=== PATIENT | female | born 1960 | race Caucasian/White ===

== ENCOUNTER → 2018-09-13 | Outpatient (CLI) | payer MEDICARE, OTHER ==
--- NOTE | 2018-09-13 15:30 | CT ---
EXAMINATION TYPE: CT abdomen w con DATE OF EXAM: 09/13/2018 COMPARISON: PET/CT 5-15 HISTORY: Upper abdominal pain and elevated lipase. CT DLP: 1479.8 mGycm Automated exposure control for dose reduction was used. TECHNIQUE: Helical acquisition of images was performed from the lung bases through the top of iliac crest to include entire abdomen. CONTRAST: Performed with Oral Contrast and with IV Contrast, patient injected with 100ml mL of Isovue 300. FINDINGS: LUNG BASES: No significant abnormality is appreciated. LIVER/GB: Previous cholecystectomy noted. Liver is low in attenuation correlate for hepatic steatosis . PANCREAS: No significant abnormality is seen. SPLEEN: No significant abnormality is seen. ADRENALS: Nonspecific bilateral adrenal nodule. Measuring 2.2 cm on the right. KIDNEYS: No significant abnormality is seen. Extrarenal pelvis on the right noted. BOWEL: No significant abnormality is seen. LYMPH NODES: No significant abnormality is seen. OSSEOUS STRUCTURES: hypertrophic and degenerative change of the spine. OTHER: Aorta of normal caliber. Mild atherosclerotic changes. IMPRESSION: 1. NO DIAGNOSTIC EVIDENCE OF PANCREATITIS. 2. NONSPECIFIC BILATERAL ADRENAL NODULE RETROSPECTIVELY STABLE FROM A PET SCAN OF 2014 AND THEREFORE BENIGN. 3. POSTCHOLECYSTECTOMY CHANGES.
== END | disposition home or self-care (01) ==
LOC: RADPROMAIN 13:57 → MERGE 13:57
PROVIDERS: ATTEND Family Medicine
DX: E27.9 Disorder of adrenal gland, unspecified (principal); R74.8 Abnormal levels of other serum enzymes; Z90.49 Acquired absence of other specified parts of digestive tract
CPT/HCPCS: 74160; J1642; Q9967

== ENCOUNTER 2022-05-09 12:30 | Inpatient (IN) | payer MEDICARE, OTHER ==
--- NOTE | 2022-05-09 13:14 | ED ---
General Adult HPI - General Chief complaint: Shortness of Breath Stated complaint: SOB Time Seen by Provider: 05/09/22 13:04 Source: patient, RN notes reviewed Mode of arrival: ambulatory Limitations: no limitations - History of Present Illness Initial comments: Patient is a pleasant 61-year-old female presenting to the emergency department with difficulty breathing. Onset of symptoms was around 10 days ago. Patient has occasional nonproductive cough. No fever. Patient has orthopnea and exertional dyspnea. No chest pain. No leg pain or leg swelling. No history of similar symptoms previously. - Related Data Allergies Allergy/AdvReac Type Severity Reaction Status Date / Time adhesive tape Allergy Itching Verified 05/09/22 12:44 Penicillins Allergy Unknown Verified 05/09/22 12:44 ALEXIS Inhibitors AdvReac Unknown Verified 05/09/22 12:44 morphine AdvReac Swelling Verified 05/09/22 12:44 Review of Systems ROS Statement: Those systems with pertinent positive or pertinent negative responses have been documented in the HPI. ROS Other: All systems not noted in ROS Statement are negative. Constitutional: Denies: fever Eyes: Denies: eye pain ENT: Denies: ear pain Respiratory: Reports: as per HPI, dyspnea Cardiovascular: Denies: chest pain, palpitations Endocrine: Denies: fatigue Gastrointestinal: Denies: abdominal pain Genitourinary: Denies: dysuria Musculoskeletal: Denies: back pain Skin: Denies: rash Neurological: Denies: weakness Past Medical History Past Medical History: Cancer, Diabetes Mellitus, Hypertension Additional Past Medical History / Comment(s): breast cancer History of Any Multi-Drug Resistant Organisms: None Reported Past Surgical History: Section, Cholecystectomy Additional Past Surgical History / Comment(s): left lumpectomy Past Psychological History: Anxiety Smoking Status: Never smoker Past Alcohol Use History: None Reported Past Drug Use History: None Reported General Exam Limitations: no limitations General appearance: alert, in no apparent distress Head exam: Present: normocephalic Eye exam: Present: normal appearance Neck exam: Present: normal inspection Respiratory exam: Present: normal lung sounds bilaterally, other (Mild increased respiratory effort) Cardiovascular Exam: Present: tachycardia GI/Abdominal exam: Present: soft. Absent: tenderness Extremities exam: Present: normal inspection. Absent: pedal edema, calf tenderness Neurological exam: Present: alert Psychiatric exam: Present: normal affect, normal mood Skin exam: Present: normal color Course Vital Signs 05/09/22 12:45 Temperature 98.6 F Pulse Rate 110 H Respiratory 18 Rate Blood Pressure 202/113 O2 Sat by Pulse 97 Oximetry EKG Findings - EKG Comments: EKG Findings:: Sinus tachycardia 107. FL 166. QRS 88. QT 325. QTC 388. Nor mal axis. Normal QRS. Nonspecific T waves. Medical Decision Making - Medical Decision Making Patient reevaluated and updated. Case was discussed Dr. Mendieta, who will admit covering Dr. Guzman. - Lab Data Result diagrams: 05/09/22 14:01 05/09/22 14:00 Lab Results 05/09/22 05/09/22 05/09/22 Range/Units 14:00 14:00 14:00 WBC (3.8-10.6) k/uL RBC (3.80-5.40) m/uL Hgb (11.4-16.0) gm/dL Hct (34.0-46.0) % MCV (80.0-100.0) fL MCH (25.0-35.0) pg MCHC (31.0-37.0) g/dL RDW (11.5-15.5) % Plt Count (150-450) k/uL MPV Neutrophils % % Lymphocytes % % Monocytes % % Eosinophils % % Basophils % % Neutrophils # (1.3-7.7) k/uL Lymphocytes # (1.0-4.8) k/uL Monocytes # (0-1.0) k/uL Eosinophils # (0-0.7) k/uL Basophils # (0-0.2) k/uL PT 10.7 (9.0-12.0) sec INR 1.0 (<1.2) APTT 22.0 (22.0-30.0) sec D-Dimer 0.60 H (<0.60) mg/L FEU Sodium 129 L (137-145) mmol/L Potassium 3.9 (3.5-5.1) mmol/L Chloride 94 L (98-107) mmol/L Carbon Dioxide 22 (22-30) mmol/L Anion Gap 13 mmol/L BUN 16 (7-17) mg/dL Creatinine 0.77 (0.52-1.04) mg/dL Est GFR (CKD-EPI)AfAm >90 (>60 ml/min/1.73 sqM) Est GFR (CKD-EPI)NonAf 82 (>60 ml/min/1.73 sqM) Glucose 156 H (74-99) mg/dL Plasma Lactic Acid Tyler 1.4 (0.7-2.0) mmol/L Calcium 9.3 (8.4-10.2) mg/dL Total Bilirubin 1.0 (0.2-1.3) mg/dL AST 21 (14-36) U/L ALT 14 (4-34) U/L Alkaline Phosphatase 72 (38-126) U/L NT-Pro-B Natriuret Pep pg/mL Total Protein 7.2 (6.3-8.2) g/dL Albumin 4.1 (3.5-5.0) g/dL Coronavirus (PCR) (Not Detectd) Influenza Type A RNA (Not Detectd) Influenza Type B (PCR) (Not Detectd) 05/09/22 05/09/22 05/09/22 Range/Units 14:00 14:00 14:00 WBC (3.8-10.6) k/uL RBC (3.80-5.40) m/uL Hgb (11.4-16.0) gm/dL Hct (34.0-46.0) % MCV (80.0-100.0) fL MCH (25.0-35.0) pg MCHC (31.0-37.0) g/dL RDW (11.5-15.5) % Plt Count (150-450) k/uL MPV Neutrophils % % Lymphocytes % % Monocytes % % Eosinophils % % Basophils % % Neutrophils # (1.3-7.7) k/uL Lymphocytes # (1.0-4.8) k/uL Monocytes # (0-1.0) k/uL Eosinophils # (0-0.7) k/uL Basophils # (0-0.2) k/uL PT (9.0-12.0) sec INR (<1.2) APTT (22.0-30.0) sec D-Dimer (<0.60) mg/L FEU Sodium (137-145) mmol/L Potassium (3.5-5.1) mmol/L Chloride (98-107) mmol/L Carbon Dioxide (22-30) mmol/L Anion Gap mmol/L BUN (7-17) mg/dL Creatinine (0.52-1.04) mg/dL Est GFR (CKD-EPI)AfAm (>60 ml/min/1.73 sqM) Est GFR (CKD-EPI)NonAf (>60 ml/min/1.73 sqM) Glucose (74-99) mg/dL Plasma Lactic Acid Tyler (0.7-2.0) mmol/L Calcium (8.4-10.2) mg/dL Total Bilirubin (0.2-1.3) mg/dL AST (14-36) U/L ALT (4-34) U/L Alkaline Phosphatase (38-126) U/L NT-Pro-B Natriuret Pep 84700 pg/mL Total Protein (6.3-8.2) g/dL Albumin (3.5-5.0) g/dL Coronavirus (PCR) Not Detected (Not Detectd) Influenza Type A RNA Not Detected (Not Detectd) Influenza Type B (PCR) Not Detected (Not Detectd) 05/09/22 Range/Units 14:01 WBC 12.3 H (3.8-10.6) k/uL RBC 4.20 (3.80-5.40) m/uL Hgb 12.8 (11.4-16.0) gm/dL Hct 38.2 (34.0-46.0) % MCV 90.8 (80.0-100.0) fL MCH 30.4 (25.0-35.0) pg MCHC 33.4 (31.0-37.0) g/dL RDW 12.2 (11.5-15.5) % Plt Count 323 (150-450) k/uL MPV 6.9 Neutrophils % 78 % Lymphocytes % 15 % Monocytes % 6 % Eosinophils % 1 % Basophils % 0 % Neutrophils # 9.6 H (1.3-7.7) k/uL Lymphocytes # 1.9 (1.0-4.8) k/uL Monocytes # 0.7 (0-1.0) k/uL Eosinophils # 0.1 (0-0.7) k/uL Basophils # 0.1 (0-0.2) k/uL PT (9.0-12.0) sec INR (<1.2) APTT (22.0-30.0) sec D-Dimer (<0.60) mg/L FEU Sodium (137-145) mmol/L Potassium (3.5-5.1) mmol/L Chloride (98-107) mmol/L Carbon Dioxide (22-30) mmol/L Anion Gap mmol/L BUN (7-17) mg/dL Creatinine (0.52-1.04) mg/dL Est GFR (CKD-EPI)AfAm (>60 ml/min/1.73 sqM) Est GFR (CKD-EPI)NonAf (>60 ml/min/1.73 sqM) Glucose (74-99) mg/dL Plasma Lactic Acid Tyler (0.7-2.0) mmol/L Calcium (8.4-10.2) mg/dL Total Bilirubin (0.2-1.3) mg/dL AST (14-36) U/L ALT (4-34) U/L Alkaline Phosphatase (38-126) U/L NT-Pro-B Natriuret Pep pg/mL Total Protein (6.3-8.2) g/dL Albumin (3.5-5.0) g/dL Coronavirus (PCR) (Not Detectd) Influenza Type A RNA (Not Detectd) Influenza Type B (PCR) (Not Detectd) - Radiology Data Radiology results: image reviewed (Chest x-ray shows cardiomegaly and edema, correlate for CHF) Disposition Clinical Impression: Congestive heart failure, Hypertension Disposition: ADMITTED IP TO THIS [facility] Condition: Serious Is patient prescribed a controlled substance at d/c from ED?: No Referrals: Jeniffer Figueroa MD [Primary Care Provider] - 1-2 days Time of Disposition: 14:59
--- NOTE | 2022-05-09 13:21 | XR ---
EXAMINATION TYPE: XR chest 2V DATE OF EXAM: 05/09/2022 COMPARISON: None HISTORY: 61-year-old female shortness of breath and chest pain TECHNIQUE: PA and lateral views FINDINGS: Right anterior chest wall injection port. Catheter tip at the mid SVC level. Heart mildly enlarged. D iffuse interstitial opacities. There are small effusions. Surgical clips left axilla. Cholecystectomy clips. IMPRESSION: Mild cardiomegaly. Correlate for CHF with mild interstitial pulmonary edema. Small effusions with adj acent atelectasis and/or consolidation.
[2022-05-09] MEDS ORDERED: FUROSEMIDE 10 MG/ML 4 ML VIAL IV STA (13:39)
[2022-05-09] MEDS ORDERED: NITROGLYCERIN OINT 1 INCH/GM PACKET TOPICAL STA (13:39)
[2022-05-09 14:20] LABS: Basophils # (A) 0.1 k/uL (0-0.2); Basophils % (A) 0 %; Eosinophils # (A) 0.1 k/uL (0-0.7); Eosinophils % (A) 1 %; HCT 38.2 % (34.0-46.0); HGB 12.8 gm/dL (11.4-16.0); Lymphocytes # (A) 1.9 k/uL (1.0-4.8); Lymphocytes % (A) 15 %; MCH 30.4 pg (25.0-35.0); MCHC 33.4 g/dL (31.0-37.0); MCV 90.8 fL (80.0-100.0); Mean Platelet Volume 6.9; Monocytes # (A) 0.7 k/uL (0-1.0); Monocytes % (A) 6 %; Neutrophils # (A) 9.6 k/uL (1.3-7.7); Neutrophils % (A) 78 %; Platelet Count 323 k/uL (150-450); RDW 12.2 % (11.5-15.5); WBC 12.3 k/uL (3.8-10.6)
[2022-05-09 14:36] LABS: ALT 14 U/L (4-34); AST 21 U/L (14-36); African American GFR (CKD) >90 (>60 ml/min/1.73 sqM); Albumin 4.1 g/dL (3.5-5.0); Alkaline Phosphatase 72 U/L (38-126); Anion Gap 13 mmol/L; Blood Urea Nitrogen 16 mg/dL (7-17); Calcium 9.3 mg/dL (8.4-10.2); Carbon Dioxide 22 mmol/L (22-30); Chloride 94 mmol/L (98-107); Glucose 156 mg/dL (74-99); Non-African American GFR(CKD) 82 (>60 ml/min/1.73 sqM); Potassium 3.9 mmol/L (3.5-5.1); Sodium 129 mmol/L (137-145); Total Protein 7.2 g/dL (6.3-8.2)
[2022-05-09 14:37] LABS: Prothrombin Time 10.7 sec (9.0-12.0)
[2022-05-09] MEDS ORDERED: ASPIRIN 325 MG TAB PO STA (14:59)
[2022-05-09 17:08] LABS: Glucose,Whole Blood 145 mg/dL (70-110)
[2022-05-09] MEDS: FUROSEMIDE 10 MG/ML 4 ML VIAL IV SCH (19:04)
[2022-05-09] MEDS: NITROGLYCERIN OINT 1 INCH/GM PACKET TOPICAL SCH ×2 (19:04→20:58)
[2022-05-09] MEDS ORDERED: DEXTROSE 50% SYRINGE 50 ML IVP PRN ×2 (19:43)
[2022-05-09] MEDS ORDERED: ALBUTEROL NEBULIZED 2.5 MG/3 ML INHALATION PRN (19:43)
[2022-05-09 20:06] LABS: Glucose,Whole Blood 195 mg/dL (70-110)
[2022-05-09] MEDS: INSULIN DETEMIR (LEVEMIR) 100 UNIT/ML SYR SQ SCH (20:55)
[2022-05-09] MEDS: metFORMIN 500 MG TAB PO SCH (20:58)
[2022-05-09] MEDS: INSULIN ASPART (NovoLOG) 100 UNIT/ML VIAL SQ SCH (20:58)
[2022-05-10] MEDS: FUROSEMIDE 10 MG/ML 4 ML VIAL IV SCH ×3 (05:38→17:43)
[2022-05-10] MEDS: metFORMIN 500 MG TAB PO SCH ×2 (05:42→17:42)
--- NOTE | 2022-05-10 06:02 | P.CRDCN ---
History of Present Illness Consult date: 05/10/22 Chief complaint: Shortness of breath History of present illness: This is a 61-year-old female patient with a past medical history significant for diabetes and hypertension and history of breast cancer presented to the emergency department complaining of shortness of breath. For the last 10 days she has been experiencing progressive exertional dyspnea with no orthopnea or PND. No cough or sputum production. No fever or chills. No lower extremities edema noted. No symptoms of chest pain or chest discomfort. Initially she went into an urgent care and she was prescribed medication with no improvement but the shortness of breath get worse and she did not feed well and for that reason she presented to the emergency department. She was diagnosed with heart failure. She started on Lasix IV. Also she underwent a workup including EKG showing sinus rhythm with sinus tachycardia at the beginning. The chest x-ray showed findings consistent with bilateral pleural effusion and pulmonary vascular congestions. NT proBNP came in to be elevated at 11,000. The troponin came in to be slightly elevated. The patient as a mentioned didn't have any symptoms of chest pain or chest discomfort Beside that the patient's blood pressure was extremely elevated with a systolic blood pressure above 180 mmHg. The patient was started on Lasix IV and she was seen and evaluated this morning. She is feeling better. On examination she still have bilateral rhonchi but no lower extremities edema noted. Beside that she does have significant systolic murmur was heard the right upper sternal border as well as at the apical area. we will obtain an echo for further clarification. Also her pressure has improved compared to yesterday but continues to be consistent with a stage II hypertension. Without being seen and for her being diabetic going to add losartan to the current medical regimen. Continue IV Lasix for additional 24 hours. Adjust blood pressure medications. Follow-up with the patient Past Medical History Past Medical History: Cancer, Diabetes Mellitus, Hypertension Additional Past Medical History / Comment(s): breast cancer History of Any Multi-Drug Resistant Organisms: None Reported Past Surgical History: Section, Cholecystectomy Additional Past Surgical History / Comment(s): left lumpectomy x 2. right mediport insertion Past Anesthesia/Blood Transfusion Reactions: No Reported Reaction Past Psychological History: Anxiety Smoking Status: Never smoker Past Alcohol Use History: None Reported Past Drug Use History: None Reported - Past Family History Father Additional Family Medical History / Comment(s): No health hx 91 from pneumonia Mother Additional Family Medical History / Comment(s): No health hx after fall age 96 Medications and Allergies Home Medications Medication Instructions Recorded Confirmed Type Albuterol Nebulized [Ventolin 2.5 mg INHALATION RT-Q4H PRN 05/09/22 05/09/22 History Nebulized] Cholecalciferol [Vitamin D3 (25 25 mcg PO DAILY 05/09/22 05/09/22 History Mcg = 1000 Iu)] DULoxetine HCL [Cymbalta] 60 mg PO DAILY 05/09/22 05/09/22 History Diphenoxylate HCl/Atropine 1 tab PO QID PRN 05/09/22 05/09/22 History [Lomotil 2.5-0.025 mg Tablet] Insulin Glargine,Hum.rec.anlog 18 units SQ HS 05/09/22 05/09/22 History [Lantus Solostar Pen] Letrozole [Femara] 2.5 mg PO DAILY 05/09/22 05/09/22 History Milk Thistle 150 mg PO DAILY 05/09/22 05/09/22 History Ondansetron Odt [Zofran Odt] 4 mg PO TID PRN 05/09/22 05/09/22 History Vitamin E (Dl,Tocopheryl Acet) 1,000 unit PO DAILY 05/09/22 05/09/22 History [Vitamin E (1000 Iu = 450 MG)] hydroCHLOROthiazide 25 mg PO HS 05/09/22 05/09/22 History metFORMIN HCL 1,000 mg PO BID 05/09/22 05/09/22 History methylPREDNISolone [Medrol Dose See Taper PO DIRECTED 05/09/22 05/09/22 History Pack] sitaGLIPtin [Januvia] 50 mg PO DAILY 05/09/22 05/09/22 History Allergies Allergy/AdvReac Type Severity Reaction Status Date / Time adhesive tape Allergy Itching Verified 05/09/22 15:29 Penicillins Allergy Rash/Hives Verified 05/09/22 15:29 ALEXIS Inhibitors AdvReac Cough Verified 05/09/22 15:29 morphine AdvReac Swelling & Verified 05/09/22 15:29 hives Physical Exam Vitals: Vital Signs Temp Pulse Pulse Resp BP BP Pulse Ox 05/10/22 04:00 97.0 F L 89 18 145/72 98 05/10/22 02:00 88 17 05/09/22 23:45 98.1 F 88 17 162/73 94 L 05/09/22 19:47 97.8 F 95 17 183/86 97 05/09/22 16:00 98.3 F 98 18 173/85 96 05/09/22 15:51 101 H 17 167/103 97 05/09/22 15:30 105 H 23 177/99 95 05/09/22 15:00 103 H 16 198/112 95 05/09/22 14:37 108 H 23 198/112 94 L 05/09/22 12:45 98.6 F 110 H 18 202/113 97 Intake and Output 05/09/22 05/09/22 05/10/22 14:59 22:59 06:59 Intake Total 120 Output Total 800 1400 Balance -680 -1400 Intake: Oral 120 Output: Urine 800 1400 Other: Voiding Method Toilet Toilet Weight 78.018 kg 78.018 kg 84.4 kg - Constitutional General appearance: no acute distress - Respiratory Respiratory: bilateral: diminished, rales - Cardiovascular Rhythm: regular Abnormal Heart Sounds: systolic murmur Results 05/09/22 14:01 05/09/22 14:00 Cardiac Enzymes 05/09/22 05/09/22 05/09/22 Range/Units 14:00 14:00 18:10 AST 21 (14-36) U/L Troponin I 0.038 H* 0.048 H* (0.000-0.034) ng/mL 05/09/22 Range/Units 20:49 AST (14-36) U/L Troponin I 0.050 H* (0.000-0.034) ng/mL Coagulation 05/09/22 Range/Units 14:00 PT 10.7 (9.0-12.0) sec APTT 22.0 (22.0-30.0) sec CBC 05/09/22 Range/Units 14:01 WBC 12.3 H (3.8-10.6) k/uL RBC 4.20 (3.80-5.40) m/uL Hgb 12.8 (11.4-16.0) gm/dL Hct 38.2 (34.0-46.0) % Plt Count 323 (150-450) k/uL Comprehensive Metabolic Panel 05/09/22 Range/Units 14:00 Sodium 129 L (137-145) mmol/L Potassium 3.9 (3.5-5.1) mmol/L Chloride 94 L (98-107) mmol/L Carbon Dioxide 22 (22-30) mmol/L BUN 16 (7-17) mg/dL Creatinine 0.77 (0.52-1.04) mg/dL Glucose 156 H (74-99) mg/dL Calcium 9.3 (8.4-10.2) mg/dL AST 21 (14-36) U/L ALT 14 (4-34) U/L Alkaline Phosphatase 72 (38-126) U/L Total Protein 7.2 (6.3-8.2) g/dL Albumin 4.1 (3.5-5.0) g/dL Current Medications Generic Name Dose Route Start Last Admin Trade Name Freq PRN Reason Stop Dose Admin Albuterol Sulfate 2.5 mg 05/09/22 19:43 Albuterol Nebulized 2.5 Mg/3 Ml INHALATION RT-Q4H PRN Shortness Of Breath Aspirin 325 mg 05/10/22 09:00 Aspirin 325 Mg Tab PO DAILY LEATHA Cholecalciferol 25 mcg 05/10/22 09:00 Cholecalciferol 25 Mcg (1000 Iu) Tablet PO DAILY LEATHA Dextrose/Water 25 ml 05/09/22 19:43 Dextrose 50% Syringe 50 Ml IVP PER PROTOCOL PRN Hypoglycemia Protocol Dextrose/Water 50 ml 05/09/22 19:43 Dextrose 50% Syringe 50 Ml IVP PER PROTOCOL PRN Hypoglycemia Protocol Duloxetine HCl 60 mg 05/10/22 09:00 Duloxetine Hcl 60 Mg Capsule.Dr PO DAILY LEATHA Furosemide 40 mg 05/09/22 19:00 05/10/22 05:38 Furosemide 10 Mg/Ml 4 Ml Vial IV 40 mg Q8H LEATHA Administration Insulin Aspart 0 unit 05/09/22 19:45 05/09/22 20:58 Insulin Aspart (Novolog) 100 Unit/Ml Vial SQ 2 unit AC-TID LEATHA Administration Protocol Insulin Detemir 18 unit 05/09/22 21:00 05/09/22 20:55 Insulin Detemir (Levemir) 100 Unit/Ml Syr SQ 18 unit HS LEATHA Administration Letrozole 2.5 mg 05/10/22 09:00 Letrozole 2.5 Mg Tab PO DAILY [facility] Linagliptin 5 mg 05/10/22 09:00 Linagliptin 5 Mg Tablet PO DAILY [facility] Metformin HCl 1,000 mg 05/09/22 21:00 05/10/22 05:42 Metformin 500 Mg Tab PO Not Given BID-W/MEALS LEATHA Nitroglycerin 1 inch 05/09/22 18:00 05/09/22 20:58 Nitroglycerin Oint 1 Inch/Gm Packet TOPICAL 1 inch QID LEATHA Administration Sodium Chloride 10 ml 05/09/22 21:00 05/09/22 20:58 Sodium Chloride 0.9% Flush 10 Ml Syringe IV 10 ml BID LEATHA Administration Intake and Output 05/09/22 05/09/22 05/10/22 14:59 22:59 06:59 Intake Total 120 Output Total 800 1400 Balance -680 -1400 Intake: Oral 120 Output: Urine 800 1400 Other: Voiding Method Toilet Toilet Weight 78.018 kg 78.018 kg 84.4 kg Patient Weight 05/10/22 06:59 Weight 84.4 kg 05/09/22 14:01 05/09/22 14:00 Assessment and Plan Assessment: Assessment #1 hypertension emergency #2 heart failure likely to be triggered by hypertension emergency #3 significant systolic murmur on examination #4 diabetes #5 history of breast cancer #6 evidence of myocardial injury was no evidence of ischemia by EKG or clinically. Plan #1 continue the Lasix for additional 24 hours #2 continue monitor the kidney function and electrolytes #3 add losartan to the current medical regimen #4 obtain an echo for further clarification of the etiology of the murmur and also to assess ejection fraction and for any evidence of ischemia in terms of wall motion #5 continue adjusting the blood pressure medications #6 follow-up with the patient
[2022-05-10 06:32] LABS: Glucose,Whole Blood 106 mg/dL (70-110)
[2022-05-10] MEDS: INSULIN ASPART (NovoLOG) 100 UNIT/ML VIAL SQ SCH ×3 (06:48→17:24)
[2022-05-10] MEDS: LINAGLIPTIN 5 MG TABLET PO SCH (09:09)
[2022-05-10] MEDS: ASPIRIN 325 MG TAB PO SCH (09:09)
[2022-05-10] MEDS: LETROZOLE 2.5 MG TAB PO SCH (09:09)
[2022-05-10] MEDS: LOSARTAN 25 MG TAB PO SCH (09:09)
[2022-05-10] MEDS: CHOLECALCIFEROL 25 MCG (1000 IU) TABLET PO SCH (09:09)
[2022-05-10] MEDS: DULoxetine HCL 60 MG CAPSULE.DR PO SCH (09:09)
[2022-05-10] MEDS: NITROGLYCERIN OINT 1 INCH/GM PACKET TOPICAL SCH ×4 (09:10→22:47)
[2022-05-10 11:58] LABS: Glucose,Whole Blood 126 mg/dL (70-110)
--- NOTE | 2022-05-10 14:23 | P.HPIM ---
History of Present Illness H&P Date: 05/10/22 Chief Complaint: Short of breath This is a pleasant 60-year-old patient of Dr. Eva Figueroa. Chronic stable medical conditions include diabetes, hypertension, anxiety, history of breast cancer. Patient presents for about 10 days of increasing shortness of breath. No edema. No fever and chills. Some dry cough. Patient found to be in CHF. Started on IV Lasix. No chest pain. Blood pressure had been running on the higher side. Review of systems: GEN.: Tired EYES: None HEENT: None NECK: None RESPIRATORY: As above CARDIOVASCULAR: As above GASTROINTESTINAL: None GENITOURINARY: None MUSCULOSKELETAL: Some joint pains LYMPHATICS: None HEMATOLOGICAL: None PSYCHIATRY: None NEUROLOGICAL: None Past medical history to include: Diabetes, hypertension, breast cancer, anxiety Social history: Nonsmoker. No alcohol. Lives with's Art Physical examination: VITAL SIGNS: 98.6, 110, 18, 202/113, 97% room air upon presentation GENERAL: BMI 36.3, sitting or chair awake not in distress. EYES: Pupils equal. Conjunctiva normal. HEENT: External appearance of nose and ears normal, oral cavity grossly normal. NECK: JVD not raised; masses not palpable. HEART: First and second heart sounds are normal; no edema. LUNGS: Respiratory rate normal; decreased breath sounds. ABDOMEN: Soft, nontender, liver spleen not palpable, no masses palpable. PSYCH: Alert and oriented x3; mood and affect normal. MUSCULOSKELETAL:No Clubbing/cyanosis;muscles-grossly intact NEUROLOGICAL: Cranial nerves grossly intact; no facial asymmetry, power and sensation grossly intact. LYMPHATICS: No lymph nodes palpable in the axilla and neck INVESTIGATIONS, reviewed in the clinical context: WBC 12.3 hemoglobin 12.8 platelets 323 sodium 129 potassium 3.9 creatinine 0.77 Troponin I 0.038, 0.048, 0.050 ProBNP 85628 COVID 19/influenza type A/diabetes: Not detected EKG tracing personally reviewed by me-sinus tachycardia. Nonspecific T-wave changes. Chest x-ray film personally reviewed by me-cardiology. Pulmonary edema Assessment and plan: -Acute congestive heart failure precipitated from accelerated hypertension. IV Lasix 40 mg every 8. 2-D echo. Telemetry. Cardiology consulted -Malignant hypertension causing acute CHF Cozaar 25 mg daily Nitropaste. IV Lasix. -Diabetes mellitus type 2 chronically on insulin Levemir, Glucophage. Follow Accu-Cheks with sliding skill insulin. Januvia -Troponin leak from CHF. Not ACS 2-D echocardiogram -Hyponatremia from fluid overload from CHF IV Lasix -Anxiety depression otherwise specified Cymbalta -History of breast cancer: On Femara IV Lasix. Telemetry. 2-D echocardiogram. Follow Accu-Cheks. Resume home med ications. Cardiology consulted. Discussed with patient. Follow blood pressure closely. Past Medical History Past Medical History: Cancer, Diabetes Mellitus, Hypertension Additional Past Medical History / Comment(s): breast cancer History of Any Multi-Drug Resistant Organisms: None Reported Past Surgical History: Section, Cholecystectomy Additional Past Surgical History / Comment(s): left lumpectomy x 2. right mediport insertion Past Anesthesia/Blood Transfusion Reactions: No Reported Reaction Past Psychological History: Anxiety Smoking Status: Never smoker Past Alcohol Use History: None Reported Past Drug Use History: None Reported - Past Family History Father Additional Family Medical History / Comment(s): No health hx 91 from pneumonia Mother Additional Family Medical History / Comment(s): No health hx after fall age 96 Medications and Allergies Home Medications Medication Instructions Recorded Confirmed Type Albuterol Nebulized [Ventolin 2.5 mg INHALATION RT-Q4H PRN 05/09/22 05/09/22 History Nebulized] Cholecalciferol [Vitamin D3 (25 25 mcg PO DAILY 05/09/22 05/09/22 History Mcg = 1000 Iu)] DULoxetine HCL [Cymbalta] 60 mg PO DAILY 05/09/22 05/09/22 History Diphenoxylate HCl/Atropine 1 tab PO QID PRN 05/09/22 05/09/22 History [Lomotil 2.5-0.025 mg Tablet] Insulin Glargine,Hum.rec.anlog 18 units SQ HS 05/09/22 05/09/22 History [Lantus Solostar Pen] Letrozole [Femara] 2.5 mg PO DAILY 05/09/22 05/09/22 History Milk Thistle 150 mg PO DAILY 05/09/22 05/09/22 History Ondansetron Odt [Zofran Odt] 4 mg PO TID PRN 05/09/22 05/09/22 History Vitamin E (Dl,Tocopheryl Acet) 1,000 unit PO DAILY 05/09/22 05/09/22 History [Vitamin E (1000 Iu = 450 MG)] hydroCHLOROthiazide 25 mg PO HS 05/09/22 05/09/22 History metFORMIN HCL 1,000 mg PO BID 05/09/22 05/09/22 History methylPREDNISolone [Medrol Dose See Taper PO DIRECTED 05/09/22 05/09/22 History Pack] sitaGLIPtin [Januvia] 50 mg PO DAILY 05/09/22 05/09/22 History Allergies Allergy/AdvReac Type Severity Reaction Status Date / Time adhesive tape Allergy Itching Verified 05/09/22 15:29 Penicillins Allergy Rash/Hives Verified 05/09/22 15:29 ALEXIS Inhibitors AdvReac Cough Verified 05/09/22 15:29 morphine AdvReac Swelling & Verified 05/09/22 15:29 hives Physical Exam Vitals: Vital Signs Temp Pulse Pulse Resp BP BP Pulse Ox 05/10/22 08:00 98.0 F 90 18 177/90 99 05/10/22 04:00 97.0 F L 89 18 145/72 98 05/10/22 02:00 88 17 05/09/22 23:45 98.1 F 88 17 162/73 94 L 05/09/22 19:47 97.8 F 95 17 183/86 97 05/09/22 16:00 98.3 F 98 18 173/85 96 05/09/22 15:51 101 H 17 167/103 97 05/09/22 15:30 105 H 23 177/99 95 05/09/22 15:00 103 H 16 198/112 95 05/09/22 14:37 108 H 23 198/112 94 L 05/09/22 12:45 98.6 F 110 H 18 202/113 97 Intake and Output 05/09/22 05/10/22 05/10/22 22:59 06:59 14:59 Intake Total 120 118 Output Total 800 1400 Balance -680 -1400 118 Intake: Oral 120 118 Output: Urine 800 1400 Other: Voiding Method Toilet Toilet Toilet Weight 78.018 kg 84.4 kg Results CBC & Chem 7: 05/09/22 14:01 05/09/22 14:00 Labs: Abnormal Lab Results - Last 24 Hours (Table) 05/09/22 05/09/22 05/09/22 Range/Units 14:00 14:00 14:00 WBC (3.8-10.6) k/uL Neutrophils # (1.3-7.7) k/uL D-Dimer 0.60 H (<0.60) mg/L FEU Sodium 129 L (137-145) mmol/L Chloride 94 L (98-107) mmol/L Glucose 156 H (74-99) mg/dL POC Glucose (mg/dL) (70-110) mg/dL Hemoglobin A1c (0.0-6.0) % Troponin I 0.038 H* (0.000-0.034) ng/mL 05/09/22 05/09/22 05/09/22 Range/Units 14:01 17:06 18:10 WBC 12.3 H (3.8-10.6) k/uL Neutrophils # 9.6 H (1.3-7.7) k/uL D-Dimer (<0.60) mg/L FEU Sodium (137-145) mmol/L Chloride (98-107) mmol/L Glucose (74-99) mg/dL POC Glucose (mg/dL) 145 H (70-110) mg/dL Hemoglobin A1c (0.0-6.0) % Troponin I 0.048 H* (0.000-0.034) ng/mL 05/09/22 05/09/22 05/09/22 Range/Units 20:04 20:49 20:49 WBC (3.8-10.6) k/uL Neutrophils # (1.3-7.7) k/uL D-Dimer (<0.60) mg/L FEU Sodium (137-145) mmol/L Chloride (98-107) mmol/L Glucose (74-99) mg/dL POC Glucose (mg/dL) 195 H (70-110) mg/dL Hemoglobin A1c 6.1 H (0.0-6.0) % Troponin I 0.050 H* (0.000-0.034) ng/mL Thrombosis Risk Factor Assmnt - Choose All That Apply Each Factor Represents 1 point: Obesity (BMI >25) Other Risk Factors: Yes Each Risk Factor Represents 2 Points: Age 61-74 years Other congenital or acquired thrombophilia - If yes, enter type in comment: No Thrombosis Risk Factor Assessment Total Risk Factor Score: 3 Thrombosis Risk Factor Assessment Level: Moderate Risk
[2022-05-10 16:51] LABS: Glucose,Whole Blood 137 mg/dL (70-110)
[2022-05-10 20:22] LABS: Glucose,Whole Blood 112 mg/dL (70-110)
[2022-05-10] MEDS: INSULIN DETEMIR (LEVEMIR) 100 UNIT/ML SYR SQ SCH (20:27)
[2022-05-11] MEDS: FUROSEMIDE 10 MG/ML 4 ML VIAL IV SCH ×2 (04:52→09:13)
[2022-05-11 06:24] LABS: Glucose,Whole Blood 100 mg/dL (70-110)
[2022-05-11] MEDS: INSULIN ASPART (NovoLOG) 100 UNIT/ML VIAL SQ SCH ×3 (06:26→17:17)
[2022-05-11] MEDS: metFORMIN 500 MG TAB PO SCH ×2 (06:26→17:20)
[2022-05-11] MEDS: LETROZOLE 2.5 MG TAB PO SCH (09:00)
[2022-05-11] MEDS: ASPIRIN 325 MG TAB PO SCH (09:13)
[2022-05-11] MEDS: DULoxetine HCL 60 MG CAPSULE.DR PO SCH (09:14)
[2022-05-11] MEDS: LINAGLIPTIN 5 MG TABLET PO SCH (09:14)
[2022-05-11] MEDS: LOSARTAN 25 MG TAB PO SCH (09:14)
[2022-05-11] MEDS: CHOLECALCIFEROL 25 MCG (1000 IU) TABLET PO SCH (09:14)
[2022-05-11] MEDS: NITROGLYCERIN OINT 1 INCH/GM PACKET TOPICAL SCH (09:15)
[2022-05-11 10:40] LABS: Calcium 9.1 mg/dL (8.4-10.2)
[2022-05-11 10:52] LABS: Potassium 3.8 mmol/L (3.5-5.1)
[2022-05-11 11:36] LABS: Glucose,Whole Blood 190 mg/dL (70-110)
--- NOTE | 2022-05-11 11:43 | CA ---
Transthoracic Echo Report Name: Mary Mata Age: 61 Gender: F : 1960 Exam Date: 05/11/2022 08:48 Exam Location: [facility] Ht (in): 50 Wt (lb): 177 Ordering Physician: Satish Jean Baptiste MD ([id number]) Attending/Referring Phys: Kick Plate Installer Mary Vivas RDCS Procedure CPT: Indications: chf Cardiac Hx: Technical Quality: Good Contrast 1: Total Dose (mL): Contrast 2: Total Dose (mL): MEASUREMENTS (Male / Female) Normal Values 2D ECHO LV Diastolic Diameter PLAX 4.4 cm 4.2 - 5.9 / 3.9 - 5.3 cm LV Systolic Diameter PLAX 4.1 cm IVS Diastolic Thickness 1.3 cm 0.6 - 1.0 / 0.6 - 0.9 cm LVPW Diastolic Thickness 1.4 cm 0.6 - 1.0 / 0.6 - 0.9 cm LV Relative Wall Thickness 0.6 RV Internal Dim ED PLAX 3.2 cm LA Systolic Diameter LX 4.4 cm 3.0 - 4.0 / 2.7 - 3.8 cm LA Volume 81.3 cm??? 18 - 58 / 22 - 52 cm??? M-MODE Aortic Root Diameter MM 2.8 cm LA Systolic Diameter MM 4.5 cm LA Ao Ratio MM 1.6 MV E Point Septal Separation 1.0 cm AV Cusp Separation MM 1.1 cm DOPPLER AV Peak Velocity 358.8 cm/s AV Peak Gradient 51.5 mmHg AV Mean Velocity 260.5 cm/s AV Mean Gradient 29.7 mmHg AV Velocity Time Integral 68.4 cm AI Peak Velocity 420.4 cm/s AI Peak Gradient 70.7 mmHg AI Pressure Half Time 233.3 ms LVOT Peak Velocity 137.0 cm/s LVOT Peak Gradient 7.5 mmHg LVOT Velocity Time Integral 28.0 cm MV Area PHT 3.7 cm??? Mitral E Point Velocity 75.3 cm/s Mitral A Point Velocity 95.2 cm/s Mitral E to A Ratio 0.8 MV Deceleration Time 206.9 ms MV E' Velocity 2.5 cm/s Mitral E to MV E' Ratio 29.6 FINDINGS Left Ventricle Left ventricular ejection fraction is estimated at 50-55 %. Mildly increased left ventricular wall thickness. Right Ventricle Normal right ventricular size and function. Right Atrium Normal right atrial size. Left Atrium Moderately increased left atrial diameter. Severely increased left atrial volume. Mitral Valve Mitral valve thickened. Moderate mitral regurgitation. Aortic Valve Moderate aortic stenosis with a peak gradient of 53mmHg and a mean gradient of 30 mmHg. Mild aortic regurgitation. Tricuspid Valve Structurally normal tricuspid valve. Pulmonic Valve Structurally normal pulmonic valve. Pericardium Normal pericardium. Aorta Normal size aortic root and proximal ascending aorta. CONCLUSIONS Normal LV systolic function Moderate aortic stenosis with a peak gradient of 53 mm and a mean gradient of 30 mm Consider transesophageal echo if clinically indicated Previewed by: Dr. Bruno Anderson MD (Electronically Signed) Final Date: 11 May 2022 11:43
[2022-05-11] MEDS: ATORVASTATIN 40 MG TAB PO SCH (12:41)
[2022-05-11] MEDS: METOPROLOL TARTRATE 25 MG TAB PO SCH ×2 (12:41→21:11)
--- NOTE | 2022-05-11 13:33 | P.PN ---
Subjective Progress Note Date: 05/11/22 HISTORY OF PRESENT ILLNESS: This is a 61-year-old female patient with a past medical history significant for diabetes and hypertension and history of breast cancer presented to the emergency department complaining of shortness of breath. For the last 10 days she has been experiencing progressive exertional dyspnea with no orthopnea or PND. No cough or sputum production. No fever or chills. No lower extremities edema noted. No symptoms of chest pain or chest discomfort. Initially she went into an urgent care and she was prescribed medication with no improvement but the shortness of breath get worse and she did not feed well and for that reason she presented to the emergency department. She was diagnosed with heart failure. She started on Lasix IV. Also she underwent a workup including EKG showing sinus rhythm with sinus tachycardia at the beginning. The chest x-ray showed findings consistent with bilateral pleural effusion and pulmonary vascular congestions. NT proBNP came in to be elevated at 11,000. The troponin came in to be slightly elevated. The patient as a mentioned didn't have any symptoms of chest pain or chest discomfort Beside that the patient's blood pressure was extremely elevated with a systolic blood pressure above 180 mmHg. The patient was started on Lasix IV and she was seen and evaluated this morning. She is feeling better. On examination she still have bilateral rhonchi but no lower extremities edema noted. Beside that she does have significant systolic murmur was heard the right upper sternal border as well as at the apical area. we will obtain an echo for further clarification. Also her pressure has improved compared to yesterday but continues to be consistent with a stage II hypertension. Without being seen and for her being diabetic going to add losartan to the current medical regimen. Continue IV Lasix for additional 24 hours. Adjust blood pressure medications. Follow-up with the patient 05/11/2022 Patient examined this morning at the bedside. Patient denies chest pain or pressure. She denies shortness of breath. She remains on IV Lasix. Echocardiogram completed revealing ejection fraction 50-55% with moderate aortic stenosis. PHYSICAL EXAM: VITAL SIGNS: Reviewed. GENERAL: Well-developed in no acute distress. NECK: Supple. No JVD or thyromegaly LUNGS: Respirations even and unlabored. Lungs essentially clear to auscultation bilaterally. HEART: Regular rate and rhythm. S1 and S2 heard. + Systolic murmur. EXTREMITIES: Normal range of motion. No clubbing or cyanosis. Peripheral pulses intact. No lower extremity edema ASSESSMENT: Hypertensive emergency Acute heart failure with preserved ejection fraction History of breast cancer Diabetes Abnormal troponins, acute coronary syndrome ruled out Moderate aortic stenosis PLAN: Continue current cardiac medications Discontinue IV Lasix. Begin oral Lasix 40 mg daily Add atorvastatin 40 mg daily Add metoprolol succinate 25 mg twice a day Increase atorvastatin to 50 mg daily Further recommendations pending patient's course Nurse practitioner note has been reviewed by physician. Signing provider agrees with the documented findings, assessment, and plan of care. Objective - Vital Signs Vital signs: Vital Signs Temp 97.9 F 05/11/22 12:00 Pulse 96 05/11/22 13:08 Resp 14 05/11/22 13:08 BP 153/80 05/11/22 12:00 Pulse Ox 100 05/11/22 12:00 FiO2 Intake & Output 05/10/22 05/11/22 05/11/22 18:59 06:59 18:59 Intake Total 358 222 568 Output Total 1350 1000 Balance -992 -778 568 Weight 80.6 kg Intake: Oral 358 222 568 Output: Urine 1350 1000 Other: Voiding Method Toilet Toilet Toilet - Labs CBC & Chem 7: 05/09/22 14:01 05/11/22 09:54 Labs: Abnormal Lab Results - Last 24 Hours (Table) 05/10/22 05/10/22 05/11/22 Range/Units 16:34 20:21 09:54 Sodium 131 L (137-145) mmol/L Chloride 89 L (98-107) mmol/L BUN 36 H (7-17) mg/dL Glucose 248 H (74-99) mg/dL POC Glucose (mg/dL) 137 H 112 H (70-110) mg/dL 05/11/22 Range/Units 11:34 Sodium (137-145) mmol/L Chloride (98-107) mmol/L BUN (7-17) mg/dL Glucose (74-99) mg/dL POC Glucose (mg/dL) 190 H (70-110) mg/dL
--- NOTE | 2022-05-11 15:53 | P.PN ---
Subjective Progress Note Date: 05/11/22 This is a pleasant 60-year-old patient of Dr. Eva Figueroa. Chronic stable medical conditions include diabetes, hypertension, anxiety, history of breast cancer. Patient presents for about 10 days of increasing shortness of breath. No edema. No fever and chills. Some dry cough. Patient found to be in CHF. Started on IV Lasix. No chest pain. Blood pressure had been running on the higher side. INVESTIGATIONS, reviewed in the clinical context: WBC 12.3 hemoglobin 12.8 platelets 323 sodium 129 potassium 3.9 creatinine 0.77 Troponin I 0.038, 0.048, 0.050 ProBNP 91339 COVID 19/influenza type A/diabetes: Not detected EKG tracing personally reviewed by mo-sinus tachycardia. Nonspecific T-wave bailey nges. Chest x-ray film personally reviewed by mo-cardiology. Pulmonary edema 05/11/2022 Patient is evaluated today sitting up in the chair. Reports shortness of breath has resolved. Echocardiogram showing normal LV function with moderate aortic stenosis. Known history of heart murmur. Cardiology is following patient and has transitioned patient to oral lasix today and adjusted other cardiac medications. Sodium today 131, potassium 3.8, BUN 36, creatinine 1.04, blood glucose in the 190s, calcium 9.1. Blood pressure 153/80, heart rate 96, afebrile, 100% room air. Review of Systems Constitutional: Denied any fatigue denied any fever. Cardio vascular: denied any chest pain, palpitations Gastrointestinal: denied any nausea, vomiting, diarrhea Pulmonary: Denied any shortness of breath cough Neurologic denied any new focal deficits All inpatient medications were reviewed and appropriate changes in these medications as dictated in the interval history and assessment and plan. PHYSICAL EXAMINATION: GENERAL: The patient is alert and oriented x3, not in any acute distress. Well developed, well nourished. HEENT: Pupils are round and equally reacting to light. EOMI. No scleral icterus. No conjunctival pallor. Normocephalic, atraumatic. No pharyngeal erythema. No thyromegaly. CARDIOVASCULAR: S1 and S2 present. No murmurs, rubs, or gallops. PULMONARY: Chest is clear to auscultation, no wheezing or crackles. ABDOMEN: Soft, nontender, nondistended, normoactive bowel sounds. No palpable organomegaly. MUSCULOSKELETAL: No joint swelling or deformity. EXTREMITIES: No cyanosis, clubbing, or pedal edema. NEUROLOGICAL: Gross neurological examination did not reveal any focal deficits. SKIN: No rashes. Assessment and plan: -Acute congestive heart failure diastolic dysfunction precipitated from accelerated hypertension. Transitioned to oral lasix, cardiology following -Aortic stenosis -Malignant hypertension causing acute CHF Medications have been adjusted by cardiology -Diabetes mellitus type 2 chronically on insulin Levemir, Glucophage. Follow Accu-Cheks with sliding skill insulin. Januvia -Troponin leak from CHF. Not ACS 2-D echocardiogram has been completed with normal LV function -Hyponatremia from fluid overload from CHF Transitioned to oral lasix and will repeat BMP tomorrow. -Anxiety depression otherwise specified Cymbalta -History of breast cancer: On Femara GI Prophylaxis DVT Prophylaxis Plan Continue with lasix, has been transitioned to oral lasix, cardiology following and medications have been adjusted. Patient will be monitored overnight on telemetry. BMP will be repeated tomorrow to monitor sodium level and kidney function. Possible DC in the next 24 to 48 hours pending cardiology recommendations. Otherwise patients symptoms have resolved. The impression and plan of care has been dictated by Heena Guerrero, Nurse Practitioner as directed. Dr. Yordan MD I have performed a history and physical examination and medical decision making of this patient, discussed the same with the dictator, and agree with the dictators assessment and plan as written, documented as a scribe. Based on total visit time, I have performed more than 50% of this visit. Objective - Vital Signs Vital signs: Vital Signs Temp 97.9 F 05/11/22 12:00 Pulse 96 05/11/22 13:08 Resp 14 05/11/22 13:08 BP 153/80 05/11/22 12:00 Pulse Ox 100 05/11/22 12:00 FiO2 Intake & Output 05/10/22 05/11/22 05/11/22 18:59 06:59 18:59 Intake Total 358 222 926 Output Total 1350 1000 Balance -992 -778 926 Weight 80.6 kg Intake: Oral 358 222 926 Output: Urine 1350 1000 Other: Voiding Method Toilet Toilet Toilet - Labs CBC & Chem 7: 05/09/22 14:01 05/11/22 09:54 Labs: Abnormal Lab Results - Last 24 Hours (Table) 05/10/22 05/10/22 05/11/22 Range/Units 16:34 20:21 09:54 Sodium 131 L (137-145) mmol/L Chloride 89 L (98-107) mmol/L BUN 36 H (7-17) mg/dL Glucose 248 H (74-99) mg/dL POC Glucose (mg/dL) 137 H 112 H (70-110) mg/dL 05/11/22 Range/Units 11:34 Sodium (137-145) mmol/L Chloride (98-107) mmol/L BUN (7-17) mg/dL Glucose (74-99) mg/dL POC Glucose (mg/dL) 190 H (70-110) mg/dL Assessment and Plan Time with Patient: Less than 30
[2022-05-11 16:45] VITALS: BMI 34.7
[2022-05-11 16:49] LABS: Glucose,Whole Blood 120 mg/dL (70-110)
[2022-05-11 19:50] LABS: Glucose,Whole Blood 157 mg/dL (70-110)
[2022-05-11] MEDS ORDERED: LETROZOLE 2.5 MG TAB PO SCH (21:00)
[2022-05-11] MEDS: INSULIN DETEMIR (LEVEMIR) 100 UNIT/ML SYR SQ SCH (21:15)
[2022-05-12 05:53] LABS: Glucose,Whole Blood 129 mg/dL (70-110)
[2022-05-12] MEDS: INSULIN ASPART (NovoLOG) 100 UNIT/ML VIAL SQ SCH ×2 (05:57→11:42)
[2022-05-12] MEDS: metFORMIN 500 MG TAB PO SCH (06:32)
[2022-05-12 07:42] VITALS: TEMP 98.1
[2022-05-12] MEDS: CHOLECALCIFEROL 25 MCG (1000 IU) TABLET PO SCH (08:25)
[2022-05-12] MEDS: LINAGLIPTIN 5 MG TABLET PO SCH (08:25)
[2022-05-12] MEDS: DULoxetine HCL 60 MG CAPSULE.DR PO SCH (08:25)
[2022-05-12] MEDS: METOPROLOL TARTRATE 25 MG TAB PO SCH (08:25)
[2022-05-12] MEDS: ATORVASTATIN 40 MG TAB PO SCH (08:25)
[2022-05-12 08:55] LABS: Calcium 9.1 mg/dL (8.4-10.2); Magnesium 1.7 mg/dL (1.6-2.3)
[2022-05-12] MEDS ORDERED: LOSARTAN 50 MG TAB PO SCH (09:00)
[2022-05-12] MEDS ORDERED: FUROSEMIDE 40 MG TAB PO SCH (09:00)
[2022-05-12] MEDS ORDERED: Magnesium Replacement Protocol 1 EACH MISC MISCELLANE PRN (10:17)
[2022-05-12 11:43] LABS: Glucose,Whole Blood 133 mg/dL (70-110)
[2022-05-12] MEDS: MAGNESIUM SULFATE-D5W PMX 1 GM in DEXTROSE/WATER 1 100ML.BAG IVPB SCH ×2 (11:47→13:49)
[2022-05-12 11:55] VITALS: BP 136/82; PULSE 71; RESP 16
--- NOTE | 2022-05-12 12:09 | P.PN ---
Subjective Progress Note Date: 05/12/22 HISTORY OF PRESENT ILLNESS: This is a 61-year-old female patient with a past medical history significant for diabetes and hypertension and history of breast cancer presented to the emergency department complaining of shortness of breath. For the last 10 days she has been experiencing progressive exertional dyspnea with no orthopnea or PND. No cough or sputum production. No fever or chills. No lower extremities edema noted. No symptoms of chest pain or chest discomfort. Initially she went into an urgent care and she was prescribed medication with no improvement but the shortness of breath get worse and she did not feed well and for that reason she presented to the emergency department. She was diagnosed with heart failure. She started on Lasix IV. Also she underwent a workup including EKG showing sinus rhythm with sinus tachycardia at the beginning. The chest x-ray showed findings consistent with bilateral pleural effusion and pulmonary vascular congestions. NT proBNP came in to be elevated at 11,000. The troponin came in to be slightly elevated. The patient as a mentioned didn't have any symptoms of chest pain or chest discomfort Beside that the patient's blood pressure was extremely elevated with a systolic blood pressure above 180 mmHg. The patient was started on Lasix IV and she was seen and evaluated this morning. She is feeling better. On examination she still have bilateral rhonchi but no lower extremities edema noted. Beside that she does have significant systolic murmur was heard the right upper sternal border as well as at the apical area. we will obtain an echo for further clarification. Also her pressure has improved compared to yesterday but continues to be consistent with a stage II hypertension. Without being seen and for her being diabetic going to add losartan to the current medical regimen. Continue IV Lasix for additional 24 hours. Adjust blood pressure medications. Follow-up with the patient 05/11/2022 Patient examined this morning at the bedside. Patient denies chest pain or pressure. She denies shortness of breath. She remains on IV Lasix. Echocardiogram completed revealing ejection fraction 50-55% with moderate aortic stenosis. 05/12/2022 Patient examined this morning at the bedside. Patient denies chest pain or pressure. She denies shortness of breath. She has been transitioned to oral Lasix. Vital signs are stable. PHYSICAL EXAM: VITAL SIGNS: Reviewed. GENERAL: Well-developed in no acute distress. NECK: Supple. No JVD or thyromegaly LUNGS: Respirations even and unlabored. Lungs essentially clear to auscultation bilaterally. HEART: Regular rate and rhythm. S1 and S2 heard. + Systolic murmur. EXTREMITIES: Normal range of motion. No clubbing or cyanosis. Peripheral pulses intact. No lower extremity edema ASSESSMENT: Hypertensive emergency Acute heart failure with preserved ejection fraction History of breast cancer Diabetes Abnormal troponins, acute coronary syndrome ruled out Moderate aortic stenosis PLAN: Continue current cardiac medications Patient is stable for discharge home today from a cardiac standpoint Patient is to follow up outpatient with Dr. Jean Baptiste Nurse practitioner note has been reviewed by physician. Signing provider agrees with the documented findings, assessment, and plan of care. Objective - Vital Signs Vital signs: Vital Signs Temp 98.1 F 05/12/22 07:41 Pulse 71 05/12/22 11:54 Resp 16 05/12/22 11:54 BP 136/82 05/12/22 11:54 Pulse Ox 98 05/12/22 11:54 FiO2 Intake & Output 05/11/22 05/12/22 05/12/22 18:59 06:59 18:59 Intake Total 1044 240 Output Total 2400 Balance 1044 -2400 240 Weight 80.6 kg 81.2 kg Intake: Oral 1044 240 Output: Urine 2400 Other: Voiding Method Toilet Toilet Toilet - Labs CBC & Chem 7: 05/09/22 14:01 05/12/22 07:46 Labs: Abnormal Lab Results - Last 24 Hours (Table) 05/11/22 05/11/22 05/12/22 Range/Units 16:45 19:47 05:50 Sodium (137-145) mmol/L Chloride (98-107) mmol/L Carbon Dioxide (22-30) mmol/L BUN (7-17) mg/dL Glucose (74-99) mg/dL POC Glucose (mg/dL) 120 H 157 H 129 H (70-110) mg/dL 05/12/22 05/12/22 Range/Units 07:46 11:41 Sodium 134 L (137-145) mmol/L Chloride 93 L (98-107) mmol/L Carbon Dioxide 32 H (22-30) mmol/L BUN 31 H (7-17) mg/dL Glucose 128 H (74-99) mg/dL POC Glucose (mg/dL) 133 H (70-110) mg/dL
[2022-05-12 16:48] LABS: Glucose,Whole Blood 138 mg/dL (70-110)
--- NOTE | 2022-05-14 23:08 | P.DS ---
Providers Date of admission: 05/09/22 14:59 Attending physician: Hermilo Mendieta Consults: 05/09/22 14:59 Consult Physician Routine Consulting Provider: Satish Jean Baptiste Consult Reason/Comments: chf, htn Do you want consulting provider notified?: Yes Primary care physician: Jeniffer Figueroa Hospital Course: Diagnosis -Acute congestive heart failure diastolic dysfunction precipitated from accelerated hypertension. Transitioned to oral lasix, cardiology following -Aortic stenosis -Malignant hypertension causing acute CHF Medications have been adjusted by cardiology -Diabetes mellitus type 2 chronically on insulin Levemir, Glucophage. Follow Accu-Cheks with sliding skill insulin. Januvia -Troponin leak from CHF. Not ACS 2-D echocardiogram has been completed with normal LV function -Hyponatremia from fluid overload from CHF Transitioned to oral lasix -Anxiety depression otherwise specified Cymbalta -History of breast cancer: On Femara Discharge Disposition Patient is stable for discharge. Cleared by cardiology. Follow up with primary carae Dr Eva Figueroa and also with Dr Jean Baptiste. Hold hydrochlorothiazide due to low sodium and repeat labs in 2 to 3 days outpatient. Recommend for patient to weigh herself daily and keep log. Discussed heart healthy diet and low sodium alternatives. Hospital Course This is a pleasant 60-year-old patient of Dr. Eva Figueroa. Chronic stable medical conditions include diabetes, hypertension, anxiety, history of breast cancer. Patient presents for about 10 days of increasing shortness of breath. No edema. No fever and chills. Some dry cough. Patient found to be in CHF. Started on IV Lasix. No chest pain. Blood pressure had been running on the higher side. INVESTIGATIONS, reviewed in the clinical context: WBC 12.3 hemoglobin 12.8 platelets 323 sodium 129 potassium 3.9 creatinine 0.77 Troponin I 0.038, 0.048, 0.050 ProBNP 85626 COVID 19/influenza type A/B: Not detected EKG tracing showing sinus tachycardia. Nonspecific T-wave changes. Chest x-ray showing Pulmonary edema Patient was admitted to the hospital for acute heart failure and cardiology was consulted. She had echocardiogram completed showing normal LV function with aort ic stenosis. She has diuresed well and cardiology has transitioned the patient to oral lasix and cleared for discharge and she will follow up with Dr. Jean Baptiste. 05/12/2022 Patient is evaluated today sitting up in at the bedside. No acute events overnight, no shortness of breath, no chest pain, and no palpitations. She states overall she is feeling better and plan is for discharge later this afternoon when her daughter can pick her up. Sodium today is 134 which has improved with lasix recommending to hold hydrochlorothiazide on discharge and repeat BMP in 2 to 3 days. Creatinine stable. Magnesium today 1.7 and patient will receive IV magnesium prior to discharge. Her lungs are clear S1 S2 auscultated with systolic murmur noted. Focal neurological exam is negative. Hemodynamically stable, blood pressure is 136/82. Please see medication reconciliation for a list of current medication. Thank you for allowing us to participate in the care of this patient. The impression and plan of care has been dictated by Heena Guerrero, Nurse Practitioner as directed. Dr. Yordan MD I have performed a history and physical examination and medical decision making of this patient, discussed the same with the dictator, and agree with the dictators assessment and plan as written, documented as a scribe. Based on total visit time, I have performed more than 50% of this visit. Patient Condition at Discharge: Stable Plan - Discharge Summary Discharge Rx Participant: Yes New Discharge Prescriptions: New Furosemide [Lasix] 40 mg PO DAILY #30 tab Atorvastatin [Lipitor] 40 mg PO DAILY #30 tab Losartan [Cozaar] 50 mg PO DAILY #30 tab Metoprolol Tartrate [Lopressor] 25 mg PO BID #60 tab Continue Cholecalciferol [Vitamin D3 (25 Mcg = 1000 Iu)] 25 mcg PO DAILY Insulin Glargine,Hum.rec.anlog [Lantus Solostar Pen] 18 units SQ HS Albuterol Nebulized [Ventolin Nebulized] 2.5 mg INHALATION RT-Q4H PRN PRN Reason: Shortness Of Breath Letrozole [Femara] 2.5 mg PO DAILY Vitamin E (Dl,Tocopheryl Acet) [Vitamin E (1000 Iu = 450 MG)] 1,000 unit PO DAILY Ondansetron Odt [Zofran ODT] 4 mg PO TID PRN PRN Reason: Nausea And Vomiting Diphenoxylate HCl/Atropine [Lomotil 2.5-0.025 mg Tablet] 1 tab PO QID PRN PRN Reason: Diarrhea metFORMIN HCL 1,000 mg PO BID DULoxetine HCL [Cymbalta] 60 mg PO DAILY sitaGLIPtin [Januvia] 50 mg PO DAILY Milk Thistle 150 mg PO DAILY Discontinued methylPREDNISolone [Medrol Dose Pack] See Taper PO DIRECTED hydroCHLOROthiazide 25 mg PO HS Discharge Medication List Albuterol Nebulized [Ventolin Nebulized] 2.5 mg INHALATION RT-Q4H PRN 05/09/22 [History] Cholecalciferol [Vitamin D3 (25 Mcg = 1000 Iu)] 25 mcg PO DAILY 05/09/22 [History] DULoxetine HCL [Cymbalta] 60 mg PO DAILY 05/09/22 [History] Diphenoxylate HCl/Atropine [Lomotil 2.5-0.025 mg Tablet] 1 tab PO QID PRN 05/09/22 [History] Insulin Glargine,Hum.rec.anlog [Lantus Solostar Pen] 18 units SQ HS 05/09/22 [History] Letrozole [Femara] 2.5 mg PO DAILY 05/09/22 [History] Milk Thistle 150 mg PO DAILY 05/09/22 [History] Ondansetron Odt [Zofran ODT] 4 mg PO TID PRN 05/09/22 [History] Vitamin E (Dl,Tocopheryl Acet) [Vitamin E (1000 Iu = 450 MG)] 1,000 unit PO DAILY 05/09/22 [History] metFORMIN HCL 1,000 mg PO BID 05/09/22 [History] sitaGLIPtin [Januvia] 50 mg PO DAILY 05/09/22 [History] Atorvastatin [Lipitor] 40 mg PO DAILY #30 tab 05/12/22 [Rx] Furosemide [Lasix] 40 mg PO DAILY #30 tab 05/12/22 [Rx] Losartan [Cozaar] 50 mg PO DAILY #30 tab 05/12/22 [Rx] Metoprolol Tartrate [Lopressor] 25 mg PO BID #60 tab 05/12/22 [Rx] Follow up Appointment(s)/Referral(s): Satish Jean Baptiste MD [STAFF PHYSICIAN] - 1 Week (office will call with a date and time ) Jeniffer Figueroa MD [Primary Care Provider] - 1-2 days Ambulatory/Diagnostic Orders: Basic Metabolic Panel [LAB.AMB] Time Frame: 2 Days, Location: None Selected Patient Instructions/Handouts: Heart Failure (ER), Heart Failure (DC) Activity/Diet/Wound Care/Special Instructions: Recommend to hold hydrochlorothiazide until follow up with PCP and repeat sodium level in 2 to 3 days Monitor weight daily and keep log Notify provider of weight gain 2 to 3 lbs overnight or 5 lbs in a week Follow up with primary care provider Follow up with [employer] Dr Jean Baptiste Discharge Disposition: HOME SELF-CARE
== END 2022-05-12 17:21 | disposition home or self-care (01) | DRG 291 ==
LOC: EC 12:30 → 3SCARD 14:59
PROVIDERS: ADMIT Hospitalist; ATTEND Hospitalist
DX: I11.0 Hypertensive heart disease with heart failure (principal); I50.31 Acute diastolic (congestive) heart failure; I16.1 Hypertensive emergency; E87.1 Hypo-osmolality and hyponatremia; I5A Non-ischemic myocardial injury (non-traumatic); F32.A Depression, unspecified; F41.9 Anxiety disorder, unspecified; E66.8 Other obesity; R00.0 Tachycardia, unspecified; R77.8 Other specified abnormalities of plasma proteins; Z68.35 Body mass index [BMI] 35.0-35.9, adult; I35.0 Nonrheumatic aortic (valve) stenosis; E11.9 Type 2 diabetes mellitus without complications; Z79.811 Long term (current) use of aromatase inhibitors; Z79.84 Long term (current) use of oral hypoglycemic drugs; Z79.899 Other long term (current) drug therapy; Z85.3 Personal history of malignant neoplasm of breast; Z20.822 Contact with and (suspected) exposure to COVID-19; Z88.5 Allergy status to narcotic agent; Z88.0 Allergy status to penicillin; Z88.8 Allergy status to other drugs, medicaments and biological substances
CPT/HCPCS: 36415; 71046; 80048; 80053; 83036; 83605; 83735; 83880; 84484; 85025; 85379; 85610; 85730; 87502; 87635; 93005; 93306; 94760

== ENCOUNTER 2023-05-18 22:10 | Inpatient (IN) | payer MEDICARE, OTHER ==
[2023-05-18] MEDS ORDERED: KETOROLAC 15 MG/ML 1 ML VIAL IVP STA (23:32)
[2023-05-18] MEDS ORDERED: ONDANSETRON 4 MG/2 ML VIAL IVP STA (23:33)
[2023-05-19 00:05] LABS: Basophils # (A) 0.1 k/uL (0-0.2); Basophils % (A) 0 %; Eosinophils # (A) 0.3 k/uL (0-0.7); Eosinophils % (A) 1 %; HCT 31.6 % (34.0-46.0); HGB 11.2 gm/dL (11.4-16.0); Lymphocytes # (A) 1.3 k/uL (1.0-4.8); Lymphocytes % (A) 5 %; MCH 31.9 pg (25.0-35.0); MCHC 35.3 g/dL (31.0-37.0); MCV 90.3 fL (80.0-100.0); Mean Platelet Volume 6.9; Monocytes % (A) 4 %; Neutrophils # (A) 24.7 k/uL (1.3-7.7); Neutrophils % (A) 90 %; Platelet Count 281 k/uL (150-450); RDW 12.4 % (11.5-15.5); WBC 27.6 k/uL (3.8-10.6)
[2023-05-19 00:16] LABS: ALT 17 U/L (4-34); AST 23 U/L (14-36); African American GFR (CKD) 44 (>60 ml/min/1.73 sqM); Albumin 3.5 g/dL (3.5-5.0); Alkaline Phosphatase 87 U/L (38-126); Anion Gap 12 mmol/L; Blood Urea Nitrogen 25 mg/dL (7-17); Calcium 8.8 mg/dL (8.4-10.2); Carbon Dioxide 25 mmol/L (22-30); Chloride 83 mmol/L (98-107); Glucose 171 mg/dL (74-99); Non-African American GFR(CKD) 38 (>60 ml/min/1.73 sqM); Potassium 4.1 mmol/L (3.5-5.1); Sodium 120 mmol/L (137-145); Total Bilirubin 1.3 mg/dL (0.2-1.3); Total Protein 6.9 g/dL (6.3-8.2)
[2023-05-19] MEDS ORDERED: SODIUM CHLORIDE 0.9% 1,000 ML IV STA ×2 (00:39→02:43)
[2023-05-19] MEDS ORDERED: ACETAMINOPHEN TAB 500 MG TAB PO STA (00:43)
[2023-05-19] MEDS ORDERED: VANCOMYCIN 1,250 MG in SODIUM CHLORIDE 0.9% 250 ML IVPB ONE (01:00)
[2023-05-19] MEDS ORDERED: VANCOMYCIN IV PER PHARMACY 1 EACH MISC MISCELLANE PRN (01:25)
[2023-05-19] MEDS ORDERED: NALOXONE 0.4 MG/ML 1 ML VIAL IV PRN (02:37)
[2023-05-19] MEDS ORDERED: HYDROmorphone 0.5 MG/0.5 ML SYRINGE IVP PRN (02:37)
[2023-05-19] MEDS ORDERED: HYDROmorphone 0.5 MG/0.5 ML SYRINGE IVP STA (02:43)
--- NOTE | 2023-05-19 02:48 | ED ---
General Adult HPI - General Chief complaint: Skin/Abscess/Foreign Body Stated complaint: POSSIBLE CELLULITIS Time Seen by Provider: 05/18/23 23:08 Source: patient Mode of arrival: ambulatory Limitations: no limitations - History of Present Illness Initial comments: Patient is a 62-year-old female who presents to the emergency department for possible cellulitis. Patient noticed redness to her right leg today with pain. States she has not felt well since getting pneumonia vaccine on . Patient has had intermittent vomiting and fevers. Poor oral intake. She denies chest pain and shortness of breath. Denies upper respiratory symptoms. Denies history of DVT and PE. Denies history of abscess and MRSA. - Related Data Home Medications Medication Instructions Recorded Confirmed Albuterol Nebulized [Ventolin 2.5 mg INHALATION RT-Q4H PRN 05/09/22 05/09/22 Nebulized] Cholecalciferol [Vitamin D3 (25 25 mcg PO DAILY 05/09/22 05/09/22 Mcg = 1000 Iu)] DULoxetine HCL [Cymbalta] 60 mg PO DAILY 05/09/22 05/09/22 Diphenoxylate HCl/Atropine 1 tab PO QID PRN 05/09/22 05/09/22 [Lomotil 2.5-0.025 mg Tablet] Insulin Glargine,Hum.rec.anlog 18 units SQ HS 05/09/22 05/09/22 [Lantus Solostar Pen] Letrozole [Femara] 2.5 mg PO DAILY 05/09/22 05/09/22 Milk Thistle 150 mg PO DAILY 05/09/22 05/09/22 Ondansetron Odt [Zofran ODT] 4 mg PO TID PRN 05/09/22 05/09/22 Vitamin E (Dl,Tocopheryl Acet) 1,000 unit PO DAILY 05/09/22 05/09/22 [Vitamin E (1000 Iu = 450 MG)] metFORMIN HCL 1,000 mg PO BID 05/09/22 05/09/22 sitaGLIPtin [Januvia] 50 mg PO DAILY 05/09/22 05/09/22 Previous Rx's Medication Instructions Recorded Atorvastatin [Lipitor] 40 mg PO DAILY #30 tab 05/12/22 Furosemide [Lasix] 40 mg PO DAILY #30 tab 05/12/22 Losartan [Cozaar] 50 mg PO DAILY #30 tab 05/12/22 Metoprolol Tartrate [Lopressor] 25 mg PO BID #60 tab 05/12/22 Allergies Allergy/AdvReac Type Severity Reaction Status Date / Time adhesive tape Allergy Itching Verified 05/18/23 22:27 Penicillins Allergy Rash/Hives Verified 05/18/23 22:27 ALEXIS Inhibitors AdvReac Cough Verified 05/18/23 22:27 morphine AdvReac Swelling & Verified 05/18/23 22:27 hives Review of Systems ROS Statement: Those systems with pertinent positive or pertinent negative responses have been documented in the HPI. ROS Other: All systems not noted in ROS Statement are negative. Past Medical History Past Medical History: Cancer, Diabetes Mellitus, Hypertension Additional Past Medical History / Comment(s): breast cancer History of Any Multi-Drug Resistant Organisms: None Reported Past Surgical History: Section, Cholecystectomy Additional Past Surgical History / Comment(s): left lumpectomy x 2. right mediport insertion Past Anesthesia/Blood Transfusion Reactions: No Reported Reaction Past Psychological History: Anxiety Smoking Status: Never smoker Past Alcohol Use History: None Reported Past Drug Use History: None Reported - Past Family History Father Additional Family Medical History / Comment(s): No health hx 91 from pneumonia Mother Additional Family Medical History / Comment(s): No health hx after fall age 96 General Exam Limitations: no limitations General appearance: alert Respiratory exam: Present: normal lung sounds bilaterally. Absent: respiratory distress, wheezes, rales, rhonchi, stridor Cardiovascular Exam: Present: regular rate, normal rhythm, normal heart sounds. Absent: systolic murmur, diastolic murmur, rubs, gallop, clicks Extremities exam: Present: other (circumferential erythema below right knee spinning to ankle. Warm, blanching, tender. Popped blister on ayers. Neurovascularly intact. Full range of motion) Neurological exam: Present: alert Psychiatric exam: Present: normal affect, normal mood Skin exam: Present: warm, dry, intact, normal color. Absent: rash Course Vital Signs 05/18/23 05/19/23 22:23 02:08 Temperature 98.2 F 97.7 F Pulse Rate 85 83 Respiratory 22 18 Rate Blood Pressure 131/71 133/81 O2 Sat by Pulse 100 100 Oximetry Procedures - Sepsis Sepsis Focused Exam #1 Sepsis Focused Exam Time: 02:51 Capillary Refill: None: Fingers, Toes Peripheral Pulses: Normal: Radial (R), Radial (L), Posterior Tibialis (R), Pos terior Tibialis (L), Dorsalis Pedis (R), Dorsalis Pedis (L) Skin Color: Normal for Patient Respiratory Exam: normal lung sounds Cardiovascular Exam: regular rate, normal rhythm Medical Decision Making - Medical Decision Making Was pt. sent in by a medical professional or institution (MIRA George, CUST[employer]S COMPLIANCE MANAGER, urgent care, hospital, or fci...) When possible be specific @ -No Did you speak to anyone other than the patient for history (EMS, parent, family, police, friend...)? What history was obtained from this source @ -No Did you review nursing and triage notes (agree or disagree)? Why? @ -I reviewed and agree with nursing and triage notes Were old charts reviewed (outside hosp., previous admission, EMS record, old EKG, old radiological studies, urgent care reports/EKG's, fci records)? Report findings @ -No old charts were reviewed Differential Diagnosis (chest pain, altered mental status, abdominal pain women, abdominal pain men, vaginal bleeding, weakness, fever, dyspnea, syncope, headache, dizziness, GI bleed, back pain, seizure, CVA, palpatations, mental health)? @ -cellulitis, abscess, sepsis EKG interpreted by me (3pts min.). @ -As above X-rays interpreted by me (1pt min.). @ -None done CT interpreted by me (1pt min.). @ -None done U/S interpreted by me (1pt. min.). @ -None done What testing was considered but not performed or refused? (CT, X-rays, U/S, labs)? Why? @ -None What meds were considered but not given or refused? Why? @ -None Did you discuss the management of the patient with other professionals (professionals i.e. MIRA George, CUSTOMS COMPLIANCE MANAGER, lab, RT, psych nurse, adoption social worker, speed runner, teacher, space operations officer, welfare case worker)? Give summary @ -No Was smoking cessation discussed for >3mins.? @ -No Was critical care preformed (if so, how long)? @ -No Were there social determinants of health that impacted care today? How? (Homelessness, low income, unemployed, alcoholism, drug addiction, transp ortation, low edu. Level, literacy, decrease access to med. care, usp, rehab)? @ -No Was there de-escalation of care discussed even if they declined (Discuss DNR or withdrawal of care, Hospice)? DNR status @ -No What co-morbidities impacted this encounter? (DM, HTN, Smoking, COPD, CAD, Cancer, CVA, ARF, Chemo, Hep., AIDS, mental health diagnosis, sleep apnea, morbid obesity)? @ -None Was patient admitted / discharged? Hospital course, mention meds given and route, prescriptions, significant lab abnormalities, going to OR and other pertinent info. @ -[62-year-old presenting for right leg pain. There is cellulitis of the right leg which is circumferential. No fluctuance or drainable abscess. Patient is afebrile. There is significant leukocytosis at 27.6. There is lactic acidosis 2.5. Patient meets sepsis criteria based on RLE cellulitis with respiratory rate 22, leukocytosis, lactic acidosis. Blood cultures obtained IV antibiotics and fluids initiated. Sepsis diagnosis made at 00:05. Patient also has acute kidney injury, creatinine at 1.46, BUN at 25. Hyponatremic at 120 suspect related to poor oral intake. Patient admitted to Dr. Mendieta in stable condition ID is on consult Undiagnosed new problem with uncertain prognosis? @ -No Drug Therapy requiring intensive monitoring for toxicity (Heparin, Nitro, Insulin, Cardizem)? @ -No Were any procedures done? @ -No Diagnosis/symptom? @ -RLE cellulitis, sepsis, ALBIN, hyponatremia Acute, or Chronic, or Acute on Chronic? @ -acute Uncomplicated (without systemic symptoms) or Complicated (systemic symptoms)? @ -complicated Side effects of treatment? @ -No Exacerbation, Progression, or Severe Exacerbation? @ -No Does a threat to life or bodily function? How? (Chest pain, USA, ID, pneumonia, PE, COPD, DKA, ARF, appy, cholecystitis, CVA, Diverticulitis, Homicidal, Suic idal, threat to staff... and all critical care pts) @ -Yes Dr. Hua is my attending - Lab Data Result diagrams: 05/18/23 23:47 05/18/23 23:47 Lab Results 05/18/23 05/18/23 05/18/23 Range/Units 23:47 23:47 23:47 WBC 27.6 H (3.8-10.6) k/uL RBC 3.50 L (3.80-5.40) m/uL Hgb 11.2 L (11.4-16.0) gm/dL Hct 31.6 L (34.0-46.0) % MCV 90.3 (80.0-100.0) fL MCH 31.9 (25.0-35.0) pg MCHC 35.3 (31.0-37.0) g/dL RDW 12.4 (11.5-15.5) % Plt Count 281 (150-450) k/uL MPV 6.9 Neutrophils % 90 % Lymphocytes % 5 % Monocytes % 4 % Eosinophils % 1 % Basophils % 0 % Neutrophils # 24.7 H (1.3-7.7) k/uL Lymphocytes # 1.3 (1.0-4.8) k/uL Monocytes # 1.0 (0-1.0) k/uL Eosinophils # 0.3 (0-0.7) k/uL Basophils # 0.1 (0-0.2) k/uL Sodium 120 L (137-145) mmol/L Potassium 4.1 (3.5-5.1) mmol/L Chloride 83 L (98-107) mmol/L Carbon Dioxide 25 (22-30) mmol/L Anion Gap 12 mmol/L BUN 25 H (7-17) mg/dL Creatinine 1.46 H (0.52-1.04) mg/dL Est GFR (CKD-EPI)AfAm 44 (>60 ml/min/1.73 sqM) Est GFR (CKD-EPI)NonAf 38 (>60 ml/min/1.73 sqM) Glucose 171 H (74-99) mg/dL Plasma Lactic Acid Tyler 2.5 H* (0.7-2.0) mmol/L Calcium 8.8 (8.4-10.2) mg/dL Total Bilirubin 1.3 (0.2-1.3) mg/dL AST 23 (14-36) U/L ALT 17 (4-34) U/L Alkaline Phosphatase 87 (38-126) U/L Total Protein 6.9 (6.3-8.2) g/dL Albumin 3.5 (3.5-5.0) g/dL Disposition Clinical Impression: Cellulitis of right lower extremity, Sepsis, ALBIN (acute kidney injury), Hyponatremia Disposition: ADMITTED IP TO THIS HOSP Condition: Stable Referrals: Jeniffer Figueroa MD [Primary Care Provider] - 1-2 days
[2023-05-19] MEDS: SODIUM CHLORIDE 0.9% 1,000 ML IV SCH ×3 (03:52→19:59)
[2023-05-19] MEDS ORDERED: cefTRIAXone IN SWFI 1,000 MG/10 ML SYRINGE IVP STA (03:57)
[2023-05-19] MEDS ORDERED: DIPHENOX-ATROP 2.5-0.025 MG 1 EACH TAB PO PRN (10:53)
[2023-05-19] MEDS ORDERED: ALBUTEROL NEBULIZED 2.5 MG/3 ML INHALATION PRN (10:53)
[2023-05-19] MEDS ORDERED: DEXTROSE 50% SYRINGE 50 ML IVP PRN ×2 (10:54)
[2023-05-19] MEDS: METOPROLOL TARTRATE 25 MG TAB PO SCH ×2 (11:52→22:03)
[2023-05-19] MEDS: LINAGLIPTIN 5 MG TABLET PO SCH (11:52)
[2023-05-19] MEDS: DULoxetine HCL 60 MG CAPSULE.DR PO SCH (11:52)
[2023-05-19] MEDS: ATORVASTATIN 40 MG TAB PO SCH (11:52)
[2023-05-19] MEDS: LETROZOLE 2.5 MG TAB PO SCH (11:54)
[2023-05-19 11:58] LABS: Glucose,Whole Blood 159 mg/dL (70-110)
[2023-05-19] MEDS: ceFAZolin 3 GM in SODIUM CHLORIDE 0.9% 100 ML IVPB SCH ×2 (11:58→17:01)
--- NOTE | 2023-05-19 12:06 | P.CONS ---
History of Present Illness - Reason for Consult Consult date: 05/19/23 Right lower extremity cellulitis with sepsis Requesting physician: Ashley Swain - Chief Complaint Pain and redness to the right leg x one day - History of Present Illness Patient is a 62-year-old female with a past medical history significant for hypertension and diabetes mellitus breast cancer, presenting to the ER for evaluation of increasing redness and pain to the right lower extremity patient apparently did have a blister on the right leg that seem have ruptured with some superficial ulceration and subsequently developing pain and redness to the right lower extremity be sure described the pain to be throbbing intensity almost 10 out of 10 in severity by the time she was in the hospital without any radiation with associated swelling redness but no foul-smelling drainage patient mentioned she has been running fever over the last few days, however on presentation to the hospital the patient was afebrile, patient did have white count 27.6 with a left shift, creatinine was 1.46 negative as was 2.5 liver enzymes are normal, patient was started on vancomycin and infectious disease was consulted for further management of antibiotic therapy Review of Systems Positive point and negatives has been mentioned in the HPI, complete review of systems was performed and all other systems are negative Past Medical History Past Medical History: Cancer, Diabetes Mellitus, Hypertension Additional Past Medical History / Comment(s): breast cancer History of Any Multi-Drug Resistant Organisms: None Reported Past Surgical History: Section, Cholecystectomy Additional Past Surgical History / Comment(s): left lumpectomy x 2. right mediport insertion Past Anesthesia/Blood Transfusion Reactions: No Reported Reaction Past Psychological History: Anxiety Smoking Status: Never smoker Past Alcohol Use History: None Reported Past Drug Use History: None Reported - Past Family History Father Additional Family Medical History / Comment(s): No health hx 91 from pneumonia Mother Additional Family Medical History / Comment(s): No health hx after fall age 96 Medications and Allergies Home Medications Medication Instructions Recorded Confirmed Type Albuterol Nebulized [Ventolin 2.5 mg INHALATION RT-Q4H PRN 05/09/22 05/19/23 History Nebulized] Cholecalciferol [Vitamin D3 (25 25 mcg PO DAILY 05/09/22 05/19/23 History Mcg = 1000 Iu)] DULoxetine HCL [Cymbalta] 60 mg PO DAILY 05/09/22 05/19/23 History Diphenoxylate HCl/Atropine 1 tab PO QID PRN 05/09/22 05/19/23 History [Lomotil 2.5-0.025 mg Tablet] Insulin Glargine,Hum.rec.anlog 20 units SQ HS 05/09/22 05/19/23 History [Lantus Solostar Pen] Letrozole [Femara] 2.5 mg PO DAILY 05/09/22 05/19/23 History Milk Thistle 150 mg PO DAILY 05/09/22 05/19/23 History Ondansetron Odt [Zofran ODT] 4 mg PO TID PRN 05/09/22 05/19/23 History Vitamin E (Dl,Tocopheryl Acet) 1,000 unit PO DAILY 05/09/22 05/19/23 History [Vitamin E (1000 Iu = 450 MG)] metFORMIN HCL 1,000 mg PO BID 05/09/22 05/19/23 History sitaGLIPtin [Januvia] 50 mg PO DAILY 05/09/22 05/19/23 History Atorvastatin [Lipitor] 40 mg PO DAILY #30 tab 05/12/22 05/19/23 Rx Metoprolol Tartrate [Lopressor] 25 mg PO BID #60 tab 05/12/22 05/19/23 Rx Calcium Carb/Mag Ox/Zinc Sulf 1 tab PO DAILY 05/19/23 05/19/23 History [Vur-Jnr-Iccg 334-134-5 mg Tab] Furosemide [Lasix] 40 mg PO DAILY 05/19/23 05/19/23 History Losartan Potassium [Cozaar] 100 mg PO DAILY 05/19/23 05/19/23 History Meclizine [Antivert] 12.5 mg PO TID PRN 05/19/23 05/19/23 History Vitamin B Complex 1 cap PO DAILY 05/19/23 05/19/23 History amLODIPine [Norvasc] 10 mg PO DAILY 05/19/23 05/19/23 History Allergies Allergy/AdvReac Type Severity Reaction Status Date / Time adhesive tape Allergy Itching Verified 05/19/23 08:47 morphine Allergy Swelling & Verified 05/19/23 08:48 hives Penicillins Allergy Rash/Hives Verified 05/19/23 08:48 JAY Inhibitors AdvReac Cough Verified 05/19/23 08:47 Physical Exam Vitals: Vital Signs Temp Pulse Resp BP Pulse Ox 05/19/23 06:17 87 16 130/67 99 05/19/23 02:08 97.7 F 83 18 133/81 100 05/18/23 22:23 98.2 F 85 22 131/71 100 Intake and Output 05/18/23 05/19/23 05/19/23 22:59 06:59 14:59 Other: Weight 91.172 kg GENERAL DESCRIPTION: Middle-aged female lying in bed, no distress. No tachypnea or accessory muscle of respiration use. HEENT: Shows Pallor , no scleral icterus. Oral mucous membrane is dry. NECK: Trachea central, no thyromegaly. LUNGS: Unlabored breathing. Clear to auscultation anteriorly. No wheeze or crackle. HEART: S1, S2, regular rate and rhythm. No loud murmur ABDOMEN: Soft, no tenderness , EXTREMITIES: Diffuse swelling or redness to the right lower extremity SKIN: No rash, no masses palpable. NEUROLOGICAL: The patient is awake, alert, oriented x3, mood and affect normal. Results CBC & Chem 7: 05/18/23 23:47 05/18/23 23:47 Labs: Abnormal Lab Results - Last 24 Hours (Table) 05/18/23 05/18/23 05/18/23 Range/Units 23:47 23:47 23:47 WBC 27.6 H (3.8-10.6) k/uL RBC 3.50 L (3.80-5.40) m/uL Hgb 11.2 L (11.4-16.0) gm/dL Hct 31.6 L (34.0-46.0) % Neutrophils # 24.7 H (1.3-7.7) k/uL Sodium 120 L (137-145) mmol/L Chloride 83 L (98-107) mmol/L BUN 25 H (7-17) mg/dL Creatinine 1.46 H (0.52-1.04) mg/dL Glucose 171 H (74-99) mg/dL Plasma Lactic Acid Tyler 2.5 H* (0.7-2.0) mmol/L Assessment and Plan (1) Cellulitis of right lower extremity Current Visit: Yes Status: Acute Code(s): L03.115 - CELLULITIS OF RIGHT LOWER LIMB SNOMED Code(s): 350080892 Plan: 1patient is in the hospital with increasing pain swelling and redness of right lower extremity with elevated white count and lactic acid concerning for cellu litis likely from gram-positive skin aurelio patient is a low risk factor for MRSA 2renal insufficiency and high risk of nephrotoxicity from vancomycin 3history of penicillin ALLERGY however the patient mentioned she has taken amoxicillin without any problems clinically doubt true penicillin ALLERGY 4discontinue vancomycin 5check a Doppler ultrasound the right lower extremity 6cefazolin 3 g every 8 hours, if lower extremity Doppler negative we will apply Jay wrap to the leg to keep the swelling down We will follow on clinical condition and cultures to further adjust medication if needed Thank you for this consultation will follow this patient with you Dictation was produced using [employer] dictation software. please excuse any grammatical, word or spelling errors. Time with Patient: Greater than 30
[2023-05-19] MEDS: ONDANSETRON 4 MG/2 ML VIAL IVP PRN ×2 (12:28→16:58)
[2023-05-19] MEDS ORDERED: LACTULOSE 20 GM/30 ML CUP PO PRN (12:50)
[2023-05-19] MEDS ORDERED: ACETAMINOPHEN TAB 325 MG TAB PO PRN (12:50)
[2023-05-19] MEDS ORDERED: CALCIUM CARBONATE 500 MG CHEWABLE PO PRN (12:50)
[2023-05-19] MEDS ORDERED: LORazepam 0.5 MG TAB PO PRN (12:50)
--- NOTE | 2023-05-19 13:03 | US ---
EXAMINATION TYPE: US venous doppler duplex LE RT DATE OF EXAM: 05/19/2023 12:48 PM COMPARISON: NONE CLINICAL INDICATION: Female, 62 years old with history of Swelling; Right leg pain and redness SIDE PERFORMED: Right TECHNIQUE: The lower extremity deep venous system is examined utilizing real time linear array sonog katie with graded compression, doppler sonography and color-flow sonography. VESSELS IMAGED: Common Femoral Vein Deep Femoral Vein Greater Saphenous Vein * Femoral Vein Popliteal Vein Small Saphenous Vein * Proximal Calf Veins (* superficial vessels) Right Leg: Negative for DVT IMPRESSION: Grayscale, color doppler, spectral doppler imaging performed of the deep veins of the lo wer extremities. There is normal flow, compressibility, vascular waveforms.
--- NOTE | 2023-05-19 14:25 | P.HPIM ---
History of Present Illness H&P Date: 05/19/23 Chief Complaint: Right leg redness This is a 62-year-old patient, follows with Dr. Jeniffer Figueroa. Chronic stable medical conditions include diabetes, hypertension, arthritis. Anxiety. Patient received Pneumovax vaccine 6 days ago. Has been feeling unwell since then. [place] she may have had some fevers also. Yesterday developed some placed on the right leg and redness. Tender. Mr. Le down. Admitted with what appears to be cellulitis. She was considered this is a ALLERGIC reaction. No areas in the body she's had this. Patient does take injections in the eye for macular edema. Some decrease in appetite. ID was consulted. Review of systems: GEN.: Fever, tired, decreased appetite EYES: Subconjunctival hemorrhage from injection in the eye HEENT: None NECK: None RESPIRATORY: None CARDIOVASCULAR: None GASTROINTESTINAL: None GENITOURINARY: None MUSCULOSKELETAL: Joint pains LYMPHATICS: None HEMATOLOGICAL: None PSYCHIATRY: None NEUROLOGICAL: None Past medical history to include: Diabetes, hypertension, breast cancer, anxiety, depression, CHF from diastolic dysfunction Social history: Nonsmoker. No alcohol. Lives withrodríguez Cordova Physical examination: VITAL SIGNS: 98.2, 85, 22, 131/71, 100% room air, on presentation GENERAL: BMI 39.3, laying in bed EYES: Pupils equal. Conjunctiva normal. HEENT: External appearance of nose and ears normal, oral cavity grossly normal. NECK: JVD not raised; masses not palpable. HEART: First and second heart sounds are normal; no edema. LUNGS: Respiratory rate normal; decreased breath sounds. ABDOMEN: Soft, nontender, liver spleen not palpable, no masses palpable. PSYCH: Alert and oriented x3; mood and affect normal. MUSCULOSKELETAL:No Clubbing/cyanosis;muscles-grossly intact. UA DERMATOLOGICAL: Area of redness on the right lower extremity below the knee. 2 areas of breakdown of skin where blister was present. Tender. NEUROLOGICAL: Cranial nerves grossly intact; no facial asymmetry, power and sensation grossly intact. LYMPHATICS: No lymph nodes palpable in the axilla and neck INVESTIGATIONS, reviewed in the clinical context: May 19: Lactic acid 0.8 May 18: White count 27.6 hemoglobin 11.2 platelets 281 sodium 120 potassium 4.1 BUN 25 creatinine 1.46 lactic acid 2.5 Venous Doppler: Negative for DVT Previous labs: Creatinine 0.April Assessment and plan: -Acute right lower extremity cellulitis. ID following. IV Ancef -Sepsis secondary to cellulitis IV Ancef. IV fluids. -Acute kidney injury secondary to ATN/hypertension Hold Cozaar, Lasix. IV fluids -Chronic congestive heart failure from diastolic dysfunction EF 55-60% Chronically on Lasix-hold for now. Follow clinically -Essential hypertension Lopressor 25 mg twice a day. Cozaar 100 mg day-hold. Amlodipine 10 mg day- hold. -Diabetes mellitus type 2 chronically on insulin Levemir, Glucophage-hold. Follow Accu-Cheks with sliding skill insulin. Januvia -Hyperlipidemia Lipitor 40 mg -Severe Hyponatremia from decrease salt intake. Patient to cut back on free fluid intake. IV fluids. -Anxiety depression otherwise specified Cymbalta -History of breast cancer: On Femara Past Medical History Past Medical History: Cancer, Diabetes Mellitus, Hypertension Additional Past Medical History / Comment(s): breast cancer History of Any Multi-Drug Resistant Organisms: None Reported Past Surgical History: Section, Cholecystectomy Additional Past Surgical History / Comment(s): left lumpectomy x 2. right mediport insertion Past Anesthesia/Blood Transfusion Reactions: No Reported Reaction Past Psychological History: Anxiety Smoking Status: Never smoker Past Alcohol Use History: None Reported Past Drug Use History: None Reported - Past Family History Father Additional Family Medical History / Comment(s): No health hx 91 from pneumonia Mother Additional Family Medical History / Comment(s): No health hx after fall age 96 Medications and Allergies Home Medications Medication Instructions Recorded Confirmed Type Albuterol Nebulized [Ventolin 2.5 mg INHALATION RT-Q4H PRN 05/09/22 05/19/23 History Nebulized] Cholecalciferol [Vitamin D3 (25 25 mcg PO DAILY 05/09/22 05/19/23 History Mcg = 1000 Iu)] DULoxetine HCL [Cymbalta] 60 mg PO DAILY 05/09/22 05/19/23 History Diphenoxylate HCl/Atropine 1 tab PO QID PRN 05/09/22 05/19/23 History [Lomotil 2.5-0.025 mg Tablet] Insulin Glargine,Hum.rec.anlog 20 units SQ HS 05/09/22 05/19/23 History [Lantus Solostar Pen] Letrozole [Femara] 2.5 mg PO DAILY 05/09/22 05/19/23 History Milk Thistle 150 mg PO DAILY 05/09/22 05/19/23 History Ondansetron Odt [Zofran ODT] 4 mg PO TID PRN 05/09/22 05/19/23 History Vitamin E (Dl,Tocopheryl Acet) 1,000 unit PO DAILY 05/09/22 05/19/23 History [Vitamin E (1000 Iu = 450 MG)] metFORMIN HCL 1,000 mg PO BID 05/09/22 05/19/23 History sitaGLIPtin [Januvia] 50 mg PO DAILY 05/09/22 05/19/23 History Atorvastatin [Lipitor] 40 mg PO DAILY #30 tab 05/12/22 05/19/23 Rx Metoprolol Tartrate [Lopressor] 25 mg PO BID #60 tab 05/12/22 05/19/23 Rx Calcium Carb/Mag Ox/Zinc Sulf 1 tab PO DAILY 05/19/23 05/19/23 History [Vdm-Fbz-Ixed 334-134-5 mg Tab] Furosemide [Lasix] 40 mg PO DAILY 05/19/23 05/19/23 History Losartan Potassium [Cozaar] 100 mg PO DAILY 05/19/23 05/19/23 History Meclizine [Antivert] 12.5 mg PO TID PRN 05/19/23 05/19/23 History Vitamin B Complex 1 cap PO DAILY 05/19/23 05/19/23 History amLODIPine [Norvasc] 10 mg PO DAILY 05/19/23 05/19/23 History Allergies Allergy/AdvReac Type Severity Reaction Status Date / Time adhesive tape Allergy Itching Verified 05/19/23 08:47 morphine Allergy Swelling & Verified 05/19/23 08:48 hives Penicillins Allergy Rash/Hives Verified 05/19/23 08:48 ALEXIS Inhibitors AdvReac Cough Verified 05/19/23 08:47 Physical Exam Vitals: Vital Signs Temp Pulse Resp BP Pulse Ox 05/19/23 06:17 87 16 130/67 99 05/19/23 02:08 97.7 F 83 18 133/81 100 05/18/23 22:23 98.2 F 85 22 131/71 100 Intake and Output 05/18/23 05/19/23 05/19/23 22:59 06:59 14:59 Other: Weight 91.172 kg Results CBC & Chem 7: 05/18/23 23:47 05/18/23 23:47 Labs: Abnormal Lab Results - Last 24 Hours (Table) 05/18/23 05/18/23 05/18/23 Range/Units 23:47 23:47 23:47 WBC 27.6 H (3.8-10.6) k/uL RBC 3.50 L (3.80-5.40) m/uL Hgb 11.2 L (11.4-16.0) gm/dL Hct 31.6 L (34.0-46.0) % Neutrophils # 24.7 H (1.3-7.7) k/uL Sodium 120 L (137-145) mmol/L Chloride 83 L (98-107) mmol/L BUN 25 H (7-17) mg/dL Creatinine 1.46 H (0.52-1.04) mg/dL Glucose 171 H (74-99) mg/dL Plasma Lactic Acid Tyler 2.5 H* (0.7-2.0) mmol/L
[2023-05-19] MEDS: INSULIN ASPART (NovoLOG) 100 UNIT/ML VIAL SQ SCH ×2 (16:16→20:03)
[2023-05-19] MEDS: ENOXAPARIN 40 MG/0.4 ML SYRINGE SQ SCH (16:29)
[2023-05-19 17:05] LABS: Glucose,Whole Blood 177 mg/dL (70-110)
[2023-05-19 21:01] LABS: Glucose,Whole Blood 198 mg/dL (70-110)
[2023-05-19] MEDS ORDERED: VANCOMYCIN 1,250 MG in SODIUM CHLORIDE 0.9% 250 ML IVPB SCH (23:00)
[2023-05-19] MEDS: INSULIN DETEMIR (LEVEMIR) 100 UNIT/ML SYR SQ SCH (23:39)
[2023-05-20] MEDS: ceFAZolin 3 GM in SODIUM CHLORIDE 0.9% 100 ML IVPB SCH ×2 (02:06→10:19)
[2023-05-20] MEDS: SODIUM CHLORIDE 0.9% 1,000 ML IV SCH ×3 (03:00→19:31)
[2023-05-20 06:42] LABS: Basophils % (A) 0 %; Eosinophils # (A) 0.1 k/uL (0-0.7); Eosinophils % (A) 1 %; HCT 28.5 % (34.0-46.0); HGB 9.8 gm/dL (11.4-16.0); Lymphocytes # (A) 0.9 k/uL (1.0-4.8); Lymphocytes % (A) 6 %; MCH 31.5 pg (25.0-35.0); MCHC 34.5 g/dL (31.0-37.0); MCV 91.5 fL (80.0-100.0); Mean Platelet Volume 7.1; Monocytes # (A) 0.6 k/uL (0-1.0); Monocytes % (A) 4 %; Neutrophils # (A) 12.8 k/uL (1.3-7.7); Neutrophils % (A) 87 %; Platelet Count 265 k/uL (150-450); RBC 3.12 m/uL (3.80-5.40); RDW 12.4 % (11.5-15.5); WBC 14.7 k/uL (3.8-10.6)
[2023-05-20 07:16] LABS: African American GFR (CKD) 56 (>60 ml/min/1.73 sqM); Anion Gap 9 mmol/L; Blood Urea Nitrogen 19 mg/dL (7-17); Calcium 8.1 mg/dL (8.4-10.2); Carbon Dioxide 24 mmol/L (22-30); Chloride 91 mmol/L (98-107); Glucose 184 mg/dL (74-99); Non-African American GFR(CKD) 48 (>60 ml/min/1.73 sqM); Potassium 3.4 mmol/L (3.5-5.1); Sodium 124 mmol/L (137-145)
[2023-05-20 07:43] LABS: Glucose,Whole Blood 223 mg/dL (70-110)
[2023-05-20] MEDS ORDERED: NON FORMULARY DRUG (Vitamin B Complex [Vitamin B Complex] 1 EACH Capsule) PO SCH (09:00)
[2023-05-20] MEDS: DULoxetine HCL 60 MG CAPSULE.DR PO SCH (09:11)
[2023-05-20] MEDS: ATORVASTATIN 40 MG TAB PO SCH (09:11)
[2023-05-20] MEDS: ONDANSETRON 4 MG/2 ML VIAL IVP PRN (10:15)
[2023-05-20] MEDS: INSULIN ASPART (NovoLOG) 100 UNIT/ML VIAL SQ SCH ×3 (10:15→17:53)
[2023-05-20] MEDS: METOPROLOL TARTRATE 25 MG TAB PO SCH ×2 (10:17→22:14)
[2023-05-20] MEDS: LETROZOLE 2.5 MG TAB PO SCH (10:18)
[2023-05-20] MEDS: LINAGLIPTIN 5 MG TABLET PO SCH (10:30)
[2023-05-20] MEDS: ENOXAPARIN 40 MG/0.4 ML SYRINGE SQ SCH (10:40)
[2023-05-20 11:46] LABS: Glucose,Whole Blood 140 mg/dL (70-110)
[2023-05-20] MEDS ORDERED: VANCOMYCIN IV PER PHARMACY 1 EACH MISC MISCELLANE PRN (12:52)
--- NOTE | 2023-05-20 14:21 | P.PN ---
Progress Note - Text Progress Note Date: 05/20/23 Chief Complaint: Right leg redness This is a 62-year-old patient, follows with Dr. Jeniffer Figueroa. Chronic stable medical conditions include diabetes, hypertension, arthritis. Anxiety. Patient received Pneumovax vaccine 6 days ago. Has been feeling unwell since then. [place] she may have had some fevers also. Yesterday developed some placed on the right leg and redness. Tender. Mr. Le down. Admitted with what appears to be cellulitis. She was considered this is a ALLERGIC reaction. No areas in the body she's had this. Patient does take injections in the eye for macular edema. Some decrease in appetite. ID was consulted. May 20: Patient also had area of redness on the left side of the neck. Question that this was an ALLERGIC reaction. I'm adding Benadryl. Patient still has redness in the right leg and somewhat painful. Patient's wish to do IV vancomycin per ID. Sodiums running low. Strict fluid restriction 1500 mL a day. Repeat labs tomorrow. Decreased appetite. Active Medications Acetaminophen (Acetaminophen Tab 325 Mg Tab) 650 mg PO Q6HR PRN PRN Reason: Mild Pain or Fever > 100.5 Albuterol Sulfate (Albuterol Nebulized 2.5 Mg/3 Ml) 2.5 mg INHALATION RT-Q4H PRN PRN Reason: Shortness Of Breath Atorvastatin Calcium (Atorvastatin 40 Mg Tab) 40 mg PO DAILY [facility] Last Admin: 05/20/23 09:11 Dose: 40 mg Calcium Carbonate/Glycine (Calcium Carbonate 500 Mg Chewable) 1,000 mg PO Q4HR PRN PRN Reason: Dyspepsia Dextrose/Water (Dextrose 50% Syringe 50 Ml) 25 ml IVP PER PROTOCOL PRN; Protocol PRN Reason: Hypoglycemia Dextrose/Water (Dextrose 50% Syringe 50 Ml) 50 ml IVP PER PROTOCOL PRN; Pro tocol PRN Reason: Hypoglycemia Diphenhydramine HCl (Diphenhydramine 25 Mg Cap) 25 mg PO QID [facility] Diphenoxylate HCl/Atropine (Diphenox-Atrop 2.5-0.025 Mg 1 Each Tab) 1 each PO QID PRN PRN Reason: Diarrhea Duloxetine HCl (Duloxetine Hcl 60 Mg Capsule.) 60 mg PO DAILY [facility] Last Admin: 05/20/23 09:11 Dose: 60 mg Enoxaparin Sodium (Enoxaparin 40 Mg/0.4 Ml Syringe) 40 mg SQ DAILY [facility] Last Admin: 05/20/23 10:40 Dose: 40 mg Hydromorphone HCl (Hydromorphone 0.5 Mg/0.5 Ml Syringe) 0.5 mg IVP Q3HR PRN PRN Reason: Severe Pain (Scale 7 to 10) Last Admin: 05/20/23 02:05 Dose: 0.5 mg Sodium Chloride (Saline 0.9%) 1,000 mls @ 130 mls/hr IV .Q7H42M [facility] Last Admin: 05/20/23 10:31 Dose: 130 mls/hr Vancomycin HCl 1,500 mg/ (Sodium Chloride) 500 mls @ 167 mls/hr IVPB Q24H [facility] Insulin Aspart (Insulin Aspart (Novolog) 100 Unit/Ml Vial) 0 unit SQ AC-TID [facility]; Protocol Last Admin: 05/20/23 12:30 Dose: Not Given Insulin Detemir (Insulin Detemir (Levemir) 100 Unit/Ml Syr) 20 unit SQ [facility] Last Admin: 05/19/23 23:39 Dose: 20 unit Lactulose (Lactulose 20 Gm/30 Ml Cup) 20 gm PO DAILY PRN PRN Reason: Constipation Letrozole (Letrozole 2.5 Mg Tab) 2.5 mg PO DAILY [facility] Last Admin: 05/20/23 10:18 Dose: 2.5 mg Linagliptin (Linagliptin 5 Mg Tablet) 5 mg PO DAILY [facility] Last Admin: 05/20/23 10:30 Dose: 5 mg Lorazepam (Lorazepam 0.5 Mg Tab) 0.5 mg PO Q6HR PRN PRN Reason: Anxiety Last Admin: 05/20/23 02:06 Dose: 0.5 mg Metoprolol Tartrate (Metoprolol Tartrate 25 Mg Tab) 25 mg PO BID [facility] Last Admin: 05/20/23 10:17 Dose: 25 mg Naloxone HCl (Naloxone 0.4 Mg/Ml 1 Ml Vial) 0.2 mg IV Q2M PRN PRN Reason: Opioid Reversal Ondansetron HCl (Ondansetron 4 Mg/2 Ml Vial) 4 mg IVP Q8HR PRN PRN Reason: Nausea And Vomiting Last Admin: 05/20/23 10:15 Dose: 4 mg Past medical history to include: Diabetes, hypertension, breast cancer, anxiety, depression, CHF from diastolic dysfunction Social history: Nonsmoker. No alcohol. Lives withrodríguez Cordova Physical examination: VITAL SIGNS: 98.2, 83, 18, 140/71, 97% room air GENERAL: BMI 39.3, laying in bed, tired EYES: Pupils equal. Conjunctiva normal. HEENT: External appearance of nose and ears normal, oral cavity grossly normal. NECK: JVD not raised; masses not palpable. HEART: First and second heart sounds are normal; no edema. LUNGS: Respiratory rate normal; decreased breath sounds. ABDOMEN: Soft, nontender, liver spleen not palpable, no masses palpable. PSYCH: Alert and oriented x3; mood and affect normal. MUSCULOSKELETAL:No Clubbing/cyanosis;muscles-grossly intact. UA DERMATOLOGICAL: Area of redness on the right lower extremity below the knee. 2 areas of breakdown of skin where blister was present. Tender. Also area of redness at the junction of the left neck and shoulder area. INVESTIGATIONS, reviewed in the clinical context: May 20: White count 14.7 hemoglobin 9.8 sodium 124 potassium 3.4 BUN 19 creatinine 1.19 May 19: Lactic acid 0.8 May 18: White count 27.6 hemoglobin 11.2 platelets 281 sodium 120 potassium 4.1 BUN 25 creatinine 1.46 lactic acid 2.5 Venous Doppler: Negative for DVT Previous labs: Creatinine 0.April Assessment and plan: -Acute right lower extremity cellulitis, including area below the left side of the neck: Slow to respond. Some question about this being ALLERGIC. Benadryl and did ID following. IV Ancef-changed to IV vancomycin. Check pro calcitonin -Sepsis secondary to cellulitis IV vancomycin. IV fluids. -Acute kidney injury secondary to ATN/hypotension Hold Cozaar, Lasix. IV fluids -Chronic congestive heart failure from diastolic dysfunction EF 55-60% Chronically on Lasix-hold for now. Follow clinically -Essential hypertension Lopressor 25 mg twice a day. Cozaar 100 mg day-hold. Amlodipine 10 mg day- hold. -Diabetes mellitus type 2 chronically on insulin Levemir, Glucophage-hold. Follow Accu-Cheks with sliding skill insulin. Januvia -Hyperlipidemia Lipitor 40 mg -Severe Hyponatremia from decrease salt intake.: Slow to respond Fluid restrict 1500 mL a day. -Anxiety depression otherwise specified Cymbalta -History of breast cancer: On Femara Cutback IV fluids to 75 mL an hour. Fluid restrict 59 mL day. IV vancomycin. Add Benadryl. Follow labs. Encourage oral intake Past Medical History Past Medical History: Cancer, Diabetes Mellitus, Hypertension Additional Past Medical History / Comment(s): breast cancer History of Any Multi-Drug Resistant Organisms: None Reported Past Surgical History: Section, Cholecystectomy Additional Past Surgical History / Comment(s): left lumpectomy x 2. right mediport insertion Past Anesthesia/Blood Transfusion Reactions: No Reported Reaction Past Psychological History: Anxiety Smoking Status: Never smoker Past Alcohol Use History: None Reported Past Drug Use History: None Reported - Past Family History Father Additional Family Medical History / Comment(s): No health hx 91 from pneumonia Mother Additional Family Medical History / Comment(s): No health hx after fall age 96
--- NOTE | 2023-05-20 14:58 | P.PN ---
Subjective Progress Note Date: 05/20/23 Principal diagnosis: Right lower extremity, chest wall cellulitis and bacteremia Patient is a 62-year-old female with a past medical history significant for hypertension and diabetes mellitus breast cancer, presenting to the ER for evaluation of increasing redness and pain to the right lower extremity, since admission to the hospital the patient also developed erythema to the left upper chest wall and the blood cultures came back positive. On today's evaluation and that is05/20/2023, the patient remains to be afebrile, , the patient is breathing comfortably on room air , the patient denies chest pain shortness of breath or cough, patient denies nausea / vomiting and no abdominal pain , no diarrhea reported, still complaining of pain and swelling to the right lower extremity but no drainage Patient did have a white count of 14.7, creatinine is 1.1 and blood culture with gram-positive cocci Objective - Vital Signs Vital signs: Vital Signs Temp 98.2 F 05/19/23 23:42 Pulse 83 05/19/23 23:42 Resp 18 05/19/23 23:42 BP 144/71 05/19/23 23:42 Pulse Ox 97 05/19/23 23:42 FiO2 - Exam GENERAL DESCRIPTION: Middle-age female lying in bed in no distress RESPIRATORY SYSTEM: Unlabored breathing , decreased breath sounds at bases HEART: S1 S2 regular rate and rhythm , left chest wall did have area of redness and warmth to touch ABDOMEN: Soft , no tenderness EXTREMITIES: Right lower extremity with diffuse swelling and redness which is warm and tender to touch - Labs CBC & Chem 7: 05/20/23 06:10 05/20/23 06:10 Labs: Abnormal Lab Results - Last 24 Hours (Table) 05/19/23 05/19/23 05/20/23 Range/Units 17:04 20:54 06:10 WBC (3.8-10.6) k/uL RBC (3.80-5.40) m/uL Hgb (11.4-16.0) gm/dL Hct (34.0-46.0) % Neutrophils # (1.3-7.7) k/uL Lymphocytes # (1.0-4.8) k/uL Sodium 124 L (137-145) mmol/L Potassium 3.4 L (3.5-5.1) mmol/L Chloride 91 L (98-107) mmol/L BUN 19 H (7-17) mg/dL Creatinine 1.19 H (0.52-1.04) mg/dL Glucose 184 H (74-99) mg/dL POC Glucose (mg/dL) 177 H 198 H (70-110) mg/dL Calcium 8.1 L (8.4-10.2) mg/dL 05/20/23 05/20/23 05/20/23 Range/Units 06:10 07:40 11:45 WBC 14.7 H (3.8-10.6) k/uL RBC 3.12 L (3.80-5.40) m/uL Hgb 9.8 L (11.4-16.0) gm/dL Hct 28.5 L (34.0-46.0) % Neutrophils # 12.8 H (1.3-7.7) k/uL Lymphocytes # 0.9 L (1.0-4.8) k/uL Sodium (137-145) mmol/L Potassium (3.5-5.1) mmol/L Chloride (98-107) mmol/L BUN (7-17) mg/dL Creatinine (0.52-1.04) mg/dL Glucose (74-99) mg/dL POC Glucose (mg/dL) 223 H 140 H (70-110) mg/dL Calcium (8.4-10.2) mg/dL Microbiology - Last 24 Hours (Table) 05/19/23 01:15 Blood Culture Gram Stain - Preliminary Blood 05/19/23 01:00 Blood Culture Gram Stain - Preliminary Blood Assessment and Plan (1) Cellulitis of right lower extremity Current Visit: Yes Status: Acute Code(s): L03.115 - CELLULITIS OF RIGHT LOWER LIMB SNOMED Code(s): 754414705 (2) Cellulitis of chest wall Current Visit: Yes Status: Acute Code(s): L03.313 - CELLULITIS OF CHEST WALL SNOMED Code(s): 70565415 (3) Bacteremia Current Visit: Yes Status: Acute Code(s): R78.81 - BACTEREMIA SNOMED Code(s): 7411934 Plan: 1patient is in the hospital with increasing pain swelling and redness of right lower extremity with elevated white count and lactic acid concerning for cellulitis likely from gram-positive skin aurelio patient is a low risk factor for MRSA 2history of penicillin ALLERGY however the patient mentioned she has taken amoxicillin without any problems clinically doubt true penicillin ALLERGY 3Doppler ultrasound the right lower extremity was negative for DVT 4patient has developed cellulitis to the left upper chest wall and also with a positive blood culture 5-blood cultures will be repeated document clearance of bacteremia 6we will discontinue cefazolin and start the patient vancomycin and monitor kidney function closely Family the bedside questions were answered Dictation was produced using [employer] dictation software. please excuse any grammatical, word or spelling errors. Time with Patient: Greater than 30
[2023-05-20] MEDS: diphenhydrAMINE 25 MG CAP PO SCH ×3 (15:27→22:14)
[2023-05-20] MEDS: VANCOMYCIN 1,500 MG in SODIUM CHLORIDE 0.9% 500 ML 500 ML IVPB SCH (16:28)
[2023-05-20 17:42] LABS: Glucose,Whole Blood 171 mg/dL (70-110)
[2023-05-20 21:20] LABS: Glucose,Whole Blood 188 mg/dL (70-110)
[2023-05-20] MEDS: INSULIN DETEMIR (LEVEMIR) 100 UNIT/ML SYR SQ SCH (22:14)
[2023-05-21 06:31] LABS: Glucose,Whole Blood 123 mg/dL (70-110)
[2023-05-21] MEDS: INSULIN ASPART (NovoLOG) 100 UNIT/ML VIAL SQ SCH ×3 (06:32→16:41)
[2023-05-21] MEDS: SODIUM CHLORIDE 0.9% 1,000 ML IV SCH (07:31)
[2023-05-21 07:36] LABS: Basophils # (A) 0.1 k/uL (0-0.2); Basophils % (A) 0 %; Eosinophils # (A) 0.3 k/uL (0-0.7); Eosinophils % (A) 2 %; HCT 26.4 % (34.0-46.0); HGB 9.2 gm/dL (11.4-16.0); Lymphocytes # (A) 1.6 k/uL (1.0-4.8); Lymphocytes % (A) 10 %; MCH 31.6 pg (25.0-35.0); MCHC 34.9 g/dL (31.0-37.0); MCV 90.6 fL (80.0-100.0); Mean Platelet Volume 7.8; Monocytes # (A) 0.8 k/uL (0-1.0); Monocytes % (A) 5 %; Neutrophils # (A) 12.4 k/uL (1.3-7.7); Neutrophils % (A) 79 %; Platelet Count 282 k/uL (150-450); RBC 2.91 m/uL (3.80-5.40); RDW 12.8 % (11.5-15.5); WBC 15.6 k/uL (3.8-10.6)
[2023-05-21] MEDS: ATORVASTATIN 40 MG TAB PO SCH (07:49)
[2023-05-21] MEDS: diphenhydrAMINE 25 MG CAP PO SCH ×4 (07:49→20:42)
[2023-05-21] MEDS: LETROZOLE 2.5 MG TAB PO SCH (07:49)
[2023-05-21] MEDS: DULoxetine HCL 60 MG CAPSULE.DR PO SCH (07:49)
[2023-05-21] MEDS: METOPROLOL TARTRATE 25 MG TAB PO SCH (07:49)
[2023-05-21] MEDS: LINAGLIPTIN 5 MG TABLET PO SCH (07:50)
[2023-05-21] MEDS: ENOXAPARIN 40 MG/0.4 ML SYRINGE SQ SCH (07:50)
[2023-05-21 07:52] LABS: African American GFR (CKD) 72 (>60 ml/min/1.73 sqM); Anion Gap 7 mmol/L; Blood Urea Nitrogen 16 mg/dL (7-17); Calcium 8.1 mg/dL (8.4-10.2); Carbon Dioxide 22 mmol/L (22-30); Chloride 98 mmol/L (98-107); Glucose 111 mg/dL (74-99); Non-African American GFR(CKD) 62 (>60 ml/min/1.73 sqM); Potassium 3.9 mmol/L (3.5-5.1); Sodium 127 mmol/L (137-145)
[2023-05-21 11:29] LABS: Glucose,Whole Blood 137 mg/dL (70-110)
--- NOTE | 2023-05-21 11:50 | P.PN ---
Subjective Progress Note Date: 05/21/23 Principal diagnosis: Right lower extremity, chest wall cellulitis and bacteremia Patient is a 62-year-old female with a past medical history significant for hypertension and diabetes mellitus breast cancer, presenting to the ER for evaluation of increasing redness and pain to the right lower extremity, since admission to the hospital the patient also developed erythema to the left upper chest wall and the blood cultures came back positive. On today's evaluation and that is 05/21/2023, the patient continues to be afebrile, , the patient is breathing comfortably on room air , the patient denies chest pain shortness or cough, patient denies nausea / vomiting and no diarrhea, denies having any abdominal pain, pain and discomfort to the left chest wall and right lower extremity slightly decreased Patient still have elevated white count 15.6, creatinine 0.97,blood culture with gram-positive cocci Objective - Vital Signs Vital signs: Vital Signs Temp 98.9 F 05/21/23 07:12 Pulse 89 05/21/23 07:12 Resp 18 05/21/23 10:50 BP 162/79 05/21/23 07:12 Pulse Ox 91 L 05/21/23 07:12 FiO2 Intake & Output 05/20/23 05/21/23 05/21/23 18:59 06:59 18:59 Intake Total 840 Output Total 1000 Balance -160 Weight 91.172 kg Intake: Intake, IV Titration 600 Amount Sodium Chloride 0.9% 1, 600 000 ml @ 75 mls/hr IV . [id number] [facility] Rx#:[id number] Oral 240 Output: Urine 1000 Other: Voiding Method External Catheter External Catheter - Exam GENERAL DESCRIPTION: Middle-age female lying in bed in no distress RESPIRATORY SYSTEM: Unlabored breathing , decreased breath sounds at bases HEART: S1 S2 regular rate and rhythm , left chest wall area of redness has decreased in intensity ABDOMEN: Soft , no tenderness EXTREMITIES: Right lower extremity with diffuse swelling and redness has decreased in intensity - Labs CBC & Chem 7: 05/21/23 05:55 05/21/23 05:55 Labs: Abnormal Lab Results - Last 24 Hours (Table) 05/20/23 05/20/23 05/20/23 Range/Units 11:45 17:38 21:19 WBC (3.8-10.6) k/uL RBC (3.80-5.40) m/uL Hgb (11.4-16.0) gm/dL Hct (34.0-46.0) % Neutrophils # (1.3-7.7) k/uL Sodium (137-145) mmol/L Glucose (74-99) mg/dL POC Glucose (mg/dL) 140 H 171 H 188 H (70-110) mg/dL Osmolality (280-301) mosm/kg Calcium (8.4-10.2) mg/dL Procalcitonin (0.02-0.09) ng/mL 05/21/23 05/21/23 05/21/23 Range/Units 05:55 05:55 05:55 WBC 15.6 H (3.8-10.6) k/uL RBC 2.91 L (3.80-5.40) m/uL Hgb 9.2 L (11.4-16.0) gm/dL Hct 26.4 L (34.0-46.0) % Neutrophils # 12.4 H (1.3-7.7) k/uL Sodium 127 L (137-145) mmol/L Glucose 111 H (74-99) mg/dL POC Glucose (mg/dL) (70-110) mg/dL Osmolality 267 L (280-301) mosm/kg Calcium 8.1 L (8.4-10.2) mg/dL Procalcitonin 0.63 H (0.02-0.09) ng/mL 05/21/23 05/21/23 Range/Units 06:29 11:27 WBC (3.8-10.6) k/uL RBC (3.80-5.40) m/uL Hgb (11.4-16.0) gm/dL Hct (34.0-46.0) % Neutrophils # (1.3-7.7) k/uL Sodium (137-145) mmol/L Glucose (74-99) mg/dL POC Glucose (mg/dL) 123 H 137 H (70-110) mg/dL Osmolality (280-301) mosm/kg Calcium (8.4-10.2) mg/dL Procalcitonin (0.02-0.09) ng/mL Microbiology - Last 24 Hours (Table) 05/19/23 01:15 Blood Culture Gram Stain - Preliminary Blood Blood Culture - Preliminary Coagulase Negative Staph 05/19/23 01:00 Blood Culture Gram Stain - Preliminary Blood Blood Culture - Preliminary Coagulase Negative Staph Assessment and Plan (1) Cellulitis of right lower extremity Current Visit: Yes Status: Acute Code(s): L03.115 - CELLULITIS OF RIGHT LOWER LIMB SNOMED Code(s): 451738218 (2) Cellulitis of chest wall Current Visit: Yes Status: Acute Code(s): L03.313 - CELLULITIS OF CHEST WALL SNOMED Code(s): 00992776 (3) Bacteremia Current Visit: Yes Status: Acute Code(s): R78.81 - BACTEREMIA SNOMED Code(s): 5929381 Plan: 1patient is in the hospital with increasing pain swelling and redness of right lower extremity with elevated white count and lactic acid concerning for cellulitis likely from gram-positive skin aurelio patient is a low risk factor for MRSA 2history of penicillin ALLERGY however the patient mentioned she has taken amoxicillin without any problems clinically doubt true penicillin ALLERGY 3Doppler ultrasound the right lower extremity was negative for DVT 4patient has developed cellulitis to the left upper chest wall and also with a positive blood culture 5-blood cultures has been repeated document clearance of bacteremia 6patient to continue with vancomycin and monitor kidney function closely, apply Jay wrap to the right leg to keep the swelling down Dictation was produced using [employer] dictation software. please excuse any grammatical, word or spelling errors. Time with Patient: Less than 30
[2023-05-21] MEDS: VANCOMYCIN 1,500 MG in SODIUM CHLORIDE 0.9% 500 ML 500 ML IVPB SCH (13:44)
[2023-05-21] MEDS ORDERED: METOPROLOL TARTRATE 25 MG TAB PO STA (15:15)
--- NOTE | 2023-05-21 15:19 | P.PN ---
Progress Note - Text Progress Note Date: 05/21/23 Chief Complaint: Right leg redness This is a 62-year-old patient, follows with Dr. Jeniffer Figueroa. Chronic stable medical conditions include diabetes, hypertension, arthritis. Anxiety. Patient received Pneumovax vaccine 6 days ago. Has been feeling unwell since then. [place] she may have had some fevers also. Yesterday developed some placed on the right leg and redness. Tender. Mr. Le down. Admitted with what appears to be cellulitis. She was considered this is a ALLERGIC reaction. No areas in the body she's had this. Patient does take injections in the eye for macular edema. Some decrease in appetite. ID was consulted. May 20: Patient also had area of redness on the left side of the neck. Question that this was an ALLERGIC reaction. I'm adding Benadryl. Patient still has redness in the right leg and somewhat painful. Patient's wish to do IV vancomycin per ID. Sodiums running low. Strict fluid restriction 1500 mL a day. Repeat labs tomorrow. Decreased appetite. May 21: Benadryl was added yesterday. Remains on IV vancomycin. Decrease in pain and redness in the right leg and in the left upper shoulder portion. Oral intake fair. Told to increase activity. Blood pressure running on the high side. Resume Cozaar. DC saline. Active Medications Acetaminophen (Acetaminophen Tab 325 Mg Tab) 650 mg PO Q6HR PRN PRN Reason: Mild Pain or Fever > 100.5 Albuterol Sulfate (Albuterol Nebulized 2.5 Mg/3 Ml) 2.5 mg INHALATION RT-Q4H PRN PRN Reason: Shortness Of Breath Atorvastatin Calcium (Atorvastatin 40 Mg Tab) 40 mg PO DAILY [facility] Last Admin: 05/21/23 07:49 Dose: 40 mg Calcium Carbonate/Glycine (Calcium Carbonate 500 Mg Chewable) 1,000 mg PO Q4HR PRN PRN Reason: Dyspepsia Dextrose/Water (Dextrose 50% Syringe 50 Ml) 25 ml IVP PER PROTOCOL PRN; Protocol PRN Reason: Hypoglycemia Dextrose/Water (Dextrose 50% Syringe 50 Ml) 50 ml IVP PER PROTOCOL PRN; Protocol PRN Reason: Hypoglycemia Diphenhydramine HCl (Diphenhydramine 25 Mg Cap) 25 mg PO QID [facility] Last Admin: 05/21/23 13:43 Dose: 25 mg Diphenoxylate HCl/Atropine (Diphenox-Atrop 2.5-0.025 Mg 1 Each Tab) 1 each PO QID PRN PRN Reason: Diarrhea Duloxetine HCl (Duloxetine Hcl 60 Mg Capsule.Dr) 60 mg PO DAILY [facility] Last Admin: 05/21/23 07:49 Dose: 60 mg Enoxaparin Sodium (Enoxaparin 40 Mg/0.4 Ml Syringe) 40 mg SQ DAILY [facility] Last Admin: 05/21/23 07:50 Dose: 40 mg Hydromorphone HCl (Hydromorphone 0.5 Mg/0.5 Ml Syringe) 0.5 mg IVP Q3HR PRN PRN Reason: Severe Pain (Scale 7 to 10) Last Admin: 05/20/23 02:05 Dose: 0.5 mg Vancomycin HCl 1,500 mg/ (Sodium Chloride) 500 mls @ 167 mls/hr IVPB Q24H [facility] Last Admin: 05/21/23 13:44 Dose: 167 mls/hr Sodium Chloride (Saline 0.9%) 1,000 mls @ 75 mls/hr IV .[id number] [facility] Last Admin: 05/21/23 07:31 Dose: Not Given Insulin Aspart (Insulin Aspart (Novolog) 100 Unit/Ml Vial) 0 unit SQ AC-TID [facility]; Protocol Last Admin: 05/21/23 11:32 Dose: Not Given Insulin Detemir (Insulin Detemir (Levemir) 100 Unit/Ml Syr) 20 unit SQ HS [facility] Last Admin: 05/20/23 22:14 Dose: 20 unit Lactulose (Lactulose 20 Gm/30 Ml Cup) 20 gm PO DAILY PRN PRN Reason: Constipation Letrozole (Letrozole 2.5 Mg Tab) 2.5 mg PO DAILY [facility] Last Admin: 05/21/23 07:49 Dose: 2.5 mg Linagliptin (Linagliptin 5 Mg Tablet) 5 mg PO DAILY [facility] Last Admin: 05/21/23 07:50 Dose: 5 mg Lorazepam (Lorazepam 0.5 Mg Tab) 0.5 mg PO Q6HR PRN PRN Reason: Anxiety Last Admin: 05/20/23 02:06 Dose: 0.5 mg Metoprolol Tartrate (Metoprolol Tartrate 25 Mg Tab) 25 mg PO BID [facility] Last Admin: 05/21/23 07:49 Dose: 25 mg Naloxone HCl (Naloxone 0.4 Mg/Ml 1 Ml Vial) 0.2 mg IV Q2M PRN PRN Reason: Opioid Reversal Ondansetron HCl (Ondansetron 4 Mg/2 Ml Vial) 4 mg IVP Q8HR PRN PRN Reason: Nausea And Vomiting Last Admin: 05/20/23 10:15 Dose: 4 mg Past medical history to include: Diabetes, hypertension, breast cancer, anxiety, depression, CHF from diastolic dysfunction Social history: Nonsmoker. No alcohol. Lives withrodríguez Cordova Physical examination: VITAL SIGNS: 97.9, sitting 85, 18, 173/78, 100% room air GENERAL: laying in bed, tired EYES: Pupils equal. Conjunctiva normal. HEENT: External appearance of nose and ears normal, oral cavity grossly normal. NECK: JVD not raised; masses not palpable. HEART: First and second heart sounds are normal; no edema. LUNGS: Respiratory rate normal; decreased breath sounds. ABDOMEN: Soft, nontender, liver spleen not palpable, no masses palpable. PSYCH: Alert and oriented x3; mood and affect normal. MUSCULOSKELETAL:No Clubbing/cyanosis;muscles-grossly intact. UA DERMATOLOGICAL: Area of redness on the right lower extremity below the knee. 2 areas of breakdown of skin where blister was present. Tender. Also area of redness at the junction of the left neck and shoulder area.: Improved INVESTIGATIONS, reviewed in the clinical context: May 21: White count 15.6 hemoglobin 9.2 platelets 22 sodium 127 potassium 3.9 creatinine 0.97 serum osmolality 267 procalcitonin 0.63 May 20: White count 14.7 hemoglobin 9.8 sodium 124 potassium 3.4 BUN 19 creatinine 1.19 May 19: Lactic acid 0.8 May 18: White count 27.6 hemoglobin 11.2 platelets 281 sodium 120 potassium 4.1 BUN 25 creatinine 1.46 lactic acid 2.5 Venous Doppler: Negative for DVT Previous labs: Creatinine 0.April Assessment and plan: -Acute right lower extremity cellulitis, including area below the left side of the neck: Some response Some question about this being ALLERGIC. Benadryl to continue ID following. IV vancomycin. -Sepsis secondary to cellulitis IV vancomycin. IV fluids. -Acute kidney injury secondary to ATN/hypotension-better Hold Clare Gunderson. IV fluids -Chronic congestive heart failure from diastolic dysfunction EF 55-60% Chronically on Lasix-hold for now. Follow clinically -Essential hypertension, uncontrolled Increase Lopressor 50 mg twice a day. Cozaar 100 mg -resume. Amlodipine 10 mg day-hold. -Diabetes mellitus type 2 chronically on insulin Levemir, Glucophage-hold. Follow Accu-Cheks with sliding skill insulin. Januvia -Hyperlipidemia Lipitor 40 mg -Severe hypoosmolar, Hyponatremia from decrease salt intake.: Slow to respond Fluid restrict 1500 mL a day. -Anxiety depression otherwise specified Cymbalta -History of breast cancer: On Femara DC saline. Increase Lopressor to 50 mg twice a day. Resume Cozaar. Continue IV vancomycin. Increase activity. Past Medical History Past Medical History: Cancer, Diabetes Mellitus, Hypertension Additional Past Medical History / Comment(s): breast cancer History of Any Multi-Drug Resistant Organisms: None Reported Past Surgical History: Section, Cholecystectomy Additional Past Surgical History / Comment(s): left lumpectomy x 2. right mediport insertion Past Anesthesia/Blood Transfusion Reactions: No Reported Reaction Past Psychological History: Anxiety Smoking Status: Never smoker Past Alcohol Use History: None Reported Past Drug Use History: None Reported - Past Family History Father Additional Family Medical History / Comment(s): No health hx 91 from pneumo dax Mother Additional Family Medical History / Comment(s): No health hx after fall age 89
[2023-05-21 16:27] LABS: Glucose,Whole Blood 154 mg/dL (70-110)
[2023-05-21] MEDS: LOSARTAN 50 MG TAB PO SCH (16:40)
[2023-05-21] MEDS: METOPROLOL TARTRATE 50 MG TAB PO SCH (20:27)
[2023-05-21 20:34] LABS: Glucose,Whole Blood 152 mg/dL (70-110)
[2023-05-21] MEDS: INSULIN DETEMIR (LEVEMIR) 100 UNIT/ML SYR SQ SCH (20:42)
[2023-05-22 05:35] LABS: Glucose,Whole Blood 129 mg/dL (70-110)
[2023-05-22] MEDS: INSULIN ASPART (NovoLOG) 100 UNIT/ML VIAL SQ SCH ×3 (06:12→17:12)
[2023-05-22 08:06] LABS: African American GFR (CKD) 74 (>60 ml/min/1.73 sqM); Non-African American GFR(CKD) 64 (>60 ml/min/1.73 sqM)
[2023-05-22] MEDS: LINAGLIPTIN 5 MG TABLET PO SCH (09:17)
[2023-05-22] MEDS: METOPROLOL TARTRATE 50 MG TAB PO SCH (09:17)
[2023-05-22] MEDS: ATORVASTATIN 40 MG TAB PO SCH (09:17)
[2023-05-22] MEDS: DULoxetine HCL 60 MG CAPSULE.DR PO SCH (09:17)
[2023-05-22] MEDS: ENOXAPARIN 40 MG/0.4 ML SYRINGE SQ SCH (09:17)
[2023-05-22] MEDS: diphenhydrAMINE 25 MG CAP PO SCH ×3 (09:18→18:42)
[2023-05-22] MEDS: LETROZOLE 2.5 MG TAB PO SCH (09:18)
[2023-05-22] MEDS: LOSARTAN 50 MG TAB PO SCH (09:18)
[2023-05-22 11:21] LABS: Glucose,Whole Blood 163 mg/dL (70-110)
--- NOTE | 2023-05-22 12:52 | P.PN ---
Subjective Progress Note Date: 05/22/23 Principal diagnosis: Right lower extremity, chest wall cellulitis and bacteremia Patient is a 62-year-old female with a past medical history significant for hypertension and diabetes mellitus breast cancer, presenting to the ER for evaluation of increasing redness and pain to the right lower extremity, since admission to the hospital the patient also developed erythema to the left upper chest wall and the blood cultures came back positive. On today's evaluation and that is 05/22/2023, the patient remains to be afebrile, , the patient is breathing comfortably on room air , the patient denies chest pain and no significant cough, patient denies abdominal pain, n ausea or vomiting and no diarrhea has been reported by the nursing staff, the patient pain and discomfort to the left chest wall and right lower extremity slightly decreased in intensity Patient still have elevated white count 15.6 as of yesterday, creatinine 0.94,blood culture with coagulase negative staph Objective - Vital Signs Vital signs: Vital Signs Temp 98.5 F 05/22/23 07:38 Pulse 94 05/22/23 07:38 Resp 18 05/22/23 07:38 BP 161/84 05/22/23 07:38 Pulse Ox 97 05/22/23 07:38 FiO2 Intake & Output 05/21/23 05/22/23 05/22/23 18:59 06:59 18:59 Intake Total 300 Output Total 2000 Balance -1700 Intake: Oral 300 Output: Urine 2000 Other: Voiding Method External Catheter # Voids 2 2 1 - Exam GENERAL DESCRIPTION: Middle-age female lying in bed in no distress RESPIRATORY SYSTEM: Unlabored breathing , decreased breath sounds at bases HEART: S1 S2 regular rate and rhythm , left chest wall area of redness has decreased in intensity ABDOMEN: Soft , no tenderness EXTREMITIES: Bilateral lower extremity with the Jay wrap no drainage - Labs CBC & Chem 7: 05/21/23 05:55 05/22/23 07:04 Labs: Abnormal Lab Results - Last 24 Hours (Table) 05/21/23 05/21/23 05/22/23 Range/Units 16:26 20:32 05:34 POC Glucose (mg/dL) 154 H 152 H 129 H (70-110) mg/dL 05/22/23 Range/Units 11:19 POC Glucose (mg/dL) 163 H (70-110) mg/dL Microbiology - Last 24 Hours (Table) 05/20/23 13:01 Blood Culture - Preliminary Blood 05/19/23 01:15 Blood Culture Gram Stain - Preliminary Blood Blood Culture - Preliminary Coagulase Negative Staph 05/19/23 01:00 Blood Culture Gram Stain - Preliminary Blood Blood Culture - Preliminary Coagulase Negative Staph Assessment and Plan (1) Cellulitis of right lower extremity Current Visit: Yes Status: Acute Code(s): L03.115 - CELLULITIS OF RIGHT LOWER LIMB SNOMED Code(s): 030706164 (2) Cellulitis of chest wall Current Visit: Yes Status: Acute Code(s): L03.313 - CELLULITIS OF CHEST WALL SNOMED Code(s): 35319694 (3) Bacteremia Current Visit: Yes Status: Acute Code(s): R78.81 - BACTEREMIA SNOMED Code(s): 9965236 Plan: 1patient is in the hospital with increasing pain swelling and redness of right lower extremity with elevated white count and lactic acid concerning for cellulitis likely from gram-positive skin aurelio patient is a low risk factor for MRSA 2history of penicillin ALLERGY however the patient mentioned she has taken amoxicillin without any problems clinically doubt true penicillin ALLERGY 3Doppler ultrasound the right lower extremity was negative for DVT 4patient has developed cellulitis to the left upper chest wall and also with a positive blood culture with coagulase negative staph, repeat blood cultures 05/20/2023 so far negative 5Plan is to continue with vancomycin and monitor kidney function closely, and reevaluate the leg tomorrow Dictation was produced using [employer] dictation software. please excuse any grammatical, word or spelling errors. Time with Patient: Less than 30
[2023-05-22] MEDS: VANCOMYCIN 1,500 MG in SODIUM CHLORIDE 0.9% 500 ML 500 ML IVPB SCH (14:47)
[2023-05-22 16:35] LABS: Glucose,Whole Blood 134 mg/dL (70-110)
--- NOTE | 2023-05-22 19:26 | P.PN ---
Progress Note - Text Progress Note Date: 05/22/23 Chief Complaint: Right leg redness This is a 62-year-old patient, follows with Dr. Jeniffer Figueroa. Chronic stable medical conditions include diabetes, hypertension, arthritis. Anxiety. Patient received Pneumovax vaccine 6 days ago. Has been feeling unwell since then. [place] she may have had some fevers also. Yesterday developed some placed on the right leg and redness. Tender. Mr. Le down. Admitted with what appears to be cellulitis. She was considered this is a ALLERGIC reaction. No areas in the body she's had this. Patient does take injections in the eye for macular edema. Some decrease in appetite. ID was consulted. May 20: Patient also had area of redness on the left side of the neck. Question that this was an ALLERGIC reaction. I'm adding Benadryl. Patient still has redness in the right leg and somewhat painful. Patient's wish to do IV vancomycin per ID. Sodiums running low. Strict fluid restriction 1500 mL a day. Repeat labs tomorrow. Decreased appetite. May 21: Benadryl was added yesterday. Remains on IV vancomycin. Decrease in pain and redness in the right leg and in the left upper shoulder portion. Oral intake fair. Told to increase activity. Blood pressure running on the high side. Resume Cozaar. DC saline. May 22: On IV vancomycin per ID. Selective some improving. Also fond of component of ALLERGIC reaction. Ambulating better. Cutback Benadryl. Add chlorthalidone for blood pressure. Increase Lopressor to 75 mg twice a day Active Medications Acetaminophen (Acetaminophen Tab 325 Mg Tab) 650 mg PO Q6HR PRN PRN Reason: Mild Pain or Fever > 100.5 Albuterol Sulfate (Albuterol Nebulized 2.5 Mg/3 Ml) 2.5 mg INHALATION RT-Q4H PRN PRN Reason: Shortness Of Breath Atorvastatin Calcium (Atorvastatin 40 Mg Tab) 40 mg PO DAILY [facility] Last Admin: 05/22/23 09:17 Dose: 40 mg Calcium Carbonate/Glycine (Calcium Carbonate 500 Mg Chewable) 1,000 mg PO Q4HR PRN PRN Reason: Dyspepsia Dextrose/Water (Dextrose 50% Syringe 50 Ml) 25 ml IVP PER PROTOCOL PRN; Prot ocol PRN Reason: Hypoglycemia Dextrose/Water (Dextrose 50% Syringe 50 Ml) 50 ml IVP PER PROTOCOL PRN; Protocol PRN Reason: Hypoglycemia Diphenoxylate HCl/Atropine (Diphenox-Atrop 2.5-0.025 Mg 1 Each Tab) 1 each PO QID PRN PRN Reason: Diarrhea Duloxetine HCl (Duloxetine Hcl 60 Mg Capsule.Dr) 60 mg PO DAILY [facility] Last Admin: 05/22/23 09:17 Dose: 60 mg Enoxaparin Sodium (Enoxaparin 40 Mg/0.4 Ml Syringe) 40 mg SQ DAILY [facility] Last Admin: 05/22/23 09:17 Dose: 40 mg Hydromorphone HCl (Hydromorphone 0.5 Mg/0.5 Ml Syringe) 0.5 mg IVP Q3HR PRN PRN Reason: Severe Pain (Scale 7 to 10) Last Admin: 05/20/23 02:05 Dose: 0.5 mg Vancomycin HCl 1,500 mg/ (Sodium Chloride) 500 mls @ 167 mls/hr IVPB Q24H [facility] Last Admin: 05/22/23 14:47 Dose: 167 mls/hr Insulin Aspart (Insulin Aspart (Novolog) 100 Unit/Ml Vial) 0 unit SQ AC-TID [facility]; Protocol Last Admin: 05/22/23 17:12 Dose: Not Given Insulin Detemir (Insulin Detemir (Levemir) 100 Unit/Ml Syr) 20 unit SQ HS [facility] Last Admin: 05/21/23 20:42 Dose: 20 unit Lactulose (Lactulose 20 Gm/30 Ml Cup) 20 gm PO DAILY PRN PRN Reason: Constipation Letrozole (Letrozole 2.5 Mg Tab) 2.5 mg PO DAILY [facility] Last Admin: 05/22/23 09:18 Dose: 2.5 mg Linagliptin (Linagliptin 5 Mg Tablet) 5 mg PO DAILY [facility] Last Admin: 05/22/23 09:17 Dose: 5 mg Lorazepam (Lorazepam 0.5 Mg Tab) 0.5 mg PO Q6HR PRN PRN Reason: Anxiety Last Admin: 05/20/23 02:06 Dose: 0.5 mg Losartan Potassium (Losartan 50 Mg Tab) 100 mg PO DAILY [facility] Last Admin: 05/22/23 09:18 Dose: 100 mg Metoprolol Tartrate (Metoprolol Tartrate 50 Mg Tab) 50 mg PO BID [facility] Last Admin: 05/22/23 09:17 Dose: 50 mg Naloxone HCl (Naloxone 0.4 Mg/Ml 1 Ml Vial) 0.2 mg IV Q2M PRN PRN Reason: Opioid Reversal Ondansetron HCl (Ondansetron 4 Mg/2 Ml Vial) 4 mg IVP Q8HR PRN PRN Reason: Nausea And Vomiting Last Admin: 05/20/23 10:15 Dose: 4 mg Past medical history to include: Diabetes, hypertension, breast cancer, anxiety, depression, CHF from diastolic dysfunction Social history: Nonsmoker. No alcohol. Lives withrodríguez Cordova Physical examination: VITAL SIGNS: 97.9, 73, 16, 1 62 x 80, 98% room air GENERAL: laying in bed, tired EYES: Pupils equal. Conjunctiva normal. HEENT: External appearance of nose and ears normal, oral cavity grossly normal. NECK: JVD not raised; masses not palpable. HEART: First and second heart sounds are normal; no edema. LUNGS: Respiratory rate normal; decreased breath sounds. ABDOMEN: Soft, nontender, liver spleen not palpable, no masses palpable. PSYCH: Alert and oriented x3; mood and affect normal. MUSCULOSKELETAL:No Clubbing/cyanosis;muscles-grossly intact. UA DERMATOLOGICAL: Area of redness on the right lower extremity below the knee. 2 areas of breakdown of skin where blister was present. Tender. Also area of redness at the junction of the left neck and shoulder area.: Improved INVESTIGATIONS, reviewed in the clinical context: May 21: White count 15.6 hemoglobin 9.2 platelets 22 sodium 127 potassium 3.9 creatinine 0.97 serum osmolality 267 procalcitonin 0.63 May 20: White count 14.7 hemoglobin 9.8 sodium 124 potassium 3.4 BUN 19 creatinine 1.19 May 19: Lactic acid 0.8 May 18: White count 27.6 hemoglobin 11.2 platelets 281 sodium 120 potassium 4.1 BUN 25 creatinine 1.46 lactic acid 2.5 Venous Doppler: Negative for DVT Previous labs: Creatinine 0.April Assessment and plan: -Acute right lower extremity cellulitis, including area below the left side of the neck: Significant improvement Some question about this being ALLERGIC. Benadryl cutback to 12.5 mg by mouth 4 times a day. ID following. IV vancomycin. -Sepsis secondary to cellulitis IV vancomycin. IV fluids. -Acute kidney injury secondary to ATN/hypotension-better Hold Cozaar, Lasix. IV fluids -Chronic congestive heart failure from diastolic dysfunction EF 55-60% Chronically on Lasix-hold for now. Follow clinically -Essential hypertension, uncontrolled Increase Lopressor 75 mg twice a day. Cozaar 100 mg -. Add chlorthalidone 25 mg day. -Diabetes mellitus type 2 chronically on insulin Levemir, Glucophage-hold. Follow Accu-Cheks with sliding skill insulin. Januvia -Hyperlipidemia Lipitor 40 mg -Severe hypoosmolar, Hyponatremia from decrease salt intake.: Slow to respond Fluid restrict 1500 mL a day. -Anxiety depression otherwise specified Cymbalta -History of breast cancer: On Femara Increase Lopressor to 75 mg twice a day. . Continue IV vancomycin. Add chlorthalidone. Past Medical History Past Medical History: Cancer, Diabetes Mellitus, Hypertension Additional Past Medical History / Comment(s): breast cancer History of Any Multi-Drug Resistant Organisms: None Reported Past Surgical History: Section, Cholecystectomy Additional Past Surgical History / Comment(s): left lumpectomy x 2. right mediport insertion Past Anesthesia/Blood Transfusion Reactions: No Reported Reaction Past Psychological History: Anxiety Smoking Status: Never smoker Past Alcohol Use History: None Reported Past Drug Use History: None Reported - Past Family History Father Additional Family Medical History / Comment(s): No health hx 91 from pneumonia Mother Additional Family Medical History / Comment(s): No health hx after fall age 89
[2023-05-22] MEDS: CHLORTHALIDONE 25 MG TAB PO SCH (20:13)
[2023-05-22] MEDS: METOPROLOL TARTRATE 25 MG TAB PO SCH (20:13)
[2023-05-22] MEDS: diphenhydrAMINE ELIXIR 25 MG/10 ML CUP PO SCH (20:13)
[2023-05-22] MEDS: INSULIN DETEMIR (LEVEMIR) 100 UNIT/ML SYR SQ SCH (20:14)
[2023-05-22 20:18] LABS: Glucose,Whole Blood 182 mg/dL (70-110)
[2023-05-23 06:06] LABS: Glucose,Whole Blood 133 mg/dL (70-110)
[2023-05-23 06:21] LABS: African American GFR (CKD) 64 (>60 ml/min/1.73 sqM); Anion Gap 8 mmol/L; Blood Urea Nitrogen 16 mg/dL (7-17); Calcium 8.4 mg/dL (8.4-10.2); Carbon Dioxide 24 mmol/L (22-30); Chloride 99 mmol/L (98-107); Glucose 115 mg/dL (74-99); Non-African American GFR(CKD) 56 (>60 ml/min/1.73 sqM); Potassium 4.1 mmol/L (3.5-5.1); Sodium 131 mmol/L (137-145)
[2023-05-23] MEDS: INSULIN ASPART (NovoLOG) 100 UNIT/ML VIAL SQ SCH ×3 (06:33→17:14)
[2023-05-23] MEDS: CHLORTHALIDONE 25 MG TAB PO SCH (09:41)
[2023-05-23] MEDS: LETROZOLE 2.5 MG TAB PO SCH (09:41)
[2023-05-23] MEDS: DULoxetine HCL 60 MG CAPSULE.DR PO SCH (09:41)
[2023-05-23] MEDS: LINAGLIPTIN 5 MG TABLET PO SCH (09:41)
[2023-05-23] MEDS: ENOXAPARIN 40 MG/0.4 ML SYRINGE SQ SCH (09:41)
[2023-05-23] MEDS: ATORVASTATIN 40 MG TAB PO SCH (09:41)
[2023-05-23] MEDS: METOPROLOL TARTRATE 25 MG TAB PO SCH (09:41)
[2023-05-23] MEDS: LOSARTAN 50 MG TAB PO SCH (09:41)
[2023-05-23] MEDS: diphenhydrAMINE ELIXIR 25 MG/10 ML CUP PO SCH ×4 (09:42→21:55)
[2023-05-23 11:40] LABS: Glucose,Whole Blood 128 mg/dL (70-110)
[2023-05-23] MEDS: Acetaminophen-Codeine 300-30mg TAB PO PRN ×2 (14:08→21:54)
--- NOTE | 2023-05-23 14:45 | CT ---
EXAMINATION TYPE: CT lower leg RT wo con CT DLP: 909.6 mGycm, Automated exposure control for dose reduction was used. DATE OF EXAM: 05/23/2023 2:37 PM COMPARISON: None.. CLINICAL INDICATION:Female, 62 years old with history of lower extremity cellulitis, concern for absc ess. TECHNIQUE: Axial images were obtained of the right leg . Additional coronal and sagittal reformatted images and soft tissue and bone window were obtained for review. 3-D reconstruction was created on a separate workstation. Contrast used:None. FINDINGS: There is no evidence of fracture, subluxation, or dislocation. No evidence of osseous erosive changes . Degenerative changes are identified of the knee and ankle joints. No radiopaque foreign body identi fied. There is soft tissue edema seen surrounding the lower leg, most pronounced along the posterolateral a spect. Of note, lack of IV contrast does limit full evaluation for abscess formation. No evidence of large collection fluid appreciated. No significant muscular abnormalities appreciated. No foci of gas are present in the soft tissues. Atherosclerotic disease of the lower extremity vessels is appreciated. IMPRESSION: Findings most consistent with cellulitis involving the lower extremity, no large fluid collections to suggest abscess are visualized.
[2023-05-23] MEDS: VANCOMYCIN 1,500 MG in SODIUM CHLORIDE 0.9% 500 ML 500 ML IVPB SCH (15:26)
[2023-05-23 16:56] LABS: Glucose,Whole Blood 160 mg/dL (70-110)
[2023-05-23] MEDS ORDERED: FUROSEMIDE 10 MG/ML 4 ML VIAL IV STA (19:29)
--- NOTE | 2023-05-23 19:30 | P.PN ---
Progress Note - Text Progress Note Date: 05/23/23 Chief Complaint: Right leg redness This is a 62-year-old patient, follows with Dr. Jeniffer Figueroa. Chronic stable medical conditions include diabetes, hypertension, arthritis. Anxiety. Patient received Pneumovax vaccine 6 days ago. Has been feeling unwell since then. [place] she may have had some fevers also. Yesterday developed some placed on the right leg and redness. Tender. Mr. Le down. Admitted with what appears to be cellulitis. She was considered this is a ALLERGIC reaction. No areas in the body she's had this. Patient does take injections in the eye for macular edema. Some decrease in appetite. ID was consulted. May 20: Patient also had area of redness on the left side of the neck. Question that this was an ALLERGIC reaction. I'm adding Benadryl. Patient still has redness in the right leg and somewhat painful. Patient's wish to do IV vancomycin per ID. Sodiums running low. Strict fluid restriction 1500 mL a day. Repeat labs tomorrow. Decreased appetite. May 21: Benadryl was added yesterday. Remains on IV vancomycin. Decrease in pain and redness in the right leg and in the left upper shoulder portion. Oral intake fair. Told to increase activity. Blood pressure running on the high side. Resume Cozaar. DC saline. May 22: On IV vancomycin per ID. Selective some improving. Also fond of component of ALLERGIC reaction. Ambulating better. Cutback Benadryl. Add chlorthalidone for blood pressure. Increase Lopressor to 75 mg twice a day May 23: Redness improved in the right leg. Some pain. Discussed with Dr. Stroud from ID. Computed tomography scan ordered.-negative for abscess. Overall feeling much better. Possibly DC tomorrow. For blood pressure increase Lopressor 100 mg twice a day. Active Medications Acetaminophen (Acetaminophen Tab 325 Mg Tab) 650 mg PO Q6HR PRN PRN Reason: Mild Pain or Fever > 100.5 Acetaminophen/Codeine Phosphate (Acetaminophen-Codeine 300-30mg Tab) 1 each PO Q4HR PRN PRN Reason: Pain Last Admin: 05/23/23 14:08 Dose: 1 each Albuterol Sulfate (Albuterol Nebulized 2.5 Mg/3 Ml) 2.5 mg INHALATION RT-Q4H PRN PRN Reason: Shortness Of Breath Atorvastatin Calcium (Atorvastatin 40 Mg Tab) 40 mg PO DAILY [facility] Last Admin: 05/23/23 09:41 Dose: 40 mg Calcium Carbonate/Glycine (Calcium Carbonate 500 Mg Chewable) 1,000 mg PO Q4HR PRN PRN Reason: Dyspepsia Chlorthalidone (Chlorthalidone 25 Mg Tab) 25 mg PO DAILY [facility] Last Admin: 05/23/23 09:41 Dose: 25 mg Dextrose/Water (Dextrose 50% Syringe 50 Ml) 25 ml IVP PER PROTOCOL PRN; Protocol PRN Reason: Hypoglycemia Dextrose/Water (Dextrose 50% Syringe 50 Ml) 50 ml IVP PER PROTOCOL PRN; Protocol PRN Reason: Hypoglycemia Diphenhydramine HCl (Diphenhydramine Elixir 25 Mg/10 Ml Cup) 12.5 mg PO QID [facility] Last Admin: 05/23/23 17:14 Dose: 12.5 mg Diphenoxylate HCl/Atropine (Diphenox-Atrop 2.5-0.025 Mg 1 Each Tab) 1 each PO QID PRN PRN Reason: Diarrhea Duloxetine HCl (Duloxetine Hcl 60 Mg Capsule.Dr) 60 mg PO DAILY [facility] Last Admin: 05/23/23 09:41 Dose: 60 mg Enoxaparin Sodium (Enoxaparin 40 Mg/0.4 Ml Syringe) 40 mg SQ DAILY [facility] Last Admin: 05/23/23 09:41 Dose: 40 mg Vancomycin HCl 1,500 mg/ (Sodium Chloride) 500 mls @ 167 mls/hr IVPB Q24H [facility] Last Admin: 05/23/23 15:26 Dose: 167 mls/hr Insulin Aspart (Insulin Aspart (Novolog) 100 Unit/Ml Vial) 0 unit SQ AC-TID [facility]; Protocol Last Admin: 05/23/23 17:14 Dose: 2 unit Insulin Detemir (Insulin Detemir (Levemir) 100 Unit/Ml Syr) 20 unit SQ HS [facility] Last Admin: 05/22/23 20:14 Dose: 20 unit Lactulose (Lactulose 20 Gm/30 Ml Cup) 20 gm PO DAILY PRN PRN Reason: Constipation Letrozole (Letrozole 2.5 Mg Tab) 2.5 mg PO DAILY [facility] Last Admin: 05/23/23 09:41 Dose: 2.5 mg Linagliptin (Linagliptin 5 Mg Tablet) 5 mg PO DAILY [facility] Last Admin: 05/23/23 09:41 Dose: 5 mg Lorazepam (Lorazepam 0.5 Mg Tab) 0.5 mg PO Q6HR PRN PRN Reason: Anxiety Last Admin: 05/20/23 02:06 Dose: 0.5 mg Losartan Potassium (Losartan 50 Mg Tab) 100 mg PO DAILY [facility] Last Admin: 05/23/23 09:41 Dose: 100 mg Metoprolol Tartrate (Metoprolol Tartrate 25 Mg Tab) 75 mg PO BID [facility] Last Admin: 05/23/23 09:41 Dose: 75 mg Miscellaneous Information (Vancomycin Trough Due 1 Each Misc) 0 each MISCELLANE DIRECTED ONE Stop: 05/24/23 13:01 Naloxone HCl (Naloxone 0.4 Mg/Ml 1 Ml Vial) 0.2 mg IV Q2M PRN PRN Reason: Opioid Reversal Ondansetron HCl (Ondansetron 4 Mg/2 Ml Vial) 4 mg IVP Q8HR PRN PRN Reason: Nausea And Vomiting Last Admin: 05/20/23 10:15 Dose: 4 mg Past medical history to include: Diabetes, hypertension, breast cancer, anxiety, depression, CHF from diastolic dysfunction Social history: Nonsmoker. No alcohol. Lives with's Art Physical examination: VITAL SIGNS: 98.3, 70, 18, 162/72, 99% room air GENERAL: Laying in bed EYES: Pupils equal. Conjunctiva normal. HEENT: External appearance of nose and ears normal, oral cavity grossly normal. NECK: JVD not raised; masses not palpable. HEART: First and second heart sounds are normal; no edema. LUNGS: Respiratory rate normal; decreased breath sounds. ABDOMEN: Soft, nontender, liver spleen not palpable, no masses palpable. PSYCH: Alert and oriented x3; mood and affect normal. MUSCULOSKELETAL:No Clubbing/cyanosis;muscles-grossly intact. UA DERMATOLOGICAL: Area of redness on the right lower extremity below the knee. 2 areas of breakdown of skin where blister was present. Tender-better. Also area of redness at the junction of the left neck and shoulder area.: Improved INVESTIGATIONS, reviewed in the clinical context: Computed tomography scan right lower leg without contrast: No obvious evidence of abscess May 23: Sodium 131 potassium 4.1 creatinine 1.06 May 21: White count 15.6 hemoglobin 9.2 platelets 22 sodium 127 potassium 3.9 creatinine 0.97 serum osmolality 267 procalcitonin 0.63 May 20: White count 14.7 hemoglobin 9.8 sodium 124 potassium 3.4 BUN 19 creatinine 1.19 May 19: Lactic acid 0.8 May 18: White count 27.6 hemoglobin 11.2 platelets 281 sodium 120 potassium 4.1 BUN 25 creatinine 1.46 lactic acid 2.5 Venous Doppler: Negative for DVT Previous labs: Creatinine 0.April Assessment and plan: -Acute right lower extremity cellulitis, including area below the left side of the neck: Significant improvement Some question about this being ALLERGIC. Benadryl 12.5 mg by mouth 4 times a day. Computed tomography scan right lower extremity: Negative for abscess ID following. IV vancomycin. -Sepsis secondary to cellulitis: Better IV vancomycin. IV fluids. -Acute kidney injury secondary to ATN/hypotension-better Hold Cozaar, Lasix. IV fluids -Chronic congestive heart failure from diastolic dysfunction EF 55-60% Chronically on Lasix-hold for now. Follow clinically -Essential hypertension, uncontrolled Increase Lopressor 100 mg twice a day. Cozaar 100 mg -. chlorthalidone 25 mg day. -Diabetes mellitus type 2 chronically on insulin Levemir, Glucophage-hold. Follow Accu-Cheks with sliding skill insulin. Januvia -Hyperlipidemia Lipitor 40 mg -Severe hypoosmolar, Hyponatremia from decrease salt intake.: Slow to respond Fluid restrict 1500 mL a day. -Anxiety depression otherwise specified Cymbalta -History of breast cancer: On Femara Increase Lopressor to 100 mg twice a day. . Continue IV vancomycin. Discussed with ID, probable discharge tomorrow Past Medical History Past Medical History: Cancer, Diabetes Mellitus, Hypertension Additional Past Medical History / Comment(s): breast cancer History of Any Multi-Drug Resistant Organisms: None Reported Past Surgical History: Section, Cholecystectomy Additional Past Surgical History / Comment(s): left lumpectomy x 2. right mediport insertion Past Anesthesia/Blood Transfusion Reactions: No Reported Reaction Past Psychological History: Anxiety Smoking Status: Never smoker Past Alcohol Use History: None Reported Past Drug Use History: None Reported - Past Family History Father Additional Family Medical History / Comment(s): No health hx 91 from pneumonia Mother Additional Family Medical History / Comment(s): No health hx after fall age 96
[2023-05-23] MEDS: METOPROLOL TARTRATE 50 MG TAB PO SCH (20:07)
[2023-05-23] MEDS: INSULIN DETEMIR (LEVEMIR) 100 UNIT/ML SYR SQ SCH (20:08)
[2023-05-23 20:21] LABS: Glucose,Whole Blood 199 mg/dL (70-110)
--- NOTE | 2023-05-23 21:46 | P.PN ---
Subjective Progress Note Date: 05/23/23 Principal diagnosis: Right lower extremity, chest wall cellulitis and bacteremia Patient is a 62-year-old female with a past medical history significant for hypertension and diabetes mellitus breast cancer, presenting to the ER for evaluation of increasing redness and pain to the right lower extremity, since admission to the hospital the patient also developed erythema to the left upper chest wall and the blood cultures came back positive. On today's evaluation and that is , the patient continues to be afebrile, , the patient is breathing comfortably on room air, the patient denies chest pain shortness of breath or cough, patient denies nausea or vomiting abdominal pain, and no diarrhea has been reported , the patient pain and discomfort to the left chest wall has decreased however still C/O more pain to the right post leg Patient still have elevated white count 15.6 as of 05/21/2023, creatinine 1.01 ,blood culture with coagulase negative staph Objective - Vital Signs Vital signs: Vital Signs Temp 97.9 F 05/23/23 19:27 Pulse 74 05/23/23 19:27 Resp 17 05/23/23 19:27 BP 164/82 05/23/23 19:27 Pulse Ox 99 05/23/23 19:27 FiO2 Intake & Output 05/23/23 05/23/23 05/24/23 06:59 18:59 06:59 Intake Total 960 Balance 960 Intake: Oral 960 Other: # Voids 2 3 - Exam GENERAL DESCRIPTION: Middle-age female lying in bed in no distress RESPIRATORY SYSTEM: Unlabored breathing , decreased breath sounds at bases HEART: S1 S2 regular rate and rhythm , left chest wall area of redness has decreased in intensity ABDOMEN: Soft , no tenderness EXTREMITIES: right leg redness decreased , did have post leg tenderness - Labs CBC & Chem 7: 05/21/23 05:55 05/23/23 05:14 Labs: Abnormal Lab Results - Last 24 Hours (Table) 05/23/23 05/23/23 05/23/23 Range/Units 05:14 06:04 11:37 Sodium 131 L (137-145) mmol/L Creatinine 1.06 H (0.52-1.04) mg/dL Glucose 115 H (74-99) mg/dL POC Glucose (mg/dL) 133 H 128 H (70-110) mg/dL 05/23/23 05/23/23 Range/Units 16:54 20:19 Sodium (137-145) mmol/L Creatinine (0.52-1.04) mg/dL Glucose (74-99) mg/dL POC Glucose (mg/dL) 160 H 199 H (70-110) mg/dL Microbiology - Last 24 Hours (Table) 05/20/23 13:01 Blood Culture - Preliminary Blood Assessment and Plan (1) Cellulitis of right lower extremity Current Visit: Yes Status: Acute Code(s): L03.115 - CELLULITIS OF RIGHT LO WER LIMB SNOMED Code(s): 274961078 (2) Cellulitis of chest wall Current Visit: Yes Status: Acute Code(s): L03.313 - CELLULITIS OF CHEST WALL SNOMED Code(s): 92752903 (3) Bacteremia Current Visit: Yes Status: Acute Code(s): R78.81 - BACTEREMIA SNOMED Code(s): 0377155 Plan: 1patient is in the hospital with increasing pain swelling and redness of right lower extremity with elevated white count and lactic acid concerning for cellulitis likely from gram-positive skin aurelio patient is a low risk factor for MRSA 2history of penicillin ALLERGY however the patient mentioned she has taken amoxicillin without any problems clinically doubt true penicillin ALLERGY 3Doppler ultrasound the right lower extremity was negative for DVT 4patient has developed cellulitis to the left upper chest wall and also with a positive blood culture with coagulase negative staph, repeat blood cultures 05/20/2023 so far negative 5Pt did have tenderness to the right post leg , CT done which was negative for abscess 6- Pt to continue with vancomycin and monitor kidney function closely, recheck WBC and CRP tomorrow , if wbc normalized will switch to po Dictation was produced using [employer] dictation software. please excuse any grammatical, word or spelling errors. Time with Patient: Less than 30
[2023-05-24 05:45] LABS: African American GFR (CKD) 61 (>60 ml/min/1.73 sqM); Anion Gap 9 mmol/L; Blood Urea Nitrogen 16 mg/dL (7-17); C Reactive Protein 3.6 mg/dL (<1.0); Calcium 8.5 mg/dL (8.4-10.2); Carbon Dioxide 23 mmol/L (22-30); Chloride 101 mmol/L (98-107); Glucose 100 mg/dL (74-99); Non-African American GFR(CKD) 53 (>60 ml/min/1.73 sqM); Potassium 4.3 mmol/L (3.5-5.1); Sodium 133 mmol/L (137-145)
[2023-05-24] MEDS: INSULIN ASPART (NovoLOG) 100 UNIT/ML VIAL SQ SCH ×2 (05:51→11:58)
[2023-05-24 06:10] LABS: Glucose,Whole Blood 114 mg/dL (70-110)
[2023-05-24 07:25] VITALS: RESP 19; TEMP 97.6
[2023-05-24] MEDS: ATORVASTATIN 40 MG TAB PO SCH (07:51)
[2023-05-24] MEDS: LOSARTAN 50 MG TAB PO SCH (07:51)
[2023-05-24] MEDS: METOPROLOL TARTRATE 50 MG TAB PO SCH (07:51)
[2023-05-24] MEDS: ENOXAPARIN 40 MG/0.4 ML SYRINGE SQ SCH (07:51)
[2023-05-24] MEDS: LINAGLIPTIN 5 MG TABLET PO SCH (07:51)
[2023-05-24] MEDS: CHLORTHALIDONE 25 MG TAB PO SCH (07:51)
[2023-05-24] MEDS: DULoxetine HCL 60 MG CAPSULE.DR PO SCH (07:51)
[2023-05-24] MEDS: diphenhydrAMINE ELIXIR 25 MG/10 ML CUP PO SCH ×2 (07:52→11:58)
[2023-05-24] MEDS: LETROZOLE 2.5 MG TAB PO SCH (07:52)
[2023-05-24 08:53] LABS: HCT 25.1 % (37.2-46.3); HGB 8.4 d/dL (12.0-15.0); MCH 31.1 pg (27.0-32.0); MCHC 33.5 d/dL (32.0-37.0); Mean Platelet Volume 8.8 FL (9.5-12.2); NRBC Per 100 WBC 0 X 10*3/uL (0.00-0.01); Platelet Count 377 X 10*3/uL (140-440); RDW 12.6 % (11.5-14.5); WBC 10.97 X 10*3/uL (4.50-10.00)
[2023-05-24 09:35] LABS: Basophils # (M) 0 X 10*3/uL (0.00-0.10); Neutrophils % (M) 59 %
[2023-05-24 09:42] LABS: Eosinophils # (M) 0.88 X 10*3/uL (0.04-0.35); Lymphocytes # (M) 2.63 X 10*3/uL (0.90-5.00); Metamyelocytes % 3 % (0-0); Monocytes # (M) 0.66 X 10*3/uL (0.20-1.00); Neutrophils # (M) 6.47 X 10*3/uL (1.80-7.70); RBC Morphology Normal (Normal)
[2023-05-24] MEDS: Acetaminophen-Codeine 300-30mg TAB PO PRN (09:55)
[2023-05-24 11:12] LABS: Glucose,Whole Blood 174 mg/dL (70-110)
[2023-05-24] MEDS ORDERED: VANCOMYCIN TROUGH DUE 1 EACH MISC MISCELLANE ONE (13:00)
[2023-05-24 13:56] VITALS: BP 137/65; PULSE 72
--- NOTE | 2023-05-24 20:26 | P.DS ---
Providers Date of admission: 05/19/23 02:42 Expected date of discharge: 05/24/23 Attending physician: Hermilo Mendieta Consults: 05/19/23 02:37 Consult Physician Routine Consulting Provider: Ivonne Rodgers Consult Reason/Comments: RLE cellulitis with sepsis Do you want consulting provider notified?: Yes Primary care physician: Jeniffer Figueroa [facility] Course: Chief Complaint: Right leg redness This is a 62-year-old patient, follows with Dr. Jeniffer Figeuroa. Chronic stable medical conditions include diabetes, hypertension, arthritis. Anxiety. Patient received Pneumovax vaccine 6 days ago. Has been feeling unwell since then. [place] she may have had some fevers also. Yesterday developed some placed on the right leg and redness. Tender. Mr. Le down. Admitted with what appears to be cellulitis. She was considered this is a ALLERGIC reaction. No areas in the body she's had this. Patient does take injections in the eye for macular edema. Some decrease in appetite. ID was consulted. May 20: Patient also had area of redness on the left side of the neck. Question that this was an ALLERGIC reaction. I'm adding Benadryl. Patient still has redness in the right leg and somewhat painful. Patient's wish to do IV vancomycin per ID. Sodiums running low. Strict fluid restriction 1500 mL a day. Repeat labs tomorrow. Decreased appetite. May 21: Benadryl was added yesterday. Remains on IV vancomycin. Decrease in pain and redness in the right leg and in the left upper shoulder portion. Oral intake fair. Told to increase activity. Blood pressure running on the high side. Resume Cozaar. DC saline. May 22: On IV vancomycin per ID. Selective some improving. Also fond of component of ALLERGIC reaction. Ambulating better. Cutback Benadryl. Add chlorthalidone for blood pressure. Increase Lopressor to 75 mg twice a day May 23: Redness improved in the right leg. Some pain. Discussed with Dr. Stroud from ID. Computed tomography scan ordered.-negative for abscess. Overall feeling much better. Possibly DC tomorrow. For blood pressure increase Lopressor 100 mg twice a day. May 24: Discussed with patient. Fluid restriction. Hold Lasix. Blood pressure medication discussed. Discussed with ID. Patient to be discharged Jay wrap. Antibiotics per ID. Discussed with nurse. Follow up with Dr. Rhodes from ID in 10 days Discussion and discharge planning more than 35 minutes Past medical history to include: Diabetes, hypertension, breast cancer, anxiety, depression, CHF from diastolic dysfunction Social history: Nonsmoker. No alcohol. Lives [facility] [place] Physical examination: VITAL SIGNS: 97.6, 70, 19, 137/65, 9% room air GENERAL: Laying in bed comfortable EYES: Pupils equal. Conjunctiva normal. HEENT: External appearance of nose and ears normal, oral cavity grossly normal. NECK: JVD not raised; masses not palpable. HEART: First and second heart sounds are normal; no edema. LUNGS: Respiratory rate normal; decreased breath sounds. ABDOMEN: Soft, nontender, liver spleen not palpable, no masses palpable. PSYCH: Alert and oriented x3; mood and affect normal. MUSCULOSKELETAL:No Clubbing/cyanosis;muscles-grossly intact. UA DERMATOLOGICAL: Area of redness on the right lower extremity below the knee. 2 she'll breakdown of skin posteriorly. Some tenderness present INVESTIGATIONS, reviewed in the clinical context: May 24: White count 10.9 hemoglobin 8.4 potassium 4.3 creatinine 1.10 Computed tomography scan right lower leg without contrast: No obvious evidence of abscess May 23: Sodium 131 potassium 4.1 creatinine 1.06 May 21: White count 15.6 hemoglobin 9.2 platelets 22 sodium 127 potassium 3.9 creatinine 0.97 serum osmolality 267 procalcitonin 0.63 May 20: White count 14.7 hemoglobin 9.8 sodium 124 potassium 3.4 BUN 19 creatinine 1.19 May 19: Lactic acid 0.8 May 18: White count 27.6 hemoglobin 11.2 platelets 281 sodium 120 potassium 4.1 BUN 25 creatinine 1.46 lactic acid 2.5 Venous Doppler: Negative for DVT Previous labs: Creatinine 0.April Assessment and plan: -Acute right lower extremity cellulitis, including area below the left side of the neck: Improved Some question about this being ALLERGIC. Benadryl 12.5 mg by mouth 4 times a day. Computed tomography scan right lower extremity: Negative for abscess ID following. IV vancomycin. Discharged on: Doxycycline 100 mg twice a day for 10 days Keflex 5 mg every 6 for 10 days -Sepsis secondary to cellulitis: Better IV vancomycin. IV fluids. -Acute kidney injury secondary to ATN/hypotension-better Lasix. IV fluids -Chronic congestive heart failure from diastolic dysfunction EF 55-60% Chronically on Lasix-hold for now. Follow clinically Fluid restriction -Essential hypertension, uncontrolled Lopressor 100 mg twice a day. Cozaar 100 mg -. chlorthalidone 25 mg day. -Diabetes mellitus type 2 chronically on insulin Levemir, Glucophage Follow Accu-Cheks with sliding skill insulin. Januvia -Hyperlipidemia Lipitor 40 mg -Severe hypoosmolar, Hyponatremia from decrease salt intake.: Improved Fluid restrict 1800 mL a day. -Anxiety depression otherwise specified Cymbalta -History of breast cancer: On Femara Disposition: Home Past Medical History Past Medical History: Cancer, Diabetes Mellitus, Hypertension Additional Past Medical History / Comment(s): breast cancer History of Any Multi-Drug Resistant Organisms: None Reported Past Surgical History: Section, Cholecystectomy Additional Past Surgical History / Comment(s): left lumpectomy x 2. right mediport insertion Past Anesthesia/Blood Transfusion Reactions: No Reported Reaction Past Psychological History: Anxiety Smoking Status: Never smoker Past Alcohol Use History: None Reported Past Drug Use History: None Reported - Past Family History Father Additional Family Medical History / Comment(s): No health hx 91 from pneumonia Mother Additional Family Medical History / Comment(s): No health hx after fall age 89 Patient Condition at Discharge: Stable Plan - Discharge Summary Discharge Rx Participant: No New Discharge Prescriptions: New Doxycycline [Vibramycin] 100 mg PO BID 10 Days #20 capsule Acetaminophen Tab [Tylenol] 650 mg PO Q6HR PRN tab PRN Reason: Mild Pain Or Fever > 100.5 Cephalexin [Keflex] 500 mg PO Q6HR 10 Days #40 cap Chlorthalidone [Hygroton] 25 mg PO DAILY #30 tab Metoprolol Tartrate [Lopressor] 100 mg PO BID #60 tablet Continue Cholecalciferol [Vitamin D3 (25 Mcg = 1000 Iu)] 25 mcg PO DAILY Insulin Glargine,Hum.rec.anlog [Lantus Solostar Pen] 20 units SQ HS Albuterol Nebulized [Ventolin Nebulized] 2.5 mg INHALATION RT-Q4H PRN PRN Reason: Shortness Of Breath Letrozole [Femara] 2.5 mg PO DAILY Vitamin E (Dl,Tocopheryl Acet) [Vitamin E (1000 Iu = 450 MG)] 1,000 unit PO DAILY Calcium Carb/Mag Ox/Zinc Sulf [[id number] 334-134-5 mg Tab] 1 tab PO DAILY Ondansetron Odt [Zofran ODT] 4 mg PO TID PRN PRN Reason: Nausea And Vomiting Diphenoxylate HCl/Atropine [Lomotil 2.5-0.025 mg Tablet] 1 tab PO QID PRN PRN Reason: Diarrhea DULoxetine HCL [Cymbalta] 60 mg PO DAILY sitaGLIPtin [Januvia] 50 mg PO DAILY Atorvastatin [Lipitor] 40 mg PO DAILY #30 tab Meclizine [Antivert] 12.5 mg PO TID PRN PRN Reason: Vertigo Losartan Potassium [Cozaar] 100 mg PO DAILY Vitamin B Complex 1 cap PO DAILY Discontinued Furosemide [Lasix] 40 mg PO DAILY amLODIPine [Norvasc] 10 mg PO DAILY Metoprolol Tartrate [Lopressor] 25 mg PO BID #60 tab No Action metFORMIN HCL 1,000 mg PO BID Milk Thistle 150 mg PO DAILY Discharge Medication List Albuterol Nebulized [Ventolin Nebulized] 2.5 mg INHALATION RT-Q4H PRN 05/09/22 [History] Cholecalciferol [Vitamin D3 (25 Mcg = 1000 Iu)] 25 mcg PO DAILY 05/09/22 [History] DULoxetine HCL [Cymbalta] 60 mg PO DAILY 05/09/22 [History] Diphenoxylate HCl/Atropine [Lomotil 2.5-0.025 mg Tablet] 1 tab PO QID PRN 05/09/22 [History] Insulin Glargine,Hum.rec.anlog [Lantus Solostar Pen] 20 units SQ HS 05/09/22 [History] Letrozole [Femara] 2.5 mg PO DAILY 05/09/22 [History] Milk Thistle 150 mg PO DAILY 05/09/22 [History] Ondansetron Odt [Zofran ODT] 4 mg PO TID PRN 05/09/22 [History] Vitamin E (Dl,Tocopheryl Acet) [Vitamin E (1000 Iu = 450 MG)] 1,000 unit PO DAILY 05/09/22 [History] metFORMIN HCL 1,000 mg PO BID 05/09/22 [History] sitaGLIPtin [Januvia] 50 mg PO DAILY 05/09/22 [History] Atorvastatin [Lipitor] 40 mg PO DAILY #30 tab 05/12/22 [Rx] Calcium Carb/Mag Ox/Zinc Sulf [Ihv-[id number] 334-134-5 mg Tab] 1 tab PO DAILY 05/19/23 [History] Losartan Potassium [Cozaar] 100 mg PO DAILY 05/19/23 [History] Meclizine [Antivert] 12.5 mg PO TID PRN 05/19/23 [History] Vitamin B Complex 1 cap PO DAILY 05/19/23 [History] Acetaminophen Tab [Tylenol] 650 mg PO Q6HR PRN tab 05/24/23 [Rx] Cephalexin [Keflex] 500 mg PO Q6HR 10 Days #40 cap 05/24/23 [Rx] Chlorthalidone [Hygroton] 25 mg PO DAILY #30 tab 05/24/23 [Rx] Doxycycline [Vibramycin] 100 mg PO BID 10 Days #20 capsule 05/24/23 [Rx] Metoprolol Tartrate [Lopressor] 100 mg PO BID #60 tablet 05/24/23 [Rx] Follow up Appointment(s)/Referral(s): Jeniffer Figueroa MD [Primary Care Provider] - 1-2 days (office closed at time o discharge. Please call to schedule appointment) Ivonne Rodgers MD [STAFF PHYSICIAN] - 06/02/23 4:00 pm Patient Instructions/Handouts: Acute Kidney Injury (DC), Cellulitis (GEN), Hyponatremia (DC) Activity/Diet/Wound Care/Special Instructions: jay wraps daily fluid restrict 1500 cc/day Discharge Disposition: HOME SELF-CARE
--- NOTE | 2023-05-28 11:45 | P.PN ---
Subjective Progress Note Date: 05/24/23 Principal diagnosis: Right lower extremity, chest wall cellulitis and bacteremia Patient is a 62-year-old female with a past medical history significant for hypertension and diabetes mellitus breast cancer, presenting to the ER for evaluation of increasing redness and pain to the right lower extremity, since admission to the hospital the patient also developed erythema to the left upper chest wall and the blood cultures came back positive. On today's evaluation and that is 05/24/2023, the patient is afebrile, the patient is breathing comfortably on room air , the patient denies chest pain or cough, patient denies Abdominal pain , no nausea/vomiting /diarrhea, the patient pain and discomfort to the left chest wall has decreased in pain to the right post leg also decreased in intensity Patient white count is down to 10.97, creatinine 1.10 ,blood culture with c oagulase negative staph CT was negative for any abscess to the right leg Objective - Vital Signs Vital signs: Vital Signs Temp 97.6 F 05/24/23 07:19 Pulse 70 05/24/23 07:19 Resp 19 05/24/23 07:19 BP 184/89 05/24/23 07:19 Pulse Ox 98 05/24/23 07:19 FiO2 Intake & Output 05/23/23 05/24/23 05/24/23 18:59 06:59 18:59 Intake Total 960 Balance 960 Intake: Oral 960 Other: Voiding Method Toilet # Voids 3 1 - Exam GENERAL DESCRIPTION: Middle-age female lying in bed in no distress RESPIRATORY SYSTEM: Unlabored breathing , decreased breath sounds at bases HEART: S1 S2 regular rate and rhythm , left chest wall area of redness has decreased in intensity ABDOMEN: Soft , no tenderness EXTREMITIES: right leg redness decreased , did have post leg tenderness - Labs CBC & Chem 7: 05/24/23 04:43 05/24/23 04:43 Labs: Abnormal Lab Results - Last 24 Hours (Table) 05/23/23 05/23/23 05/23/23 Range/Units 11:37 16:54 20:19 WBC (4.50-10.00) X 10*3/uL RBC (4.10-5.20) X 10*6/uL Hgb (12.0-15.0) d/dL Hct (37.2-46.3) % MPV (9.5-12.2) FL Eosinophils # (Manual) (0.04-0.35) X 10*3/uL Sodium (137-145) mmol/L Creatinine (0.52-1.04) mg/dL Glucose (74-99) mg/dL POC Glucose (mg/dL) 128 H 160 H 199 H (70-110) mg/dL C-Reactive Protein (<1.0) mg/dL 05/24/23 05/24/23 05/24/23 Range/Units 04:43 04:43 06:08 WBC 10.97 H (4.50-10.00) X 10*3/uL RBC 2.70 L (4.10-5.20) X 10*6/uL Hgb 8.4 L (12.0-15.0) d/dL Hct 25.1 L (37.2-46.3) % MPV 8.8 L (9.5-12.2) FL Eosinophils # (Manual) 0.88 H (0.04-0.35) X 10*3/uL Sodium 133 L (137-145) mmol/L Creatinine 1.10 H (0.52-1.04) mg/dL Glucose 100 H (74-99) mg/dL POC Glucose (mg/dL) 114 H (70-110) mg/dL C-Reactive Protein 3.6 H (<1.0) mg/dL Microbiology - Last 24 Hours (Table) 05/20/23 13:01 Blood Culture - Preliminary Blood Assessment and Plan (1) Cellulitis of right lower extremity Status: Acute Code(s): L03.115 - CELLULITIS OF RIGHT LOWER LIMB SNOMED Code(s): 00512156584661354 (2) Cellulitis of chest wall Status: Acute Code(s): L03.313 - CELLULITIS OF CHEST WALL SNOMED Code(s): 26515948 (3) Bacteremia Status: Acute Code(s): R78.81 - BACTEREMIA SNOMED Code(s): 0069387 Plan: 1patient is in the hospital with increasing pain swelling and redness of right lower extremity with elevated white count and lactic acid concerning for cellulitis likely from gram-positive skin aurelio patient is a low risk factor for MRSA 2history of penicillin ALLERGY however the patient mentioned she has taken amoxicillin without any problems clinically doubt true penicillin ALLERGY 3Doppler ultrasound the right lower extremity was negative for DVT 4patient has developed cellulitis to the left upper chest wall and also with a positive blood culture with coagulase negative staph, repeat blood cultures 05/20/2023 so far negative 5Pt did have tenderness to the right post leg , CT done which was negative for abscess 6- patient white count has normalized we will finish therapy with oral Keflex and doxycycline and close outpatient follow-up prescription was sent to pharmacy Dictation was produced using [employer] dictation software. please excuse any grammatical, word or spelling errors. Time with Patient: Less than 30
== END 2023-05-24 14:29 | disposition home or self-care (01) | DRG 871 ==
LOC: EC 22:10 → 3SCARD 05-19 02:42 → 4SSUR 05-20 09:08
PROVIDERS: ADMIT Hospitalist; ATTEND Hospitalist
DX: A41.9 Sepsis, unspecified organism (principal); N17.0 Acute kidney failure with tubular necrosis; E87.20 Acidosis, unspecified; L03.313 Cellulitis of chest wall; E87.1 Hypo-osmolality and hyponatremia; I50.32 Chronic diastolic (congestive) heart failure; L03.115 Cellulitis of right lower limb; E11.311 Type 2 diabetes mellitus with unspecified diabetic retinopathy with macular edema; I11.0 Hypertensive heart disease with heart failure; C50.919 Malignant neoplasm of unspecified site of unspecified female breast; I95.9 Hypotension, unspecified; Z79.4 Long term (current) use of insulin; M19.90 Unspecified osteoarthritis, unspecified site; E78.5 Hyperlipidemia, unspecified; K59.00 Constipation, unspecified; F32.A Depression, unspecified; F41.9 Anxiety disorder, unspecified; Z79.811 Long term (current) use of aromatase inhibitors; Z79.84 Long term (current) use of oral hypoglycemic drugs; Z79.899 Other long term (current) drug therapy; Z88.5 Allergy status to narcotic agent; Z88.0 Allergy status to penicillin; Z88.8 Allergy status to other drugs, medicaments and biological substances
CPT/HCPCS: 36415; 80048; 80053; 82565; 83605; 83930; 84145; 85025; 86140; 87040; 96361; 96365; 96366; 96367; 96372; 96375; 96376; 99285

== ENCOUNTER 2024-05-07 20:40 | Inpatient (IN) | payer MEDICARE, OTHER ==
--- NOTE | 2024-05-07 20:49 | ED ---
General Adult HPI - General Chief complaint: Altered Mental Status Stated complaint: Fall Time Seen by Provider: 05/07/24 20:48 Source: EMS Mode of arrival: EMS Limitations: altered mental status - History of Present Illness Initial comments: Patient presents to the ED by ambulance for evaluation. Per EMS, the patient's reported to them that he found the patient on the floor (with suspected fall) this evening with altered mental status. Per EMS, the reported to them that the patient is normally A&O x 4. Per EMS, the reported that the patient was last seen normal at about noon today (about 9 hours ago). Per EMS, the patient's blood glucose was 209 upon their check. Patient is repeatedly stating "help me" on arrival to the ED, and she is not answering any questions appropriately at this time. No other history is available at this time. - Related Data Home Medications Medication Instructions Recorded Confirmed Albuterol Nebulized [Ventolin 2.5 mg INHALATION RT-Q4H PRN 05/09/22 05/19/23 Nebulized] Cholecalciferol [Vitamin D3 (25 25 mcg PO DAILY 05/09/22 05/19/23 Mcg = 1000 Iu)] DULoxetine HCL [Cymbalta] 60 mg PO DAILY 05/09/22 05/19/23 Diphenoxylate HCl/Atropine 1 tab PO QID PRN 05/09/22 05/19/23 [Lomotil 2.5-0.025 mg Tablet] Insulin Glargine,Hum.rec.anlog 20 units SQ HS 05/09/22 05/19/23 [Lantus Solostar Pen] Letrozole [Femara] 2.5 mg PO DAILY 05/09/22 05/19/23 Milk Thistle 150 mg PO DAILY 05/09/22 05/19/23 Ondansetron Odt [Zofran ODT] 4 mg PO TID PRN 05/09/22 05/19/23 Vitamin E (Dl,Tocopheryl Acet) 1,000 unit PO DAILY 05/09/22 05/19/23 [Vitamin E (1000 Iu = 450 MG)] metFORMIN HCL 1,000 mg PO BID 05/09/22 05/19/23 sitaGLIPtin [Januvia] 50 mg PO DAILY 05/09/22 05/19/23 Calcium Carb/Mag Ox/Zinc Sulf 1 tab PO DAILY 05/19/23 05/19/23 [Fhg-Elu-Qudf 334-134-5 mg Tab] Losartan Potassium [Cozaar] 100 mg PO DAILY 05/19/23 05/19/23 Meclizine [Antivert] 12.5 mg PO TID PRN 05/19/23 05/19/23 Vitamin B Complex 1 cap PO DAILY 05/19/23 05/19/23 Previous Rx's Medication Instructions Recorded Atorvastatin [Lipitor] 40 mg PO DAILY #30 tab 05/12/22 Acetaminophen Tab [Tylenol] 650 mg PO Q6HR PRN tab 05/24/23 Cephalexin [Keflex] 500 mg PO Q6HR 10 Days #40 cap 05/24/23 Chlorthalidone [Hygroton] 25 mg PO DAILY #30 tab 05/24/23 Doxycycline [Vibramycin] 100 mg PO BID 10 Days #20 capsule 05/24/23 Metoprolol Tartrate [Lopressor] 100 mg PO BID #60 tablet 05/24/23 Allergies Allergy/AdvReac Type Severity Reaction Status Date / Time adhesive tape Allergy Itching Verified 05/19/23 08:47 morphine Allergy Swelling & Verified 05/19/23 08:48 hives Penicillins Allergy Rash/Hives Verified 05/19/23 08:48 ALEXIS Inhibitors AdvReac Cough Verified 05/19/23 08:47 Review of Systems ROS Statement: Those systems with pertinent positive or pertinent negative responses have been documented in the HPI. ROS Other: All systems not noted in ROS Statement are negative. Limitations: ROS unobtainable due to patients medical condition Past Medical History Past Medical History: Cancer, Heart Failure, Diabetes Mellitus, Hyperlipidemia, Hypertension Additional Past Medical History / Comment(s): breast cancer, macular edema with hemorrhage bilateral. "episode of heart failure in the past" History of Any Multi-Drug Resistant Organisms: None Reported Past Surgical History: Section, Cholecystectomy Additional Past Surgical History / Comment(s): left lumpectomy x 2. right mediport insertion Past Anesthesia/Blood Transfusion Reactions: No Reported Reaction Past Psychological History: Anxiety, Depression Smoking Status: Never smoker Past Alcohol Use History: None Reported Past Drug Use History: None Reported - Past Family History Father Additional Family Medical History / Comment(s): No health hx 91 from pneumonia Mother Additional Family Medical History / Comment(s): No health hx after fall age 96 General Exam Limitations: altered mental status General appearance: alert Head exam: Present: atraumatic, normocephalic Eye exam: Present: normal appearance, PERRL ENT exam: Present: TM's normal bilaterally Neck exam: Present: other (Trachea is in midline; c-collar was applied on patient's arrival to the ED) Respiratory exam: Present: normal lung sounds bilaterally. Absent: respiratory distress, wheezes, rales, rhonchi, stridor Cardiovascular Exam: Present: regular rate, normal rhythm, normal heart sounds, other (Normal radial and dorsalis pedis pulses bilaterally) GI/Abdominal exam: Present: soft. Absent: distended, tenderness, guarding Extremities exam: Present: other (Pelvis is stable and nontender; patient is moving all 4 extremities spontaneously). Absent: pedal edema Back exam: Present: normal inspection. Absent: tenderness Neurological exam: Present: alert, other (Patient is completely disoriented; patient localizes to pain in all 4 extremities; patient is moving all 4 extremities spontaneously; PERRL) Psychiatric exam: Present: agitated Skin exam: Present: warm, dry, normal color Course Vital Signs 05/07/24 05/07/24 05/07/24 20:41 21:43 23:01 Temperature 98.4 F Pulse Rate 86 89 101 H Respiratory 24 24 22 Rate Blood Pressure 156/135 181/84 O2 Sat by Pulse 100 95 Oximetry - Reevaluation(s) Reevaluation #1: 05/07/24 21:22 Patient has been agitated and uncooperative since arriving to the ED. Ativan 2 mg IV was initially ordered, but patient continues to be moving around and not holding still for CT's. Geodon 10 mg IM has been ordered at this time. 05/07/24 23:34 Case, H&P, test results and ED management thus far were discussed with Dr. Mendieta. He accepts hospital admission. He requests ordering a neurology consultation, MRI brain with and without contrast and EEG all for tomorrow. He has no further recommendations at this time. 05/07/24 23:44 Patient is now sedated and resting comfortably. Patient's son is now at bedside with the patient, and he is aware of the patient's test results. He agrees with hospital admission at this time. EKG Findings - EKG Comments: EKG Findings:: ED physician interpretation (interpreted by me): Normal sinus rhythm, no ectopy, ventricular rate of 85 bpm, normal NH and QRS intervals, normal QT interval, normal axis, lateral ST and T wave abnormality (more pronounced today than on 05/09/2022 EKG, no ST elevation Medical Decision Making - Medical Decision Making Was pt. sent in by a medical professional or institution (, PA, TRUCKING SUPERVISOR, urgent care, hospital, or retirement...) When possible be specific @ -No Did you speak to anyone other than the patient for history (EMS, parent, family, police, friend...)? What history was obtained from this source @ -History was obtained from EMS. Did you review nursing and triage notes (agree or disagree)? Why? @ -I reviewed and agree with nursing and triage notes Were old charts reviewed (outside hosp., previous admission, EMS record, old EKG, old radiological studies, urgent care reports/EKG's, retirement records)? Report findings @ -No old charts were reviewed Differential Diagnosis (chest pain, altered mental status, abdominal pain women, abdominal pain men, vaginal bleeding, weakness, fever, dyspnea, syncope, headache, dizziness, GI bleed, back pain, seizure, CVA, palpatations, mental health, musculoskeletal)? @ -Differential Altered Mental Status: Hypoglycemia, DKA, hypercapnia, ETOH, overdose, trauma, myxedema coma, encephalopathy, infection, psychosis, intracranial hemorrhage, hepatic encephalopathy, CVA, fall, concussion, head injury, this is not meant to be an all-inclusive list EKG interpreted by me (3pts min.). @ -As above X-rays interpreted by me (1pt min.). @ -Chest x-ray was reviewed myself and demonstrates diffuse haziness. I agree with the radiologist's interpretation as above. Pelvis x-ray was reviewed myself and shows no acute fracture or dislocation. I agree with the radiologist's interpretation as above. CT interpreted by me (1pt min.). @ -Noncontrast CT brain/cervical spine was reviewed myself and shows no definite acute intracranial or cervical abnormalities. I agree with the radiologist's interpretation as above. U/S interpreted by me (1pt. min.). @ -None done What testing was considered but not performed or refused? (CT, X-rays, U/S, labs)? Why? @ -None What meds were considered but not given or refused? Why? @ -None Did you discuss the management of the patient with other professionals (professionals i.e. , PA, TRUCKING SUPERVISOR, lab, RT, psych nurse, social work therapist, stock preparer, teacher, housing officer, rehabilitation caseworker)? Give summary @ -As above Was smoking cessation discussed for >3mins.? @ -No Was critical care preformed (if so, how long)? @ -Yes, 30 minutes. Were there social determinants of health that impacted care today? How? (Homelessness, low income, unemployed, alcoholism, drug addiction, transportation, low edu. Level, literacy, decrease access to med. care, custodial, rehab)? @ -No Was there de-escalation of care discussed even if they declined (Discuss DNR or withdrawal of care, Hospice)? DNR status @ -No What co-morbidities impacted this encounter? (DM, HTN, Smoking, COPD, CAD, Cancer, CVA, ARF, Chemo, Hep., AIDS, mental health diagnosis, sleep apnea, mo rbid obesity)? @ -None Was patient admitted / discharged? Hospital course, mention meds given and r oute, prescriptions, significant lab abnormalities, going to OR and other pertinent info. @ -Patient presents to the ED with altered mental status after a suspected fall. Patient was last seen normal at about noon today per EMS. Patient was agitated on arrival to the ED and Ativan and Geodon were given for her agitation and to allow for CT imaging to be obtained. Patient's repeat noncontrast b rain/cervical spine CTs are negative. Patient's labs are pertinent for a sodium level of 127 and a mildly elevated troponin. Patient has been treated with a normal saline IV drip and rectal aspirin in the ED. Patient's EKG is fairly unremarkable. Patient is afebrile and without leukocytosis. The rest of the patient's labs are fairly unremarkable. The etiology of the patient's altered mentation is unclear at this time. Dr. Mendieta has accepted hospital admission for further evaluation and neurology consultation. Patient's son agrees with this plan Undiagnosed new problem with uncertain prognosis? @ -No Drug Therapy requiring intensive monitoring for toxicity (Heparin, Nitro, Insulin, Cardizem)? @ -No Were any procedures done? @ -No Diagnosis/symptom? @ -Altered mental status Acute, or Chronic, or Acute on Chronic? @ -Acute Uncomplicated (without systemic symptoms) or Complicated (systemic symptoms)? @ -Default Side effects of treatment? @ -No Exacerbation, Progression, or Severe Exacerbation? @ -No Poses a threat to life or bodily function? How? (Chest pain, [place], [place], pneumonia, PE, COPD, DKA, ARF, appy, cholecystitis, CVA, Diverticulitis, Homicidal, Suicidal, threat to staff... and all critical care pts) @ -Possibly Diagnosis/symptom? @ -Hyponatremia Acute, or Chronic, or Acute on Chronic? @ -Default Uncomplicated (without systemic symptoms) or Complicated (systemic symptoms)? @ -Default Side effects of treatment? @ -None Exacerbation, Progression, or Severe Exacerbation] @ -No Poses a threat to life or bodily function? @ -No Diagnosis/symptom? @ -Elevated troponin Acute, or Chronic, or Acute on Chronic? @ -Default Uncomplicated (without systemic symptoms) or Complicated (systemic symptoms)? @ -Default Side effects of treatment? @ -None Exacerbation, Progression, or Severe Exacerbation] @ -No Poses a threat to life or bodily function? @ -Possibly - Lab Data Result diagrams: 05/07/24 21:00 05/07/24 21:00 Lab Results 05/07/24 05/07/24 05/07/24 Range/Units 20:46 21:00 21:00 WBC 9.0 (3.8-10.6) k/uL RBC 4.08 (3.80-5.40) m/uL Hgb 11.1 L (11.4-16.0) gm/dL Hct 33.7 L (34.0-46.0) % MCV 82.6 (80.0-100.0) fL MCH 27.3 (25.0-35.0) pg MCHC 33.0 (31.0-37.0) g/dL RDW 14.5 (11.5-15.5) % Plt Count 262 (150-450) k/uL MPV 6.6 Neutrophils % 79 % Lymphocytes % 12 % Monocytes % 7 % Eosinophils % 1 % Basophils % 0 % Neutrophils # 7.1 (1.3-7.7) k/uL Lymphocytes # 1.1 (1.0-4.8) k/uL Monocytes # 0.6 (0-1.0) k/uL Eosinophils # 0.0 (0-0.7) k/uL Basophils # 0.0 (0-0.2) k/uL PT 9.9 L (10.0-12.5) sec INR 0.9 (<1.2) APTT 22.2 (22.0-30.0) sec Sodium (137-145) mmol/L Potassium (3.5-5.1) mmol/L Chloride (98-107) mmol/L Carbon Dioxide (22-30) mmol/L Anion Gap mmol/L BUN (7-17) mg/dL Creatinine (0.52-1.04) mg/dL Est GFR (CKD-EPI)AfAm (>60 ml/min/1.73 sqM) Est GFR (CKD-EPI)NonAf (>60 ml/min/1.73 sqM) Glucose (74-99) mg/dL POC Glucose (mg/dL) 229 H (70-110) mg/dL POC Glu [employer] Education Pres[employer] Teacher ID Spahn, Tejinder Calcium (8.4-10.2) mg/dL Magnesium (1.6-2.3) mg/dL Total Bilirubin (0.2-1.3) mg/dL AST (14-36) U/L ALT (4-34) U/L Alkaline Phosphatase (38-126) U/L Ammonia (<30) umol/L Creatine Kinase (30-135) U/L Troponin I (0.000-0.034) ng/mL NT-Pro-B Natriuret Pep pg/mL Total Protein (6.3-8.2) g/dL Albumin (3.5-5.0) g/dL TSH (0.465-4.680) mIU/L Urine Color Urine Appearance (Clear) Urine pH (5.0-8.0) Ur Specific [place] (1.001-1.035) Urine Protein (Negative) Urine Glucose (UA) (Negative) Urine Ketones (Negative) Urine Blood (Negative) Urine Nitrite (Negative) Urine Bilirubin (Negative) Urine Urobilinogen (<2.0) mg/dL Ur Leukocyte Esterase (Negative) Urine RBC (0-5) /hpf Urine WBC (0-5) /hpf Urine Opiates Screen (NotDetected) Ur Oxycodone Screen (NotDetected) Urine Methadone Screen (NotDetected) Ur Barbiturates Screen (NotDetected) U Tricyclic Antidepress (NotDetected) Ur Phencyclidine Scrn (NotDetected) Ur Amphetamines Screen (NotDetected) U Methamphetamines Scrn (NotDetected) U Benzodiazepines Scrn (NotDetected) Urine Cocaine Screen (NotDetected) U Marijuana (THC) Screen (NotDetected) Serum Alcohol mg/dL 05/07/24 05/07/24 05/07/24 Range/Units 21:00 21:00 21:00 WBC (3.8-10.6) k/uL RBC (3.80-5.40) m/uL Hgb (11.4-16.0) gm/dL Hct (34.0-46.0) % MCV (80.0-100.0) fL MCH (25.0-35.0) pg MCHC (31.0-37.0) g/dL RDW (11.5-15.5) % Plt Count (150-450) k/uL MPV Neutrophils % % Lymphocytes % % Monocytes % % Eosinophils % % Basophils % % Neutrophils # (1.3-7.7) k/uL Lymphocytes # (1.0-4.8) k/uL Monocytes # (0-1.0) k/uL Eosinophils # (0-0.7) k/uL Basophils # (0-0.2) k/uL PT (10.0-12.5) sec INR (<1.2) APTT (22.0-30.0) sec Sodium 127 L (137-145) mmol/L Potassium 4.0 (3.5-5.1) mmol/L Chloride 91 L (98-107) mmol/L Carbon Dioxide 22 (22-30) mmol/L Anion Gap 14 mmol/L BUN 16 (7-17) mg/dL Creatinine 1.42 H (0.52-1.04) mg/dL Est GFR (CKD-EPI)AfAm 45 (>60 ml/min/1.73 sqM) Est GFR (CKD-EPI)NonAf 39 (>60 ml/min/1.73 sqM) Glucose 222 H (74-99) mg/dL POC Glucose (mg/dL) (70-110) mg/dL POC Glu [employer] Education Preschool Teacher ID Calcium 9.4 (8.4-10.2) mg/dL Magnesium 1.6 (1.6-2.3) mg/dL Total Bilirubin 0.7 (0.2-1.3) mg/dL AST 25 (14-36) U/L ALT 18 (4-34) U/L Alkaline Phosphatase 104 (38-126) U/L Ammonia (<30) umol/L Creatine Kinase 46 (30-135) U/L Troponin I 0.049 H* (0.000-0.034) ng/mL NT-Pro-B Natriuret Pep 5850 pg/mL Total Protein 6.7 (6.3-8.2) g/dL Albumin 3.9 (3.5-5.0) g/dL TSH 2.710 (0.465-4.680) mIU/L Urine Color Urine Appearance (Clear) Urine pH (5.0-8.0) Ur Specific [place] (1.001-1.035) Urine Protein (Negative) Urine Glucose (UA) (Negative) Urine Ketones (Negative) Urine Blood (Negative) Urine Nitrite (Negative) Urine Bilirubin (Negative) Urine Urobilinogen (<2.0) mg/dL Ur Leukocyte Esterase (Negative) Urine RBC (0-5) /hpf Urine WBC (0-5) /hpf Urine Opiates Screen Not Detected (NotDetected) Ur Oxycodone Screen Not Detected (NotDetected) Urine Methadone Screen Not Detected (NotDetected) Ur Barbiturates Screen Not Detected (NotDetected) U Tricyclic Antidepress Not Detected (NotDetected) Ur Phencyclidine Scrn Not Detected (NotDetected) Ur Amphetamines Screen Not Detected (NotDetected) U Methamphetamines Scrn Not Detected (NotDetected) U Benzodiazepines Scrn Not Detected (NotDetected) Urine Cocaine Screen Not Detected (NotDetected) U Marijuana (THC) Screen Not Detected (NotDetected) Serum Alcohol <10 mg/dL 05/07/24 05/07/24 Range/Units 21:00 21:00 WBC (3.8-10.6) k/uL RBC (3.80-5.40) m/uL Hgb (11.4-16.0) gm/dL Hct (34.0-46.0) % MCV (80.0-100.0) fL MCH (25.0-35.0) pg MCHC (31.0-37.0) g/dL RDW (11.5-15.5) % Plt Count (150-450) k/uL MPV Neutrophils % % Lymphocytes % % Monocytes % % Eosinophils % % Basophils % % Neutrophils # (1.3-7.7) k/uL Lymphocytes # (1.0-4.8) k/uL Monocytes # (0-1.0) k/uL Eosinophils # (0-0.7) k/uL Basophils # (0-0.2) k/uL PT (10.0-12.5) sec INR (<1.2) APTT (22.0-30.0) sec Sodium (137-145) mmol/L Potassium (3.5-5.1) mmol/L Chloride (98-107) mmol/L Carbon Dioxide (22-30) mmol/L Anion Gap mmol/L BUN (7-17) mg/dL Creatinine (0.52-1.04) mg/dL Est GFR (CKD-EPI)AfAm (>60 ml/min/1.73 sqM) Est GFR (CKD-EPI)NonAf (>60 ml/min/1.73 sqM) Glucose (74-99) mg/dL POC Glucose (mg/dL) (70-110) mg/dL POC Glu [employer] Education Preschool Teacher ID Calcium (8.4-10.2) mg/dL Magnesium (1.6-2.3) mg/dL Total Bilirubin (0.2-1.3) mg/dL AST (14-36) U/L ALT (4-34) U/L Alkaline Phosphatase (38-126) U/L Ammonia <9 (<30) umol/L Creatine Kinase (30-135) U/L Troponin I (0.000-0.034) ng/mL NT-Pro-B Natriuret Pep pg/mL Total Protein (6.3-8.2) g/dL Albumin (3.5-5.0) g/dL TSH (0.465-4.680) mIU/L Urine Color Colorless Urine Appearance Clear (Clear) Urine pH 7.0 (5.0-8.0) Ur Specific [place] 1.004 (1.001-1.035) Urine Protein 1+ H (Negative) Urine Glucose (UA) 1+ H (Negative) Urine Ketones Negative (Negative) Urine Blood Trace H (Negative) Urine Nitrite Negative (Negative) Urine Bilirubin Negative (Negative) Urine Urobilinogen <2.0 (<2.0) mg/dL Ur Leukocyte Esterase Negative (Negative) Urine RBC 2 (0-5) /hpf Urine WBC <1 (0-5) /hpf Urine Opiates Screen (NotDetected) Ur Oxycodone Screen (NotDetected) Urine Methadone Screen (NotDetected) Ur Barbiturates Screen (NotDetected) U Tricyclic Antidepress (NotDetected) Ur Phencyclidine Scrn (NotDetected) Ur Amphetamines Screen (NotDetected) U Methamphetamines Scrn (NotDetected) U Benzodiazepines Scrn (NotDetected) Urine Cocaine Screen (NotDetected) U Marijuana (THC) Screen (NotDetected) Serum Alcohol mg/dL - Radiology Data Chest x-ray: Low lung volumes with a generalized hazy appearance which could represent atelectasis versus pulmonary edema correlate with serum BNP. Pelvis x-ray: No acute osseous pathology. Mild degeneration changes of the hip. Noncontrast CT brain/cervical spine: 1. Motion limited exam. Consider repeat exam when patient able to. No evidence for gross abnormality in the brain. Evaluation for stroke is limited. 2. No evidence of cervical spine fracture. 3. Moderate multilevel degenerative disc disease. Repeat noncontrast CT brain/cervical spine: 1. No acute findings in the head/brain. 2. No acute findings in the cervical spine. Critical Care Time Critical Care Time: Yes Total Critical Care Time: 30 Disposition Clinical Impression: Altered mental status, Hyponatremia, Elevated troponin Disposition: ADMITTED IP TO THIS [facility] Condition: Stable Is patient prescribed a controlled substance at d/c from ED?: No Referrals: Jeniffer Figueroa MD [Primary Care Provider] - 1-2 days Time of Disposition: 23:43
[2024-05-07 20:51] LABS: Glucose,Whole Blood 229 mg/dL (70-110)
[2024-05-07] MEDS: SODIUM CHLORIDE 0.9% 500 ML 500 ML IV ONE (21:04)
[2024-05-07] MEDS: LORazepam 2 MG/ML INJ IV STA (21:05)
[2024-05-07 21:34] LABS: Basophils % (A) 0 %; Eosinophils % (A) 1 %; HCT 33.7 % (34.0-46.0); HGB 11.1 gm/dL (11.4-16.0); Lymphocytes # (A) 1.1 k/uL (1.0-4.8); Lymphocytes % (A) 12 %; MCH 27.3 pg (25.0-35.0); MCV 82.6 fL (80.0-100.0); Mean Platelet Volume 6.6; Monocytes # (A) 0.6 k/uL (0-1.0); Monocytes % (A) 7 %; Neutrophils # (A) 7.1 k/uL (1.3-7.7); Neutrophils % (A) 79 %; Platelet Count 262 k/uL (150-450); RBC 4.08 m/uL (3.80-5.40); RDW 14.5 % (11.5-15.5)
[2024-05-07 21:38] LABS: Appearance,Urine Clear (Clear); Bilirubin,Urine Negative (Negative); Blood,Urine Trace (Negative); Color,Urine Colorless; Glucose,Urine (UA) 1+ (Negative); Ketones,Urine Negative (Negative); Leukocyte Esterase,Urine Negative (Negative); Nitrite,Urine Negative (Negative); Protein,Urine 1+ (Negative); RBC,Urine 2 /hpf (0-5); Specific Gravity,Urine 1.004 (1.001-1.035); Urobilinogen,Urine <2.0 mg/dL (<2.0); WBC,Urine <1 /hpf (0-5)
--- NOTE | 2024-05-07 21:46 | XR ---
EXAMINATION TYPE: XR pelvis AP view DATE OF EXAM: 05/07/2024 9:42 PM CLINICAL INDICATION: Female, 63 years old with history of fall; [facility] COMPARISON: None TECHNIQUE: XR pelvis AP view, examined in a single projection. FINDINGS: There is no evidence of fracture or dislocation. There is no soft tissue abnormality. No a bnormal calcifications are present. The spine appears intact. The hips appear intact. Osteophyte form ation of the superior acetabulum bilaterally with mild joint space narrowing. IMPRESSION: No acute osseous pathology. Mild degeneration changes of the hip. [facility], , 05/07/2024 9:43 PM
--- NOTE | 2024-05-07 21:47 | XR ---
EXAMINATION TYPE: XR chest 1V portable DATE OF EXAM: 05/07/2024 9:42 PM CLINICAL INDICATION: Female, 63 years old with history of altered mental status; H COMPARISON: Chest radiographs from 05/09/2022 TECHNIQUE: XR chest 1V portable Frontal view of the chest. FINDINGS: Lungs/Pleura: There is no evidence of pleural effusion, focal consolidation, or pneumothorax. Pulmonary vascularity: Pulmonary vascular congestion. Heart/mediastinum: Cardiomediastinal silhouette is enlarged. Musculoskeletal: No acute osseous pathology. Other findings: Right chest wall [id number] tip in the superior vena cava. IMPRESSION: Low lung volumes with a generalized hazy appearance which could represent atelectasis versus pulmonar y edema correlate with serum BNP. [facility], , 05/07/2024 9:44 PM
[2024-05-07 21:48] LABS: Amphetamine Screen,Urine Not Detected (NotDetected); Barbiturate Screen,Urine Not Detected (NotDetected); Benzodiazepines Screen,Urine Not Detected (NotDetected); Cocaine Screen,Urine Not Detected (NotDetected); Methadone Screen, Urine Not Detected (NotDetected); Opiate Screen,Urine Not Detected (NotDetected); Oxycodone Screen, Urine Not Detected (NotDetected); Phencyclidine Screen,Urine Not Detected (NotDetected); Tricyclic Antidepressant,Urine Not Detected (NotDetected); Urn Cannabinoid Scrn Not Detected (NotDetected)
--- NOTE | 2024-05-07 21:50 | CT ---
EXAMINATION TYPE: CT brain cspine wo con CT DLP: 1577.5 mGycm, Automated exposure control for dose reduction was used. DATE OF EXAM: 05/07/2024 9:42 PM COMPARISON: None. CLINICAL INDICATION: Female, 63 years old with history of fall, AMS; Pt presnets to the ED with compl aints of AMS LKW 12pm, pt had an unwitness fall, BEST POSSIBLE PT NOT COOPERATING TECHNIQUE: Brain: Multiple axial CT images of the brain were obtained without IV contrast. Cspine: Axial CT images from the skull base to the inferior aspect of T2 we obtained without intraven ous contrast. Coronal and sagittal reformatted images were also reviewed. . FINDINGS: Motion limited exam. Brain: Extra-axial spaces: No abnormal extra-axial fluid collections. Ventricular system: Dilatation in proportion to cerebral atrophy. Cerebral parenchyma: Cerebral atrophy. No acute intraparenchymal hemorrhage or mass effect. The baron -white junction is well differentiated. Scattered hypoattenuating areas are seen within the white mat ter. Cerebellum: Unremarkable. Mass effect: No evidence of midline shift. Intracranial vasculature: Atherosclerotic calcifications of the intracranial vessels. Soft tissues: Normal. Calvarium/osseous structures: No depressed skull fracture. Paranasal sinuses and mastoid air cells: Clear. Visualized orbits: Orbital contents are intact. Cervical spine: Fracture: None. Osseous structures: Multilevel degenerative disc disease changes with endplate spurring and disc oste ophyte complex's. Vertebral alignment: Grade one antral listhesis of C7 on T1. Spinal canal/Neural Foramina: No evidence of significant spinal canal narrowing. No evidence for sign ificant neural foraminal stenosis. Neck soft tissues: Prevertebral soft tissues are within normal limits. Other: The airway is patent. The lung apices are clear. IMPRESSION: 1. Motion limited exam. Consider repeat exam when patient able to. No evidence for gross abnormality in the brain. Evaluation for stroke is limited. 2. No evidence of cervical spine fracture. 3. Moderate multilevel degenerative disc disease. [facility], , 05/07/2024 9:47 PM
[2024-05-07 21:52] LABS: INR 0.9 (<1.2); Partial Thromboplastin Time 22.2 sec (22.0-30.0); Prothrombin Time 9.9 sec (10.0-12.5)
[2024-05-07 22:00] LABS: ALT 18 U/L (4-34); AST 25 U/L (14-36); African American GFR (CKD) 45 (>60 ml/min/1.73 sqM); Albumin 3.9 g/dL (3.5-5.0); Alcohol <10 mg/dL; Alkaline Phosphatase 104 U/L (38-126); Anion Gap 14 mmol/L; Blood Urea Nitrogen 16 mg/dL (7-17); Calcium 9.4 mg/dL (8.4-10.2); Carbon Dioxide 22 mmol/L (22-30); Chloride 91 mmol/L (98-107); Creatine Kinase 46 U/L (30-135); Glucose 222 mg/dL (74-99); Magnesium 1.6 mg/dL (1.6-2.3); Non-African American GFR(CKD) 39 (>60 ml/min/1.73 sqM); Sodium 127 mmol/L (137-145); Total Bilirubin 0.7 mg/dL (0.2-1.3); Total Protein 6.7 g/dL (6.3-8.2)
[2024-05-07 22:09] LABS: NT-Pro-B-Type Natriuretic Pept 5850 pg/mL
[2024-05-07] MEDS: ZIPRASIDONE 20 MG VIAL IM STA ×2 (22:14→22:42)
[2024-05-07] MEDS: SODIUM CHLORIDE 0.9% 1,000 ML IV SCH (22:19)
--- NOTE | 2024-05-07 23:19 | CT ---
EXAM: CT Head Without Intravenous Contrast 694 images CLINICAL HISTORY: AMS LKW 12pm, pt had an unwitnessed fall, Reason: AMS, fall, limited initial CT's due to motion TECHNIQUE: Axial computed tomography images of the head/brain without intravenous contrast. CTDI is 45.2 mGy and DLP is 1098 mGy-cm. This CT exam was performed using one or more of the following dose reduction techniques: automated exposure control, adjustment of the mA and/or kV according to patient size, and/or use of iterative reconstruction technique. Coronal and sagittal reformatted images were created and reviewed. COMPARISON: Brain MRI from 07/02/15 FINDINGS: Brain: Age-related generalized brain volume loss and chronic small vessel ischemic changes. No hemorrhage. Ventricles: Unremarkable. No ventriculomegaly. Bones/joints: No acute findings. Soft tissues: Unremarkable. Sinuses: Unremarkable as visualized. No acute sinusitis. Mastoid air cells: Unremarkable as visualized. No mastoid effusion. IMPRESSION: No acute findings in the head/brain. EXAM: CT Cervical Spine Without Intravenous Contrast CLINICAL HISTORY: AMS LKW 12pm, pt had an unwitnessed fall, Reason: AMS, fall, limited initial CT's due to motion TECHNIQUE: Axial computed tomography images of the cervical spine without intravenous contrast. CTDI is 13.7 mGy and DLP is 351.1 mGy-cm. This CT exam was performed using one or more of the following dose reduction techniques: automated exposure control, adjustment of the mA and/or kV according to patient size, and/or use of iterative reconstruction technique. Coronal and sagittal reformatted images were created and reviewed. COMPARISON: No relevant prior studies available. FINDINGS: Vertebrae: 2 mm anterolisthesis of C3 on C4, C4 on C5, C6 on C7, C7 on T1, chronic. No fracture. Discs/spinal canal/neural foramina: Mild degenerative disc disease. Soft tissues: Unremarkable. Tubes, lines and devices: Right jugular central venous catheter. IMPRESSION: No acute findings in the cervical spine.
[2024-05-07] MEDS ORDERED: NALOXONE 0.4 MG/ML 1 ML VIAL IV PRN (23:42)
[2024-05-07] MEDS: ASPIRIN 300 MG SUPP RECTAL STA (23:50)
[2024-05-08 08:04] LABS: ALT 17 U/L (4-34); AST 31 U/L (14-36); African American GFR (CKD) 45 (>60 ml/min/1.73 sqM); Albumin 3.7 g/dL (3.5-5.0); Alkaline Phosphatase 90 U/L (38-126); Anion Gap 8 mmol/L; Blood Urea Nitrogen 15 mg/dL (7-17); Calcium 9.4 mg/dL (8.4-10.2); Carbon Dioxide 29 mmol/L (22-30); Chloride 93 mmol/L (98-107); Glucose 164 mg/dL (74-99); Non-African American GFR(CKD) 39 (>60 ml/min/1.73 sqM); Potassium 4.4 mmol/L (3.5-5.1); Sodium 130 mmol/L (137-145); Total Bilirubin 0.6 mg/dL (0.2-1.3); Total Protein 6.6 g/dL (6.3-8.2)
[2024-05-08 08:05] LABS: Basophils % (A) 0 %; Eosinophils % (A) 0 %; HCT 30.8 % (34.0-46.0); HGB 10.2 gm/dL (11.4-16.0); Lymphocytes # (A) 1.2 k/uL (1.0-4.8); Lymphocytes % (A) 11 %; MCH 27.5 pg (25.0-35.0); MCHC 33.2 g/dL (31.0-37.0); Mean Platelet Volume 6.8; Monocytes # (A) 0.8 k/uL (0-1.0); Monocytes % (A) 7 %; Neutrophils # (A) 9.5 k/uL (1.3-7.7); Neutrophils % (A) 81 %; Platelet Count 320 k/uL (150-450); RBC 3.71 m/uL (3.80-5.40); RDW 14.6 % (11.5-15.5); WBC 11.7 k/uL (3.8-10.6)
[2024-05-08] MEDS: ASPIRIN 81 MG PO SCH (11:00)
[2024-05-08] MEDS: PANTOPRAZOLE 40 MG TABLET PO SCH (11:01)
[2024-05-08] MEDS: METOPROLOL TARTRATE 25 MG TAB PO SCH (11:01)
[2024-05-08] MEDS: BUMETANIDE 1 MG TAB PO SCH (11:01)
[2024-05-08] MEDS: DULoxetine HCL 60 MG CAPSULE.DR PO SCH (11:01)
[2024-05-08] MEDS: Semaglutide [Rybelsus] 3 MG Tablet PO SCH (11:03)
[2024-05-08] MEDS: LETROZOLE 2.5 MG TAB PO SCH (11:36)
[2024-05-08] MEDS: HEPARIN SODIUM 1,000 UN/ML (10ML VL) IV ONE (12:13)
[2024-05-08] MEDS: HEPARIN SOD,PORK IN 0.45% NACL 25,000 UNIT in 0.45% NACL 1 250ML.BAG IV SCH (12:16)
[2024-05-08] MEDS: METOPROLOL TARTRATE 12.5 MG TAB PO STA (13:14)
--- NOTE | 2024-05-08 13:35 | US ---
EXAMINATION TYPE: US carotid duplex BILAT DATE OF EXAM: 05/08/2024 COMPARISON: NONE CLINICAL INDICATION: Female, 63 years old with history of altered speech - improving; episode of alte red speech TECHNIQUE: Carotid duplex ultrasound examination. Indirect Doppler criteria was utilized. 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 Elevated velocity seen in right mid ICA IMPRESSION: Findings suggest a moderate, 50-69% right ICA stenosis. Criteria for Assigning % of Stenosis / Diameter reduction (Estimation based on the indirect measurements of the internal carotid artery velocities (ICA PSV). 1. Normal (no stenosis)=ICA PSV < 125 cm/s: ratio < 2.0: ICA EDV<40 cm/s. 2. Less than 50% stenosis=ICA PSV < 125 cm/s: ratio < 2.0: ICA EDV<40 cm/s. 3. 50 to 69% stenosis=ICA PSV of 125 to 230 cm/s: ration 2.0 ? 4.0: ICA EDV 40-100 cm/s. 4. Greater than 70% stenosis to near occlusion= ICA PSV > 230 cm/s: ratio > 4.0: ICA EDV > 100 cm/s. 5. Near occlusion= ICA PSV velocities may be low or undetectable: variable ratio and ICA EDV. 6. Total occlusion=unable to detect flow. [facility], , 05/08/2024 1:33 PM
--- NOTE | 2024-05-08 16:51 | P.CRDCN ---
History of Present Illness Consult date: 05/08/24 Consult reason: other (Elevated troponin) History of present illness: Dr. Rosales's addendum I agree with the residents history and physical. Assessment Elevated troponin, cannot rule out type II NSTEMI. Acute metabolic encephalopathy, CKD stage IIIb Hyponatremia, Plan Obtain echocardiogram, start aspirin, Lipitor, will do IV heparin drip for 24 to 48 hours depending on patient's clinical course Recommend neurological evaluation to make sure patient does not have any concerns of CVA Will continue IV Lasix today. Reevaluate tomorrow possibly consider reducing the dose if patient is euvolemic HISTORY OF PRESENT ILLNESS: This is a 63-year-old female with past medical history significant for diabetes, hypertension, and history of breast cancer. It is unknown if [facility]. History is limited due to patient's altered mental status. We have been asked to see this patient in consultation for elevated troponins. Patient was examined at the bedside in the emergency room. Patient was brought into the hospital due to altered mental status status post fall. She denies any chest pain, shortness of breath, fevers or chills. DIAGNOSTICS: -EKG reveals sinus rhythm -Pelvic x-ray shows no acute pathology. -Chest x-ray shows low lung volumes with a generalized hazy appearance, atelectasis versus pulmonary edema. -CT head x 2 are unremarkable. -Carotid duplex ultrasound showed moderate 50 to 69% right ICA stenosis. -Most recent echo on May 11, 2022 showed ejection fraction of 50 to 55%, moderate aortic stenosis with peak gradient of 53 mmHg and mean gradient of 30 mmHg. -Laboratory data: WBCs 11.7. Hemoglobin 10.2. PT 9.9. Sodium 130. Chloride 93. Creatinine 1.4. Glucose 164. Troponins: 0.049, 0.052, 0.064. NT proBNP 5850. -Current home cardiac medications include aspirin 81 mg daily, Bumex 1 mg daily, Metoprolol 25mg BID REVIEW OF SYSTEMS: At the time of my exam: CONSTITUTIONAL: Denies fever or chills. HEENT: Denies blurred vision, vision changes, or eye pain. Denies hemoptysis CARDIOVASCULAR: Denies chest pain. Denies orthopnea. Denies PND. Denies palpitations RESPIRATORY: Denies shortness of breath GASTROINTESTINAL: Denies abdominal pain. Denies nausea or vomiting. HEMATOLOGIC: Denies bleeding disorders. GENITOURINARY: Denies any blood in urine. SKIN: Denies pruritus. Denies rash. PHYSICAL EXAM: VITAL SIGNS: Reviewed. GENERAL: Well-developed in no acute distress. HEENT: Head is normocephalic. Pupils are equal, round. Sclerae anicteric. Mucous membranes of the mouth are moist. Neck supple. No JVD or thyromegaly LUNGS: Respirations even and unlabored. HEART: Regular rate and rhythm. S1 and S2 heard. ABDOMEN: Soft. Nontender to palpation. EXTREMITIES: Normal range of motion. No clubbing or cyanosis. Peripheral pulses intact. Trace lower extremity edema NEUROLOGIC: Somnolent. Oriented x 2. ASSESSMENT: Elevated troponins, less likely to be ACS Acute encephalopathy CKD Stage 3B Hyponatremia, likely secondary to above PLAN: Follow-up on echocardiogram Continue home cardiac meds as stated above Increased Metoprolol to 50mg BID Start atorvastatin 40 mg daily Started on heparin drip Continue IV Lasix 40 mg every 12 hours Neurology consulted Monitor BISI, daily weights, electrolytes and renal function Further recommendations to follow based upon clinical course Thank you kindly for this consultation. Past Medical History Past Medical History: Cancer, Heart Failure, Diabetes Mellitus, Hyperlipidemia, Hypertension Additional Past Medical History / Comment(s): breast cancer, macular edema with hemorrhage bilateral. "episode of heart failure in the past" History of Any Multi-Drug Resistant Organisms: None Reported Past Surgical History: Section, Cholecystectomy Additional Past Surgical History / Comment(s): left lumpectomy x 2. right mediport insertion Past Anesthesia/Blood Transfusion Reactions: No Reported Reaction Past Psychological History: Anxiety, Depression Smoking Status: Never smoker Past Alcohol Use History: None Reported Past Drug Use History: None Reported - Past Family History Father Additional Family Medical History / Comment(s): No health hx 91 from pneumonia Mother Additional Family Medical History / Comment(s): No health hx after fall age 96 Medications and Allergies Home Medications Medication Instructions Recorded Confirmed Type Cholecalciferol [Vitamin D3 (25 25 mcg PO DAILY 05/09/22 05/08/24 History Mcg = 1000 Iu)] DULoxetine HCL [Cymbalta] 60 mg PO DAILY 05/09/22 05/08/24 History Diphenoxylate HCl/Atropine 1 tab PO QID PRN 05/09/22 05/08/24 History [Lomotil 2.5-0.025 mg Tablet] Letrozole [Femara] 2.5 mg PO DAILY 05/09/22 05/08/24 History Milk Thistle 150 mg PO DAILY 05/09/22 05/08/24 History Ondansetron Odt [Zofran ODT] 4 mg PO TID PRN 05/09/22 05/08/24 History Vitamin E (Dl,Tocopheryl Acet) 450 unit PO DAILY 05/09/22 05/08/24 History [Vitamin E (1000 Iu = 450 MG)] sitaGLIPtin [Januvia] 50 mg PO DAILY 05/09/22 05/08/24 History Calcium Carb/Mag Ox/Zinc Sulf 1 tab PO DAILY 05/19/23 05/08/24 History [Yxe-Irf-Sreq 334-134-5 mg Tab] Meclizine [Antivert] 12.5 mg PO TID PRN 05/19/23 05/08/24 History Vitamin B Complex 1 cap PO DAILY 05/19/23 05/08/24 History Aspirin 81 mg PO DAILY 05/08/24 05/08/24 History Bumetanide [Bumex] 1 mg PO DAILY 05/08/24 05/08/24 History Gabapentin [Neurontin] 100 mg PO Q8H PRN 05/08/24 05/08/24 History Metoprolol Tartrate [Lopressor] 25 mg PO BID 05/08/24 05/08/24 History Pantoprazole Sodium [Protonix] 40 mg PO DAILY 05/08/24 05/08/24 History Semaglutide [Rybelsus] 3 mg PO DAILY 05/08/24 05/08/24 History Allergies Allergy/AdvReac Type Severity Reaction Status Date / Time adhesive tape Allergy Itching Verified 05/08/24 10:05 morphine Allergy Swelling & Verified 05/08/24 10:05 hives Penicillins Allergy Rash/Hives Verified 05/08/24 10:05 ALEXIS Inhibitors AdvReac Cough Verified 05/08/24 10:05 Physical Exam Vitals: Vital Signs Temp Pulse Resp BP Pulse Ox 05/08/24 12:27 81 18 204/94 95 05/08/24 11:59 85 18 185/80 98 05/08/24 10:54 86 18 170/69 100 05/08/24 10:15 84 18 96 05/08/24 09:00 84 15 95 05/08/24 07:46 98.9 F 87 16 154/83 95 05/08/24 06:47 98 19 164/91 05/08/24 03:49 107 H 22 135/95 05/08/24 00:43 105 H 20 05/07/24 23:01 101 H 22 181/84 05/07/24 21:43 89 24 156/135 95 05/07/24 20:41 98.4 F 86 24 100 Intake and Output 05/07/24 05/08/24 05/08/24 22:59 06:59 14:59 Output Total 450 Balance -450 Output: Urine 450 Straight 450 Other: Weight 89.358 kg Results 05/08/24 06:42 05/08/24 06:42 Cardiac Enzymes 05/07/24 05/07/24 05/08/24 Range/Units 21:00 21:00 04:00 AST 25 (14-36) U/L Troponin I 0.049 H* 0.052 H* (0.000-0.034) ng/mL 05/08/24 05/08/24 Range/Units 06:42 06:42 AST 31 (14-36) U/L Troponin I 0.064 H* (0.000-0.034) ng/mL Coagulation 05/07/24 Range/Units 21:00 PT 9.9 L (10.0-12.5) sec APTT 22.2 (22.0-30.0) sec CBC 05/07/24 05/08/24 Range/Units 21:00 06:42 WBC 9.0 11.7 H (3.8-10.6) k/uL RBC 4.08 3.71 L (3.80-5.40) m/uL Hgb 11.1 L 10.2 L (11.4-16.0) gm/dL Hct 33.7 L 30.8 L (34.0-46.0) % Plt Count 262 320 (150-450) k/uL Comprehensive Metabolic Panel 05/07/24 05/08/24 Range/Units 21:00 06:42 Sodium 127 L 130 L (137-145) mmol/L Potassium 4.0 4.4 (3.5-5.1) mmol/L Chloride 91 L 93 L (98-107) mmol/L Carbon Dioxide 22 29 (22-30) mmol/L BUN 16 15 (7-17) mg/dL Creatinine 1.42 H 1.40 H (0.52-1.04) mg/dL Glucose 222 H 164 H (74-99) mg/dL Calcium 9.4 9.4 (8.4-10.2) mg/dL AST 25 31 (14-36) U/L ALT 18 17 (4-34) U/L Alkaline Phosphatase 104 90 (38-126) U/L Total Protein 6.7 6.6 (6.3-8.2) g/dL Albumin 3.9 3.7 (3.5-5.0) g/dL Current Medications Generic Name Dose Route Start Last Admin Trade Name Freq PRN Reason Stop Dose Admin Aspirin 81 mg 05/08/24 10:30 05/08/24 11:00 Aspirin 81 Mg PO 81 mg DAILY LEATHA Administration Bumetanide 1 mg 05/08/24 10:30 05/08/24 11:01 Bumetanide 1 Mg Tab PO 1 mg DAILY LEATHA Administration Duloxetine HCl 60 mg 05/08/24 10:30 05/08/24 11:01 Duloxetine Hcl 60 Mg Capsule.Dr PO 60 mg DAILY LEATHA Administration Heparin Sodium (Porcine) 0 unit 05/08/24 11:44 Heparin Sodium 1,000 Un/Ml (10ml Vl) IV PER PROTOCOL PRN Low PTT Protocol Sodium Chloride 1,000 mls @ 80 mls/hr 05/07/24 22:30 05/08/24 11:08 Saline 0.9% IV 80 mls/hr .[id number] LEATHA Administration Heparin Sodium/Sodium Chloride 250 mls @ 10 mls/hr 05/08/24 11:45 05/08/24 12:16 25,000 unit/ Sodium Chloride IV 11.191 units/kg/hr .Q24H LEATHA 10 mls/hr Administration Protocol 11.191 UNITS/KG/HR Letrozole 2.5 mg 05/08/24 10:30 05/08/24 11:36 Letrozole 2.5 Mg Tab PO 2.5 mg DAILY LEATHA Administration Metoprolol Tartrate 25 mg 05/08/24 10:30 05/08/24 11:01 Metoprolol Tartrate 25 Mg Tab PO 25 mg BID LEATHA Administration Naloxone HCl 0.2 mg 05/07/24 23:42 Naloxone 0.4 Mg/Ml 1 Ml Vial IV Q2M PRN Opioid Reversal Semaglutide [ 3 mg 05/08/24 10:30 05/08/24 11:03 Rybelsus] 3 Mg PO Not Given Tablet DAILY LEATHA Ondansetron HCl 4 mg 05/08/24 10:27 Ondansetron Odt 4 Mg Tab PO TID PRN Nausea And Vomiting Pantoprazole Sodium 40 mg 05/08/24 10:30 05/08/24 11:01 Pantoprazole 40 Mg Tablet PO 40 mg DAILY@0730 LEATHA Administration Vitamin E 400 unit 05/09/24 09:00 Vitamin E (Dl,Tocopheryl Acet) 400 Unit (180 Mg) Cap PO DAILY LEATHA Intake and Output 05/07/24 05/08/24 05/08/24 22:59 06:59 14:59 Output Total 450 Balance -450 Output: Urine 450 Straight 450 Other: Weight 89.358 kg 05/08/24 06:42 05/08/24 06:42
--- NOTE | 2024-05-08 17:29 | P.CNNES ---
History of Present Illness Consult date: 05/08/24 Requesting physician: Jackson Calvin Reason for Consult: AMS History of Present Illness: Patient is a 63-year-old left-handed female came to the hospital by ambulance yesterday at 8:40 PM for altered mental status. Patient states that yesterday she remembers having a headache in the morning, which she rated 6/10. She remembers going to the bathroom in the afternoon, and then does not remember and woke up later on the floor. Her boyfriend found her on the floor with a suspected fall, called the ambulance and she was brought to the hospital. Patient states that she does not remember the ride to the hospital. Patient at present denies any headache. Denies any fever or chills. Denies any chest pain , shortness of breath, cough, any urinary symptoms, any nausea vomiting or diarrhea. EMS flowsheet not available in the chart. Vital signs on arrival blood pressure 156/135, which came down to 181/84, pulse rate 86 temperature 98.4. Blood test shows normal WBC, hemoglobin 11.1, P lites normal. Sodium 127 potassium 4.0. BUN 16 creatinine 1.42. Hepatic panel is normal, troponin is mildly elevated. UA negative. Stool occult blood negative. Urine drug screen negative, blood alcohol level normal. EKG showed sinus rhythm. Pelvic x-ray showed no acute osseous pathology. Mild degeneration changes of the hip. Chest x-ray revealed low lung volumes with a generalized hazy appearance, which could represent atelectasis versus pulmonary edema, correlate with serum BNP. CT of the head showed no acute findings in the head/brain. CT of the cervical spine revealed 2 mm anterolisthesis of C3 on C4, C4 on C5, C6 on C7, C7 on T1, chronic. No fracture. Patient had a carotid Doppler which revealed findings suggest a moderate 50 to 60% right ICA stenosis. Antegrade flow in both vertebral a rteries. Patient lives with her boyfriend Art. She has 2 children. She walks normal ly, does not use any assistive device. Patient states she has history of breast cancer stage III diagnosed in 2014. It is in remission. Patient denies any history of seizures or stroke. This is the first time this type of episode ever happened. She denies taking any new medication. Review of Systems All pertinent positive and negative review of systems mentioned in the HPI. Past Medical History Past Medical History: Cancer, Heart Failure, Diabetes Mellitus, Hyperlipidemia, Hypertension Additional Past Medical History / Comment(s): breast cancer, macular edema with hemorrhage bilateral. "episode of heart failure in the past" History of Any Multi-Drug Resistant Organisms: None Reported Past Surgical History: Section, Cholecystectomy Additional Past Surgical History / Comment(s): left lumpectomy x 2. right mediport insertion Past Anesthesia/Blood Transfusion Reactions: No Reported Reaction Past Psychological History: Anxiety, Depression Smoking Status: Never smoker Past Alcohol Use History: None Reported Past Drug Use History: None Reported - Past Family History Father Additional Family Medical History / Comment(s): No health hx 91 from pneumonia Mother Additional Family Medical History / Comment(s): No health hx after fall age 96 Medications and Allergies Home Medications Medication Instructions Recorded Confirmed Type Cholecalciferol [Vitamin D3 (25 25 mcg PO DAILY 05/09/22 05/08/24 History Mcg = 1000 Iu)] DULoxetine HCL [Cymbalta] 60 mg PO DAILY 05/09/22 05/08/24 History Diphenoxylate HCl/Atropine 1 tab PO QID PRN 05/09/22 05/08/24 History [Lomotil 2.5-0.025 mg Tablet] Letrozole [Femara] 2.5 mg PO DAILY 05/09/22 05/08/24 History Milk Thistle 150 mg PO DAILY 05/09/22 05/08/24 History Ondansetron Odt [Zofran ODT] 4 mg PO TID PRN 05/09/22 05/08/24 History Vitamin E (Dl,Tocopheryl Acet) 450 unit PO DAILY 05/09/22 05/08/24 History [Vitamin E (1000 Iu = 450 MG)] sitaGLIPtin [Januvia] 50 mg PO DAILY 05/09/22 05/08/24 History Calcium Carb/Mag Ox/Zinc Sulf 1 tab PO DAILY 05/19/23 05/08/24 History [Juh-Xfi-Sbwp 334-134-5 mg Tab] Meclizine [Antivert] 12.5 mg PO TID PRN 05/19/23 05/08/24 History Vitamin B Complex 1 cap PO DAILY 05/19/23 05/08/24 History Aspirin 81 mg PO DAILY 05/08/24 05/08/24 History Bumetanide [Bumex] 1 mg PO DAILY 05/08/24 05/08/24 History Gabapentin [Neurontin] 100 mg PO Q8H PRN 05/08/24 05/08/24 History Metoprolol Tartrate [Lopressor] 25 mg PO BID 05/08/24 05/08/24 History Pantoprazole Sodium [Protonix] 40 mg PO DAILY 05/08/24 05/08/24 History Semaglutide [Rybelsus] 3 mg PO DAILY 05/08/24 05/08/24 History Allergies Allergy/AdvReac Type Severity Reaction Status Date / Time adhesive tape Allergy Itching Verified 05/08/24 10:05 morphine Allergy Swelling & Verified 05/08/24 10:05 hives Penicillins Allergy Rash/Hives Verified 05/08/24 10:05 ALEXIS Inhibitors AdvReac Cough Verified 05/08/24 10:05 Physical Examination - Vital Signs Vital Signs: Vital Signs Temp Pulse Resp BP Pulse Ox 05/08/24 16:00 74 18 97 05/08/24 15:31 98.4 F 77 18 187/88 98 05/08/24 14:19 89 18 191/97 98 05/08/24 13:11 77 18 192/90 100 05/08/24 12:45 90 18 207/94 97 05/08/24 12:27 81 18 204/94 95 05/08/24 11:59 85 18 185/80 98 05/08/24 10:54 86 18 170/69 100 05/08/24 10:15 84 18 96 05/08/24 09:00 84 15 95 05/08/24 07:46 98.9 F 87 16 154/83 95 05/08/24 06:47 98 19 164/91 05/08/24 03:49 107 H 22 135/95 05/08/24 00:43 105 H 20 05/07/24 23:01 101 H 22 181/84 05/07/24 21:43 89 24 156/135 95 05/07/24 20:41 98.4 F 86 24 100 Patient is an elderly female, in no acute distress. Patient is alert awake oriented to time place and person. Patient knows it is April 2024 and that she is in [facility] on [place] in [facility] [place]. She knows name of the current president Mr. Livingston. Speech and language functions are normal. Patient can name and repeat very well. No aphasia or dysarthria. Attention, concentration and fund of knowledge is adequate. On cranial nerve examination, pupils are equal, round and reacting to light, visual barrientos are full on confrontation, with no neglect on double simultaneous stimulation. Extraocular muscles are intact with no nystagmus. Face is symmetric, tongue protrudes to the midline. Palatal elevation and sensation normal, hearing and shoulder shrug normal, facial sensation normal. On muscle strength testing, there is no pronator drift and the strength is normal in arms and legs distally and proximally. Deep tendon reflexes are symmetric 1 in the upper limbs, 1+ in the lower limbs and plantars downgoing. Sensory to touch is equal with no neglect on double simultaneous stimulation. Cerebellar function showed no ataxia for [id number] testing. No dysdiadochokinesia. No ataxia for gwfj-qa-[id number] testing on either side. Tone and bulk of muscles normal. Gait deferred.. On general examination, there is no carotid bruit or murmur, S1-S2 audible. Chest is clear on consultation. Abdomen is soft nontender. No organomegaly, bowel sounds present. Peripheral pulses are present. No peripheral edema. Results - Laboratory Findings CBC and BMP: 05/09/24 06:43 05/08/24 06:42 Abnormal Lab Findings: Abnormal Labs 05/07/24 05/07/24 05/07/24 20:46 21:00 21:00 WBC RBC Hgb 11.1 L Hct 33.7 L Neutrophils # PT 9.9 L Sodium Chloride Creatinine Glucose POC Glucose (mg/dL) 229 H Troponin I Urine Protein Urine Glucose (UA) Urine Blood 05/07/24 05/07/24 05/07/24 21:00 21:00 21:00 WBC RBC Hgb Hct Neutrophils # PT Sodium 127 L Chloride 91 L Creatinine 1.42 H Glucose 222 H POC Glucose (mg/dL) Troponin I 0.049 H* Urine Protein 1+ H Urine Glucose (UA) 1+ H Urine Blood Trace H 05/08/24 05/08/24 05/08/24 04:00 06:42 06:42 WBC 11.7 H RBC 3.71 L Hgb 10.2 L Hct 30.8 L Neutrophils # 9.5 H PT Sodium Chloride Creatinine Glucose POC Glucose (mg/dL) Troponin I 0.052 H* 0.064 H* Urine Protein Urine Glucose (UA) Urine Blood 05/08/24 06:42 WBC RBC Hgb Hct Neutrophils # PT Sodium 130 L Chloride 93 L Creatinine 1.40 H Glucose 164 H POC Glucose (mg/dL) Troponin I Urine Protein Urine Glucose (UA) Urine Blood Assessment and Plan Assessment: * Episode of unresponsiveness, and altered mental status, unclear cause. Patient apparently was found on the floor. Rule out arrhythmia versus seizure. * Moderate right ICA stenosis * Elevated cardiac enzymes * Hyponatremia * Chronic renal insufficiency * History of breast cancer, in remission * Diabetes Plan: Carotid Doppler was done, which revealed moderate 50 to 69% stenosis of the ri ght ICA. Antegrade flow in both vertebral arteries. Agree with checking MRI of the brain with and without contrast, rule out any mass lesion. EEG was abnormal due to background slowing, suggestive of mild encephalopathy, with superimposed bitemporal slowing, suggestive of focal cortical neuronal dy sfunction. No focal or generalized epileptiform activity was seen. Hold off on antiepileptic medication for now. Patient has elevated cardiac enzymes. Cardiology on board. Patient started on IV heparin drip for rule out ACS. Patient also on aspirin, but has been on aspirin at home as well, prior to arrival. Treatment of hyponatremia as per IM. 2D echo rule out embolic source or structural abnormalities. Neurology will follow. Thank you for the consult.
--- NOTE | 2024-05-08 19:20 | P.HPIM ---
History of Present Illness H&P Date: 05/08/24 Chief Complaint: Found on the floor Pleasant 63-year-old patient, follows with Dr. Jeniffer Figueroa. Chronic stable medical conditions include diabetes, hypertension, arthritis. Anxiety. History is obtained by patient significant other Art at the bedside. Patient is found on the bathroom floor. Somewhat confused. She would start to speak and her speech was garbled. Was able to move her limbs. This morning patient speech is better but not back to baseline. Patient was to found to have slight bump in troponin. Was put on IV heparin. Initial CT scan was unremarkable. When the ER physician had called me had ordered MRI and EEG. No frothing of the mouth no tongue biting was reported. Review of systems: GEN.: Tired EYES: None HEENT: None NECK: None RESPIRATORY: None CARDIOVASCULAR: None GASTROINTESTINAL: None GENITOURINARY: None MUSCULOSKELETAL: Joint pains LYMPHATICS: None HEMATOLOGICAL: None PSYCHIATRY: None NEUROLOGICAL: As above, Past medical history to include: Diabetes, hypertension, breast cancer, anxiety, depression, CHF from diastolic dysfunction Social history: Nonsmoker. No alcohol. Lives with'sagrario Cordova Physical examination: VITAL SIGNS: Afebrile, 86, 18, 170 x 69, 100% room air GENERAL: BMI 32.8, laying in bed, a bit tired EYES: Pupils equal. Conjunctiva normal. HEENT: External appearance of nose and ears normal, oral cavity grossly normal. NECK: JVD not raised; masses not palpable. HEART: First and second heart sounds are normal; no edema. LUNGS: Respiratory rate normal; decreased breath sounds. ABDOMEN: Soft, nontender, liver spleen not palpable, no masses palpable. PSYCH: Able to answer some questions slowly MUSCULOSKELETAL:No Clubbing/cyanosis;muscles-grossly intact. UA NEUROLOGICAL: Cranial nerves grossly intact; no facial asymmetry, power and sensation grossly intact. Speech was earlier reported by the significant other to be garbled. Now patient is speaking slowly. Not fluently LYMPHATICS: No lymph nodes palpable in the axilla and neck INVESTIGATIONS, reviewed in the clinical context: Carotid Doppler: 50-69% right ICA stenosis May 08: White count 11.7 hemoglobin 10.2 platelets 320 sodium 130 potassium 4.4 BUN 15 creatinine 1.4 Troponin I 0.049, 0.052, 0.064 proBNP 5850 TSH 2.7 UA: Negative for nitrate leukoesterase Urine drug screen: Negative EKG tracing personally reviewed by me-normal sinus rhythm. Some ST lead depression and V4-V6 Chest x-ray film personally reviewed by me-portable. Underpenetrated possible cardiomegaly CT scan hip, cervical spine, brain: Nonacute some DJD changes Assessment and plan: -Patient is found on the floor. Appeared confused speech was gibberish. This speech actually has improved a bit. No focal weakness. Patient could have had a seizure. Also this could be a focal area of stroke in the speech area. Initial CT scan negative MRI is pending. Need to rule out arrhythmia. Troponins are positive but they are rather flat. Denies any cardiac symptoms MRI brain pending. Neurology following. EEG. Telemetry -Positive troponin. Patient denies any active pain. Troponins are leveled out. 2D echo. Being followed by cardiology. IV heparin -IV heparin monitoring Follow PTT -Chronic congestive heart failure from diastolic dysfunction EF 55-60% Clinically euvolemic -Essential hypertension, uncontrolled Given the differential still could be stroke. Will hold off changing any significant blood pressure medications for first 24 hours. Lopressor 50 mg twice daily starting this evening. -Diabetes mellitus type 2 chronically on insulin Levemir, Glucophage Follow Accu-Cheks with sliding skill insulin. Januvia -Hyperlipidemia Lipitor 40 mg -Likely hypoosmolar hyponatremia with a prior history of the same. -Anxiety depression otherwise specified Cymbalta -History of breast cancer: On Femara -Full code Care was discussed patient significant other Art. Consultation to cardiology and neurology. Given the complexity and severity of patient's condition expect the patient to be in the hospital at least for 2 overnights Past Medical History Past Medical History: Cancer, Heart Failure, Diabetes Mellitus, Hyperlipidemia, Hypertension Additional Past Medical History / Comment(s): breast cancer, macular edema with hemorrhage bilateral. "episode of heart failure in the past" History of Any Multi-Drug Resistant Organisms: None Reported Past Surgical History: Section, Cholecystectomy Additional Past Surgical History / Comment(s): left lumpectomy x 2. right mediport insertion Past Anesthesia/Blood Transfusion Reactions: No Reported Reaction Past Psychological History: Anxiety, Depression Smoking Status: Never smoker Past Alcohol Use History: None Reported Past Drug Use History: None Reported - Past Family History Father Additional Family Medical History / Comment(s): No health hx 91 from pneumonia Mother Additional Family Medical History / Comment(s): No health hx after fall age 96 Medications and Allergies Home Medications Medication Instructions Recorded Confirmed Type Cholecalciferol [Vitamin D3 (25 25 mcg PO DAILY 05/09/22 05/08/24 History Mcg = 1000 Iu)] DULoxetine HCL [Cymbalta] 60 mg PO DAILY 05/09/22 05/08/24 History Diphenoxylate HCl/Atropine 1 tab PO QID PRN 05/09/22 05/08/24 History [Lomotil 2.5-0.025 mg Tablet] Letrozole [Femara] 2.5 mg PO DAILY 05/09/22 05/08/24 History Milk Thistle 150 mg PO DAILY 05/09/22 05/08/24 History Ondansetron Odt [Zofran ODT] 4 mg PO TID PRN 05/09/22 05/08/24 History Vitamin E (Dl,Tocopheryl Acet) 450 unit PO DAILY 05/09/22 05/08/24 History [Vitamin E (1000 Iu = 450 MG)] sitaGLIPtin [Januvia] 50 mg PO DAILY 05/09/22 05/08/24 History Calcium Carb/Mag Ox/Zinc Sulf 1 tab PO DAILY 05/19/23 05/08/24 History [Bjf-Okj-Fwco 334-134-5 mg Tab] Meclizine [Antivert] 12.5 mg PO TID PRN 05/19/23 05/08/24 History Vitamin B Complex 1 cap PO DAILY 05/19/23 05/08/24 History Aspirin 81 mg PO DAILY 05/08/24 05/08/24 History Bumetanide [Bumex] 1 mg PO DAILY 05/08/24 05/08/24 History Gabapentin [Neurontin] 100 mg PO Q8H PRN 05/08/24 05/08/24 History Metoprolol Tartrate [Lopressor] 25 mg PO BID 05/08/24 05/08/24 History Pantoprazole Sodium [Protonix] 40 mg PO DAILY 05/08/24 05/08/24 History Semaglutide [Rybelsus] 3 mg PO DAILY 05/08/24 05/08/24 History Allergies Allergy/AdvReac Type Severity Reaction Status Date / Time adhesive tape Allergy Itching Verified 05/08/24 10:05 morphine Allergy Swelling & Verified 05/08/24 10:05 hives Penicillins Allergy Rash/Hives Verified 05/08/24 10:05 ALEXIS Inhibitors AdvReac Cough Verified 05/08/24 10:05 Physical Exam Vitals: Vital Signs Temp Pulse Resp BP Pulse Ox 05/08/24 10:15 84 18 96 05/08/24 09:00 84 15 95 05/08/24 07:46 98.9 F 87 16 154/83 95 05/08/24 06:47 98 19 164/91 05/08/24 03:49 107 H 22 135/95 05/08/24 00:43 105 H 20 05/07/24 23:01 101 H 22 181/84 05/07/24 21:43 89 24 156/135 95 05/07/24 20:41 98.4 F 86 24 100 Intake and Output 05/07/24 05/08/24 05/08/24 22:59 06:59 14:59 Output Total 450 Balance -450 Output: Urine 450 Straight 450 Other: Weight 89.358 kg Results CBC & Chem 7: 05/08/24 06:42 05/08/24 06:42 Labs: Abnormal Lab Results - Last 24 Hours (Table) 05/07/24 05/07/24 05/07/24 Range/Units 20:46 21:00 21:00 WBC (3.8-10.6) k/uL RBC (3.80-5.40) m/uL Hgb 11.1 L (11.4-16.0) gm/dL Hct 33.7 L (34.0-46.0) % Neutrophils # (1.3-7.7) k/uL PT 9.9 L (10.0-12.5) sec Sodium (137-145) mmol/L Chloride (98-107) mmol/L Creatinine (0.52-1.04) mg/dL Glucose (74-99) mg/dL POC Glucose (mg/dL) 229 H (70-110) mg/dL Troponin I (0.000-0.034) ng/mL Urine Protein (Negative) Urine Glucose (UA) (Negative) Urine Blood (Negative) 05/07/24 05/07/24 05/07/24 Range/Units 21:00 21:00 21:00 WBC (3.8-10.6) k/uL RBC (3.80-5.40) m/uL Hgb (11.4-16.0) gm/dL Hct (34.0-46.0) % Neutrophils # (1.3-7.7) k/uL PT (10.0-12.5) sec Sodium 127 L (137-145) mmol/L Chloride 91 L (98-107) mmol/L Creatinine 1.42 H (0.52-1.04) mg/dL Glucose 222 H (74-99) mg/dL POC Glucose (mg/dL) (70-110) mg/dL Troponin I 0.049 H* (0.000-0.034) ng/mL Urine Protein 1+ H (Negative) Urine Glucose (UA) 1+ H (Negative) Urine Blood Trace H (Negative) 05/08/24 05/08/24 05/08/24 Range/Units 04:00 06:42 06:42 WBC 11.7 H (3.8-10.6) k/uL RBC 3.71 L (3.80-5.40) m/uL Hgb 10.2 L (11.4-16.0) gm/dL Hct 30.8 L (34.0-46.0) % Neutrophils # 9.5 H (1.3-7.7) k/uL PT (10.0-12.5) sec Sodium (137-145) mmol/L Chloride (98-107) mmol/L Creatinine (0.52-1.04) mg/dL Glucose (74-99) mg/dL POC Glucose (mg/dL) (70-110) mg/dL Troponin I 0.052 H* 0.064 H* (0.000-0.034) ng/mL Urine Protein (Negative) Urine Glucose (UA) (Negative) Urine Blood (Negative) 05/08/24 Range/Units 06:42 WBC (3.8-10.6) k/uL RBC (3.80-5.40) m/uL Hgb (11.4-16.0) gm/dL Hct (34.0-46.0) % Neutrophils # (1.3-7.7) k/uL PT (10.0-12.5) sec Sodium 130 L (137-145) mmol/L Chloride 93 L (98-107) mmol/L Creatinine 1.40 H (0.52-1.04) mg/dL Glucose 164 H (74-99) mg/dL POC Glucose (mg/dL) (70-110) mg/dL Troponin I (0.000-0.034) ng/mL Urine Protein (Negative) Urine Glucose (UA) (Negative) Urine Blood (Negative)
[2024-05-08 19:55] LABS: Glucose,Whole Blood 230 mg/dL (70-110)
[2024-05-08] MEDS: METOPROLOL TARTRATE 50 MG TAB PO SCH (20:41)
[2024-05-08] MEDS: ATORVASTATIN 40 MG TAB PO SCH (20:41)
[2024-05-08] MEDS ORDERED: cloNIDine HCL 0.1 MG TAB PO SCH (21:00)
--- NOTE | 2024-05-08 23:10 | EEG ---
ELECTROENCEPHALOGRAM REPORT PREAMBLE: This is a 63-year-old female presented with altered mental status. The patient was found on the floor by her . CURRENT MEDICATIONS: 1. Bumex. 2. Cymbalta. 3. Lopressor. EEG FINDINGS: This is a 21-channel digital EEG recorded with video component, utilizing 10/20 international system with referential and bipolar montages. Background consists of well-developed, moderately well regulated, mixed frequencies of alpha and some 6 to 7 hertz theta activity seen in bihemispheric region. Background seems to be reactive to eye opening or closing. Frequent bitemporal dysrhythmic theta and delta slowing was seen frequently. No focal or generalized epileptiform activity was seen. Different stages of sleep were not seen. IMPRESSION: This is an abnormal EEG due to background slowing, suggestive of mild encephalopathy, with superimposed bitemporal slowing, suggestive of focal cortical neuronal dysfunction. No focal or generalized epileptiform activity was seen. MMODL / IJN: [id number] /
[2024-05-09] MEDS: HEPARIN SODIUM 1,000 UN/ML (10ML VL) IV PRN (01:07)
[2024-05-09 06:15] LABS: Glucose,Whole Blood 175 mg/dL (70-110)
[2024-05-09 07:18] LABS: Basophils % (A) 0 %; Eosinophils # (A) 0.1 k/uL (0-0.7); Eosinophils % (A) 2 %; HCT 27.6 % (34.0-46.0); HGB 9.2 gm/dL (11.4-16.0); Lymphocytes # (A) 1.7 k/uL (1.0-4.8); Lymphocytes % (A) 22 %; MCH 27.9 pg (25.0-35.0); MCHC 33.4 g/dL (31.0-37.0); MCV 83.5 fL (80.0-100.0); Mean Platelet Volume 7.1; Monocytes # (A) 0.5 k/uL (0-1.0); Monocytes % (A) 7 %; Neutrophils # (A) 5.2 k/uL (1.3-7.7); Neutrophils % (A) 68 %; Platelet Count 260 k/uL (150-450); WBC 7.7 k/uL (3.8-10.6)
[2024-05-09 08:11] LABS: INR 0.9 (<1.2); Partial Thromboplastin Time 79.1 sec (22.0-30.0); Prothrombin Time 10.3 sec (10.0-12.5)
[2024-05-09] MEDS: VITAMIN E (DL,TOCOPHERYL ACET) 400 UNIT (180 MG) CAP PO SCH (08:49)
[2024-05-09] MEDS ORDERED: NON FORMULARY DRUG (Vitamin B Complex [Vitamin B Complex] 1 EACH Capsule) PO SCH (09:00)
[2024-05-09] MEDS: amLODIPine 5 MG TAB PO SCH (09:08)
[2024-05-09] MEDS: LOSARTAN 25 MG TAB PO SCH ×2 (09:08→22:34)
--- NOTE | 2024-05-09 11:29 | MR ---
EXAMINATION TYPE: MR brain wo/w con DATE OF EXAM: 05/09/2024 COMPARISON: 07/02/2015, CT 05/07/2024 HISTORY: AMS, possible seizure. CONTRAST: Performed utilizing 8 mL intravenous Gadavist gadolinium contrast. TECHNIQUE: Multiplanar, multiecho imaging on a 3.0 Daylin magnet is performed through the brain. Stud y is performed within 24 hours of arrival to the hospital. The craniovertebral junction is normal. The pituitary is normal. Diffusion-weighted imaging is performed. There is a punctate hyperintensity in the subcortical white matter in the left anterior occipital lobe. Series 3 10/30/2027 additional subcortical uptake is rig ht frontal lobe, series 303 image 160, and within the anterior corpus callosum series 303 image 144. Some faint uptake may be within the left posterior periventricular white matter. Series 303 image 152 . Couple of punctate subcortical white matter changes are in the centrum semiovale on the left and ri ght, series 303 image 192. Periventricular white matter hyperintensity is present. These areas are nonspecific and can be relate d to chronic white matter microvascular ischemic change. Couple of these areas do correspond to the a reas of hyperintensity on diffusion can be acute white matter changes. These white matter changes of increased the 2015 comparison Ventricles and sulci are appropriate for the patient age. Fluid is within the bilateral mastoid air cells. Correlate for bilateral mastoiditis. IMPRESSION: 1. Scattered bilateral cerebral hyperintensities on diffusion can be compatible with acute ischemic c hanges. Correlate for emboli. 2. There are some additional periventricular white matter hyperintensities likely related to chronic white matter ischemic type changes. [facility], , 05/09/2024 11:27 AM
[2024-05-09 11:39] LABS: Glucose,Whole Blood 191 mg/dL (70-110)
[2024-05-09] MEDS: ONDANSETRON ODT 4 MG TAB PO PRN (12:54)
--- NOTE | 2024-05-09 16:20 | P.PN ---
Subjective Progress Note Date: 05/09/24 HISTORY OF PRESENT ILLNESS: This is a 63-year-old female with past medical history significant for diabetes, hypertension, and history of breast cancer. 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 History is limited due to patient's altered mental status. We have been asked to see this patient in consultation for elevated troponins. Patient was examined at the bedside in the emergency room. Patient was brought into the hospital due to altered mental status status post fall. She denies any chest pain, shortness of breath, fevers or chills. DIAGNOSTICS: -EKG reveals sinus rhythm -Pelvic x-ray shows no acute pathology. -Chest x-ray shows low lung volumes with a generalized hazy appearance, atelectasis versus pulmonary edema. -CT head x 2 are unremarkable. -Carotid duplex ultrasound showed moderate 50 to 69% right ICA stenosis. -Most recent echo on May 11, 2022 showed ejection fraction of 50 to 55%, moderate aortic stenosis with peak gradient of 53 mmHg and mean gradient of 30 mmHg. -EEG is abnormal showed bitemporal slowing, suggestive of focal cortical neuronal dysfunction -Today's laboratory data: Hemoglobin 9.2. PTT 35.2. Glucose 191 -Current home cardiac medications include aspirin 81 mg daily, Bumex 1 mg daily, Metoprolol 25mg BID 05/09/24 Patient examined this morning at the bedside. Patient much more awake and alert this morning. She denies chest pain, shortness of breath. 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 Blood pressures are elevated. PHYSICAL EXAM: VITAL SIGNS: Reviewed. GENERAL: Well-developed in no acute distress. HEENT: Head is normocephalic. Pupils are equal, round. Sclerae anicteric. Mucous membranes of the mouth are moist. Neck supple. No JVD or thyromegaly LUNGS: Respirations even and unlabored. HEART: Regular rate and rhythm. S1 and S2 heard. ABDOMEN: Soft. Nontender to palpation. EXTREMITIES: Normal range of motion. No clubbing or cyanosis. Peripheral pulses intact. Trace lower extremity edema NEUROLOGIC: Somnolent. Oriented x 2. Assessment Elevated troponin, cannot rule out type II NSTEMI. Acute metabolic encephalopathy, CKD stage IIIb Hyponatremia, likely secondary to above Hypertension Plan Requested cardiology records from [facility] Follow-up echocardiogram Continue aspirin, Lipitor, IV heparin drip, Bumex 1mg daily Started Amlodipine 5mg, Cozaar 12.5mg to optimize BP control Neurology following Will consider 14 day event monitor upon discharge Additional recommendations forthcoming pending clinical course Objective - Vital Signs Vital signs: Vital Signs Temp 97.9 F 05/09/24 12:00 Pulse 73 05/09/24 12:00 Resp 18 05/09/24 12:00 BP 186/82 05/09/24 12:00 Pulse Ox 100 05/09/24 12:00 FiO2 Intake & Output 05/08/24 05/09/24 05/09/24 18:59 06:59 18:59 Intake Total 64 146.808 370 Balance 64 146.808 370 Weight 88.4 kg Intake: IV 10 Invasive Line 2 10 Intake, IV Titration 64 146.808 Amount Heparin Sod,Pork in 0.45% 64 146.808 NaCl 25,000 unit In 0.45 % NaCl 1 250ml.bag @ 11. 191 UNITS/KG/HR 10 mls/hr IV .Q24H [facility] Rx#: [id number] Oral 360 Other: Voiding Method Toilet # Voids 1 2 - Labs CBC & Chem 7: 05/09/24 06:43 05/08/24 06:42 Labs: Abnormal Lab Results - Last 24 Hours (Table) 05/08/24 05/08/24 05/09/24 Range/Units 17:43 19:53 00:22 RBC (3.80-5.40) m/uL Hgb (11.4-16.0) gm/dL Hct (34.0-46.0) % APTT 41.0 H 42.2 H (22.0-30.0) sec POC Glucose (mg/dL) 230 H (70-110) mg/dL 05/09/24 05/09/24 05/09/24 Range/Units 06:12 06:43 06:43 RBC 3.30 L (3.80-5.40) m/uL Hgb 9.2 L (11.4-16.0) gm/dL Hct 27.6 L (34.0-46.0) % APTT 79.1 H (22.0-30.0) sec POC Glucose (mg/dL) 175 H (70-110) mg/dL 05/09/24 05/09/24 Range/Units 11:37 14:18 RBC (3.80-5.40) m/uL Hgb (11.4-16.0) gm/dL Hct (34.0-46.0) % APTT 35.2 H (22.0-30.0) sec POC Glucose (mg/dL) 191 H (70-110) mg/dL
[2024-05-09 16:45] LABS: Glucose,Whole Blood 197 mg/dL (70-110)
[2024-05-09] MEDS ORDERED: DEXTROSE 50% SYRINGE 50 ML IVP PRN ×2 (17:17)
[2024-05-09] MEDS: INSULIN ASPART (NovoLOG) 100 UNIT/ML VIAL SQ SCH (17:22)
--- NOTE | 2024-05-09 17:38 | CA ---
Transthoracic Echo Report Name: Mary Mata Age: 63 Gender: F : 1960 Exam Date: 05/09/2024 08:35 Exam Location: [place] [facility] Ht (in): 65 Wt (lb): 197 Ordering Physician: Hermilo Mendieta MD Attending/Referring Phys: Film Cutter Mandy Alarcon RDCS Procedure CPT: Indications: LV function Cardiac Hx: TAVR Technical Quality: Fair Contrast 1: Agitated Saline Total Dose (mL): 9 Contrast 2: Total Dose (mL): MEASUREMENTS (Male / Female) Normal Values 2D ECHO LV Diastolic Diameter PLAX 4.5 cm 4.2 - 5.9 / 3.9 - 5.3 cm LV Systolic Diameter PLAX 2.6 cm IVS Diastolic Thickness 1.4 cm 0.6 - 1.0 / 0.6 - 0.9 cm LVPW Diastolic Thickness 1.4 cm 0.6 - 1.0 / 0.6 - 0.9 cm LV Relative Wall Thickness 0.6 RV Internal Dim ED PLAX 3.2 cm LVOT Diameter 1.8 cm LA Systolic Diameter LX 4.4 cm 3.0 - 4.0 / 2.7 - 3.8 cm LA Volume 75.0 cm??? 18 - 58 / 22 - 52 cm??? LA Volume Index 36.5 cm???/m??? 16 - 28 cm???/m??? M-MODE Aortic Root Diameter MM 3.0 cm DOPPLER AV Peak Velocity 197.3 cm/s AV Peak Gradient 15.6 mmHg AV Mean Velocity 135.8 cm/s AV Mean Gradient 8.5 mmHg AV Velocity Time Integral 45.1 cm MV Area PHT 3.1 cm??? Mitral E Point Velocity 121.9 cm/s Mitral A Point Velocity 132.7 cm/s Mitral E to A Ratio 0.9 MV Deceleration Time 247.2 ms FINDINGS Left Ventricle Left ventricular ejection fraction is estimated at 60-65 %. Left ventricular cavity size normal. Moderate concentric left ventricular hypertrophy. Right Ventricle Normal right ventricular size. Unable to estimate the right ventricular systolic pressure. Right Atrium Normal right atrial size. No right atrial thrombus or mass seen. Negative agitated saline bubble study for right to left shunt. Left Atrium Moderately increased left atrial diameter. Moderately increased left atrial volume. Mildly increased left atrial area. Mitral Valve Mitral valve thickened. Mild mitral annular calcification. Mild mitral regurgitation. Aortic Valve Normally functioning bioprosthetic aortic valve without stenosis with a peak velocity of 2 m/s, peak gradient 16 mmHg, mean gradient 9 mmHg. Paravalvular aortic regurgitation. Tricuspid Valve Structurally normal tricuspid valve. No tricuspid stenosis, regurgitation or prolapse. Pulmonic Valve Pulmonic valve not well visualized. Trace pulmonic regurgitation. Pericardium No pericardial or pleural effusion. Aorta Normal size aortic root and proximal ascending aorta. CONCLUSIONS Diagnosis: Abnormal troponins, valvular heart disease status post replacement LVH with preserved systolic function Left atrial enlargement Stable bioprosthetic aortic valve with normal gradients Previewed by: Dr. Flakito Rios MD (Electronically Signed) Final Date: 09 May 2024 17:37
[2024-05-09 20:41] LABS: Glucose,Whole Blood 223 mg/dL (70-110)
--- NOTE | 2024-05-09 22:03 | P.PN ---
Progress Note - Text Progress Note Date: 05/09/24 Chief Complaint: Found on the floor Pleasant 63-year-old patient, follows with Dr. Jeniffer Figueroa. Chronic stable medical conditions include diabetes, hypertension, arthritis. Anxiety. History is obtained by patient significant other Art at the bedside. Patient is found on the bathroom floor. Somewhat confused. She would start to speak and her speech was garbled. Was able to move her limbs. This morning patient speech is better but not back to baseline. Patient was to found to have slight bump in troponin. Was put on IV heparin. Initial CT scan was unremarkable. When the ER physician had called me had ordered MRI and EEG. No frothing of the mouth no tongue biting was reported. May 09: EEG showed evidence of mild encephalopathy. With superimposed bitemporal slowing suggestive of focal cortical neuronal dysfunction. No generalized epileptiform activity. Brain MRI showed scattered bilateral cerebral hyperintensities on diffusion can be compatible acute ischemic changes. Correlate for emboli. 2D echo: Stable bioprosthetic arctic valve with normal gradients. Negative agitated saline bubble study. For shunt. EF 60 to 65% will order MEEK given brain MRI findings Sitting edge of the bed. Eating lunch. Just feels tired. She is better. No chest pain. Blood pressure running high. Amlodipine 5 mg added this morning. Will change Cozaar to 25 mg nightly Active Medications Amlodipine Besylate (Amlodipine 5 Mg Tab) 5 mg PO DAILY [facility] Last Admin: 05/09/24 09:08 Dose: 5 mg Aspirin (Aspirin 81 Mg) 81 mg PO DAILY [facility] Last Admin: 05/09/24 08:49 Dose: 81 mg Atorvastatin Calcium (Atorvastatin 40 Mg Tab) 40 mg PO HS [facility] Last Admin: 05/09/24 20:52 Dose: 40 mg Bumetanide (Bumetanide 1 Mg Tab) 1 mg PO DAILY [facility] Last Admin: 05/09/24 08:49 Dose: 1 mg Dextrose/Water (Dextrose 50% Syringe 50 Ml) 25 ml IVP PER PROTOCOL PRN; Protocol PRN Reason: Hypoglycemia Dextrose/Water (Dextrose 50% Syringe 50 Ml) 50 ml IVP PER PROTOCOL PRN; Protocol PRN Reason: Hypoglycemia Duloxetine HCl (Duloxetine Hcl 60 Mg Capsule.) 60 mg PO DAILY [facility] Last Admin: 05/09/24 08:49 Dose: 60 mg Heparin Sodium (Porcine) (Heparin Sodium 1,000 Un/Ml (10ml Vl)) 0 unit IV PER PROTOCOL PRN; Protocol PRN Reason: Low PTT Last Admin: 05/09/24 16:43 Dose: 2,200 unit Sodium Chloride (Saline 0.9%) 1,000 mls @ 80 mls/hr IV .[id number] [facility] Last Admin: 05/09/24 12:47 Dose: Not Given Heparin Sodium/Sodium Chloride (25,000 unit/ Sodium Chloride) 250 mls @ 10 mls/hr IV .Q24H [facility]; Protocol Last Titration: 05/09/24 16:44 Dose: 17.191 units/kg/hr, 15.362 mls/hr Insulin Aspart (Insulin Aspart (Novolog) 100 Unit/Ml Vial) 0 unit SQ ACHS [facility]; Protocol Last Admin: 05/09/24 20:52 Dose: 4 unit Letrozole (Letrozole 2.5 Mg Tab) 2.5 mg PO DAILY [facility] Last Admin: 05/09/24 08:49 Dose: 2.5 mg Losartan Potassium (Losartan 25 Mg Tab) 12.5 mg PO DAILY [facility] Last Admin: 05/09/24 09:08 Dose: 12.5 mg Metoprolol Tartrate (Metoprolol Tartrate 50 Mg Tab) 50 mg PO BID [facility] Last Admin: 05/09/24 20:52 Dose: 50 mg Naloxone HCl (Naloxone 0.4 Mg/Ml 1 Ml Vial) 0.2 mg IV Q2M PRN PRN Reason: Opioid Reversal Semaglutide [ Rybelsus] 3 Mg Tablet 3 mg PO DAILY [facility] Last Admin: 05/09/24 08:39 Dose: Not Given Ondansetron HCl (Ondansetron Odt 4 Mg Tab) 4 mg PO TID PRN PRN Reason: Nausea And Vomiting Last Admin: 05/09/24 20:51 Dose: 4 mg Pantoprazole Sodium (Pantoprazole 40 Mg Tablet) 40 mg PO DAILY@0730 [facility] Last Admin: 05/09/24 06:23 Dose: 40 mg Vitamin E (Vitamin E (Dl,Tocopheryl Acet) 400 Unit (180 Mg) Cap) 400 unit PO DAILY [facility] Last Admin: 05/09/24 08:49 Dose: 400 unit Past medical history to include: Diabetes, hypertension, breast cancer, anxiety, depression, CHF from diastolic dysfunction Social history: Nonsmoker. No alcohol. Lives with's Art Physical examination: VITAL SIGNS: 7.9, 73, 18, 117 x 74, 99% room air GENERAL: BMI 32.8, l age of the bed, eating lunch EYES: Pupils equal. Conjunctiva normal. HEENT: External appearance of nose and ears normal, oral cavity grossly normal. NECK: JVD not raised; masses not palpable. HEART: First and second heart sounds are normal; no edema. LUNGS: Respiratory rate normal; decreased breath sounds. ABDOMEN: Soft, nontender, liver spleen not palpable, no masses palpable. PSYCH: AOx3. MUSCULOSKELETAL:No Clubbing/cyanosis;muscles-grossly intact. UA NEUROLOGICAL: Cranial nerves grossly intact; no facial asymmetry, power and sensation grossly intact. To answer questions appropriately INVESTIGATIONS, reviewed in the clinical context: EEG: Abnormal EEG showing suggestion of mild encephalopathy. With superimposed bitemporal slowing. Suggestive of focal cortical neuronal dysfunction. Brain MRI: Scattered bilateral cerebral hyperintensities on diffusion can be compatible with acute ischemia correlate for emboli. Additional periventricular white matter hyperintensities. Carotid Doppler: 50-69% right ICA stenosis May 08: White count 11.7 hemoglobin 10.2 platelets 320 sodium 130 potassium 4.4 BUN 15 creatinine 1.4 Troponin I 0.049, 0.052, 0.064 proBNP 5850 TSH 2.7 UA: Negative for nitrate leukoesterase Urine drug screen: Negative EKG tracing personally reviewed by me-normal sinus rhythm. Some ST lead depression and V4-V6 Chest x-ray film personally reviewed by me-portable. Underpenetrated possible cardiomegaly CT scan hip, cervical spine, brain: Nonacute some DJD changes Assessment and plan: -Patient is found on the floor. Appeared confused speech was gibberish. This speech actually has improved a bit. No focal weakness. Patient could have had a seizure. Also this could be a focal area of stroke in the speech area. Initial CT scan negative MRI is pending. Need to rule out arrhythmia. Troponins are positive but they are rather flat. Denies any cardiac symptoms MRI brain-suggestive bilateral emboli. -Positive troponin. Patient denies any active pain. Troponins are leveled out. 2D echo-negative for any thrombus. Negative bubble study -IV heparin monitoring Follow PTT -Chronic congestive heart failure from diastolic dysfunction EF 55-60% Clinically euvolemic -Essential hypertension, uncontrolled Lopressor 50 mg twice daily Amlodipine 5 mg started this morning. Add Cozaar 25 mg nightly -Diabetes mellitus type 2 chronically on insulin Levemir, Glucophage Follow Accu-Cheks with sliding skill insulin. Januvia -Hyperlipidemia Lipitor 40 mg -Likely hypoosmolar hyponatremia with a prior history of the same. -Anxiety depression otherwise specified Cymbalta -History of breast cancer: On Femara -Full code Consult cardiology for MEEK. Blood pressure medication adjusted. N.p.o. after midnight Past Medical History Past Medical History: Cancer, Heart Failure, Diabetes Mellitus, Hyperlipidemia, Hypertension Additional Past Medical History / Comment(s): breast cancer, macular edema with hemorrhage bilateral. "episode of heart failure in the past" History of Any Multi-Drug Resistant Organisms: None Reported Past Surgical History: Section, Cholecystectomy Additional Past Surgical History / Comment(s): left lumpectomy x 2. right mediport insertion Past Anesthesia/Blood Transfusion Reactions: No Reported Reaction Past Psychological History: Anxiety, Depression Smoking Status: Never smoker Past Alcohol Use History: None Reported Past Drug Use History: None Reported
[2024-05-10 06:18] LABS: Glucose,Whole Blood 195 mg/dL (70-110)
[2024-05-10] MEDS: LOSARTAN 50 MG TAB PO SCH ×2 (08:47→20:27)
[2024-05-10] MEDS: amLODIPine 5 MG TAB PO STA (08:47)
[2024-05-10 11:47] LABS: Glucose,Whole Blood 185 mg/dL (70-110)
[2024-05-10] MEDS: SODIUM CHLORIDE 0.9% 500 ML 500 ML IV ONE (12:09)
[2024-05-10] MEDS: BENZOCAINE SPRAY 1 EACH MM ONE (12:09)
[2024-05-10 12:14] LABS: Chol/HDL Ratio 3.66 Ratio; LDL Cholesterol,Calculated 132.4 mg/dL (0.0-131.0)
[2024-05-10] MEDS: fentaNYL (PF) 50 MCG/ML 2 ML AMP IVP ONE (12:22)
[2024-05-10] MEDS: MIDAZOLAM 2 MG/2 ML VIAL IVP ONE (12:22)
--- NOTE | 2024-05-10 13:05 | P.PN ---
Subjective Progress Note Date: 05/09/24 Patient was seen for a follow-up. Patient denies any new neurological symptoms. Patient is laying comfortably in the bed. Objective - Vital Signs Vital signs: Vital Signs Temp 97.9 F 05/09/24 12:00 Pulse 73 05/09/24 12:00 Resp 18 05/09/24 12:00 BP 186/82 05/09/24 12:00 Pulse Ox 100 05/09/24 12:00 FiO2 Intake & Output 05/08/24 05/09/24 05/09/24 18:59 06:59 18:59 Intake Total 64 146.808 511.17 Balance 64 146.808 511.17 Weight 88.4 kg Intake: IV 10 Invasive Line 2 10 Intake, IV Titration 64 146.808 141.17 Amount Heparin Sod,Pork in 0.45% 64 146.808 141.17 NaCl 25,000 unit In 0.45 % NaCl 1 250ml.bag @ 11. 191 UNITS/KG/HR 10 mls/hr IV .Q24H [facility] Rx#: [id number] Oral 360 Other: Voiding Method Toilet # Voids 1 2 - Exam Examination is unchanged. - Labs CBC & Chem 7: 05/09/24 06:43 05/08/24 06:42 Labs: Abnormal Lab Results - Last 24 Hours (Table) 05/08/24 05/08/24 05/09/24 Range/Units 17:43 19:53 00:22 RBC (3.80-5.40) m/uL Hgb (11.4-16.0) gm/dL Hct (34.0-46.0) % APTT 41.0 H 42.2 H (22.0-30.0) sec POC Glucose (mg/dL) 230 H (70-110) mg/dL 05/09/24 05/09/24 05/09/24 Range/Units 06:12 06:43 06:43 RBC 3.30 L (3.80-5.40) m/uL Hgb 9.2 L (11.4-16.0) gm/dL Hct 27.6 L (34.0-46.0) % APTT 79.1 H (22.0-30.0) sec POC Glucose (mg/dL) 175 H (70-110) mg/dL 05/09/24 05/09/24 05/09/24 Range/Units 11:37 14:18 16:43 RBC (3.80-5.40) m/uL Hgb (11.4-16.0) gm/dL Hct (34.0-46.0) % APTT 35.2 H (22.0-30.0) sec POC Glucose (mg/dL) 191 H 197 H (70-110) mg/dL Assessment and Plan Assessment: * Acute ischemic stroke, multiple, small (x 6) scattered bilateral hemispheric region. Probable cardioembolic source. * Episode of unresponsiveness, and altered mental status, unclear cause. Patient apparently was found on the floor. Rule out arrhythmia. * Moderate right ICA stenosis * Elevated cardiac enzymes * Hyponatremia * Chronic renal insufficiency * History of breast cancer, in remission * Diabetes Plan: * Patient has an acute ischemic stroke, multifocal, small size, involving bilateral hemispheric region. Suspect cardiac source. Patient currently is on heparin drip, also on aspirin 81 mg, (which she has been on before she arrived to the hospital). May need to place on DAPT. However will continue single antiplatelet agent while patient is on heparin. * Carotid Doppler was done, which revealed moderate 50 to 69% stenosis of the right ICA. Antegrade flow in both vertebral arteries. * MRI of the brain with and without contrast, revealed scattered bilateral cerebral hyperintensities on diffusion-weighted images can be compatible with acute ischemic infarct. Correlate for emboli. There are some additional periventricular white matter hyperintensities likely related to chronic white matter ischemic type changes. I personally reviewed MRI, agree with the findings. * EEG revealed background slowing, suggestive of mild encephalopathy, with superimposed bitemporal slowing, suggestive of focal cortical neuronal dysfunction. No focal or generalized epileptiform activity was seen. * No indication for antiepileptic medication. Focal slowing, likely due to CVA. * 2D echo revealed normal LVEF 60 to 65%. Left ventricular cavity size is normal. Moderate concentric LVH. Moderately increased left atrial diameter. Stable bioprosthetic aortic valve with normal gradients. * Consider MEEK. Consider 30-day event monitoring rule out PAF. * Fasting a.m. lipid panel, hemoglobin A1c. * Patient has elevated cardiac enzymes. Cardiology on board. Patient currently on IV heparin drip for rule out ACS. * Treatment of hyponatremia as per IM. * PT, OT, speech therapy. * DVT prophylaxis: Patient on heparin IV.
--- NOTE | 2024-05-10 15:42 | P.TEE ---
Date of Procedure: 05/10/24 Description of Procedure(s): Procedure performed: 1. Transesophageal Echocardiogram with color flow doppler, pulsed wave doppler and continuous wave doppler, (CPT 03054, +[id number], +[id number]) 2. Moderate conscious sedation. Sedation time 11 mins. (CPT 70231) 3. Bubble Study 4. 3D imaging (CPT +48805) Indications: Embolic CVA noticed on MRI with bilateral multifocal shower emboli. No clear evidence of atrial fibrillation during hospital telemetry monitoring. Transthoracic echocardiogram was not conclusive and had a negative bubble study but because of high clinical suspicion she was scheduled for a MEEK as per the recommendations by neurology team. Consent: I have discussed the risks, benefits and alternative therapies for the above-mentioned procedure. The patient has indicated understanding and acceptance of the risks of the procedure. Signed consent was obtained and was placed in the paper chart. Procedural Steps: Timeout was performed in usual fashion. Patient's heart rate, blood pressure, oxygen saturation and ECG were monitored. Benzocaine was sprayed liberally in the back of the throat. Bite block was placed between the jaw. 2 mg of Versed and 50 mcg of Fentanyl were administered intravenously. After achieving appropriate moderate conscious sedation, MEEK probe was advanced withou t difficulty and without any immediate complications to the esophagus. MEEK study was performed with color flow doppler, pulsed wave doppler and continuous wave doppler. The probe was then removed. Patient tolerated the procedure well. Patient was transferred to the post procedure area in stable and satisfactory condition. Throughout the procedure patient's heart rate, blood pressure, oxygen saturation and ECG were monitored. Total sedation time 11 mins. Complications: none FINDINGS Left Atrium: Mild left atrial dilatation. No evidence of mass or thrombus seen Left Atrial Appendage: No evidence of thrombus or mass seen in AMADOU Inter atrial septum: Intact inter-atrial septum with no evidence of atrial septal defect or patent foramen ovale. There was no evidence of right to left intracardiac shunting noticed on bubble study Left Ventricle: Normal global LV size and systolic function Right Atrium: Normal overall RA size Right Ventricle: Normal global RV size and systolic function Aortic Valve: Stented prosthetic valve, most likely Medtronic valve, mild paravalvular leak noticed from left coronary cusp area. No significant calcification. Freely mobile bioprosthetic aortic valve leaflet cusp. No significant stenosis on color Doppler Mitral Valve: Struturally normal. No evidence of prolapse. No evidence of stenosis. Trace regurgitation on doppler assessment Pulmonic Valve: Not well visualized. Tricuspid Valve: Structurally normal. Ascending aorta, Aortic root and Aortic arch: Normal size aortic root and ascending aorta. Descending aorta: Mild intimal thickening. 2 mm calcific plaques noticed in descending aorta. No mobile thrombus. No calcific plaque more than 5 mm. CONCLUSION: Overall nonrevealing MEEK to explain patient's cardioembolic phenomena of CVA No significant valvular dysfunction Normal global systolic function No evidence of thrombus in AMADOU or left atrial appendage No evidence of increased calcific burden of mitral and aortic valve. Bioprosthetic TAVR valve with mild paravalvular leak Mild to moderate calcific plaques noticed in descending aorta Severo Rosales MD, RPVI, FACC Thank you for allowing [facility] to participate in this patient's care. Feel free to reach out in case of any followup questions.
[2024-05-10 16:35] LABS: Glucose,Whole Blood 188 mg/dL (70-110)
[2024-05-10 20:03] LABS: Glucose,Whole Blood 161 mg/dL (70-110)
--- NOTE | 2024-05-10 20:03 | P.PN ---
Progress Note - Text Progress Note Date: 05/10/24 Chief Complaint: Found on the floor Pleasant 63-year-old patient, follows with Dr. Jeniffer Figueroa. Chronic stable medical conditions include diabetes, hypertension, arthritis. Anxiety. History is obtained by patient significant other Art at the bedside. Patient is found on the bathroom floor. Somewhat confused. She would start to speak and her speech was garbled. Was able to move her limbs. This morning patient speech is better but not back to baseline. Patient was to found to have slight bump in troponin. Was put on IV heparin. Initial CT scan was unremarkable. When the ER physician had called me had ordered MRI and EEG. No frothing of the mouth no tongue biting was reported. May 09: EEG showed evidence of mild encephalopathy. With superimposed bitemporal slowing suggestive of focal cortical neuronal dysfunction. No generalized epileptiform activity. Brain MRI showed scattered bilateral cerebral hyperintensities on diffusion can be compatible acute ischemic changes. Correlate for emboli. 2D echo: Stable bioprosthetic arctic valve with normal gradients. Negative agitated saline bubble study. For shunt. EF 60 to 65% will order MEEK given brain MRI findings Sitting edge of the bed. Eating lunch. Just feels tired. She is better. No chest pain. Blood pressure running high. Amlodipine 5 mg added this morning. Will change Cozaar to 25 mg nightly May 10: Patient underwent a MEEK today. No source of embolism found. Seen by speech therapy. Speech is better. No other focal weakness. Patient did walk 25 feet yesterday. Postprocedure blood pressure is running high.Patient started on amlodipine this morning-given 5 mg. Melina 50 mg nightly added. Active Medications Amlodipine Besylate (Amlodipine 10 Mg Tab) 10 mg PO DAILY [facility] Aspirin (Aspirin 81 Mg) 81 mg PO DAILY [facility] Last Admin: 05/10/24 08:30 Dose: 81 mg Atorvastatin Calcium (Atorvastatin 40 Mg Tab) 40 mg PO HS [facility] Last Admin: 05/09/24 20:52 Dose: 40 mg Bumetanide (Bumetanide 1 Mg Tab) 1 mg PO DAILY [facility] Last Admin: 05/10/24 08:30 Dose: 1 mg Clopidogrel Bisulfate (Clopidogrel 75 Mg Tab) 75 mg PO DAILY [facility] Dextrose/Water (Dextrose 50% Syringe 50 Ml) 25 ml IVP PER PROTOCOL PRN; Protocol PRN Reason: Hypoglycemia Dextrose/Water (Dextrose 50% Syringe 50 Ml) 50 ml IVP PER PROTOCOL PRN; Protocol PRN Reason: Hypoglycemia Duloxetine HCl (Duloxetine Hcl 60 Mg Capsule.Dr) 60 mg PO DAILY [facility] Last Admin: 05/10/24 08:30 Dose: 60 mg Insulin Aspart (Insulin Aspart (Novolog) 100 Unit/Ml Vial) 0 unit SQ ACHS [facility]; Protocol Last Admin: 05/10/24 16:51 Dose: 2 unit Letrozole (Letrozole 2.5 Mg Tab) 2.5 mg PO DAILY [facility] Last Admin: 05/10/24 08:30 Dose: 2.5 mg Losartan Potassium (Losartan 50 Mg Tab) 50 mg PO HS [facility] Metoprolol Tartrate (Metoprolol Tartrate 50 Mg Tab) 50 mg PO BID [facility] Last Admin: 05/10/24 08:30 Dose: 50 mg Naloxone HCl (Naloxone 0.4 Mg/Ml 1 Ml Vial) 0.2 mg IV Q2M PRN PRN Reason: Opioid Reversal Semaglutide [ Rybelsus] 3 Mg Tablet 3 mg PO DAILY [facility] Last Admin: 05/10/24 08:31 Dose: Not Given Ondansetron HCl (Ondansetron Odt 4 Mg Tab) 4 mg PO TID PRN PRN Reason: Nausea And Vomiting Last Admin: 05/09/24 20:51 Dose: 4 mg Pantoprazole Sodium (Pantoprazole 40 Mg Tablet) 40 mg PO DAILY@0730 [facility] Last Admin: 05/10/24 06:25 Dose: 40 mg Vitamin E (Vitamin E (Dl,Tocopheryl Acet) 400 Unit (180 Mg) Cap) 400 unit PO DAILY [facility] Last Admin: 05/10/24 08:30 Dose: 400 unit Past medical history to include: Diabetes, hypertension, breast cancer, anxiety, depression, CHF from diastolic dysfunction Social history: Nonsmoker. No alcohol. Lives with's Art Physical examination: VITAL SIGNS:, 67, 18, 65 x 72, 98% room air GENERAL: BMI 32.8, sitting at the edge of the bed. EYES: Pupils equal. Conjunctiva normal. HEENT: External appearance of nose and ears normal, oral cavity grossly normal. NECK: JVD not raised; masses not palpable. HEART: First and second heart sounds are normal; no edema. LUNGS: Respiratory rate normal; decreased breath sounds. ABDOMEN: Soft, nontender, liver spleen not palpable, no masses palpable. PSYCH: AOx3. MUSCULOSKELETAL:No Clubbing/cyanosis;muscles-grossly intact. UA NEUROLOGICAL: Cranial nerves grossly intact; no facial asymmetry, power and sensation grossly intact. To answer questions appropriately INVESTIGATIONS, reviewed in the clinical context: EMEK: Negative for any source of thrombus LDL 132 EEG: Abnormal EEG showing suggestion of mild encephalopathy. With superimposed bitemporal slowing. Suggestive of focal cortical neuronal dysfunction. Brain MRI: Scattered bilateral cerebral hyperintensities on diffusion can be compatible with acute ischemia correlate for emboli. Additional periventricular white matter hyperintensities. Carotid Doppler: 50-69% right ICA stenosis May 08: White count 11.7 hemoglobin 10.2 platelets 320 sodium 130 potassium 4.4 BUN 15 creatinine 1.4 Troponin I 0.049, 0.052, 0.064 proBNP 5850 TSH 2.7 UA: Negative for nitrate leukoesterase Urine drug screen: Negative EKG tracing personally reviewed by me-normal sinus rhythm. Some ST lead depression and V4-V6 Chest x-ray film personally reviewed by me-portable. Underpenetrated possible cardiomegaly CT scan hip, cervical spine, brain: Nonacute some DJD changes Assessment and plan: -Patient is found on the floor. Appeared confused speech was gibberish. This speech actually has improved a bit. No focal weakness. Patient could have had a seizure. Also this could be a focal area of stroke in the speech area. Initial CT scan negative Need to rule out arrhythmia. Troponins are positive but they are rather flat. Denies any cardiac symptoms MRI brain-suggestive bilateral emboli. -Positive troponin. Patient denies any active pain. Troponins are leveled out. 2D echo-negative for any thrombus. Negative bubble study -IV heparin discontinued- -Chronic kidney disease stage III likely nephrosclerosis Check renal ultrasound. Has 1+ proteinuria -Chronic congestive heart failure from diastolic dysfunction EF 55-60% Clinically euvolemic -Essential hypertension, uncontrolled Lopressor 50 mg twice daily Amlodipine Add Cozaar 50 mg nightly -Diabetes mellitus type 2 chronically on insulin Levemir, Glucophage Follow Accu-Cheks with sliding skill insulin. Januvia -Hyperlipidemia Lipitor 40 mg -Likely hypoosmolar hyponatremia with a prior history of the same. -Anxiety depression otherwise specified Cymbalta -History of breast cancer: On Femara -Full code Adjust blood pressure medications. Discussed with patient Past Medical History Past Medical History: Cancer, Heart Failure, Diabetes Mellitus, Hyperlipidemia, Hypertension Additional Past Medical History / Comment(s): breast cancer, macular edema with hemorrhage bilateral. "episode of heart failure in the past" History of Any Multi-Drug Resistant Organisms: None Reported Past Surgical History: Section, Cholecystectomy Additional Past Surgical History / Comment(s): left lumpectomy x 2. right mediport insertion Past Anesthesia/Blood Transfusion Reactions: No Reported Reaction Past Psychological History: Anxiety, Depression Smoking Status: Never smoker Past Alcohol Use History: None Reported Past Drug Use History: None Reported
[2024-05-11 06:11] LABS: Glucose,Whole Blood 166 mg/dL (70-110)
[2024-05-11 07:27] LABS: African American GFR (CKD) 45 (>60 ml/min/1.73 sqM); Anion Gap 7 mmol/L; Blood Urea Nitrogen 14 mg/dL (7-17); Calcium 9.1 mg/dL (8.4-10.2); Carbon Dioxide 27 mmol/L (22-30); Chloride 98 mmol/L (98-107); Glucose 162 mg/dL (74-99); Non-African American GFR(CKD) 39 (>60 ml/min/1.73 sqM); Potassium 3.9 mmol/L (3.5-5.1); Sodium 132 mmol/L (137-145)
--- NOTE | 2024-05-11 08:25 | US ---
EXAMINATION TYPE: US kidneys/renal and bladder DATE OF EXAM: 05/11/2024 COMPARISON: NONE CLINICAL INDICATION: Female, 63 years old with history of Eval for CKD; CKD EXAM MEASUREMENTS: Right Kidney: 12.2 x 4.6 x 5.3 cm Left Kidney: 11.7 x 5.6 x 4.3 cm Right Kidney: dilated renal pelvis Left Kidney: no evidence of hydronephrosis Bladder: appears wnl Bilateral Jets seen: no IMPRESSION: 1. Extrarenal pelvis on the right. No hydronephrosis. [facility], , 05/11/2024 8:23 AM
[2024-05-11] MEDS: CLOPIDOGREL 75 MG TAB PO SCH (08:46)
[2024-05-11] MEDS: amLODIPine 10 MG TAB PO SCH (08:46)
[2024-05-11] MEDS: DAPAGLIFLOZIN PROPANEDIOL 10 MG TABLET PO SCH (09:26)
[2024-05-11] MEDS: FERROUS SULFATE 325 MG TAB PO SCH (09:26)
[2024-05-11 10:40] LABS: % Iron Saturation 7.46 (12.00-45.00); Ferritin 32.8 ng/mL (10.0-291.0); Iron 30 UG/DL (50-170); Total Iron Binding Capacity 402 UG/DL (228-460)
[2024-05-11 12:18] LABS: Glucose,Whole Blood 213 mg/dL (70-110)
[2024-05-11] MEDS: LABETALOL 200 MG TAB PO SCH (12:23)
--- NOTE | 2024-05-11 13:42 | P.PN ---
Subjective HISTORY OF PRESENT ILLNESS: Patient examined this morning at the bedside. Patient currently denies chest pain or pressure. She denies shortness of breath. Patient's blood pressures remain elevated this morning with a systolic around 190. She is status post MEEK yesterday with no significant valvular dysfunction, normal global systolic function, no evidence of thrombus in left atrial appendage, no evidence of increased calcific burden of mitral or aortic valve, bioprosthetic TAVR valve with mild perivalvular leak and mild to moderate calcific plaques noticed in descending aorta. Echocardiogram completed revealing ejection fraction 60 to 65%, negative bubble study, mild MR, normally functioning bioprosthetic aortic valve with peak gradient 16 mmHg and mean gradient 9 mmHg, and perivalvular aortic regurgitation *Records reviewed from [facility] in [facility]. Patient underwent cardiac catheterization in December 2023 revealing proximal RCA lesion 10%, left main was visualized angiographically is moderate in size and angiographically normal. LAD moderate in size and exhibits minimal luminal irregularities. Left circumflex is moderate in size and angiographically normal. Patient also underwent right heart catheterization revealing RA pressure 11/9 with mean of 9 mmHg, RV pressure 60/14 with mean of 16 mmHg, PA pressure 59/4 with mean of 50 mmHg. Pulmonary capillary wedge pressure at 27 mmHg. Calculated [place] cardiac output at 7.6. Calculated [place] cardiac index at 3.9. Pulmonary vascular resistance at 3 PIEDRA PA sat at 59.9 SVC sat at 63.9 PHYSICAL EXAM: VITAL SIGNS: Reviewed. GENERAL: Well-developed in no acute distress. NECK: Supple. No JVD or thyromegaly LUNGS: Respirations even and unlabored. Lungs essentially clear to auscultation bilaterally. HEART: Regular rate and rhythm. S1 and S2 heard. EXTREMITIES: Normal range of motion. No clubbing or cyanosis. Peripheral pulses intact. No lower extremity edema ASSESSMENT: Altered mental status, resolved Acute ischemic stroke: small scattered bilateral hemispheric region History of severe aortic stenosis, status post TAVR approximately 1 month ago in [place] Hypertension, uncontrolled Chronic heart failure with preserved EF, currently euvolemic Hyperlipidemia Moderate right ICA stenosis Chronic kidney disease Minimally elevated troponins, secondary to poor renal clearance, no evidence of acute myocardial injury or ischemia Diabetes History of breast cancer PLAN: Discontinue Bumex. Begin Farxiga 10 mg daily Increase losartan to 100 mg at night Discontinue metoprolol. Carvedilol 12.5 mg twice a day was ordered this morning for optimal blood pressure control. However this was discontinued per internal medicine and patient was placed on labetalol per primary medicine. Patient to obtain event monitor from the cardiology office postdischarge Continue telemetry monitoring Further recommendations pending patient course Nurse practitioner note has been reviewed by physician. Signing provider agrees with the documented findings, assessment, and plan of care documented by LUNG SPLITTER as a scribe. Objective - Vital Signs Vital signs: Vital Signs Temp 98 F 05/11/24 08:45 Pulse 64 05/11/24 11:15 Resp 17 05/11/24 11:15 BP 192/75 05/11/24 11:15 Pulse Ox 100 05/11/24 11:15 FiO2 Intake & Output 05/10/24 05/11/24 05/11/24 18:59 06:59 18:59 Intake Total 790.818 Output Total 0 Balance 790.818 0 Weight 88.3 kg Intake: Intake, IV Titration 70.818 Amount Heparin Sod,Pork in 0.45% 70.818 NaCl 25,000 unit In 0.45 % NaCl 1 250ml.bag @ 11. 191 UNITS/KG/HR 10 mls/hr IV .Q24H [facility] Rx#: [id number] Oral 720 Output: Urine 0 Other: Voiding Method Toilet Toilet Toilet # Voids 1 0 2 - Labs CBC & Chem 7: 05/09/24 06:43 05/11/24 06:32 Labs: Abnormal Lab Results - Last 24 Hours (Table) 05/10/24 05/10/24 05/11/24 Range/Units 16:33 20:01 06:10 Sodium (137-145) mmol/L Creatinine (0.52-1.04) mg/dL Glucose (74-99) mg/dL POC Glucose (mg/dL) 188 H 161 H 166 H (70-110) mg/dL Iron (50-170) UG/DL % Saturation (12.00-45.00) 05/11/24 05/11/24 Range/Units 06:32 12:13 Sodium 132 L (137-145) mmol/L Creatinine 1.40 H (0.52-1.04) mg/dL Glucose 162 H (74-99) mg/dL POC Glucose (mg/dL) 213 H (70-110) mg/dL Iron 30 L (50-170) UG/DL % Saturation 7.46 L (12.00-45.00)
--- NOTE | 2024-05-11 14:40 | P.PN ---
Subjective Progress Note Date: 05/10/24 Patient was seen for a follow-up. Patient denies any new neurological symptoms. Patient is sitting comfortably in the bed. Objective - Vital Signs Vital signs: Vital Signs Temp 98.5 F 05/10/24 08:30 Pulse 74 05/10/24 12:32 Resp 18 05/10/24 12:32 BP 165/72 05/10/24 14:18 Pulse Ox 100 05/10/24 12:32 FiO2 Intake & Output 05/09/24 05/10/24 05/10/24 18:59 06:59 18:59 Intake Total 691.17 400.961 610.818 Balance 691.17 400.961 610.818 Weight 88.2 kg Intake: IV 10 Invasive Line 2 10 Intake, IV Titration 141.17 200.961 70.818 Amount Heparin Sod,Pork in 0.45% 141.17 200.961 70.818 NaCl 25,000 unit In 0.45 % NaCl 1 250ml.bag @ 11. 191 UNITS/KG/HR 10 mls/hr IV .Q24H [facility] Rx#: [id number] Oral 540 200 540 Other: Voiding Method Toilet Toilet # Voids 1 1 1 - Exam Mental status, speech and language functions are normal. Cranial nerves are normal. Muscle strength is normal. Sensations equal. - Labs CBC & Chem 7: 05/09/24 06:43 05/11/24 06:32 Labs: Abnormal Lab Results - Last 24 Hours (Table) 05/09/24 05/09/24 05/10/24 Range/Units 20:39 21:29 06:17 APTT 37.5 H (22.0-30.0) sec POC Glucose (mg/dL) 223 H 195 H (70-110) mg/dL Hemoglobin A1c (<=6.0) % Cholesterol (0.00-200.00) mg/dL LDL Cholesterol, Calc (0.0-131.0) mg/dL 05/10/24 05/10/24 05/10/24 Range/Units 06:18 06:18 06:18 APTT 179.7 H* (22.0-30.0) sec POC Glucose (mg/dL) (70-110) mg/dL Hemoglobin A1c 6.8 H (<=6.0) % Cholesterol 216.00 H (0.00-200.00) mg/dL LDL Cholesterol, Calc 132.4 H (0.0-131.0) mg/dL 05/10/24 05/10/24 Range/Units 11:45 16:33 APTT (22.0-30.0) sec POC Glucose (mg/dL) 185 H 188 H (70-110) mg/dL Hemoglobin A1c (<=6.0) % Cholesterol (0.00-200.00) mg/dL LDL Cholesterol, Calc (0.0-131.0) mg/dL Assessment and Plan Assessment: * Acute ischemic stroke, multiple, small (x 6) scattered bilateral hemispheric region. Probable cardioembolic source. * Episode of unresponsiveness, and altered mental status, unclear cause. Patient apparently was found on the floor. Rule out arrhythmia. * Moderate right ICA stenosis * Hypertension, uncontrolled * Diabetes * Hyperlipidemia * Elevated cardiac enzymes * Hyponatremia * Chronic renal insufficiency * History of breast cancer, in remission Plan: * Patient has an acute ischemic stroke, multifocal, small size, involving bilateral hemispheric region. * No obvious cardiac source identified on the MEEK. * Heparin has been discontinued. Agree with starting aspirin and Plavix 75 mg daily. * Carotid Doppler was done, which revealed moderate 50 to 69% stenosis of the ri ght ICA. Antegrade flow in both vertebral arteries. * MRI of the brain with and without contrast, revealed scattered bilateral cerebral hyperintensities on diffusion-weighted images can be compatible with acute ischemic infarct. Correlate for emboli. There are some additional periventricular white matter hyperintensities likely related to chronic white matter ischemic type changes. I personally reviewed MRI, agree with the findings. * EEG revealed background slowing, suggestive of mild encephalopathy, with superimposed bitemporal slowing, suggestive of focal cortical neuronal dysfunction. No focal or generalized epileptiform activity was seen. * No indication for antiepileptic medication. Focal slowing, likely due to CVA. * 2D echo revealed normal LVEF 60 to 65%. Left ventricular cavity size is normal. Moderate concentric LVH. Moderately increased left atrial diameter. Stable bioprosthetic aortic valve with normal gradients. * Transesophageal echocardiogram showed No significant valvular dysfunction Normal global systolic function No evidence of thrombus in AMADOU or left atrial appendage No evidence of increased calcific burden of mitral and aortic valve. Bioprosthetic TAVR valve with mild paravalvular leak Mild to moderate calcific plaques noticed in descending aorta . Consider 30-day event monitoring rule out PAF. Cardiology on board * Fasting a.m. lipid panel cholesterol 216, LDL 132, HDL 59, triglycerides 123. Patient started on Lipitor 40 mg daily. * Hemoglobin A1c 6.8. Diabetes well-controlled. * Treatment of hyponatremia as per IM. * PT, OT, speech therapy. * DVT prophylaxis: Heparin drip is discontinued. Will start heparin 5000 subcu every 12 hour. * Neurologically clear for discharge.
[2024-05-11 16:54] LABS: Glucose,Whole Blood 175 mg/dL (70-110)
--- NOTE | 2024-05-11 16:56 | P.PN ---
Progress Note - Text Progress Note Date: 05/11/24 Chief Complaint: Found on the floor Pleasant 63-year-old patient, follows with Dr. Jeniffer Figueroa. Chronic stable medical conditions include diabetes, hypertension, arthritis. Anxiety. History is obtained by patient significant other Art at the bedside. Patient is found on the bathroom floor. Somewhat confused. She would start to speak and her speech was garbled. Was able to move her limbs. This morning patient speech is better but not back to baseline. Patient was to found to have slight bump in troponin. Was put on IV heparin. Initial CT scan was unremarkable. When the ER physician had called me had ordered MRI and EEG. No frothing of the mouth no tongue biting was reported. May 09: EEG showed evidence of mild encephalopathy. With superimposed bitemporal slowing suggestive of focal cortical neuronal dysfunction. No generalized epileptiform activity. Brain MRI showed scattered bilateral cerebral hyperintensities on diffusion can be compatible acute ischemic changes. Correlate for emboli. 2D echo: Stable bioprosthetic arctic valve with normal gradients. Negative agitated saline bubble study. For shunt. EF 60 to 65% will order MEEK given brain MRI findings Sitting edge of the bed. Eating lunch. Just feels tired. She is better. No chest pain. Blood pressure running high. Amlodipine 5 mg added this morning. Will change Cozaar to 25 mg nightly May 10: Patient underwent a MEEK today. No source of embolism found. Seen by speech therapy. Speech is better. No other focal weakness. Patient did walk 25 feet yesterday. Postprocedure blood pressure is running high.Patient started on amlodipine this morning-given 5 mg. Melina 50 mg nightly added. May 11: Patient seen earlier today. Blood pressure still running high. Cozaar has been increased to 100 mg at night. She is also getting amlodipine 10 mg in the morning. She is getting Lopressor until yesterday. Will switch over to labetalol 200 mg twice daily. And chlorthalidone. Care was discussed with the patient at the bedside.. Active Medications Amlodipine Besylate (Amlodipine 10 Mg Tab) 10 mg PO DAILY FOR[facility]LY [facility], [facility]1983 Last Admin: 05/11/24 08:46 Dose: 10 mg Aspirin (Aspirin 81 Mg) 81 mg PO DAILY [facility], [facility] Last Admin: 05/11/24 08:46 Dose: 81 mg Atorvastatin Calcium (Atorvastatin 40 Mg Tab) 40 mg PO HS [facility], [facility]1983 Last Admin: 05/10/24 20:27 Dose: 40 mg Chlorthalidone (Chlorthalidone 25 Mg Tab) 25 mg PO DAILY [facility], [facility]1983 Clopidogrel Bisulfate (Clopidogrel 75 Mg Tab) 75 mg PO DAILY [facility] Last Admin: 05/11/24 08:46 Dose: 75 mg Dapagliflozin (Dapagliflozin Propanediol 10 Mg Tablet) 10 mg PO DAILY [facility], [facility] Last Admin: 05/11/24 09:26 Dose: 10 mg Dextrose/Water (Dextrose 50% Syringe 50 Ml) 25 ml IVP PER PROTOCOL PRN; Protocol PRN Reason: Hypoglycemia Dextrose/Water (Dextrose 50% Syringe 50 Ml) 50 ml IVP PER PROTOCOL PRN; Protocol PRN Reason: Hypoglycemia Duloxetine HCl (Duloxetine Hcl 60 Mg Capsule.Dr) 60 mg PO DAILY [facility], [facility] Last Admin: 05/11/24 08:46 Dose: 60 mg Ferrous Sulfate (Ferrous Sulfate 325 Mg Tab) 325 mg PO BID-W/MEALS FOR[facility], [facility] Last Admin: 05/11/24 09:26 Dose: 325 mg Heparin Sodium (Porcine) (Heparin Sodium,Porcine 5,000 Unit/Ml 1 Ml Vial) 5,000 unit SQ Q12HR [facility] Insulin Aspart (Insulin Aspart (Novolog) 100 Unit/Ml Vial) 0 unit SQ ACHS FOR[facility], [facility]; Protocol Last Admin: 05/11/24 12:23 Dose: 4 unit Labetalol HCl (Labetalol 200 Mg Tab) 200 mg PO BID [facility] Last Admin: 05/11/24 12:23 Dose: 200 mg Letrozole (Letrozole 2.5 Mg Tab) 2.5 mg PO DAILY [facility] Last Admin: 05/11/24 08:46 Dose: 2.5 mg Losartan Potassium (Losartan 50 Mg Tab) 100 mg PO HS [facility] Naloxone HCl (Naloxone 0.4 Mg/Ml 1 Ml Vial) 0.2 mg IV Q2M PRN PRN Reason: Opioid Reversal Semaglutide [ Rybelsus] 3 Mg Tablet 3 mg PO DAILY [facility] Last Admin: 05/11/24 08:34 Dose: Not Given Ondansetron HCl (Ondansetron Odt 4 Mg Tab) 4 mg PO TID PRN PRN Reason: Nausea And Vomiting Last Admin: 05/10/24 20:27 Dose: 4 mg Pantoprazole Sodium (Pantoprazole 40 Mg Tablet) 40 mg PO DAILY@0730 [facility] Last Admin: 05/11/24 06:22 Dose: 40 mg Vitamin E (Vitamin E (Dl,Tocopheryl Acet) 400 Unit (180 Mg) Cap) 400 unit PO DAILY LEATHA Last Admin: 05/11/24 08:46 Dose: 400 unit Past medical history to include: Diabetes, hypertension, breast cancer, anxiety, depression, CHF from diastolic dysfunction Social history: Nonsmoker. No alcohol. Lives with[place] [place] Physical examination: VITAL SIGNS:, 98, 64, 17, 192 x 75, 100% room air GENERAL: BMI 32.8, sitting at the edge of the bed. EYES: Pupils equal. Conjunctiva normal. HEENT: External appearance of nose and ears normal, oral cavity grossly normal. NECK: JVD not raised; masses not palpable. HEART: First and second heart sounds are normal; no edema. LUNGS: Respiratory rate normal; decreased breath sounds. ABDOMEN: Soft, nontender, liver spleen not palpable, no masses palpable. PSYCH: AOx3. Mood affect normal MUSCULOSKELETAL:No Clubbing/cyanosis;muscles-grossly intact. UA NEUROLOGICAL: Cranial nerves grossly intact; no facial asymmetry, power and sensation grossly intact. To answer questions appropriately INVESTIGATIONS, reviewed in the clinical context: Renal ultrasound: Right kidney 12.2 x 4.6 x 5.3 cm left kidney 11.7 x 5.6 x 4.3 cm May 11: Sodium 132 potassium 3.9 creatinine 1.4 iron 30 TIBC 402% saturation 7.46 MEEK: Negative for any source of thrombus LDL 132 EEG: Abnormal EEG showing suggestion of mild encephalopathy. With superimposed bitemporal slowing. Suggestive of focal cortical neuronal dysfunction. Brain MRI: Scattered bilateral cerebral hyperintensities on diffusion can be compatible with acute ischemia correlate for emboli. Additional periventricular white matter hyperintensities. Carotid Doppler: 50-69% right ICA stenosis May 08: White count 11.7 hemoglobin 10.2 platelets 320 sodium 130 p otassium 4.4 BUN 15 creatinine 1.4 Troponin I 0.049, 0.052, 0.064 proBNP 5850 TSH 2.7 UA: Negative for nitrate leukoesterase Urine drug screen: Negative EKG tracing personally reviewed by me-normal sinus rhythm. Some ST lead depression and V4-V6 Chest x-ray film personally reviewed by me-portable. Underpenetrated possible cardiomegaly CT scan hip, cervical spine, brain: Nonacute some DJD changes Assessment and plan: -Scattered areas of multiple stroke. Suspicious for emboli. s MRI brain-suggestive bilateral emboli. 2D echo no thrombus reported. -Positive troponin. Believe from accelerated hypertension 2D echo-negative for any thrombus. Negative bubble study -IV heparin discontinued- -Chronic kidney disease stage III likely nephrosclerosis Has 1+ proteinuria -Chronic congestive heart failure from diastolic dysfunction EF 55-60% Clinically euvolemic -Essential hypertension, uncontrolled Lopressor discontinued. Amlodipine 10 mg. Increase Cozaar to 100 mg nightly. Also added labetalol to her milligram twice daily -Diabetes mellitus type 2 chronically on insulin Levemir, Glucophage Follow Accu-Cheks with sliding skill insulin. Januvia -Hyperlipidemia Lipitor 40 mg -Likely hypoosmolar hyponatremia with a prior history of the same. -Anxiety depression otherwise specified Cymbalta -History of breast cancer: On Femara -Full code Discussed with patient and . They are disappointed about not going home. Did tell her blood pressures to be lowered and cannot be to drastically lowered. Past Medical History Past Medical History: Cancer, Heart Failure, Diabetes Mellitus, Hyperlipidemia, Hypertension Additional Past Medical History / Comment(s): breast cancer, macular edema with hemorrhage bilateral. "episode of heart failure in the past" History of Any Multi-Drug Resistant Organisms: None Reported Past Surgical History: Section, Cholecystectomy Additional Past Surgical History / Comment(s): left lumpectomy x 2. right mediport insertion Past Anesthesia/Blood Transfusion Reactions: No Reported Reaction Past Psychological History: Anxiety, Depression Smoking Status: Never smoker Past Alcohol Use History: None Reported Past Drug Use History: None Reported
[2024-05-11] MEDS ORDERED: carvediloL 12.5 MG TAB PO SCH (17:30)
[2024-05-11 20:30] LABS: Glucose,Whole Blood 226 mg/dL (70-110)
[2024-05-11] MEDS: LOSARTAN 50 MG TAB PO SCH (20:47)
[2024-05-11] MEDS: HEPARIN SODIUM,PORCINE 5,000 UNIT/ML 1 ML VIAL SQ SCH (20:47)
[2024-05-12 03:59] VITALS: RESP 18
[2024-05-12 06:14] LABS: Glucose,Whole Blood 190 mg/dL (70-110)
[2024-05-12] MEDS: CHLORTHALIDONE 25 MG TAB PO SCH (08:26)
[2024-05-12 08:30] VITALS: TEMP 97.6
--- NOTE | 2024-05-12 08:30 | P.PN ---
Subjective Progress Note Date: 05/11/24 Patient was seen for a follow-up. Patient denies any new neurological symptoms. Patient is sitting comfortably in the bed. Objective - Vital Signs Vital signs: Vital Signs Temp 98 F 05/11/24 08:45 Pulse 73 05/11/24 15:17 Resp 18 05/11/24 15:17 BP 151/78 05/11/24 15:17 Pulse Ox 96 05/11/24 15:17 FiO2 Intake & Output 05/10/24 05/11/24 05/11/24 18:59 06:59 18:59 Intake Total 790.818 100 Output Total 0 Balance 790.818 0 100 Weight 88.3 kg Intake: Intake, IV Titration 70.818 Amount Heparin Sod,Pork in 0.45% 70.818 NaCl 25,000 unit In 0.45 % NaCl 1 250ml.bag @ 11. 191 UNITS/KG/HR 10 mls/hr IV .Q24H LEATHA Rx#: [id number] Oral 720 100 Output: Urine 0 Other: Voiding Method Toilet Toilet Toilet # Voids 1 0 2 # Bowel Movements 0 - Exam Mental status, speech and language functions are normal. Cranial nerves are normal. Muscle strength is normal. Sensations equal. - Labs CBC & Chem 7: 05/09/24 06:43 05/11/24 06:32 Labs: Abnormal Lab Results - Last 24 Hours (Table) 05/10/24 05/11/24 05/11/24 Range/Units 20:01 06:10 06:32 Sodium 132 L (137-145) mmol/L Creatinine 1.40 H (0.52-1.04) mg/dL Glucose 162 H (74-99) mg/dL POC Glucose (mg/dL) 161 H 166 H (70-110) mg/dL Iron 30 L (50-170) UG/DL % Saturation 7.46 L (12.00-45.00) 05/11/24 05/11/24 Range/Units 12:13 16:51 Sodium (137-145) mmol/L Creatinine (0.52-1.04) mg/dL Glucose (74-99) mg/dL POC Glucose (mg/dL) 213 H 175 H (70-110) mg/dL Iron (50-170) UG/DL % Saturation (12.00-45.00) Assessment and Plan Assessment: * Acute ischemic stroke, multiple, small (x 6) scattered bilateral hemispheric region. Probable cardioembolic source. * Episode of unresponsiveness, and altered mental status, unclear cause. Patient apparently was found on the floor. Rule out arrhythmia. * Moderate right ICA stenosis * Hypertension, uncontrolled * Diabetes * Hyperlipidemia * Elevated cardiac enzymes * Hyponatremia * Chronic renal insufficiency * History of breast cancer, in remission Plan: * Patient has an acute ischemic stroke, multifocal, small size, involving bilateral hemispheric region. * No obvious cardiac source identified on the MEEK. * Heparin has been discontinued. Agree with starting aspirin and Plavix 75 mg daily. * Carotid Doppler was done, which revealed moderate 50 to 69% stenosis of the right ICA. Antegrade flow in both vertebral arteries. Recommend repeating carotid Doppler in 6-12 months for surveillance. Patient needs to aggressiv clarice control vascular risk factors. * MRI of the brain with and without contrast, revealed scattered bilateral cerebral hyperintensities on diffusion-weighted images can be compatible with acute ischemic infarct. Correlate for emboli. There are some additional periventricular white matter hyperintensities likely related to chronic white matter ischemic type changes. I personally reviewed MRI, agree with the findings. * EEG revealed background slowing, suggestive of mild encephalopathy, with sup erimposed bitemporal slowing, suggestive of focal cortical neuronal dysfunction. No focal or generalized epileptiform activity was seen. * No indication for antiepileptic medication. Focal slowing, likely due to CVA. * 2D echo revealed normal LVEF 60 to 65%. Left ventricular cavity size is normal. Moderate concentric LVH. Moderately increased left atrial diameter. Stable bioprosthetic aortic valve with normal gradients. * Transesophageal echocardiogram showed No significant valvular dysfunction Normal global systolic function No evidence of thrombus in AMADOU or left atrial appendage No evidence of increased calcific burden of mitral and aortic valve. Bioprosthetic TAVR valve with mild paravalvular leak Mild to moderate calcific plaques noticed in descending aorta . Consider 30-day event monitoring rule out PAF. Cardiology on board * Fasting a.m. lipid panel cholesterol 216, LDL 132, HDL 59, triglycerides 123. Patient started on Lipitor 40 mg daily. * Hemoglobin A1c 6.8. Diabetes well-controlled. * Treatment of hyponatremia as per IM. * PT, OT, speech therapy. * DVT prophylaxis: Heparin drip is discontinued. Will start heparin 5000 subcu every 12 hour. * Neurologically clear for discharge.
[2024-05-12 11:25] VITALS: BMI 32.6
[2024-05-12 11:42] VITALS: BP 152/70; PULSE 80
[2024-05-12] MEDS: LABETALOL 200 MG TAB PO STA (12:07)
--- NOTE | 2024-05-12 12:48 | P.PN ---
Subjective HISTORY OF PRESENT ILLNESS: Patient examined this morning at the bedside. Patient currently denies chest pain or pressure. She denies shortness of breath. Patient's blood pressures remain elevated this morning with a systolic around 190. She is status post MEEK yesterday with no significant valvular dysfunction, normal global systolic function, no evidence of thrombus in left atrial appendage, no evidence of increased calcific burden of mitral or aortic valve, bioprosthetic TAVR valve with mild perivalvular leak and mild to moderate calcific plaques noticed in descending aorta. Echocardiogram completed revealing ejection fraction 60 to 65%, negative bubble study, mild MR, normally functioning bioprosthetic aortic valve with peak gradient 16 mmHg and mean gradient 9 mmHg, and perivalvular aortic regurgitation *Records reviewed from [facility] in [facility] [place]. Patient underwent cardiac catheterization in December 2023 revealing proximal RCA lesion 10%, left main was visualized angiographically is moderate in size and angiographically normal. LAD moderate in size and exhibits minimal luminal irregularities. Left circumflex is moderate in size and angiographically normal. Patient also underwent right heart catheterization revealing RA pressure 11/9 with mean of 9 mmHg, RV pressure 60/14 with mean of 16 mmHg, PA pressure 59/4 with mean of 50 mmHg. Pulmonary capillary wedge pressure at 27 mmHg. Calculated [place] cardiac output at 7.6. Calculated [place] cardiac index at 3.9. Pulmonary vascular resistance at 3 PIEDRA PA sat at 59.9 SVC sat at 63.9 05/12/2024 Patient examined this morning at the bedside. Currently denies chest pain or pressure. She denies shortness of breath or denies dizziness or lightheadedness. PHYSICAL EXAM: VITAL SIGNS: Reviewed. GENERAL: Well-developed in no acute distress. NECK: Supple. No JVD or thyromegaly LUNGS: Respirations even and unlabored. Lungs essentially clear to auscultation bilaterally. HEART: Regular rate and rhythm. S1 and S2 heard. EXTREMITIES: Normal range of motion. No clubbing or cyanosis. Peripheral pulses intact. No lower extremity edema ASSESSMENT: Altered mental status, resolved Acute ischemic stroke: small scattered bilateral hemispheric region History of severe aortic stenosis, status post TAVR approximately 1 month ago in [place] Hypertension, uncontrolled Chronic heart failure with preserved EF, currently euvolemic Hyperlipidemia Moderate right ICA stenosis Chronic kidney disease Minimally elevated troponins, secondary to poor renal clearance, no evidence of acute myocardial injury or ischemia Diabetes History of breast cancer PLAN: Continue current cardiac medications Patient to obtain event monitor from the cardiology office postdischarge Stable for discharge from a cardiac standpoint Recommend further outpatient evaluation of carotid stenosis Further recommendations pending patient course Nurse practitioner note has been reviewed by physician. Signing provider agrees with the documented findings, assessment, and plan of care documented by [employer] as a scribe. Objective - Vital Signs Vital signs: Vital Signs Temp 98.1 F 05/12/24 03:58 Pulse 81 05/12/24 03:58 Resp 18 05/12/24 03:58 BP 158/68 05/12/24 03:58 Pulse Ox 96 05/12/24 03:58 FiO2 Intake & Output 05/11/24 05/12/24 05/12/24 18:59 06:59 18:59 Intake Total 220 Balance 220 Weight 89.1 kg Intake: Oral 220 Other: Voiding Method Toilet Toilet # Voids 2 3 # Bowel Movements 0 - Labs CBC & Chem 7: 05/09/24 06:43 05/11/24 06:32 Labs: Abnormal Lab Results - Last 24 Hours (Table) 05/11/24 05/11/24 05/11/24 Range/Units 06:32 12:13 16:51 POC Glucose (mg/dL) 213 H 175 H (70-110) mg/dL Iron 30 L (50-170) UG/DL % Saturation 7.46 L (12.00-45.00) 05/11/24 05/12/24 Range/Units 20:28 06:13 POC Glucose (mg/dL) 226 H 190 H (70-110) mg/dL Iron (50-170) UG/DL % Saturation (12.00-45.00)
--- NOTE | 2024-05-12 17:42 | P.DS ---
Providers Date of admission: 05/07/24 23:42 Expected date of discharge: 05/12/24 Attending physician: Hermilo Mendieta Consults: 05/07/24 23:37 Consult Physician Urgent Consulting Provider: Luis Angel Trent Consult Reason/Comments: AMS Do you want consulting provider notified?: Yes 05/08/24 07:02 Consult Physician Routine Consulting Provider: Satish Jean Baptiste Consult Reason/Comments: elevated trop Do you want consulting provider notified?: Yes, Notify in am Primary care physician: Jeniffer Figueroa [facility] Course: Chief Complaint: Found on the floor Pleasant 63-year-old patient, follows with Dr. Jeinffer Figueroa. Chronic stable medical conditions include diabetes, hypertension, arthritis. Anxiety. History is obtained by patient significant other Art at the bedside. Patient is found on the bathroom floor. Somewhat confused. She would start to speak and her speech was garbled. Was able to move her limbs. This morning patient speech is better but not back to baseline. Patient was to found to have slight bump in troponin. Was put on IV heparin. Initial CT scan was unremarkable. When the ER physician had called me had ordered MRI and EEG. No frothing of the mouth no tongue biting was reported. May 09: EEG showed evidence of mild encephalopathy. With superimposed bitemporal slowing suggestive of focal cortical neuronal dysfunction. No generalized epileptiform activity. Brain MRI showed scattered bilateral cerebral hyperintensities on diffusion can be compatible acute ischemic changes. Correlate for emboli. 2D echo: Stable bioprosthetic arctic valve with normal gradients. Negative agitated saline bubble study. For shunt. EF 60 to 65% will order MEEK given brain MRI findings Sitting edge of the bed. Eating lunch. Just feels tired. She is better. No chest pain. Blood pressure running high. Amlodipine 5 mg added this morning. Will change Cozaar to 25 mg nightly May 10: Patient underwent a MEEK today. No source of embolism found. Seen by speech therapy. Speech is better. No other focal weakness. Patient did walk 25 feet yesterday. Postprocedure blood pressure is running high.Patient started on amlodipine this morning-given 5 mg. Melina 50 mg nightly added. May 11: Patient seen earlier today. Blood pressure still running high. Cozaar has been increased to 100 mg at night. She is also getting amlodipine 10 mg in the morning. She is getting Lopressor until yesterday. Will switch over to labetalol 200 mg twice daily. And chlorthalidone. Care was discussed with the patient at the bedside.. May 20: Patient's blood pressure has been better this morning. On Lipitor 20 mg twice daily. This afternoon it was 154. Will be increased to every 8. Discussed with the patient and . Questions answered. Patient will follow-up with Dr. Diana Man neurologist who she is seen before. And cardiology. Event monitor outpatient is being arranged. Discussion and discharge planning more than 35 minutes Past medical history to include: Diabetes, hypertension, breast cancer, anxiety, depression, CHF from diastolic dysfunction Social history: Nonsmoker. No alcohol. Lives with's Art Physical examination: VITAL SIGNS:, 97.6, 80, 18, 152 x 70, 98% room air GENERAL: BMI 32.8, sitting at the edge of the bed. EYES: Pupils equal. Conjunctiva normal. HEENT: External appearance of nose and ears normal, oral cavity grossly normal. NECK: JVD not raised; masses not palpable. HEART: First and second heart sounds are normal; no edema. LUNGS: Respiratory rate normal; decreased breath sounds. ABDOMEN: Soft, nontender, liver spleen not palpable, no masses palpable. PSYCH: AOx3. Mood affect normal MUSCULOSKELETAL:No Clubbing/cyanosis;muscles-grossly intact. UA NEUROLOGICAL: Cranial nerves grossly intact; no facial asymmetry, power and sensation grossly intact. To answer questions appropriately INVESTIGATIONS, reviewed in the clinical context: Renal ultrasound: Right kidney 12.2 x 4.6 x 5.3 cm left kidney 11.7 x 5.6 x 4.3 cm May 11: Sodium 132 potassium 3.9 creatinine 1.4 iron 30 TIBC 402% saturation 7.46 MEEK: Negative for any source of thrombus LDL 132 EEG: Abnormal EEG showing suggestion of mild encephalopathy. With superimposed bitemporal slowing. Suggestive of focal cortical neuronal dysfunction. Brain MRI: Scattered bilateral cerebral hyperintensities on diffusion can be compatible with acute ischemia correlate for emboli. Additional periventricular white matter hyperintensities. Carotid Doppler: 50-69% right ICA stenosis May 08: White count 11.7 hemoglobin 10.2 platelets 320 sodium 130 potassium 4.4 BUN 15 creatinine 1.4 Troponin I 0.049, 0.052, 0.064 proBNP 5850 TSH 2.7 UA: Negative for nitrate leukoesterase Urine drug screen: Negative EKG tracing personally reviewed by me-normal sinus rhythm. Some ST lead depression and V4-V6 Chest x-ray film personally reviewed by me-portable. Underpenetrated possible cardiomegaly CT scan hip, cervical spine, brain: Nonacute some DJD changes Assessment and plan: -Scattered areas of multiple stroke. Suspicious for emboli. s MRI brain-suggestive bilateral emboli. 2D echo no thrombus reported. Outpatient event monitor for detection of arrhythmia -Positive troponin. Believe from accelerated hypertension 2D echo-negative for any thrombus. Negative bubble study -IV heparin discontinued- -Chronic kidney disease stage III likely nephrosclerosis Has 1+ proteinuria -Chronic congestive heart failure from diastolic dysfunction EF 55-60% Clinically euvolemic -Essential hypertension, Lopressor discontinued. Amlodipine 10 mg. Ie Cozaar to 100 mg nightly. Increase labetalol to 200 milligram 3 times daily -Diabetes mellitus type 2 chronically on insulin Levemir, Glucophage Follow Accu-Cheks with sliding skill insulin. Januvia -Hyperlipidemia Lipitor 40 mg -Likely hypoosmolar hyponatremia with a prior history of the same. -Anxiety depression otherwise specified Cymbalta -History of breast cancer: On Femara -Full code Disposition: Home Past Medical History Past Medical History: Cancer, Heart Failure, Diabetes Mellitus, Hyperlipidemia, Hypertension Additional Past Medical History / Comment(s): breast cancer, macular edema with hemorrhage bilateral. "episode of heart failure in the past" History of Any Multi-Drug Resistant Organisms: None Reported Past Surgical History: Section, Cholecystectomy Additional Past Surgical History / Comment(s): left lumpectomy x 2. right mediport insertion Past Anesthesia/Blood Transfusion Reactions: No Reported Reaction Past Psychological History: Anxiety, Depression Smoking Status: Never smoker Past Alcohol Use History: None Reported Past Drug Use History: None Reported Plan - Discharge Summary Discharge Rx Participant: Yes New Discharge Prescriptions: New Losartan Potassium [Cozaar] 100 mg PO HS #30 tab Ferrous Sulfate [Iron (65 MG Elemental)] 325 mg PO BID-W/MEALS #60 tab Atorvastatin [Lipitor] 40 mg PO HS #30 tab Labetalol [Trandate] 200 mg PO Q8H #90 tab amLODIPine [Norvasc] 10 mg PO DAILY #30 tab Clopidogrel [Plavix] 75 mg PO DAILY #30 tab Continue Cholecalciferol [Vitamin D3 (25 Mcg = 1000 Iu)] 25 mcg PO DAILY Letrozole [Femara] 2.5 mg PO DAILY Vitamin E (Dl,Tocopheryl Acet) [Vitamin E (1000 Iu = 450 MG)] 450 unit PO DAILY Calcium Carb/Mag Ox/Zinc Sulf [Ehd-Kuh-Kyeh 334-134-5 mg Tab] 1 tab PO DAILY Aspirin 81 mg PO DAILY Bumetanide [BUMEX] 1 mg PO DAILY Ondansetron Odt [Zofran ODT] 4 mg PO TID PRN PRN Reason: Nausea And Vomiting Diphenoxylate HCl/Atropine [Lomotil 2.5-0.025 mg Tablet] 1 tab PO QID PRN PRN Reason: Diarrhea DULoxetine HCL [Cymbalta] 60 mg PO DAILY sitaGLIPtin [Januvia] 50 mg PO DAILY Meclizine [Antivert] 12.5 mg PO TID PRN PRN Reason: Vertigo Vitamin B Complex 1 cap PO DAILY Pantoprazole Sodium [Protonix] 40 mg PO DAILY Semaglutide [Rybelsus] 3 mg PO DAILY Gabapentin [Neurontin] 100 mg PO Q8H PRN PRN Reason: Pain Discontinued Metoprolol Tartrate [Lopressor] 25 mg PO BID No Action Milk Thistle 150 mg PO DAILY Discharge Medication List Cholecalciferol [Vitamin D3 (25 Mcg = 1000 Iu)] 25 mcg PO DAILY 05/09/22 [History] DULoxetine HCL [Cymbalta] 60 mg PO DAILY 05/09/22 [History] Diphenoxylate HCl/Atropine [Lomotil 2.5-0.025 mg Tablet] 1 tab PO QID PRN 05/09/22 [History] Letrozole [Femara] 2.5 mg PO DAILY 05/09/22 [History] Milk Thistle 150 mg PO DAILY 05/09/22 [History] Ondansetron Odt [Zofran ODT] 4 mg PO TID PRN 05/09/22 [History] Vitamin E (Dl,Tocopheryl Acet) [Vitamin E (1000 Iu = 450 MG)] 450 unit PO DAILY 05/09/22 [History] sitaGLIPtin [Januvia] 50 mg PO DAILY 05/09/22 [History] Calcium Carb/Mag Ox/Zinc Sulf [Med-Gdc-Rzfy 334-134-5 mg Tab] 1 tab PO DAILY 05/19/23 [History] Meclizine [Antivert] 12.5 mg PO TID PRN 05/19/23 [History] Vitamin B Complex 1 cap PO DAILY 05/19/23 [History] Aspirin 81 mg PO DAILY 05/08/24 [History] Bumetanide [BUMEX] 1 mg PO DAILY 05/08/24 [History] Gabapentin [Neurontin] 100 mg PO Q8H PRN 05/08/24 [History] Pantoprazole Sodium [Protonix] 40 mg PO DAILY 05/08/24 [History] Semaglutide [Rybelsus] 3 mg PO DAILY 05/08/24 [History] Atorvastatin [Lipitor] 40 mg PO HS #30 tab 05/12/24 [Rx] Clopidogrel [Plavix] 75 mg PO DAILY #30 tab 05/12/24 [Rx] Ferrous Sulfate [Iron (65 MG Elemental)] 325 mg PO BID-W/MEALS #60 tab 05/12/24 [Rx] Labetalol [Trandate] 200 mg PO Q8H #90 tab 05/12/24 [Rx] Losartan Potassium [Cozaar] 100 mg PO HS #30 tab 05/12/24 [Rx] amLODIPine [Norvasc] 10 mg PO DAILY #30 tab 05/12/24 [Rx] Follow up Appointment(s)/Referral(s): Satish Jean Baptiste MD [STAFF PHYSICIAN] - 1 Week (office will call you to schedule. ) Jeniffer Figueroa MD [Primary Care Provider] - 1-2 days (please call to schedule. ) Taylor Byrd MD [REFERRING] - 1 Week (please call to schedule. ) Patient Instructions/Handouts: Ischemic Stroke (DC), Hypertension (DC) Activity/Diet/Wound Care/Special Instructions: please stop at [facility] [address], [place] [address] to pickup event monitor. Discharge Disposition: HOME SELF-CARE
== END 2024-05-12 12:30 | disposition home or self-care (01) | DRG 64 ==
LOC: EC 20:40 → 3SCARD 23:42
PROVIDERS: ADMIT Hospitalist; ATTEND Hospitalist
PROC: B24BZZ4 Ultrasonography of Heart with Aorta, Transesophageal (ICD-10-PCS; principal; 2024-05-10 12:45)
DX: I63.49 Cerebral infarction due to embolism of other cerebral artery (principal); G93.41 Metabolic encephalopathy; I21.A1 Myocardial infarction type 2; T82.03XA Leakage of heart valve prosthesis, initial encounter; I13.0 Hypertensive heart and chronic kidney disease with heart failure and stage 1 through stage 4 chronic kidney disease, or unspecified chronic kidney disease; E87.1 Hypo-osmolality and hyponatremia; I50.32 Chronic diastolic (congestive) heart failure; E11.22 Type 2 diabetes mellitus with diabetic chronic kidney disease; N18.32 Chronic kidney disease, stage 3b; F32.A Depression, unspecified; I65.21 Occlusion and stenosis of right carotid artery; Z95.3 Presence of xenogenic heart valve; E78.5 Hyperlipidemia, unspecified; F41.9 Anxiety disorder, unspecified; I25.10 Atherosclerotic heart disease of native coronary artery without angina pectoris; M43.12 Spondylolisthesis, cervical region; M43.14 Spondylolisthesis, thoracic region; R94.01 Abnormal electroencephalogram [EEG]; W19.XXXA Unspecified fall, initial encounter; Y71.2 Prosthetic and other implants, materials and accessory cardiovascular devices associated with adverse incidents; Z79.82 Long term (current) use of aspirin; Z79.85 Long-term (current) use of injectable non-insulin antidiabetic drugs; Z79.84 Long term (current) use of oral hypoglycemic drugs; Z79.811 Long term (current) use of aromatase inhibitors; Z79.899 Other long term (current) drug therapy; Z85.3 Personal history of malignant neoplasm of breast
CPT/HCPCS: 36415; 70450; 70553; 71045; 72125; 72170; 76770; 80048; 80053; 80061; 80306; 80320; 81001; 82140; 82272; 82550; 82728; 83036; 83540; 83550; 83735; 83880; 84443; 84484; 85025; 85610; 85730; 93005; 93306; 93312; 93320; 93325; 93880; 94760; 95816; 96361; 96372; 96375; 99291

== ENCOUNTER 2024-10-25 20:16 | Inpatient (IN) | payer MEDICARE, OTHER ==
[2024-10-25 21:38] LABS: Anisocytosis Slight; Basophils % (A) 0 %; Eosinophils # (A) 0.1 k/uL (0-0.7); Eosinophils % (A) 1 %; HCT 22.3 % (34.0-46.0); Hypochromasia Marked; Lymphocytes # (A) 0.5 k/uL (1.0-4.8); Lymphocytes % (A) 6 %; MCH 22.4 pg (25.0-35.0); MCHC 28.7 g/dL (31.0-37.0); MCV 77.9 fL (80.0-100.0); Mean Platelet Volume 8.2; Microcytosis Slight; Monocytes # (A) 0.6 k/uL (0-1.0); Monocytes % (A) 7 %; Neutrophils % (A) 85 %; Platelet Count 243 k/uL (150-450); Prothrombin Time 11.1 sec (10.0-12.5); RBC 2.86 m/uL (3.80-5.40); RDW 19.6 % (11.5-15.5); WBC 8.2 k/uL (3.8-10.6)
[2024-10-25 21:40] LABS: ALT 15 U/L (4-34); AST 26 U/L (14-36); African American GFR (CKD) 51 (>60 ml/min/1.73 sqM); Albumin 3.6 g/dL (3.5-5.0); Alkaline Phosphatase 73 U/L (38-126); Anion Gap 12 mmol/L; Blood Urea Nitrogen 20 mg/dL (7-17); Calcium 8.8 mg/dL (8.4-10.2); Carbon Dioxide 21 mmol/L (22-30); Chloride 98 mmol/L (98-107); Glucose 157 mg/dL (74-99); Magnesium 1.6 mg/dL (1.6-2.3); Non-African American GFR(CKD) 44 (>60 ml/min/1.73 sqM); Potassium 3.8 mmol/L (3.5-5.1); Sodium 131 mmol/L (137-145); Total Bilirubin 0.6 mg/dL (0.2-1.3); Total Protein 6.2 g/dL (6.3-8.2)
[2024-10-25 21:44] LABS: HGB 6.4 gm/dL (11.4-16.0); Partial Thromboplastin Time 21.7 sec (22.0-30.0)
--- NOTE | 2024-10-25 21:44 | XR ---
EXAMINATION TYPE: XR chest 2V DATE OF EXAM: 10/25/2024 9:30 PM COMPARISON: Chest radiographs from 05/07/2024 CLINICAL INDICATION: Female, 63 years old with history of difficulty breathing; [facility] TECHNIQUE: XR chest 2V Frontal and lateral views of the chest. FINDINGS: Lungs/Pleura: There is no evidence of pleural effusion, focal consolidation, or pneumothorax. Pulmonary vascularity: Pulmonary vascular congestion. Heart/mediastinum: Cardiomediastinal silhouette is enlarged and stable. Atherosclerotic calcificatio ns are seen in the aorta. Musculoskeletal: No acute osseous pathology. Other findings: None Lines/Tubes: [id number] projecting over the right hemithorax with distal tip projecting over the superior vena cava. IMPRESSION: Cardiomegaly and mild pulmonary vascular congestion. Correlate with BNP for congestive heart failure. [facility], , 10/25/2024 9:41 PM
[2024-10-25 21:49] LABS: NT-Pro-B-Type Natriuretic Pept 6230 pg/mL
[2024-10-25 21:58] LABS: Influenza A Not Detected (Not Detectd); Influenza B Not Detected (Not Detectd); RSV Not Detected (Not Detectd)
[2024-10-25] MEDS: FUROSEMIDE 10 MG/ML 4 ML VIAL IV STA (22:01)
[2024-10-25] MEDS ORDERED: ONDANSETRON ODT 4 MG TAB PO PRN (22:06)
[2024-10-25] MEDS ORDERED: NALOXONE 0.4 MG/ML 1 ML VIAL IV PRN (22:23)
--- NOTE | 2024-10-25 22:24 | ED ---
General Adult HPI - General Chief complaint: Shortness of Breath Stated complaint: sob swollen legs and feet Time Seen by Provider: 10/25/24 20:41 Source: patient, RN notes reviewed, old records reviewed Mode of arrival: ambulatory Limitations: no limitations - History of Present Illness Initial comments: Patient is a 63-year-old female presents emergency department complaining of worsening lower extremity edema, shortness of breath for 4 to 5 days. Endorses exertional dyspnea as well. Chronically sleeps sitting up. Diagnosed with CHF last summer. Is on Bumex and has not missed any doses of her medications. States she also had a TAVR recently. Has been worked up for anemia and is not on blood thinners. Has been taking iron medications. She denies any nausea, vomiting, cough. Denies any fevers or congestion. States she has gained water weight over the last 5 days as well. Concern for CHF exacerbation. Denies chest pain.Patient denies any bright red stool per rectum. Denies any dark tarry stools per rectum. Denies any hematemesis. Has no source of active bleed at this time. States she has received a thorough workup for anemia in the past with Dr. Anderson with no explanation. - Related Data Home Medications Medication Instructions Recorded Confirmed Cholecalciferol [Vitamin D3 (25 25 mcg PO DAILY 05/09/22 05/08/24 Mcg = 1000 Iu)] DULoxetine HCL [Cymbalta] 60 mg PO DAILY 05/09/22 05/08/24 Diphenoxylate HCl/Atropine 1 tab PO QID PRN 05/09/22 05/08/24 [Lomotil 2.5-0.025 mg Tablet] Letrozole [Femara] 2.5 mg PO DAILY 05/09/22 05/08/24 Milk Thistle 150 mg PO DAILY 05/09/22 05/08/24 Ondansetron Odt [Zofran ODT] 4 mg PO TID PRN 05/09/22 05/08/24 Vitamin E (Dl,Tocopheryl Acet) 450 unit PO DAILY 05/09/22 05/08/24 [Vitamin E (1000 Iu = 450 MG)] sitaGLIPtin [Januvia] 50 mg PO DAILY 05/09/22 05/08/24 Calcium Carb/Mag Ox/Zinc Sulf 1 tab PO DAILY 05/19/23 05/08/24 [Pih-Azx-Quat 334-134-5 mg Tab] Meclizine [Antivert] 12.5 mg PO TID PRN 05/19/23 05/08/24 Vitamin B Complex 1 cap PO DAILY 05/19/23 05/08/24 Aspirin 81 mg PO DAILY 05/08/24 05/08/24 Bumetanide [BUMEX] 1 mg PO DAILY 05/08/24 05/08/24 Gabapentin [Neurontin] 100 mg PO Q8H PRN 05/08/24 05/08/24 Pantoprazole Sodium [Protonix] 40 mg PO DAILY 05/08/24 05/08/24 Semaglutide [Rybelsus] 3 mg PO DAILY 05/08/24 05/08/24 Previous Rx's Medication Instructions Recorded Atorvastatin [Lipitor] 40 mg PO HS #30 tab 05/12/24 Clopidogrel [Plavix] 75 mg PO DAILY #30 tab 05/12/24 Ferrous Sulfate [Iron (65 MG 325 mg PO BID-W/MEALS #60 tab 05/12/24 Elemental)] Labetalol [Trandate] 200 mg PO Q8H #90 tab 05/12/24 Losartan Potassium [Cozaar] 100 mg PO HS #30 tab 05/12/24 amLODIPine [Norvasc] 10 mg PO DAILY #30 tab 05/12/24 Allergies Allergy/AdvReac Type Severity Reaction Status Date / Time adhesive tape Allergy Itching Verified 10/25/24 20:30 morphine Allergy Swelling & Verified 10/25/24 20:30 hives Penicillins Allergy Rash/Hives Verified 10/25/24 20:30 ALEXIS Inhibitors AdvReac Cough Verified 10/25/24 20:30 Review of Systems ROS Statement: Those systems with pertinent positive or pertinent negative responses have been documented in the HPI. Review of Systems: CONST: Denies fever EYES: Denies blurry vision ENT: Denies nasal congestion C/V: Denies Chest pain RESP: Endorses shortness of breath GI: Denies abdominal pain : Denies dysuria SKIN: Denies rash. MSK: Endorses peripheral edema NEURO: Denies headache ROS Other: All systems not noted in ROS Statement are negative. Past Medical History Past Medical History: Cancer, Heart Failure, Diabetes Mellitus, Hyperlipidemia, Hypertension Additional Past Medical History / Comment(s): breast cancer, macular edema with hemorrhage bilateral. "episode of heart failure in the past" History of Any Multi-Drug Resistant Organisms: None Reported Past Surgical History: Section, Cholecystectomy Additional Past Surgical History / Comment(s): left lumpectomy x 2. right mediport insertion Past Anesthesia/Blood Transfusion Reactions: No Reported Reaction Past Psychological History: Anxiety, Depression Smoking Status: Never smoker Past Alcohol Use History: None Reported Past Drug Use History: None Reported - Past Family History Father Additional Family Medical History / Comment(s): No health hx 91 from pneumonia Mother Additional Family Medical History / Comment(s): No health hx after fall age 96 General Exam - General Exam Comments Initial Comments: General: Appears in no acute distress. HEAD: Normal with no signs of head trauma. EYES: PERRLA, EOMI, conjunctiva normal, no discharge. ENT: Hearing grossly intact, normal oropharynx. RESPIRATORY: Clear breath sounds bilaterally. No wheezes, rales, or rhonchi. No hypoxia C/V: Regular rate and rhythm. S1 and S2 auscultated, significant 3+ pitting edema symmetrical bilaterally up to the level of the knees., peripheral pulses 2+ and intact throughout ABD: Abd is soft, nontender, nondistended EXT: Normal range of motion, no obvious deformity SKIN: No rashes or lesions observed on exposed skin. NEURO: Alert and oriented x 4. Limitations: no limitations Course Vital Signs 10/25/24 20:26 Temperature 98.0 F Pulse Rate 87 Respiratory 18 Rate Blood Pressure 151/73 O2 Sat by Pulse 96 Oximetry Medical Decision Making - Medical Decision Making Was pt. sent in by a medical professional or institution (, PA, ROD BUSTER, urgent care, hospital, or [facility]...) When possible be specific @ -No Did you speak to anyone other than the patient for history (EMS, parent, family, police, friend...)? What history was obtained from this source @ -No Did you review nursing and triage notes (agree or disagree)? Why? @ -I reviewed and agree with nursing and triage notes Were old charts reviewed (outside hosp., previous admission, EMS record, old EKG, old radiological studies, urgent care reports/EKG's, [facility] records)? Report findings @ -Reviewed old charts from April 2024 including EKG. No obvious acute change when compared with today's EKG. Differential Diagnosis (chest pain, altered mental status, abdominal pain women, abdominal pain men, vaginal bleeding, weakness, fever, dyspnea, syncope, headache, dizziness, GI bleed, back pain, seizure, CVA, palpatations, mental health, musculoskeletal)? @ -Differential Dyspnea: Coronary syndrome, arrhythmia, tamponade, asthma, COPD, pulmonary embolism, pneumonia, pneumothorax, pulmonary effusion, anaphylaxis, diabetic ketoacidosis, flailed chest, pulmonary contusion, diaphragmatic rupture, anemia, neuromuscular, this is not meant to be an all-inclusive list. EKG interpreted by me (3pts min.). @ -As above X-rays interpreted by me (1pt min.). @ -Chest X-ray shows bilateral pulmonary vascular congestion. CT interpreted by me (1pt min.). @ -None done U/S interpreted by me (1pt. min.). @ -None done What testing was considered but not performed or refused? (CT, X-rays, U/S, labs)? Why? @ -None What meds were considered but not given or refused? Why? @ -None Did you discuss the management of the patient with other professionals (professionals i.e. , PA, ROD BUSTER, lab, RT, psych nurse, hair worker, refractory furnace designer, teacher, human resource officer, supervisor case loading)? Give summary @ -Discussed with admitting provider, RIDGE Naik of [facility] who accepted the admission. Was smoking cessation discussed for >3mins.? @ -No Was critical care preformed (if so, how long)? @ -No Were there social determinants of health that impacted care today? How? (Homelessness, low income, unemployed, alcoholism, drug addiction, transportation, low edu. Level, literacy, decrease access to med. care, group home, rehab)? @ -No Was there de-escalation of care discussed even if they declined (Discuss DNR or withdrawal of care, Hospice)? DNR status @ -No What co-morbidities impacted this encounter? (DM, HTN, Smoking, COPD, CAD, Cancer, CVA, ARF, Chemo, Hep., AIDS, mental health diagnosis, sleep apnea, morbid obesity)? @ -CHF, chronic anemia Was patient admitted / discharged? Hospital course, mention meds given and route, prescriptions, significant lab abnormalities, going to OR and other per tinent info. @ -Patient presents emergency department for what appears to be CHF exacerbation. We will obtain cardiopulmonary workup. She was in agreement this plan. Vitals are within acceptable limits. EKG shows no signs of acute ischemia. Laboratory studies are remarkable for acute on chronic anemia with a hemoglobin of 6.4. Appears to be microcytic in nature. Patient has slightly elevated BUN and creatinine of 20 and 1.28, which do appear to be improved from previous visits. Troponin is indeterminate at 0.023. BNP is elevated to 6200. Viral swabs negative. Chest x-ray shows pulm onary vascular congestion. Discussed results with patient. She declines any source of bleeding at this time. She has required blood transfusions in the past year. She will be given 1 unit of packed red blood cells. Dr. Anderson, her GI physician will be consulted. She will also be started on IV Lasix, 40 mg twice daily. Cardiology will be consulted. She was in agreement this plan. Home meds reordered. I discussed the case with the admitting team, RIDGE Naik of [facility] who accepted the admission. [facility] is covering for Dr. Mendieta. Undiagnosed new problem with uncertain prognosis? @ -No Drug Therapy requiring intensive monitoring for toxicity (Heparin, Nitro, Insulin, Cardizem)? @ -No Were any procedures done? @ -No Diagnosis/symptom? @ -Microcytic anemia, CHF exacerbation Acute, or Chronic, or Acute on Chronic? @ -Acute on chronic Uncomplicated (without systemic symptoms) or Complicated (systemic symptoms)? @ -Complicated Side effects of treatment? @ -No Exacerbation, Progression, or Severe Exacerbation? @ -No Poses a threat to life or bodily function? How? (Chest pain, USA, SD, pneumonia, PE, COPD, DKA, ARF, appy, cholecystitis, CVA, Diverticulitis, Homicidal, Suicidal, threat to staff... and all critical care pts) @ -Yes - Lab Data Result diagrams: 10/25/24 21:05 10/25/24 21:05 Lab Results 10/25/24 10/25/24 10/25/24 Range/Units 21:05 21:05 21:05 WBC 8.2 (3.8-10.6) k/uL RBC 2.86 L (3.80-5.40) m/uL Hgb 6.4 L* (11.4-16.0) gm/dL Hct 22.3 L (34.0-46.0) % MCV 77.9 L (80.0-100.0) fL MCH 22.4 L (25.0-35.0) pg MCHC 28.7 L (31.0-37.0) g/dL RDW 19.6 H (11.5-15.5) % Plt Count 243 (150-450) k/uL MPV 8.2 Neutrophils % 85 % Lymphocytes % 6 % Monocytes % 7 % Eosinophils % 1 % Basophils % 0 % Neutrophils # 7.0 (1.3-7.7) k/uL Lymphocytes # 0.5 L (1.0-4.8) k/uL Monocytes # 0.6 (0-1.0) k/uL Eosinophils # 0.1 (0-0.7) k/uL Basophils # 0.0 (0-0.2) k/uL Hypochromasia Marked Anisocytosis Slight Microcytosis Slight PT 11.1 (10.0-12.5) sec INR 1.0 (<1.2) APTT 21.7 L (22.0-30.0) sec Sodium 131 L (137-145) mmol/L Potassium 3.8 (3.5-5.1) mmol/L Chloride 98 (98-107) mmol/L Carbon Dioxide 21 L (22-30) mmol/L Anion Gap 12 mmol/L BUN 20 H (7-17) mg/dL Creatinine 1.28 H (0.52-1.04) mg/dL Est GFR (CKD-EPI)AfAm 51 (>60 ml/min/1.73 sqM) Est GFR (CKD-EPI)NonAf 44 (>60 ml/min/1.73 sqM) Glucose 157 H (74-99) mg/dL Calcium 8.8 (8.4-10.2) mg/dL Magnesium 1.6 (1.6-2.3) mg/dL Total Bilirubin 0.6 (0.2-1.3) mg/dL AST 26 (14-36) U/L ALT 15 (4-34) U/L Alkaline Phosphatase 73 (38-126) U/L Troponin I (0.000-0.034) ng/mL NT-Pro-B Natriuret Pep 6230 pg/mL Total Protein 6.2 L (6.3-8.2) g/dL Albumin 3.6 (3.5-5.0) g/dL Influenza Type A (PCR) (Not Detectd) Influenza Type B (PCR) (Not Detectd) RSV (PCR) (Not Detectd) SARS-CoV-2 (PCR) (Not Detectd) Blood Type Recheck Bld Type Recheck Status Spec Expiration Date 10/25/24 10/25/24 10/25/24 Range/Units 21:05 21:05 21:50 WBC (3.8-10.6) k/uL RBC (3.80-5.40) m/uL Hgb (11.4-16.0) gm/dL Hct (34.0-46.0) % MCV (80.0-100.0) fL MCH (25.0-35.0) pg MCHC (31.0-37.0) g/dL RDW (11.5-15.5) % Plt Count (150-450) k/uL MPV Neutrophils % % Lymphocytes % % Monocytes % % Eosinophils % % Basophils % % Neutrophils # (1.3-7.7) k/uL Lymphocytes # (1.0-4.8) k/uL Monocytes # (0-1.0) k/uL Eosinophils # (0-0.7) k/uL Basophils # (0-0.2) k/uL Hypochromasia Anisocytosis Microcytosis PT (10.0-12.5) sec INR (<1.2) APTT (22.0-30.0) sec Sodium (137-145) mmol/L Potassium (3.5-5.1) mmol/L Chloride (98-107) mmol/L Carbon Dioxide (22-30) mmol/L Anion Gap mmol/L BUN (7-17) mg/dL Creatinine (0.52-1.04) mg/dL Est GFR (CKD-EPI)AfAm (>60 ml/min/1.73 sqM) Est GFR (CKD-EPI)NonAf (>60 ml/min/1.73 sqM) Glucose (74-99) mg/dL Calcium (8.4-10.2) mg/dL Magnesium (1.6-2.3) mg/dL Total Bilirubin (0.2-1.3) mg/dL AST (14-36) U/L ALT (4-34) U/L Alkaline Phosphatase (38-126) U/L Troponin I 0.023 (0.000-0.034) ng/mL NT-Pro-B Natriuret Pep pg/mL Total Protein (6.3-8.2) g/dL Albumin (3.5-5.0) g/dL Influenza Type A (PCR) Not Detected (Not Detectd) Influenza Type B (PCR) Not Detected (Not Detectd) RSV (PCR) Not Detected (Not Detectd) SARS-CoV-2 (PCR) Not Detected (Not Detectd) Blood Type Recheck No Previous Record Bld Type Recheck Status CABO Indicated Spec Expiration Date 10/28/20242349 - EKG Data -: EKG Interpreted by Me EKG Comments: 12-lead Electrocardiogram Interpretation Note EKG was reviewed and interpreted by myself. 12-lead ECG performed at 2109 is interpreted by me as revealing normal sinus rhythm at a rate of 88 beats per minute. [place] is normal. IA interval is 208 ms, QRS duration is 85 ms, QTc is 417 ms.. There were no ST or T wave abnormalities to suggest myocardial ischemia or injury. R wave progression across the precordium was satisfactory. By my interpretation this EKG is non-diagnostic for acute ischemia. Compared with EKG from April 2024 with no significant acute change. Disposition Clinical Impression: CHF (congestive heart failure), Microcytic anemia Disposition: ADMITTED IP TO THIS HOSP Condition: Stable Referrals: Jeniffer Figueroa MD [Primary Care Provider] - 1-2 days Time of Disposition: 22:20
[2024-10-25] MEDS: ATORVASTATIN 40 MG TAB PO SCH (22:28)
[2024-10-25] MEDS: LOSARTAN 50 MG TAB PO SCH (22:28)
[2024-10-25] MEDS: LABETALOL 200 MG TAB PO SCH (22:28)
[2024-10-25 22:58] LABS: Appearance,Urine Clear (Clear); Bacteria,Urine Occasional /hpf; Bilirubin,Urine Negative (Negative); Blood,Urine Trace (Negative); Budding Yeast,Urine Rare /hpf; Color,Urine Yellow; Glucose,Urine (UA) Negative (Negative); Hyaline Casts,Urine 3 /lpf (0-2); Ketones,Urine Negative (Negative); Leukocyte Esterase,Urine Large (Negative); Nitrite,Urine Negative (Negative); PH, Urine 5.5 (5.0-8.0); Protein,Urine 1+ (Negative); RBC,Urine 1 /hpf (0-5); Specific Gravity,Urine 1.014 (1.001-1.035); Squamous Epithelial Cell,Urine <1 /hpf (0-4); Urobilinogen,Urine <2.0 mg/dL (<2.0); WBC,Urine 24 /hpf (0-5)
[2024-10-25] MEDS: NYSTATIN 100,000 UNIT/ML SUSP 500,000 UNIT/5 ML CUP PO SCH (23:39)
[2024-10-26 07:34] LABS: Anisocytosis Slight; Basophils % (A) 0 %; Eosinophils # (A) 0.1 k/uL (0-0.7); Eosinophils % (A) 2 %; HCT 24.8 % (34.0-46.0); HGB 7.3 gm/dL (11.4-16.0); Hypochromasia Marked; Lymphocytes # (A) 0.8 k/uL (1.0-4.8); Lymphocytes % (A) 10 %; MCH 23.8 pg (25.0-35.0); MCHC 29.7 g/dL (31.0-37.0); MCV 80.2 fL (80.0-100.0); Mean Platelet Volume 8.8; Microcytosis Slight; Monocytes # (A) 0.7 k/uL (0-1.0); Monocytes % (A) 9 %; Neutrophils # (A) 6.2 k/uL (1.3-7.7); Neutrophils % (A) 78 %; Platelet Count 210 k/uL (150-450); Poikilocytosis Moderate; RBC 3.09 m/uL (3.80-5.40); RDW 19.6 % (11.5-15.5); WBC 7.9 k/uL (3.8-10.6)
[2024-10-26 08:08] LABS: ALT 14 U/L (4-34); AST 25 U/L (14-36); African American GFR (CKD) 49 (>60 ml/min/1.73 sqM); Albumin 3.3 g/dL (3.5-5.0); Alkaline Phosphatase 72 U/L (38-126); Anion Gap 7 mmol/L; Blood Urea Nitrogen 19 mg/dL (7-17); Calcium 8.7 mg/dL (8.4-10.2); Carbon Dioxide 24 mmol/L (22-30); Chloride 101 mmol/L (98-107); Glucose 139 mg/dL (74-99); Non-African American GFR(CKD) 43 (>60 ml/min/1.73 sqM); Potassium 3.7 mmol/L (3.5-5.1); Sodium 132 mmol/L (137-145); Total Bilirubin 2.8 mg/dL (0.2-1.3); Total Protein 5.9 g/dL (6.3-8.2)
[2024-10-26] MEDS: FUROSEMIDE 10 MG/ML 4 ML VIAL IVP SCH (08:40)
[2024-10-26] MEDS: ASPIRIN 81 MG PO SCH (08:41)
[2024-10-26] MEDS: CLOPIDOGREL 75 MG TAB PO SCH (08:41)
[2024-10-26] MEDS: PANTOPRAZOLE 40 MG TABLET PO SCH (08:41)
[2024-10-26] MEDS ORDERED: amLODIPine 10 MG TAB PO SCH (09:00)
--- NOTE | 2024-10-26 10:49 | CA ---
Transthoracic Echo Report Name: Mary Mata Age: 63 Gender: F : 1960 Exam Date: 10/26/2024 08:46 Exam Location: [facility] Ht (in): 50 Wt (lb): 226 Ordering Physician: Paulo Ramírez MD Attending/Referring Phys: Boat Person Mandy Alarcon RDCS Procedure CPT: Indications: chf Cardiac Hx: TAVR in 2023, DM Technical Quality: Fair Contrast 1: Definity Total Dose (mL): 2 Contrast 2: Total Dose (mL): MEASUREMENTS (Male / Female) Normal Values 2D ECHO LV Diastolic Diameter PLAX 4.8 cm 4.2 - 5.9 / 3.9 - 5.3 cm LV Systolic Diameter PLAX 3.6 cm IVS Diastolic Thickness 1.3 cm 0.6 - 1.0 / 0.6 - 0.9 cm LVPW Diastolic Thickness 1.3 cm 0.6 - 1.0 / 0.6 - 0.9 cm LV Relative Wall Thickness 0.5 RV Internal Dim ED PLAX 3.4 cm LVOT Diameter 1.9 cm LA Systolic Diameter LX 4.4 cm 3.0 - 4.0 / 2.7 - 3.8 cm LA Volume 87.2 cm??? 18 - 58 / 22 - 52 cm??? LA Volume Index 43.7 cm???/m??? 16 - 28 cm???/m??? M-MODE Aortic Root Diameter MM 2.9 cm DOPPLER AV Peak Velocity 239.7 cm/s AV Peak Gradient 28.0 mmHg AV Mean Velocity 154.0 cm/s AV Mean Gradient 13.0 mmHg AV Velocity Time Integral 55.4 cm LVOT Peak Velocity 172.7 cm/s LVOT Peak Gradient 11.9 mmHg LVOT Velocity Time Integral 45.4 cm LVOT Stroke Volume 122.2 cm??? LVOT Stroke Volume Index 70.9 ml/m??? LVOT Cardiac Index 4711.5 cm???/min???m??? AV Area Cont Eq vti 2.2 cm??? AV Area Cont Eq pk 1.9 cm??? MV Peak Velocity 210.0 cm/s MV Peak Gradient 17.6 mmHg MV Mean Velocity 108.0 cm/s MV Mean Gradient 5.5 mmHg MV Velocity Time Integral 47.9 cm MV Area PHT 4.3 cm??? Mitral E Point Velocity 179.4 cm/s Mitral A Point Velocity 109.4 cm/s Mitral E to A Ratio 1.6 MV Deceleration Time 176.7 ms TR Peak Velocity 314.1 cm/s TR Peak Gradient 39.5 mmHg Right Ventricular Systolic Press 68.0 mmHg FINDINGS Left Ventricle Left ventricular ejection fraction is estimated at 55-60 %. Left ventricular cavity size normal. Mild concentric left ventricular hypertrophy. No obvious regional wall motion abnormalities. Right Ventricle Mild right ventricular dilatation.severe pulmonary hypertension. . Right ventricular systolic pressure estimated at 68 mm hg. Right Atrium Normal right atrial size. No right atrial thrombus or mass seen. Left Atrium Moderately increased left atrial diameter. Severely increased left atrial volume. Mildly increased left atrial area. No left atrial thrombus or mass present. Mitral Valve Mitral valve thickened. Mitral annular calcification. . Moderate mitral stenosis with mean gradient of 6 mmHg Aortic Valve Normally functioning bioprosthetic aortic valve without stenosis with a peak velocity of 2.3 m/s, peak gradient mmHg, mean gradient 13 mmHg, and estimated aortic valve area of 1.9-2.2 cm???. Tricuspid Valve Structurally normal tricuspid valve. Mild tricuspid regurgitation. Pulmonic Valve Structurally normal pulmonic valve. Trace pulmonic regurgitation. Pericardium No pericardial effusion. Aorta Normal size aortic root and proximal ascending aorta. CONCLUSIONS 1. Normal ventricle size and systolic function with left ventricular hypertrophy 2. Dilated right ventricle with severe pulmonary hypertension 3. TAVR valve with normal function and a mean of 13 mmHg 4. Moderate mitral stenosis with a mean gradient of 6 mmHg. 5. Mild tricuspid regurgitation Definity ECHO contrast used for improved visualization of the endocardial borders (inadequate visualization of two or more contiguous segments). Previewed by: Dr. Deanna Rizzo MD (Electronically Signed) Final Date: 26 October 2024 10:49
[2024-10-26] MEDS: DULoxetine HCL 60 MG CAPSULE.DR PO SCH (11:09)
[2024-10-26] MEDS: LINAGLIPTIN 5 MG TABLET PO SCH (11:09)
[2024-10-26] MEDS: NON FORMULARY DRUG (Semaglutide [Rybelsus] 3 MG Tablet) PO SCH (11:10)
[2024-10-26] MEDS ORDERED: DEXTROSE 50% SYRINGE 50 ML IVP PRN ×2 (13:55)
--- NOTE | 2024-10-26 13:58 | P.HPIM ---
History of Present Illness H&P Date: 10/26/24 Chief Complaint: Lower extremity edema Patient is a 63 year old female with past medical history of breast cancer, macular edema diabetes mellitus, lipidemia, hypertension, newly diagnosed CHF presented to the ED with lower extremity edema. Patient reports that she started noticing swelling on her legs 3 days ago. Initially the swelling was only on the left foot, gradually progressed to the entire left lower extremity and then she also started noticing swelling on her right lower extremity. Currently she states that legs are so swollen and heavy that she is not able to lift them. She denies any pain. She mentions that she has been newly diagnosed with CHF last summer. She is currently maintained on Bumex and denies missing any doses. Associated with that she has experienced shortness of breath productive cough with clear phlegm. Additionally she had a TAVR done recently. 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 She has also been worked up for anemia and is currently on aspirin and Plavix. She denies hematemesis, melena. Denies fever, chills, chest pain, palpitations, abdominal pain, nausea, vomiting, hematuria, dysuria, hematochezia, melena, headache, slurred speech, numbness, tingling, dizziness, lightheadedness, blurred vision, double vision. ED documentation reviewed. In the ED patient was treated with atorvastatin, clopidogrel, duloxetine, furosemide, labetalol, linagliptin, losartan, nystatin, pantoprazole. Vitals on admission T 98 F, MA 87 bpm, RR 18, BP 151/73, oxygen saturation 96% on room air EKG independently interpreted as sinus rhythm, rate 88 bpm, QTc 417 ms Chest x-ray shows cardiomegaly and mild pulmonary vascular congestion Echocardiogram shows EF 55 to 60%, normal ventricle size and systolic function with left ventricular hypertrophy, dilated right ventricle with severe pulmonary hypertension, moderate MS, mild TR, TAVR valve with normal function Labs on admission show WBC 8.2, hemoglobin 6.4, MCV 77.9, RDW 19.6, platelet count 243, APTT 21.7, sodium 131, potassium 3.8, BUN 20, creatinine 1.28 magnesium 1.6, troponin I 0.023, NT proBNP 6230 UA shows 1+ protein, trace blood, large leukocyte esterase, 24 WBC, rare squamous epithelial cells, occasional bacteria, 3 hyaline casts, rare budding yeast Respiratory panel is negative Review of systems: Pertinent positives and negatives as discussed in HPI, a complete review of systems was performed and all other systems are negative. Social history: Tobacco: Never smoker Alcohol: Denies use Recreational drugs: Denies use Travel: No recent travel history Sick contacts: None Physical examination: Vital signs reviewed General: nontoxic, no distress, appears at stated age,drowsy Derm: warm, dry, intact Head: atraumatic, normocephalic, symmetric Eyes: EOMI, anicteric sclera Mouth: no lip lesion, mucus membranes moist Cardiovascular: S1 S2 reg, no murmur Lungs: CTA bilateral, no rhonchi, no rales, no accessory muscle use Abdominal: soft, non-tender to palpation Extremities: b/l LE extremity edema Neuro: Alert, Oriented, movement on right LE limited due to edema Psych: well appearing, appropriate affect Assessment/Plan: Patient is a 63 year old female with past medical history of breast cancer, macular edema diabetes mellitus, lipidemia, hypertension, newly diagnosed CHF presented to the ED with lower extremity edema. Active: #. Acute congestive heart failure exacerbation #. Lower extremity edema bilaterally NT-pro-BNP 6230 Chest x-ray shows cardiomegaly and mild pulmonary vascular congestion Echocardiogram shows EF 55 to 60%, normal ventricle size and systolic function with left ventricular hypertrophy, dilated right ventricle with severe pulmonary hypertension, moderate MS, mild TR, TAVR valve with normal function Continue furosemide 40 mg IVP every 12 hours Continue telemetry monitoring Cardiology consulted #. Microcytic anemia Hemoglobin 6.4, MCV 77.9, RDW 19.6 on admission 1 unit PRBC transfused Iron studies ordered GI consulted #. Hypervolemic Hyponatremia Na 131 on admission Continue Lasix IV BID Monitor BMP #. Oral thrush Continue nystatin 500,000 unit p.o. 4 times daily #. Nausea and vomiting Continue ondansetron 4 mg p.o. 3 times daily as needed Chronic: #. CKD stage IIIb #. Hypertension #. Hyperlipidemia #. Non insulin dependent Diabetes mellitus #. Anxiety/depression #. Neuropathy Continue amlodipine 10 mg p.o. at bedtime, aspirin 81 mg p.o. daily, atorvastatin 40 mg p.o. at bedtime, clopidogrel 75 mg p.o. daily, duloxetine 60 mg p.o. daily, gabapentin 100 mg p.o. every 8 hours as needed, labetalol 20 mg p.o. every 8 hours, losartan 100 mg p.o. at bedtime, insulin sliding scale F: None E: Replete as required N: Heart healthy diet DVT prophylaxis: Heparin 5000 U SQ Q8HR GI prophylaxis: Pantoprazole 40 mg PO daily The patient is admitted with an anticipated more than 2 midnight stay for evaluation of lower extremity edema CODE STATUS: FULL CODE Discussed with: Patient Anticipated discharge place: Home Attestation: I have personally seen and examined the patient with Resident, reviewed the documentation and participated and agree with the assessment and plan as written. Joseph Russo MD Past Medical History Past Medical History: Cancer, Heart Failure, Diabetes Mellitus, Hyperlipidemia, Hypertension Additional Past Medical History / Comment(s): breast cancer, macular edema with hemorrhage bilateral. "episode of heart failure in the past" History of Any Multi-Drug Resistant Organisms: None Reported Past Surgical History: Section, Cholecystectomy Additional Past Surgical History / Comment(s): left lumpectomy x 2. right mediport insertion Past Anesthesia/Blood Transfusion Reactions: No Reported Reaction Past Psychological History: Anxiety, Depression Smoking Status: Never smoker Past Alcohol Use History: None Reported Past Drug Use History: None Reported - Past Family History Father Additional Family Medical History / Comment(s): No health hx 91 from pneumonia Mother Additional Family Medical History / Comment(s): No health hx after fall age 96 Medications and Allergies Home Medications Medication Instructions Recorded Confirmed Type DULoxetine HCL [Cymbalta] 60 mg PO DAILY 05/09/22 10/26/24 History Diphenoxylate HCl/Atropine 1 tab PO QID PRN 05/09/22 10/26/24 History [Lomotil 2.5-0.025 mg Tablet] sitaGLIPtin [Januvia] 50 mg PO DAILY 05/09/22 10/26/24 History Calcium Carb/Mag Ox/Zinc Sulf 1 tab PO DAILY 05/19/23 10/26/24 History [Iss-Oal-Srpi 334-134-5 mg Tab] Vitamin B Complex 1 cap PO DAILY 05/19/23 10/26/24 History Aspirin 81 mg PO DAILY 05/08/24 10/26/24 History Bumetanide [BUMEX] 1 mg PO DAILY 05/08/24 10/26/24 History Gabapentin [Neurontin] 100 mg PO Q8H PRN 05/08/24 10/26/24 History Pantoprazole Sodium [Protonix] 40 mg PO DAILY 05/08/24 10/26/24 History Semaglutide [Rybelsus] 3 mg PO DAILY 05/08/24 10/26/24 History Atorvastatin [Lipitor] 40 mg PO HS #30 tab 05/12/24 10/26/24 Rx Clopidogrel [Plavix] 75 mg PO DAILY #30 tab 05/12/24 10/26/24 Rx Labetalol [Trandate] 200 mg PO Q8H #90 tab 05/12/24 10/26/24 Rx Losartan Potassium [Cozaar] 100 mg PO HS #30 tab 05/12/24 10/26/24 Rx Cholecalciferol (Vitamin D3) 125 mcg PO DAILY 10/26/24 10/26/24 History [Vitamin D3 (125 MCG = 5,000 IU)] Mv-Mn/Om3/Dha/Epa/Fish/Lut/Jermaine 1 cap PO DAILY 10/26/24 10/26/24 History [Ocuvite Adult 50 Plus Softgel] Vitamin E (Dl,Tocopheryl Acet) 45 mg PO DAILY 10/26/24 10/26/24 History [Vitamin E (100 Iu = 45MG)] amLODIPine [Norvasc] 10 mg PO HS 10/26/24 10/26/24 History Allergies Allergy/AdvReac Type Severity Reaction Status Date / Time adhesive tape Allergy Itching Verified 10/26/24 06:57 morphine Allergy Swelling & Verified 10/26/24 06:57 hives Penicillins Allergy Rash/Hives Verified 10/26/24 06:57 ALEXIS Inhibitors AdvReac Cough Verified 10/26/24 06:57 Physical Exam Vitals: Vital Signs Temp Pulse Resp BP Pulse Ox 10/26/24 13:28 97.9 F 82 20 160/73 100 10/26/24 11:13 97.8 F 80 18 154/86 10/26/24 07:38 73 18 138/57 10/26/24 06:43 74 18 140/65 95 10/26/24 05:00 81 18 160/86 95 10/26/24 04:00 98.5 F 79 18 125/66 95 10/26/24 02:00 98.4 F 78 18 154/71 95 10/26/24 01:00 76 18 152/68 95 10/26/24 00:00 80 18 143/58 95 10/25/24 23:38 98.3 F 80 18 143/57 95 10/25/24 23:18 98.3 F 78 18 146/61 95 10/25/24 23:09 98.3 F 80 18 139/60 95 10/25/24 20:26 98.0 F 87 18 151/73 96 Intake and Output 10/25/24 10/26/24 10/26/24 22:59 06:59 14:59 Intake Total 310 Balance 310 Intake: Blood Product 310 Rc Irr As1 Unit 310 [id number] Other: Weight 102.512 kg Results CBC & Chem 7: 10/26/24 07:21 10/26/24 07:21 Labs: Abnormal Lab Results - Last 24 Hours (Table) 10/25/24 10/25/24 10/25/24 Range/Units 21:05 21:05 21:05 RBC 2.86 L (3.80-5.40) m/uL Hgb 6.4 L* (11.4-16.0) gm/dL Hct 22.3 L (34.0-46.0) % MCV 77.9 L (80.0-100.0) fL MCH 22.4 L (25.0-35.0) pg MCHC 28.7 L (31.0-37.0) g/dL RDW 19.6 H (11.5-15.5) % Lymphocytes # 0.5 L (1.0-4.8) k/uL APTT 21.7 L (22.0-30.0) sec Sodium 131 L (137-145) mmol/L Carbon Dioxide 21 L (22-30) mmol/L BUN 20 H (7-17) mg/dL Creatinine 1.28 H (0.52-1.04) mg/dL Glucose 157 H (74-99) mg/dL Total Bilirubin (0.2-1.3) mg/dL Total Protein 6.2 L (6.3-8.2) g/dL Albumin (3.5-5.0) g/dL Urine Protein (Negative) Urine Blood (Negative) Ur Leukocyte Esterase (Negative) Urine WBC (0-5) /hpf Urine WBC Clumps (None) /hpf Urine Bacteria (None) /hpf Hyaline Casts (0-2) /lpf Urine Yeast (Budding) (None) /hpf Crossmatch 10/25/24 10/25/24 10/26/24 Range/Units 21:50 21:55 07:21 RBC 3.09 L (3.80-5.40) m/uL Hgb 7.3 L (11.4-16.0) gm/dL Hct 24.8 L (34.0-46.0) % MCV (80.0-100.0) fL MCH 23.8 L (25.0-35.0) pg MCHC 29.7 L (31.0-37.0) g/dL RDW 19.6 H (11.5-15.5) % Lymphocytes # 0.8 L (1.0-4.8) k/uL APTT (22.0-30.0) sec Sodium (137-145) mmol/L Carbon Dioxide (22-30) mmol/L BUN (7-17) mg/dL Creatinine (0.52-1.04) mg/dL Glucose (74-99) mg/dL Total Bilirubin (0.2-1.3) mg/dL Total Protein (6.3-8.2) g/dL Albumin (3.5-5.0) g/dL Urine Protein 1+ H (Negative) Urine Blood Trace H (Negative) Ur Leukocyte Esterase Large H (Negative) Urine WBC 24 H (0-5) /hpf Urine WBC Clumps Rare H (None) /hpf Urine Bacteria Occasional H (None) /hpf Hyaline Casts 3 H (0-2) /lpf Urine Yeast (Budding) Rare H (None) /hpf Crossmatch See Detail 10/26/24 Range/Units 07:21 RBC (3.80-5.40) m/uL Hgb (11.4-16.0) gm/dL Hct (34.0-46.0) % MCV (80.0-100.0) fL MCH (25.0-35.0) pg MCHC (31.0-37.0) g/dL RDW (11.5-15.5) % Lymphocytes # (1.0-4.8) k/uL APTT (22.0-30.0) sec Sodium 132 L (137-145) mmol/L Carbon Dioxide (22-30) mmol/L BUN 19 H (7-17) mg/dL Creatinine 1.32 H (0.52-1.04) mg/dL Glucose 139 H (74-99) mg/dL Total Bilirubin 2.8 H (0.2-1.3) mg/dL Total Protein 5.9 L (6.3-8.2) g/dL Albumin 3.3 L (3.5-5.0) g/dL Urine Protein (Negative) Urine Blood (Negative) Ur Leukocyte Esterase (Negative) Urine WBC (0-5) /hpf Urine WBC Clumps (None) /hpf Urine Bacteria (None) /hpf Hyaline Casts (0-2) /lpf Urine Yeast (Budding) (None) /hpf Crossmatch
[2024-10-26 15:13] LABS: % Iron Saturation 85.5 (12.00-45.00); Ferritin 31.5 ng/mL (10.0-291.0)
--- NOTE | 2024-10-26 15:34 | P.CONS ---
History of Present Illness - Reason for Consult Consult date: 10/26/24 Anemia Requesting physician: Paulo Ramírez - Chief Complaint Lower extremity edema and shortness of breath - History of Present Illness Pleasant 63-year-old female with a history of heart failure, coronary artery disease status post TAVR, chronic anemia, diabetes mellitus, hyperlipidemia, hypertension, breast cancer, and obesity who presented to the emergency depart [facility] with complaints of increased swelling in her lower extremities and shortness of breath with exertion. She was admitted for heart failure and lower extremity edema. She was noted to have microcytic anemia and gastroenterology was consulted. Patient denies any black stool or blood in her stool, no abdominal pain, nausea or vomiting. States that she has history of anemia and in February 2024 she was to undergo a TAVR and was noted to be anemic and was transfused with 2 units of blood and underwent upper endoscopy and colonoscopy while in [place]. She states she believes that they found a little vessel in the colon that had likely been bleeding and they had cauterized it. She does take aspirin and Plavix for her heart disease. She follows with Dr. Swain for history of breast cancer and anemia and takes oral iron. Hemoglobin on admission was 6.4 platelet count was 240,000, noted to have microcytic anemia. He was transfused with 1 unit of blood with repeat hemoglobin today at 7.3. Patient currently states she has no abdominal pain, nausea or vomiting. No shortness of breath at rest but some with exertion. Review of Systems REVIEW OF SYSTEMS: CARDIOPULMONARY: No chest pain. Dyspnea with exertion. Lower extremity edema Gastrointestinal: No abdominal pain. No nausea or vomiting. No hematemesis, coffee-ground emesis. No rectal bleeding, or melena. GENITOURINARY: No dysuria or hematuria. MUSCULOSKELETAL: Reports normal range of motion., Joint pain. SKIN: No rashes. No jaundice. ENDOCRINE: No chills, fevers. No excessive weight gain or loss. No polydipsia or polyuria. PSYCHIATRIC: Unremarkable. NEUROLOGY: No change in mental status. Denies dizziness, headache. ENT: Vision unremarkable. CONSTITUTIONAL: No recent weight loss. No fever, chills, night sweats. Past Medical History Past Medical History: Cancer, Heart Failure, Diabetes Mellitus, Hyperlipidemia, Hypertension Additional Past Medical History / Comment(s): breast cancer, macular edema with hemorrhage bilateral. "episode of heart failure in the past" History of Any Multi-Drug Resistant Organisms: None Reported Past Surgical History: Section, Cholecystectomy Additional Past Surgical History / Comment(s): left lumpectomy x 2. right mediport insertion Past Anesthesia/Blood Transfusion Reactions: No Reported Reaction Past Psychological History: Anxiety, Depression Smoking Status: Never smoker Past Alcohol Use History: None Reported Past Drug Use History: None Reported - Past Family History Father Additional Family Medical History / Comment(s): No health hx 91 from pneumonia Mother Additional Family Medical History / Comment(s): No health hx after fall age 96 Medications and Allergies Home Medications Medication Instructions Recorded Confirmed Type DULoxetine HCL [Cymbalta] 60 mg PO DAILY 05/09/22 10/26/24 History Diphenoxylate HCl/Atropine 1 tab PO QID PRN 05/09/22 10/26/24 History [Lomotil 2.5-0.025 mg Tablet] sitaGLIPtin [Januvia] 50 mg PO DAILY 05/09/22 10/26/24 History Calcium Carb/Mag Ox/Zinc Sulf 1 tab PO DAILY 05/19/23 10/26/24 History [Ibs-Dgh-Hihh 334-134-5 mg Tab] Vitamin B Complex 1 cap PO DAILY 05/19/23 10/26/24 History Aspirin 81 mg PO DAILY 05/08/24 10/26/24 History Bumetanide [BUMEX] 1 mg PO DAILY 05/08/24 10/26/24 History Gabapentin [Neurontin] 100 mg PO Q8H PRN 05/08/24 10/26/24 History Pantoprazole Sodium [Protonix] 40 mg PO DAILY 05/08/24 10/26/24 History Semaglutide [Rybelsus] 3 mg PO DAILY 05/08/24 10/26/24 History Atorvastatin [Lipitor] 40 mg PO HS #30 tab 05/12/24 10/26/24 Rx Clopidogrel [Plavix] 75 mg PO DAILY #30 tab 05/12/24 10/26/24 Rx Labetalol [Trandate] 200 mg PO Q8H #90 tab 05/12/24 10/26/24 Rx Losartan Potassium [Cozaar] 100 mg PO HS #30 tab 05/12/24 10/26/24 Rx Cholecalciferol (Vitamin D3) 125 mcg PO DAILY 10/26/24 10/26/24 History [Vitamin D3 (125 MCG = 5,000 IU)] Mv-Mn/Om3/Dha/Epa/Fish/Lut/Jermaine 1 cap PO DAILY 10/26/24 10/26/24 History [Ocuvite Adult 50 Plus Softgel] Vitamin E (Dl,Tocopheryl Acet) 45 mg PO DAILY 10/26/24 10/26/24 History [Vitamin E (100 Iu = 45MG)] amLODIPine [Norvasc] 10 mg PO HS 10/26/24 10/26/24 History Allergies Allergy/AdvReac Type Severity Reaction Status Date / Time adhesive tape Allergy Itching Verified 10/26/24 06:57 morphine Allergy Swelling & Verified 10/26/24 06:57 hives Penicillins Allergy Rash/Hives Verified 10/26/24 06:57 ALEXIS Inhibitors AdvReac Cough Verified 10/26/24 06:57 Physical Exam Vitals: Vital Signs Temp Pulse Resp BP Pulse Ox 10/26/24 07:38 73 18 138/57 10/26/24 06:43 74 18 140/65 95 10/26/24 05:00 81 18 160/86 95 10/26/24 04:00 98.5 F 79 18 125/66 95 10/26/24 02:00 98.4 F 78 18 154/71 95 10/26/24 01:00 76 18 152/68 95 10/26/24 00:00 80 18 143/58 95 10/25/24 23:38 98.3 F 80 18 143/57 95 10/25/24 23:18 98.3 F 78 18 146/61 95 10/25/24 23:09 98.3 F 80 18 139/60 95 10/25/24 20:26 98.0 F 87 18 151/73 96 Intake and Output 10/25/24 10/26/24 10/26/24 22:59 06:59 14:59 Intake Total 310 Balance 310 Intake: Blood Product 310 Rc Irr As1 Unit 310 [id number] Other: Weight 102.512 kg General appearance: The patient is alert, oriented, appears in no acute distress. Morbidly obese. HET: Head is normocephalic and atraumatic. Conjunctiva pink. Sclera anicteric. Neck: Supple without lymphadenopathy. Trachea midline. Heart: Regular. Lungs: Equal expansion, normal respiratory effort. Abdomen: Soft, nontender, nondistended. Skin: No rashes. No jaundice. Extremities: Normal skin color and turgor. Lower extremity edema. Neurological: No focal deficits. Alert and oriented x3. Results CBC & Chem 7: 10/26/24 07:21 10/26/24 07:21 Labs: Abnormal Lab Results - Last 24 Hours (Table) 10/25/24 10/25/24 10/25/24 Range/Units 21:05 21:05 21:05 RBC 2.86 L (3.80-5.40) m/uL Hgb 6.4 L* (11.4-16.0) gm/dL Hct 22.3 L (34.0-46.0) % MCV 77.9 L (80.0-100.0) fL MCH 22.4 L (25.0-35.0) pg MCHC 28.7 L (31.0-37.0) g/dL RDW 19.6 H (11.5-15.5) % Lymphocytes # 0.5 L (1.0-4.8) k/uL APTT 21.7 L (22.0-30.0) sec Sodium 131 L (137-145) mmol/L Carbon Dioxide 21 L (22-30) mmol/L BUN 20 H (7-17) mg/dL Creatinine 1.28 H (0.52-1.04) mg/dL Glucose 157 H (74-99) mg/dL Total Bilirubin (0.2-1.3) mg/dL Total Protein 6.2 L (6.3-8.2) g/dL Albumin (3.5-5.0) g/dL Urine Protein (Negative) Urine Blood (Negative) Ur Leukocyte Esterase (Negative) Urine WBC (0-5) /hpf Urine WBC Clumps (None) /hpf Urine Bacteria (None) /hpf Hyaline Casts (0-2) /lpf Urine Yeast (Budding) (None) /hpf Crossmatch 10/25/24 10/25/24 10/26/24 Range/Units 21:50 21:55 07:21 RBC 3.09 L (3.80-5.40) m/uL Hgb 7.3 L (11.4-16.0) gm/dL Hct 24.8 L (34.0-46.0) % MCV (80.0-100.0) fL MCH 23.8 L (25.0-35.0) pg MCHC 29.7 L (31.0-37.0) g/dL RDW 19.6 H (11.5-15.5) % Lymphocytes # 0.8 L (1.0-4.8) k/uL APTT (22.0-30.0) sec Sodium (137-145) mmol/L Carbon Dioxide (22-30) mmol/L BUN (7-17) mg/dL Creatinine (0.52-1.04) mg/dL Glucose (74-99) mg/dL Total Bilirubin (0.2-1.3) mg/dL Total Protein (6.3-8.2) g/dL Albumin (3.5-5.0) g/dL Urine Protein 1+ H (Negative) Urine Blood Trace H (Negative) Ur Leukocyte Esterase Large H (Negative) Urine WBC 24 H (0-5) /hpf Urine WBC Clumps Rare H (None) /hpf Urine Bacteria Occasional H (None) /hpf Hyaline Casts 3 H (0-2) /lpf Urine Yeast (Budding) Rare H (None) /hpf Crossmatch See Detail 10/26/24 Range/Units 07:21 RBC (3.80-5.40) m/uL Hgb (11.4-16.0) gm/dL Hct (34.0-46.0) % MCV (80.0-100.0) fL MCH (25.0-35.0) pg MCHC (31.0-37.0) g/dL RDW (11.5-15.5) % Lymphocytes # (1.0-4.8) k/uL APTT (22.0-30.0) sec Sodium 132 L (137-145) mmol/L Carbon Dioxide (22-30) mmol/L BUN 19 H (7-17) mg/dL Creatinine 1.32 H (0.52-1.04) mg/dL Glucose 139 H (74-99) mg/dL Total Bilirubin 2.8 H (0.2-1.3) mg/dL Total Protein 5.9 L (6.3-8.2) g/dL Albumin 3.3 L (3.5-5.0) g/dL Urine Protein (Negative) Urine Blood (Negative) Ur Leukocyte Esterase (Negative) Urine WBC (0-5) /hpf Urine WBC Clumps (None) /hpf Urine Bacteria (None) /hpf Hyaline Casts (0-2) /lpf Urine Yeast (Budding) (None) /hpf Crossmatch Assessment and Plan (1) Microcytic anemia Narrative/Plan: 63-year-old female presenting with dyspnea on exertion and lower extremity swelling with history of heart failure currently being treated for acute exacerbation noted to be anemic with a microcytic anemia. Gastroenterology following to evaluate for acute blood loss anemia. Patient has a history of anemia with previous blood transfusion status post EGD and colonoscopy less than a year ago with reported likely AVM status post cautery. Patient offered upper endoscopy and colonoscopy as part of an evaluation for GI bleed once symptoms are improved from her CHF exacerbation. Again patient could have acute blood l oss anemia secondary to history of AVMs. Patient is declining any endoscopic evaluation. Will obtain iron studies, treat symptomatically and transfuse as needed. Patient can follow-up with gastroenterology in outpatient setting if she changes her mind and would like to undergo endoscopic evaluation. Current Visit: Yes Status: Acute Code(s): D50.9 - IRON DEFICIENCY ANEMIA, UNSPECIFIED SNOMED Code(s): 011247429 (2) Lower extremity edema Current Visit: Yes Status: Acute Code(s): R60.0 - LOCALIZED EDEMA SNOMED Code(s): 510749673 (3) Coronary artery disease Current Visit: Yes Status: Acute Code(s): I25.10 - ATHSCL HEART DISEASE OF [place] CORONARY ARTERY W/O ANG PCTRS SNOMED Code(s): 97783998 (4) Diabetes mellitus Current Visit: Yes Status: Acute Code(s): E11.9 - TYPE 2 DIABETES MELLITUS WITHOUT COMPLICATIONS SNOMED Code(s): 04615028 (5) Morbid obesity Current Visit: Yes Status: Acute Code(s): E66.01 - MORBID (SEVERE) OBESITY DUE TO EXCESS CALORIES SNOMED Code(s): 140229800 (6) Congestive heart failure Current Visit: Yes Status: Acute Code(s): I50.9 - HEART FAILURE, UNSPECIFIED SNOMED Code(s): 84347212 (7) Shortness of breath Current Visit: Yes Status: Acute Code(s): R06.02 - SHORTNESS OF BREATH SNOMED Code(s): 898451231 Plan: 1. Continue symptomatic and supportive care 2. Diet as tolerated 3. Daily CBC, transfuse for hemoglobin less than 7 4. Protonix 40 mg daily for GI prophylaxis 5. Iron profile and ferritin ordered 6. Discussed with patient anemia could be secondary to acute blood loss anemia with patient's history of reported likely AVM and would recommend possible EGD and colonoscopy when heart failure symptoms have improved. Patient declines any endoscopic evaluation at this time. We will continue to follow and can consider outpatient endoscopic evaluation if patient changes her mind. You for this consultation, we will continue to follow. Dr. Loly Anderson I agree with the dictator's note, documented as a scribe by Manuela Luna.
[2024-10-26 16:56] LABS: Glucose,Whole Blood 182 mg/dL (70-110)
[2024-10-26] MEDS: ACETAMINOPHEN TAB 325 MG TAB PO PRN (17:02)
[2024-10-26] MEDS: INSULIN LISPRO (HumaLOG) 100 UNIT/ML 10 mL VL SQ SCH (17:13)
[2024-10-26 20:41] LABS: Glucose,Whole Blood 203 mg/dL (70-110)
[2024-10-26] MEDS: amLODIPine 10 MG TAB PO SCH (20:52)
[2024-10-27 06:09] LABS: Anisocytosis Slight; HGB 7.1 gm/dL (11.4-16.0); Hypochromasia Marked; MCHC 29.8 g/dL (31.0-37.0); MCV 80.6 fL (80.0-100.0); Mean Platelet Volume 7.7; Microcytosis Slight; Platelet Count 259 k/uL (150-450); Poikilocytosis Slight; RBC 2.97 m/uL (3.80-5.40); RDW 19.7 % (11.5-15.5); WBC 8.5 k/uL (3.8-10.6)
[2024-10-27 06:31] LABS: African American GFR (CKD) 45 (>60 ml/min/1.73 sqM); Anion Gap 11 mmol/L; Blood Urea Nitrogen 20 mg/dL (7-17); Calcium 8.5 mg/dL (8.4-10.2); Carbon Dioxide 25 mmol/L (22-30); Chloride 97 mmol/L (98-107); Glucose 137 mg/dL (74-99); Non-African American GFR(CKD) 39 (>60 ml/min/1.73 sqM); Potassium 3.5 mmol/L (3.5-5.1); Sodium 133 mmol/L (137-145)
[2024-10-27 07:04] LABS: Glucose,Whole Blood 159 mg/dL (70-110)
--- NOTE | 2024-10-27 11:46 | P.PN ---
Subjective Progress Note Date: 10/27/24 Principal diagnosis: Hospital course: Patient is a 63 year old female with past medical history of breast cancer, macular edema diabetes mellitus, lipidemia, hypertension, newly diagnosed CHF presented to the ED with lower extremity edema. Patient reports that she started noticing swelling on her legs 3 days ago. Initially the swelling was only on the left foot, gradually progressed to the entire left lower extremity and then she also started noticing swelling on her right lower extremity. Currently she states that legs are so swollen and heavy that she is not able to lift them. She denies any pain. She mentions that she has been newly diagnosed with CHF last summer. She is currently maintained on Bumex and denies missing any doses. Associated with that she has experienced shortness of breath productive cough with clear phlegm. Additionally she had a TAVR done recently. She states she follows up with activities director for CKD. She has also been worked up for anemia and is currently on aspirin and Plavix. She denies hematemesis, melena. Denies fever, chills, chest pain, palpitations, abdominal pain, nausea, vomiting, hematuria, dysuria, hematochezia, melena, headache, slurred speech, numbness, tingling, dizziness, lightheadedness, blurred vision, double vision. ED documentation reviewed. In the ED patient was treated with atorvastatin, clopidogrel, duloxetine, furosemide, labetalol, linagliptin, losartan, nystatin, pantoprazole. Vitals on admission T 98 F, [place] 87 bpm, RR 18, BP 151/73, oxygen saturation 96% on room air EKG independently interpreted as sinus rhythm, rate 88 bpm, QTc 417 ms Chest x-ray shows cardiomegaly and mild pulmonary vascular congestion Echocardiogram shows EF 55 to 60%, normal ventricle size and systolic function with left ventricular hypertrophy, dilated right ventricle with severe pulmonary hypertension, moderate MS, mild TR, TAVR valve with normal function Labs on admission show WBC 8.2, hemoglobin 6.4, MCV 77.9, RDW 19.6, platelet count 243, APTT 21.7, sodium 131, potassium 3.8, BUN 20, creatinine 1.28 magnesium 1.6, troponin I 0.023, NT proBNP 6230 UA shows 1+ protein, trace blood, large leukocyte esterase, 24 WBC, rare squamous epithelial cells, occasional bacteria, 3 hyaline casts, rare budding yeast Respiratory panel is negative 10/27/24: Patient seen and examined at bedside today. Vital signs are stable, patient is on room air. Labs today show hemoglobin 7.1, RDW 19.7, MCV 80.6, sodium 133, BUN 20, creatinine 1.4. Iron studies show iron 348, TIBC 407, percent saturation 85.5, transferrin 291, ferritin 31.5. Review of systems: Pertinent positives and negatives as discussed in HPI, a complete review of systems was performed and all other systems are negative. Vitals: Signs Reviewed Physical examination: General: nontoxic, no distress, appears at stated age,drowsy Derm: warm, dry, intact Head: atraumatic, normocephalic, symmetric Eyes: EOMI, anicteric sclera Mouth: no lip lesion, mucus membranes moist Cardiovascular: S1 S2 reg, no murmur Lungs: CTA bilateral, no rhonchi, no rales, no accessory muscle use Abdominal: soft, non-tender to palpation Extremities: b/l LE extremity edema Neuro: Alert, Oriented, movement on b/l LE limited due to edema Psych: well appearing, appropriate affect Assessment/Plan: Patient is a 63 year old female with past medical history of breast cancer, macular edema diabetes mellitus, lipidemia, hypertension, newly diagnosed CHF presented to the ED with lower extremity edema. Active: #. Acute congestive heart failure exacerbation #. Lower extremity edema bilaterally NT-pro-BNP 6230 Chest x-ray shows cardiomegaly and mild pulmonary vascular congestion Echocardiogram shows EF 55 to 60%, normal ventricle size and systolic function with left ventricular hypertrophy, dilated right ventricle with severe pulmonary hypertension, moderate MS, mild TR, TAVR valve with normal function Continue furosemide 40 mg IVP every 12 hours, Labetalol 200 mg PO Q8HR Continue telemetry monitoring Cardiology consulted #. Microcytic anemia, likely acute blood loss anemia due to patient's history of AVM Hemoglobin 6.4, MCV 77.9, RDW 19.6 on admission 1 unit PRBC transfused Iron studies show iron 348, TIBC 407, percent saturation 85.5, transferrin 291, ferritin 31.5. GI consulted, recommend EGD and colonoscopy once heart failure symptoms have improved, patient refusing #. Hypervolemic Hyponatremia, improving Na 131 on admission Continue Lasix 40 mg IV BID Monitor BMP #. Oral thrush Continue Nystatin 500,000 unit p.o. 4 times daily #. Nausea and vomiting Continue ondansetron 4 mg p.o. 3 times daily as needed Chronic: #. CKD stage IIIb #. Hypertension #. Hyperlipidemia #. Non insulin dependent Diabetes mellitus #. Anxiety/depression #. Neuropathy Continue amlodipine 10 mg p.o. at bedtime, aspirin 81 mg p.o. daily, atorvastatin 40 mg p.o. at bedtime, clopidogrel 75 mg p.o. daily, duloxetine 60 mg p.o. daily, gabapentin 100 mg p.o. every 8 hours as needed, labetalol 200 mg p.o. every 8 hours, losartan 100 mg p.o. at bedtime, insulin sliding scale F: None E: Replete as required N: Heart healthy diet GI prophylaxis: Pantoprazole 40 mg PO daily Attestation: I have personally seen and examined the patient with Resident, reviewed the documentation and participated and agree with the assessment and plan as written. Joseph Rusos MD Objective - Vital Signs Vital signs: Vital Signs Temp 98.3 F 10/26/24 16:19 Pulse 71 10/27/24 07:20 Resp 18 10/27/24 07:20 BP 135/55 10/27/24 07:20 Pulse Ox 95 10/27/24 07:20 FiO2 - Labs CBC & Chem 7: 10/27/24 05:58 10/27/24 05:58 Labs: Abnormal Lab Results - Last 24 Hours (Table) 10/26/24 10/26/24 10/26/24 Range/Units 07:31 16:54 20:39 RBC (3.80-5.40) m/uL Hgb (11.4-16.0) gm/dL Hct (34.0-46.0) % MCH (25.0-35.0) pg MCHC (31.0-37.0) g/dL RDW (11.5-15.5) % Sodium (137-145) mmol/L Chloride (98-107) mmol/L BUN (7-17) mg/dL Creatinine (0.52-1.04) mg/dL Glucose (74-99) mg/dL POC Glucose (mg/dL) 182 H 203 H (70-110) mg/dL Iron 348 H (50-170) UG/DL % Saturation 85.50 H (12.00-45.00) 10/27/24 10/27/24 10/27/24 Range/Units 05:58 05:58 07:01 RBC 2.97 L (3.80-5.40) m/uL Hgb 7.1 L (11.4-16.0) gm/dL Hct 24.0 L (34.0-46.0) % MCH 24.0 L (25.0-35.0) pg MCHC 29.8 L (31.0-37.0) g/dL RDW 19.7 H (11.5-15.5) % Sodium 133 L (137-145) mmol/L Chloride 97 L (98-107) mmol/L BUN 20 H (7-17) mg/dL Creatinine 1.40 H (0.52-1.04) mg/dL Glucose 137 H (74-99) mg/dL POC Glucose (mg/dL) 159 H (70-110) mg/dL Iron (50-170) UG/DL % Saturation (12.00-45.00)
--- NOTE | 2024-10-27 11:57 | P.PN ---
Subjective Progress Note Date: 10/27/24 Principal diagnosis: Anemia Pleasant 63-year-old female with a history of heart failure, coronary artery disease status post TAVR, chronic anemia, diabetes mellitus, hyperlipidemia, hypertension, breast cancer, and obesity who presented to the emergency department with complaints of increased swelling in her lower extremities and shortness of breath with exertion. She was admitted for heart failure and lower extremity edema. She was noted to have microcytic anemia and gastroenterology was consulted. Patient denies any black stool or blood in her stool, no abdominal pain, nausea or vomiting. States that she has history of anemia and in February 2024 she was to undergo a TAVR and was noted to be anemic and was transfused with 2 units of blood and underwent upper endoscopy and colonoscopy while in [place]. She states she believes that they found a little vessel in the colon that had likely been bleeding and they had cauterized it. She does take aspirin and Plavix for her heart disease. She follows with Dr. Swain for history of breast cancer and anemia and takes oral iron. Hemoglobin on admission was 6.4 platelet count was 240,000, noted to have microcytic anemia. He was transfused with 1 unit of blood with repeat hemoglobin today at 7.3. Patient currently states she has no abdominal pain, nausea or vomiting. No shortness of breath at rest but some with exertion. 10/27/2024 Patient seen and examined as a follow-up. She is currently sitting up in the recliner. States she is feeling better today. Denies any blood in her stool or black stool. No abdominal pain nausea or vomiting. Hemoglobin 7.1 platelet count 259,000. Iron studies reviewed and do not appear to be consistent with iron deficiency anemia. Patient still declines any desire for endoscopic evaluation for anemia. Objective - Vital Signs Vital signs: Vital Signs Temp 98.3 F 10/26/24 16:19 Pulse 75 10/27/24 05:00 Resp 16 10/27/24 05:00 BP 127/48 10/27/24 05:00 Pulse Ox 97 10/27/24 05:00 FiO2 Intake & Output 10/26/24 10/26/24 10/27/24 06:59 18:59 06:59 Intake Total 310 Balance 310 Weight 102.512 kg Intake: Blood Product 310 Rc Irr As1 Unit 310 [id number] - Exam General appearance: The patient is alert, oriented, appears in no acute distress. Morbidly obese. HET: Head is normocephalic and atraumatic. Conjunctiva pink. Sclera anicteric. Neck: Supple without lymphadenopathy. Abdomen: Soft, nontender, nondistended. Extremities: Normal skin color and turgor. Lower extremity edema. Skin: No rashes, no jaundice Neurological: No focal deficits. Alert and oriented. - Labs CBC & Chem 7: 10/27/24 05:58 10/27/24 05:58 Labs: Abnormal Lab Results - Last 24 Hours (Table) 10/26/24 10/26/24 10/26/24 Range/Units 07:21 07:21 07:31 RBC 3.09 L (3.80-5.40) m/uL Hgb 7.3 L (11.4-16.0) gm/dL Hct 24.8 L (34.0-46.0) % MCH 23.8 L (25.0-35.0) pg MCHC 29.7 L (31.0-37.0) g/dL RDW 19.6 H (11.5-15.5) % Lymphocytes # 0.8 L (1.0-4.8) k/uL Sodium 132 L (137-145) mmol/L Chloride (98-107) mmol/L BUN 19 H (7-17) mg/dL Creatinine 1.32 H (0.52-1.04) mg/dL Glucose 139 H (74-99) mg/dL POC Glucose (mg/dL) (70-110) mg/dL Iron 348 H (50-170) UG/DL % Saturation 85.50 H (12.00-45.00) Total Bilirubin 2.8 H (0.2-1.3) mg/dL Total Protein 5.9 L (6.3-8.2) g/dL Albumin 3.3 L (3.5-5.0) g/dL 10/26/24 10/26/24 10/27/24 Range/Units 16:54 20:39 05:58 RBC 2.97 L (3.80-5.40) m/uL Hgb 7.1 L (11.4-16.0) gm/dL Hct 24.0 L (34.0-46.0) % MCH 24.0 L (25.0-35.0) pg MCHC 29.8 L (31.0-37.0) g/dL RDW 19.7 H (11.5-15.5) % Lymphocytes # (1.0-4.8) k/uL Sodium (137-145) mmol/L Chloride (98-107) mmol/L BUN (7-17) mg/dL Creatinine (0.52-1.04) mg/dL Glucose (74-99) mg/dL POC Glucose (mg/dL) 182 H 203 H (70-110) mg/dL Iron (50-170) UG/DL % Saturation (12.00-45.00) Total Bilirubin (0.2-1.3) mg/dL Total Protein (6.3-8.2) g/dL Albumin (3.5-5.0) g/dL 10/27/24 Range/Units 05:58 RBC (3.80-5.40) m/uL Hgb (11.4-16.0) gm/dL Hct (34.0-46.0) % MCH (25.0-35.0) pg MCHC (31.0-37.0) g/dL RDW (11.5-15.5) % Lymphocytes # (1.0-4.8) k/uL Sodium 133 L (137-145) mmol/L Chloride 97 L (98-107) mmol/L BUN 20 H (7-17) mg/dL Creatinine 1.40 H (0.52-1.04) mg/dL Glucose 137 H (74-99) mg/dL POC Glucose (mg/dL) (70-110) mg/dL Iron (50-170) UG/DL % Saturation (12.00-45.00) Total Bilirubin (0.2-1.3) mg/dL Total Protein (6.3-8.2) g/dL Albumin (3.5-5.0) g/dL Assessment and Plan (1) Microcytic anemia Narrative/Plan: 63-year-old female presenting with dyspnea on exertion and lower extremity swelling with history of heart failure currently being treated for acute exacerbation noted to be anemic with a microcytic anemia. Gastroenterology following to evaluate for acute blood loss anemia. Patient has a history of anemia with previous blood transfusion status post EGD and colonoscopy less than a year ago with reported likely AVM status post cautery. Patient offered upper endoscopy and colonoscopy as part of an evaluation for GI bleed once symptoms are improved from her CHF exacerbation. Again patient could have acute blood loss anemia secondary to history of AVMs. Patient is declining any endoscopic evaluation. Iron studies reviewed, do not appear to be consistent with iron deficiency anemia, Treat symptomatically and transfuse as needed. Patient can follow-up with gastroenterology in outpatient setting if she changes her mind and would like to undergo endoscopic evaluation. Current Visit: Yes Status: Acute Code(s): D50.9 - IRON DEFICIENCY ANEMIA, UNSPECIFIED SNOMED Code(s): 222717909 (2) Lower extremity edema Current Visit: Yes Status: Acute Code(s): R60.0 - LOCALIZED EDEMA SNOMED Code(s): 760099896 (3) Coronary artery disease Current Visit: Yes Status: Acute Code(s): I25.10 - ATHSCL HEART DISEASE OF [place] CORONARY ARTERY W/O ANG PCTRS SNOMED Code(s): 16839114 (4) Diabetes mellitus Current Visit: Yes Status: Acute Code(s): E11.9 - TYPE 2 DIABETES MELLITUS WITHOUT COMPLICATIONS SNOMED Code(s): 43919121 (5) Morbid obesity Current Visit: Yes Status: Acute Code(s): E66.01 - MORBID (SEVERE) OBESITY DUE TO EXCESS CALORIES SNOMED Code(s): 421325915 (6) Congestive heart failure Current Visit: Yes Status: Acute Code(s): I50.9 - HEART FAILURE, UNSPECIFIED SNOMED Code(s): 02019901 (7) Shortness of breath Current Visit: Yes Status: Acute Code(s): R06.02 - SHORTNESS OF BREATH SNOMED Code(s): 710660888 Plan: 1. Continue symptomatic and supportive care 2. Diet as tolerated 3. Daily CBC, transfuse for hemoglobin less than 7 4. Protonix 40 mg daily for GI prophylaxis 5. Patient offered endoscopic evaluation and is declining. Certainly can follow-up outpatient if patient remains anemic or has any melena. 6. Recommend follow-up with hematology Thank you for this consultation, gastroenterology will sign off at this time. Dr. Loly Anderson I agree with the dictator's note, documented as a scribe by Manuela Luna.
[2024-10-27 12:11] LABS: Glucose,Whole Blood 174 mg/dL (70-110)
[2024-10-27] MEDS: DAPAGLIFLOZIN PROPANEDIOL 10 MG TABLET PO SCH (14:24)
[2024-10-27] MEDS: SODIUM FERRIC GLUCONAT-SUCROSE 125 MG in SODIUM CHLORIDE 0.9% 100 ML IVPB ONE (14:24)
[2024-10-27] MEDS: hydrALAZINE HCL 25 MG TAB PO SCH (14:24)
[2024-10-27] MEDS: ISOSORBIDE MONONITRATE ER 30 MG TAB.ER.24H PO SCH (15:10)
--- NOTE | 2024-10-27 16:41 | P.CRDCN ---
History of Present Illness Consult date: 10/26/24 History of present illness: HISTORY OF PRESENTING ILLNESS: Patient is a 63-year-old female with past medical history of breast cancer, macular degeneration, type diabetes, dyslipidemia, hypertension, She presented to the hospital because of new worsening shortness of breath along with increased worsening swelling in the legs for last 3 to 4 days. Cardiology was consulted for CHF evaluation. She has had prior history of aortic stenosis that is post TAVR in April 2025 at in [place]. In April 2024 she was admitted to [facility] because of concerns of possible CVA, confusion, and type II NSTEMI. EKG shows sinus rhythm with nonspecific ST and T wave changes in inferolateral leads. Vitals on admission T 98 F, [place] 87 bpm, RR 18, BP 151/73, oxygen saturation 96% on room air Chest x-ray shows cardiomegaly and mild pulmonary vascular congestion Labs on admission show WBC 8.2, hemoglobin 6.4, MCV 77.9, RDW 19.6, platelet count 243, APTT 21.7, sodium 131, potassium 3.8, BUN 20, creatinine 1.28 magnesium 1.6, troponin I 0.023, NT proBNP 6230 Prior cardiac testing: MEEK from April 2024 shows no evidence of thrombus in LA or left atrial a ppendage, bioprosthetic TAVR valve with mild paravalvular leak, moderate calcific plaque noticed on descending aorta, no significant valve dysfunction with global normal LV size systolic function. Echocardiogram from 2023, shows EF 55 to 60%, normal ventricle size and systolic function with left ventricular hypertrophy, dilated right ventricle with severe pulmonary hypertension, moderate MS, mild TR, TAVR valve with normal function Echocardiogram from this admission shows an EF of 55 to 60%, mild concentric LVH, moderate LA dilatation, mild to moderate mitral stenosis because of calcific degeneration of mitral valve and mitral annular calcification, bioprosthetic aortic valve with mean gradient of 30 neurology, mild paravalvular leak. Mild tricuspid regurgitation. REVIEW OF SYSTEMS: 14 point review of system is negative except what is mentioned above in HPI. PHYSICAL EXAMINATION: Neck: Brisk carotid upstroke, elevated jugular venous distention. Lungs: Diminished breath sounds with mild crackles audible bilateral lung barrientos Heart: Regular rate and rhythm, mild systolic murmur audible, S1-S2 audible, Abdomen: Soft nontender, positive bowel sounds. Extremities: 2-3+ pitting edema in bilateral lower extremity Neuro: Alert, oritented, no focal deficits. Detailed neuro exam was not performed. ASSESSMENT: # Acute on chronic HFpEF exacerbation # Acute hypoxic respiratory failure # Chronic anemia likely anemia of chronic disease # History of severe s/p TAVR. Mild paravalvular leak # Essential hypertension # Dyslipidemia # Diabetes # Morbid obesity PLAN: Continue aspirin 81 mg, Lipitor 40 mg Continue Lasix 40 mg IV twice daily Start Farxiga 10 mg daily Continue Coreg 12.5 g twice daily Severo Rosales MD, FACC, RPVI Thank you for allowing [facility] to participate in this patient's care. Feel free to reach out in case of any followup questions. Past Medical History Past Medical History: Cancer, Heart Failure, Diabetes Mellitus, Hyperlipidemia, Hypertension Additional Past Medical History / Comment(s): breast cancer, macular edema with hemorrhage bilateral. "episode of heart failure in the past" History of Any Multi-Drug Resistant Organisms: None Reported Past Surgical History: Section, Cholecystectomy Additional Past Surgical History / Comment(s): left lumpectomy x 2. right mediport insertion Past Anesthesia/Blood Transfusion Reactions: No Reported Reaction Past Psychological History: Anxiety, Depression Smoking Status: Never smoker Past Alcohol Use History: None Reported Past Drug Use History: None Reported - Past Family History Father Additional Family Medical History / Comment(s): No health hx 91 from pneumonia Mother Additional Family Medical History / Comment(s): No health hx after fall age 96 Medications and Allergies Home Medications Medication Instructions Recorded Confirmed Type DULoxetine HCL [Cymbalta] 60 mg PO DAILY 05/09/22 10/26/24 History Diphenoxylate HCl/Atropine 1 tab PO QID PRN 05/09/22 10/26/24 History [Lomotil 2.5-0.025 mg Tablet] sitaGLIPtin [Januvia] 50 mg PO DAILY 05/09/22 10/26/24 History Calcium Carb/Mag Ox/Zinc Sulf 1 tab PO DAILY 05/19/23 10/26/24 History [Ypy-Dar-Xgqj 334-134-5 mg Tab] Vitamin B Complex 1 cap PO DAILY 05/19/23 10/26/24 History Aspirin 81 mg PO DAILY 05/08/24 10/26/24 History Bumetanide [BUMEX] 1 mg PO DAILY 05/08/24 10/26/24 History Gabapentin [Neurontin] 100 mg PO Q8H PRN 05/08/24 10/26/24 History Pantoprazole Sodium [Protonix] 40 mg PO DAILY 05/08/24 10/26/24 History Semaglutide [Rybelsus] 3 mg PO DAILY 05/08/24 10/26/24 History Atorvastatin [Lipitor] 40 mg PO HS #30 tab 05/12/24 10/26/24 Rx Clopidogrel [Plavix] 75 mg PO DAILY #30 tab 05/12/24 10/26/24 Rx Labetalol [Trandate] 200 mg PO Q8H #90 tab 05/12/24 10/26/24 Rx Losartan Potassium [Cozaar] 100 mg PO HS #30 tab 05/12/24 10/26/24 Rx Cholecalciferol (Vitamin D3) 125 mcg PO DAILY 10/26/24 10/26/24 History [Vitamin D3 (125 MCG = 5,000 IU)] Mv-Mn/Om3/Dha/Epa/Fish/Lut/Jermaine 1 cap PO DAILY 10/26/24 10/26/24 History [Ocuvite Adult 50 Plus Softgel] Vitamin E (Dl,Tocopheryl Acet) 45 mg PO DAILY 10/26/24 10/26/24 History [Vitamin E (100 Iu = 45MG)] amLODIPine [Norvasc] 10 mg PO HS 10/26/24 10/26/24 History Allergies Allergy/AdvReac Type Severity Reaction Status Date / Time adhesive tape Allergy Itching Verified 10/26/24 06:57 morphine Allergy Swelling & Verified 10/26/24 06:57 hives Penicillins Allergy Rash/Hives Verified 10/26/24 06:57 ALEXIS Inhibitors AdvReac Cough Verified 10/26/24 06:57 Physical Exam Vitals: Vital Signs Temp Pulse Resp BP Pulse Ox 10/27/24 16:28 98.4 F 84 18 95 10/27/24 14:46 82 13 148/66 96 10/27/24 14:23 79 18 148/66 95 10/27/24 12:08 79 18 145/61 97 10/27/24 10:45 77 18 96 10/27/24 07:20 71 18 135/55 95 10/27/24 05:00 75 16 127/48 97 10/27/24 01:17 76 16 139/58 97 10/26/24 22:00 75 18 131/56 99 10/26/24 19:43 79 18 133/56 95 Results 10/27/24 05:58 10/27/24 05:58 CBC 10/27/24 Range/Units 05:58 WBC 8.5 (3.8-10.6) k/uL RBC 2.97 L (3.80-5.40) m/uL Hgb 7.1 L (11.4-16.0) gm/dL Hct 24.0 L (34.0-46.0) % Plt Count 259 (150-450) k/uL Comprehensive Metabolic Panel 10/27/24 Range/Units 05:58 Sodium 133 L (137-145) mmol/L Potassium 3.5 (3.5-5.1) mmol/L Chloride 97 L (98-107) mmol/L Carbon Dioxide 25 (22-30) mmol/L BUN 20 H (7-17) mg/dL Creatinine 1.40 H (0.52-1.04) mg/dL Glucose 137 H (74-99) mg/dL Calcium 8.5 (8.4-10.2) mg/dL Current Medications Generic Name Dose Route Start Last Admin Trade Name Freq PRN Reason Stop Dose Admin Acetaminophen 650 mg 10/26/24 16:38 10/27/24 00:54 Acetaminophen Tab 325 Mg Tab PO 650 mg Q6HR PRN Administration Fever and/ or Pain Amlodipine Besylate 5 mg 10/28/24 07:00 Amlodipine 5 Mg Tab PO DAILY@0700 LEATHA Aspirin 81 mg 10/26/24 09:00 10/27/24 08:11 Aspirin 81 Mg PO 81 mg DAILY LEATHA Administration Atorvastatin Calcium 40 mg 10/25/24 22:15 10/26/24 20:52 Atorvastatin 40 Mg Tab PO 40 mg HS LEATHA Administration Carvedilol 12.5 mg 10/27/24 17:30 Carvedilol 12.5 Mg Tab PO BID-W/MEALS LEATHA Dapagliflozin 10 mg 10/27/24 12:45 10/27/24 14:24 Dapagliflozin Propanediol 10 Mg Tablet PO 10 mg DAILY LEATHA Administration Dextrose/Water 25 ml 10/26/24 13:55 Dextrose 50% Syringe 50 Ml IVP PER PROTOCOL PRN Hypoglycemia Protocol Dextrose/Water 50 ml 10/26/24 13:55 Dextrose 50% Syringe 50 Ml IVP PER PROTOCOL PRN Hypoglycemia Protocol Duloxetine HCl 60 mg 10/26/24 09:00 10/27/24 08:11 Duloxetine Hcl 60 Mg Capsule.Dr PO 60 mg DAILY LEATHA Administration Furosemide 40 mg 10/26/24 09:00 10/27/24 08:12 Furosemide 10 Mg/Ml 4 Ml Vial IVP 40 mg Q12HR LEATHA Administration Gabapentin 100 mg 10/25/24 22:06 Gabapentin 100 Mg Cap PO Q8H PRN Pain Hydralazine HCl 25 mg 10/27/24 13:00 10/27/24 14:24 Hydralazine Hcl 25 Mg Tab PO 25 mg TID LEATHA Administration Insulin Human Lispro 0 unit 10/26/24 17:30 10/27/24 12:17 Insulin Lispro (Humalog) 100 Unit/Ml 10 Ml Vl SQ 2 unit ACHS LEATHA Administration Protocol Isosorbide Mononitrate 30 mg 10/27/24 12:45 10/27/24 15:10 Isosorbide Mononitrate Er 30 Mg Tab.Er.24h PO Not Given DAILY LEATHA Naloxone HCl 0.2 mg 10/25/24 22:23 Naloxone 0.4 Mg/Ml 1 Ml Vial IV Q2M PRN Opioid Reversal Nystatin 500,000 unit 10/25/24 22:45 10/27/24 14:24 Nystatin 100,000 Unit/Ml Susp 500,000 Unit/5 Ml Cup PO 500,000 unit QID LEATHA Administration Protocol Ondansetron HCl 4 mg 10/25/24 22:06 Ondansetron Odt 4 Mg Tab PO TID PRN Nausea And Vomiting Pantoprazole Sodium 40 mg 10/26/24 09:00 10/27/24 08:11 Pantoprazole 40 Mg Tablet PO 40 mg DAILY LEATHA Administration 10/27/24 05:58 10/27/24 05:58
[2024-10-27 16:56] LABS: Glucose,Whole Blood 174 mg/dL (70-110)
[2024-10-27] MEDS: carvediloL 12.5 MG TAB PO SCH (17:28)
--- NOTE | 2024-10-27 19:24 | P.PN ---
Subjective Progress Note Date: 10/27/24 HISTORY OF PRESENTING ILLNESS: Patient is a 63-year-old female with past medical history of breast cancer, macular degeneration, type diabetes, dyslipidemia, hypertension, She presented to the hospital because of new worsening shortness of breath along with increased worsening swelling in the legs for last 3 to 4 days. Cardiology was consulted for CHF evaluation. She has had prior history of aortic stenosis that is post TAVR in April 2025 at in [place]. In April 2024 she was admitted to [facility] because of concerns of possible CVA, confusion, and type II NSTEMI. EKG shows sinus rhythm with nonspecific ST and T wave changes in inferolateral leads. Vitals on admission T 98 F, DE 87 bpm, RR 18, BP 151/73, oxygen saturation 96% on room air Chest x-ray shows cardiomegaly and mild pulmonary vascular congestion Labs on admission show WBC 8.2, hemoglobin 6.4, MCV 77.9, RDW 19.6, platelet count 243, APTT 21.7, sodium 131, potassium 3.8, BUN 20, creatinine 1.28 magnesium 1.6, troponin I 0.023, NT proBNP 6230 Prior cardiac testing: MEEK from April 2024 shows no evidence of thrombus in LA or left atrial appendage, bioprosthetic TAVR valve with mild paravalvular leak, moderate calcific plaque noticed on descending aorta, no significant valve dysfunction with global normal LV size systolic function. Echocardiogram from 2023, shows EF 55 to 60%, normal ventricle size and systolic function with left ventricular hypertrophy, dilated right ventricle with severe pulmonary hypertension, moderate MS, mild TR, TAVR valve with normal function Echocardiogram from this admission shows an EF of 55 to 60%, mild concentric LVH, moderate LA dilatation, mild to moderate mitral stenosis because of calcific degeneration of mitral valve and mitral annular calcification, bioprosthetic aortic valve with mean gradient of 30 neurology, mild paravalvular leak. Mild tricuspid regurgitation. Progress note 10/27/2024 BP 166/74 Creatinine 1.4 BUN 20, creatinine appears stable. Hemoglobin 7.1. HbA1c 5.9, NT-proBNP 6230, iron is high, TIBC is high, iron saturation is high, transferrin levels are normal, ferritin level is low at 31. PHYSICAL EXAMINATION: Neck: Brisk carotid upstroke, elevated jugular venous distention. Lungs: Diminished breath sounds with mild crackles audible bilateral lung barrientos Heart: Regular rate and rhythm, mild systolic murmur audible, S1-S2 audible, Abdomen: Soft nontender, positive bowel sounds. Extremities: 2-3+ pitting edema in bilateral lower extremity Neuro: Alert, oritented, no focal deficits. Detailed neuro exam was not performed. ASSESSMENT: # Acute on chronic HFpEF exacerbation # Acute hypoxic respiratory failure # Chronic anemia likely anemia of chronic disease # History of severe s/p TAVR. Mild paravalvular leak # Essential hypertension # Dyslipidemia # Diabetes # Morbid obesity PLAN: Start Imdur 25 mg daily, hydralazine 30 mg daily Reduce amlodipine to 5 mg to reduce swelling in the legs Continue aspirin 81 mg, Lipitor 40 mg Continue Lasix 40 mg IV twice daily Continue Farxiga 10 mg daily Continue Coreg 12.5 mg twice daily Give 1 dose of IV iron. Start p.o. iron supplementation Highly recommend leg elevation and compression socks. Objective - Vital Signs Vital signs: Vital Signs Temp 98.6 F 10/27/24 16:58 Pulse 88 10/27/24 16:58 Resp 16 10/27/24 16:58 BP 166/74 10/27/24 16:58 Pulse Ox 97 10/27/24 16:58 FiO2 Intake & Output 10/27/24 10/27/24 10/28/24 06:59 18:59 06:59 Intake Total 130 Balance 130 Weight 102.512 kg Intake: IV 10 Invasive Line 1 5 Invasive Line 2 5 Oral 120 Other: Voiding Method External Catheter - Labs CBC & Chem 7: 10/27/24 05:58 10/27/24 05:58 Labs: Abnormal Lab Results - Last 24 Hours (Table) 10/26/24 10/27/24 10/27/24 Range/Units 20:39 05:58 05:58 RBC 2.97 L (3.80-5.40) m/uL Hgb 7.1 L (11.4-16.0) gm/dL Hct 24.0 L (34.0-46.0) % MCH 24.0 L (25.0-35.0) pg MCHC 29.8 L (31.0-37.0) g/dL RDW 19.7 H (11.5-15.5) % Sodium 133 L (137-145) mmol/L Chloride 97 L (98-107) mmol/L BUN 20 H (7-17) mg/dL Creatinine 1.40 H (0.52-1.04) mg/dL Glucose 137 H (74-99) mg/dL POC Glucose (mg/dL) 203 H (70-110) mg/dL 10/27/24 10/27/24 10/27/24 Range/Units 07:01 12:10 16:54 RBC (3.80-5.40) m/uL Hgb (11.4-16.0) gm/dL Hct (34.0-46.0) % MCH (25.0-35.0) pg MCHC (31.0-37.0) g/dL RDW (11.5-15.5) % Sodium (137-145) mmol/L Chloride (98-107) mmol/L BUN (7-17) mg/dL Creatinine (0.52-1.04) mg/dL Glucose (74-99) mg/dL POC Glucose (mg/dL) 159 H 174 H 174 H (70-110) mg/dL
[2024-10-27] MEDS: IRON PS CMPLX/VIT B12/FA 1 EACH CAP PO SCH (19:47)
[2024-10-27 20:34] LABS: Glucose,Whole Blood 149 mg/dL (70-110)
[2024-10-28 06:00] LABS: Glucose,Whole Blood 184 mg/dL (70-110)
[2024-10-28] MEDS: amLODIPine 5 MG TAB PO SCH (06:26)
[2024-10-28 07:59] LABS: Anisocytosis Moderate; HCT 24.1 % (34.0-46.0); Hypochromasia Marked; MCH 23.8 pg (25.0-35.0); MCHC 29.3 g/dL (31.0-37.0); MCV 81.3 fL (80.0-100.0); Microcytosis Slight; Platelet Count 279 k/uL (150-450); Poikilocytosis Slight; RBC 2.96 m/uL (3.80-5.40); WBC 9.2 k/uL (3.8-10.6)
[2024-10-28 08:15] LABS: African American GFR (CKD) 45 (>60 ml/min/1.73 sqM); Anion Gap 9 mmol/L; Blood Urea Nitrogen 22 mg/dL (7-17); Calcium 8.4 mg/dL (8.4-10.2); Carbon Dioxide 25 mmol/L (22-30); Chloride 98 mmol/L (98-107); Glucose 140 mg/dL (74-99); Non-African American GFR(CKD) 39 (>60 ml/min/1.73 sqM); Potassium 3.8 mmol/L (3.5-5.1); Sodium 132 mmol/L (137-145)
[2024-10-28] MEDS: carvediloL 12.5 MG TAB PO STA (10:11)
[2024-10-28] MEDS: LOSARTAN 25 MG TAB PO SCH (10:14)
[2024-10-28 11:13] LABS: Glucose,Whole Blood 169 mg/dL (70-110)
[2024-10-28] MEDS: FUROSEMIDE 10 MG/ML 2 ML VIAL IV ONE (12:39)
--- NOTE | 2024-10-28 13:39 | P.PN ---
Subjective Progress Note Date: 10/28/24 Patient is a 63 year old female with past medical history of breast cancer, macular edema diabetes mellitus, lipidemia, hypertension, newly diagnosed CHF presented to the ED with lower extremity edema. Patient reports that she started noticing swelling on her legs 3 days ago. Initially the swelling was only on the left foot, gradually progressed to the entire left lower extremity and then she also started noticing swelling on her right lower extremity. Currently she states that legs are so swollen and heavy that she is not able to lift them. She denies any pain. She mentions that she has been newly diagnosed with CHF last summer. She is currently maintained on Bumex and denies missing any doses. Associated with that she has experienced shortness of breath productive cough with clear phlegm. Additionally she had a TAVR done recently. 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 She has also been worked up for anemia and is currently on aspirin and Plavix. She denies hematemesis, melena. Denies fever, chills, chest pain, palpitations, abdominal pain, nausea, vomiting, hematuria, dysuria, hematochezia, melena, headache, slurred speech, numbness, tingling, dizziness, lightheadedness, blurred vision, double vision. ED documentation reviewed. In the ED patient was treated with atorvastatin, clopidogrel, duloxetine, furosemide, labetalol, linagliptin, losartan, nystatin, pantoprazole. Vitals on admission T 98 F, CO 87 bpm, RR 18, BP 151/73, oxygen saturation 96% on room air EKG independently interpreted as sinus rhythm, rate 88 bpm, QTc 417 ms Chest x-ray shows cardiomegaly and mild pulmonary vascular congestion Echocardiogram shows EF 55 to 60%, normal ventricle size and systolic function with left ventricular hypertrophy, dilated right ventricle with severe pulmonary hypertension, moderate MS, mild TR, TAVR valve with normal function Labs on admission show WBC 8.2, hemoglobin 6.4, MCV 77.9, RDW 19.6, platelet count 243, APTT 21.7, sodium 131, potassium 3.8, BUN 20, creatinine 1.28 m agnesium 1.6, troponin I 0.023, NT proBNP 6230 UA shows 1+ protein, trace blood, large leukocyte esterase, 24 WBC, rare squamous epithelial cells, occasional bacteria, 3 hyaline casts, rare budding yeast Respiratory panel is negative 3/7/25: Patient seen and examined at bedside today. Vital signs are stable, patient is on room air. Labs today show hemoglobin 7.1, RDW 19.7, MCV 80.6, sodium 133, BUN 20, creatinine 1.4. Iron studies show iron 348, TIBC 407, percent saturation 85.5, transferrin 291, ferritin 31.5. 10/28. Patient seen examined. Blood work done this morning showed WBC 9.2, hemoglobin 7, platelet count 279, sodium 132, potassium 3.8, BUN 22, creatinine 1.41. Denies any shortness of breath at rest. Slight swelling of lower ex tremities REVIEW OF SYSTEMS: CONSTITUTIONAL: No fever, no malaise,. CARDIOVASCULAR: No chest pain, no palpitations, no syncope. PULMONARY: As mentioned above GASTROINTESTINAL: No diarrhea, no nausea, no vomiting, no abdominal pain. NEUROLOGICAL: No headaches, no weakness, PHYSICAL EXAMINATION: GENERAL: The patient is alert and oriented x3, not in any acute distress. Well developed, well nourished. HEENT: Pupils are round and equally reacting to light. EOMI. No scleral icterus. No conjunctival pallor. Normocephalic, atraumatic. No pharyngeal erythema. No thyromegaly. CARDIOVASCULAR: S1 and S2 present. No murmurs, rubs, or gallops. PULMONARY: Chest is clear to auscultation, no wheezing or crackles. ABDOMEN: Soft, nontender, nondistended, normoactive bowel sounds. No palpable organomegaly. MUSCULOSKELETAL: No joint swelling or deformity. EXTREMITIES: 1+ pitting edema of lower extremities bilaterally NEUROLOGICAL: Gross neurological examination did not reveal any focal deficits. SKIN: No rashes. Assessment and plan #. Acute on chronic heart failure with preserved EF #. Lower extremity edema bilaterally NT-pro-BNP 6230 Chest x-ray shows cardiomegaly and mild pulmonary vascular congestion Echocardiogram shows EF 55 to 60%, normal ventricle size and systolic function with left ventricular hypertrophy, dilated right ventricle with severe pulmonary hypertension, moderate MS, mild TR, TAVR valve with normal function Continue furosemide 40 mg IVP every 12 hours, Continue Coreg Cardiology following #. Microcytic anemia, likely acute blood loss anemia due to patient's history of AVM Monitor CBC Iron studies show iron 348, TIBC 407, percent saturation 85.5, transferrin 291, ferritin 31.5. GI consulted, recommend EGD and colonoscopy once heart failure symptoms have improved, patient refusing #. Hypervolemic Hyponatremia, improving Na 131 on admission Continue Lasix 40 mg IV BID Monitor BMP #. Oral thrush Continue Nystatin 500,000 unit p.o. 4 times daily #. Nausea and vomiting Continue ondansetron 4 mg p.o. 3 times daily as needed Chronic: #. CKD stage IIIb #. Hypertension #. Hyperlipidemia #. Non insulin dependent Diabetes mellitus #. Anxiety/depression #. Neuropathy Continue Norvasc, aspirin 81 mg p.o. daily, atorvastatin 40 mg p.o. at bedtime, Plavix on hold, duloxetine 60 mg p.o. daily, gabapentin 100 mg p.o. every 8 hours as needed, losartan 12.5 mg p.o. at bedtime, insulin sliding scale Labs and medication were reviewed.. Continue same treatment. Continue with symptomatic treatment. Resume home medication. Monitor labs and vitals. DVT and GI prophylaxis. Further recommendations as per clinical course of the patient Dictation was produced using [employer] dictation software. please excuse any grammatical, word or spelling errors. Objective - Vital Signs Vital signs: Vital Signs Temp 97.9 F 10/27/24 20:00 Pulse 87 10/28/24 03:24 Resp 16 10/28/24 03:24 BP 151/69 10/28/24 03:24 Pulse Ox 97 10/28/24 03:24 FiO2 Intake & Output 10/27/24 10/28/24 10/28/24 18:59 06:59 18:59 Intake Total 130 780 Output Total 1900 Balance 130 -1120 Weight 102.512 kg 102.5 kg Intake: IV 10 Invasive Line 1 5 Invasive Line 2 5 Oral 120 780 Output: Urine 1900 Other: Voiding Method External Catheter External Catheter - Labs CBC & Chem 7: 10/28/24 06:38 10/28/24 06:38 Labs: Abnormal Lab Results - Last 24 Hours (Table) 10/27/24 10/27/24 10/27/24 Range/Units 12:10 16:54 20:30 RBC (3.80-5.40) m/uL Hgb (11.4-16.0) gm/dL Hct (34.0-46.0) % MCH (25.0-35.0) pg MCHC (31.0-37.0) g/dL RDW (11.5-15.5) % Sodium (137-145) mmol/L BUN (7-17) mg/dL Creatinine (0.52-1.04) mg/dL Glucose (74-99) mg/dL POC Glucose (mg/dL) 174 H 174 H 149 H (70-110) mg/dL 10/28/24 10/28/24 10/28/24 Range/Units 05:59 06:38 06:38 RBC 2.96 L (3.80-5.40) m/uL Hgb 7.0 L (11.4-16.0) gm/dL Hct 24.1 L (34.0-46.0) % MCH 23.8 L (25.0-35.0) pg MCHC 29.3 L (31.0-37.0) g/dL RDW 20.0 H (11.5-15.5) % Sodium 132 L (137-145) mmol/L BUN 22 H (7-17) mg/dL Creatinine 1.41 H (0.52-1.04) mg/dL Glucose 140 H (74-99) mg/dL POC Glucose (mg/dL) 184 H (70-110) mg/dL
[2024-10-28 16:17] LABS: Glucose,Whole Blood 132 mg/dL (70-110)
[2024-10-28] MEDS: carvediloL 12.5 MG TAB PO SCH (17:22)
[2024-10-28 20:03] LABS: Glucose,Whole Blood 203 mg/dL (70-110)
[2024-10-28] MEDS: FUROSEMIDE 10 MG/ML 10 ML VIAL IV SCH (20:56)
[2024-10-29 06:24] LABS: Glucose,Whole Blood 150 mg/dL (70-110)
[2024-10-29 11:44] LABS: Anisocytosis Moderate; Basophils % (A) 0 %; Eosinophils # (A) 0.3 k/uL (0-0.7); Eosinophils % (A) 3 %; HCT 27.2 % (34.0-46.0); HGB 7.9 gm/dL (11.4-16.0); Hypochromasia Marked; Lymphocytes # (A) 0.8 k/uL (1.0-4.8); Lymphocytes % (A) 8 %; MCH 23.6 pg (25.0-35.0); MCHC 29.1 g/dL (31.0-37.0); MCV 80.9 fL (80.0-100.0); Mean Platelet Volume 7.4; Microcytosis Slight; Monocytes # (A) 0.7 k/uL (0-1.0); Monocytes % (A) 7 %; Neutrophils # (A) 8.1 k/uL (1.3-7.7); Neutrophils % (A) 81 %; Platelet Count 344 k/uL (150-450); Poikilocytosis Slight; RBC 3.36 m/uL (3.80-5.40); RDW 20.5 % (11.5-15.5); WBC 9.9 k/uL (3.8-10.6)
[2024-10-29 11:50] LABS: Glucose,Whole Blood 181 mg/dL (70-110)
[2024-10-29] MEDS: GABAPENTIN 100 MG CAP PO PRN (11:59)
[2024-10-29 12:04] LABS: ALT 17 U/L (4-34); AST 28 U/L (14-36); African American GFR (CKD) 42 (>60 ml/min/1.73 sqM); Albumin 3.5 g/dL (3.5-5.0); Alkaline Phosphatase 67 U/L (38-126); Anion Gap 11 mmol/L; Blood Urea Nitrogen 22 mg/dL (7-17); Calcium 9.1 mg/dL (8.4-10.2); Carbon Dioxide 26 mmol/L (22-30); Chloride 95 mmol/L (98-107); Glucose 160 mg/dL (74-99); Non-African American GFR(CKD) 36 (>60 ml/min/1.73 sqM); Potassium 3.9 mmol/L (3.5-5.1); Sodium 132 mmol/L (137-145); Total Bilirubin 0.7 mg/dL (0.2-1.3); Total Protein 6.2 g/dL (6.3-8.2)
--- NOTE | 2024-10-29 13:29 | P.PN ---
Subjective Progress Note Date: 10/29/24 Patient is a 63 year old female with past medical history of breast cancer, macular edema diabetes mellitus, lipidemia, hypertension, newly diagnosed CHF presented to the ED with lower extremity edema. Patient reports that she started noticing swelling on her legs 3 days ago. Initially the swelling was only on the left foot, gradually progressed to the entire left lower extremity and then she also started noticing swelling on her right lower extremity. Currently she states that legs are so swollen and heavy that she is not able to lift them. She denies any pain. She mentions that she has been newly diagnosed with CHF last summer. She is currently maintained on Bumex and denies missing any doses. Associated with that she has experienced shortness of breath productive cough with clear phlegm. Additionally she had a TAVR done recently. 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 She has also been worked up for anemia and is currently on aspirin and Plavix. She denies hematemesis, melena. Denies fever, chills, chest pain, palpitations, abdominal pain, nausea, vomiting, hematuria, dysuria, hematochezia, melena, headache, slurred speech, numbness, tingling, dizziness, lightheadedness, blurred vision, double vision. ED documentation reviewed. In the ED patient was treated with atorvastatin, clopidogrel, duloxetine, furosemide, labetalol, linagliptin, losartan, nystatin, pantoprazole. Vitals on admission T 98 F, NV 87 bpm, RR 18, BP 151/73, oxygen saturation 96% on room air EKG independently interpreted as sinus rhythm, rate 88 bpm, QTc 417 ms Chest x-ray shows cardiomegaly and mild pulmonary vascular congestion Echocardiogram shows EF 55 to 60%, normal ventricle size and systolic function with left ventricular hypertrophy, dilated right ventricle with severe pulmonary hypertension, moderate MS, mild TR, TAVR valve with normal function Labs on admission show WBC 8.2, hemoglobin 6.4, MCV 77.9, RDW 19.6, platelet count 243, APTT 21.7, sodium 131, potassium 3.8, BUN 20, creatinine 1.28 m agnesium 1.6, troponin I 0.023, NT proBNP 6230 UA shows 1+ protein, trace blood, large leukocyte esterase, 24 WBC, rare squamous epithelial cells, occasional bacteria, 3 hyaline casts, rare budding yeast Respiratory panel is negative 3/7/25: Patient seen and examined at bedside today. Vital signs are stable, patient is on room air. Labs today show hemoglobin 7.1, RDW 19.7, MCV 80.6, sodium 133, BUN 20, creatinine 1.4. Iron studies show iron 348, TIBC 407, percent saturation 85.5, transferrin 291, ferritin 31.5. 10/28. Patient seen examined. Blood work done this morning showed WBC 9.2, hemoglobin 7, platelet count 279, sodium 132, potassium 3.8, BUN 22, creatinine 1.41. Denies any shortness of breath at rest. Slight swelling of lower ex tremities 10/29. Patient seen and examined. Vital signs on this morning Show temperature 9 8.1, heart 83, respirations 16, blood pressure 147/76. Still has swelling of lower extremities. Denies any shortness of breath at rest. Complaining of lethargy and weakness REVIEW OF SYSTEMS: CONSTITUTIONAL: No fever, no malaise,. CARDIOVASCULAR: No chest pain, no palpitations, no syncope. PULMONARY: As mentioned above GASTROINTESTINAL: No diarrhea, no nausea, no vomiting, no abdominal pain. NEUROLOGICAL: No headaches, no weakness, PHYSICAL EXAMINATION: GENERAL: The patient is alert and oriented x3, not in any acute distress. Well developed, well nourished. HEENT: Pupils are round and equally reacting to light. EOMI. No scleral icterus. No conjunctival pallor. Normocephalic, atraumatic. No pharyngeal erythema. No thyromegaly. CARDIOVASCULAR: S1 and S2 present. No murmurs, rubs, or gallops. PULMONARY: Chest is clear to auscultation, no wheezing or crackles. ABDOMEN: Soft, nontender, nondistended, normoactive bowel sounds. No palpable organomegaly. MUSCULOSKELETAL: No joint swelling or deformity. EXTREMITIES: 2+ pitting edema of lower extremities bilaterally NEUROLOGICAL: Gross neurological examination did not reveal any focal deficits. SKIN: No rashes. Assessment and plan #. Acute on chronic heart failure with preserved EF #. Lower extremity edema bilaterally NT-pro-BNP 6230 Chest x-ray shows cardiomegaly and mild pulmonary vascular congestion Echocardiogram shows EF 55 to 60%, normal ventricle size and systolic function with left ventricular hypertrophy, dilated right ventricle with severe pulmonary hypertension, moderate MS, mild TR, TAVR valve with normal function Continue furosemide, dose increased to 60 mg every 12 Continue Coreg Cardiology following #. Microcytic anemia, likely acute blood loss anemia due to patient's history of AVM Monitor CBC Iron studies show iron 348, TIBC 407, percent saturation 85.5, transferrin 291, ferritin 31.5. GI consulted, recommend EGD and colonoscopy once heart failure symptoms have improved, patient refusing Hematology-oncology consulted #. Hypervolemic Hyponatremia, improving Monitor BMP #. Oral thrush Continue Nystatin 500,000 unit p.o. 4 times daily #. Nausea and vomiting Continue ondansetron 4 mg p.o. 3 times daily as needed Chronic: #. CKD stage IIIb #. Hypertension #. Hyperlipidemia #. Non insulin dependent Diabetes mellitus #. Anxiety/depression #. Neuropathy Continue Norvasc, aspirin 81 mg p.o. daily, atorvastatin 40 mg p.o. at bedtime, Plavix on hold, duloxetine 60 mg p.o. daily, gabapentin 100 mg p.o. every 8 hours as needed, losartan 12.5 mg p.o. at bedtime, insulin sliding scale Labs and medication were reviewed.. Continue same treatment. Continue with symptomatic treatment. Resume home medication. Monitor labs and vitals. DVT and GI prophylaxis. Further recommendations as per clinical course of the patient Dictation was produced using [employer] dictation software. please excuse any grammatical, word or spelling errors. Objective - Vital Signs Vital signs: Vital Signs Temp 98.1 F 10/29/24 09:35 Pulse 83 10/29/24 09:35 Resp 16 10/29/24 09:35 BP 147/66 10/29/24 09:35 Pulse Ox 96 10/29/24 09:35 FiO2 Intake & Output 10/28/24 10/29/24 10/29/24 17:59 06:59 18:59 Intake Total 180 Output Total Balance 180 Weight Intake: Oral 180 Output: Urine Other: Voiding Method External Catheter # Voids - Labs CBC & Chem 7: 10/29/24 11:04 10/29/24 11:04 Labs: Abnormal Lab Results - Last 24 Hours (Table) 10/28/24 10/28/24 10/28/24 Range/Units 11:11 16:13 20:02 POC Glucose (mg/dL) 169 H 132 H 203 H (70-110) mg/dL 10/29/24 Range/Units 06:22 POC Glucose (mg/dL) 150 H (70-110) mg/dL
[2024-10-29 16:54] LABS: Glucose,Whole Blood 184 mg/dL (70-110)
--- NOTE | 2024-10-29 18:47 | P.PN ---
Subjective Progress Note Date: 10/28/24 HISTORY OF PRESENTING ILLNESS: Patient is a 63-year-old female with past medical history of breast cancer, macular degeneration, type diabetes, dyslipidemia, hypertension, She presented to the hospital because of new worsening shortness of breath along with increased worsening swelling in the legs for last 3 to 4 days. Cardiology was consulted for CHF evaluation. She has had prior history of aortic stenosis that is post TAVR in April 2025 at in [place]. In April 2024 she was admitted to [facility] because of concerns of possible CVA, confusion, and type II NSTEMI. EKG shows sinus rhythm with nonspecific ST and T wave changes in inferolateral leads. Vitals on admission T 98 F, [place] 87 bpm, RR 18, BP 151/73, oxygen saturation 96% on room air Chest x-ray shows cardiomegaly and mild pulmonary vascular congestion Labs on admission show WBC 8.2, hemoglobin 6.4, MCV 77.9, RDW 19.6, platelet count 243, APTT 21.7, sodium 131, potassium 3.8, BUN 20, creatinine 1.28 magnesium 1.6, troponin I 0.023, NT proBNP 6230 Prior cardiac testing: MEEK from April 2024 shows no evidence of thrombus in LA or left atrial appendage, bioprosthetic TAVR valve with mild paravalvular leak, moderate calcific plaque noticed on descending aorta, no significant valve dysfunction with global normal LV size systolic function. Echocardiogram from 2023, shows EF 55 to 60%, normal ventricle size and systolic function with left ventricular hypertrophy, dilated right ventricle with severe pulmonary hypertension, moderate MS, mild TR, TAVR valve with normal function Echocardiogram from this admission shows an EF of 55 to 60%, mild concentric LVH, moderate LA dilatation, mild to moderate mitral stenosis because of calcific degeneration of mitral valve and mitral annular calcification, bioprosthetic aortic valve with mean gradient of 30 neurology, mild paravalvular leak. Mild tricuspid regurgitation. Progress note 10/27/2024 BP 166/74 Creatinine 1.4 BUN 20, creatinine appears stable. Hemoglobin 7.1. HbA1c 5.9, NT-proBNP 6230, iron is high, TIBC is high, iron saturation is high, transferrin levels are normal, ferritin level is low at 31. 10/28/2024 Creatinine is stable at 1.4, doing well with diuretic therapy, still appears volume overloaded, no increased shortness of breath or chest pain PHYSICAL EXAMINATION: Neck: Brisk carotid upstroke, elevated jugular venous distention. Lungs: Diminished breath sounds with mild crackles audible bilateral lung barrientos Heart: Regular rate and rhythm, mild systolic murmur audible, S1-S2 audible, Abdomen: Soft nontender, positive bowel sounds. Extremities: 2-3+ pitting edema in bilateral lower extremity Neuro: Alert, oritented, no focal deficits. Detailed neuro exam was not performed. ASSESSMENT: # Acute on chronic HFpEF exacerbation # Acute hypoxic respiratory failure # Chronic anemia likely anemia of chronic disease # History of severe s/p TAVR. Mild paravalvular leak # Essential hypertension # Dyslipidemia # Diabetes # Morbid obesity PLAN: Add losartan 12.5 mg daily, increase Lasix to 60 mg twice daily hydralazine 25 mg daily, Imdur 30 mg daily Reduce amlodipine to 5 mg to reduce swelling in the legs Continue aspirin 81 mg, Lipitor 40 mg Continue Farxiga 10 mg daily Continue Coreg 12.5 mg twice daily Got 1 dose of IV iron. Start p.o. iron supplementation Objective - Vital Signs Vital signs: Vital Signs Temp 98.1 F 10/29/24 12:35 Pulse 85 10/29/24 16:00 Resp 18 10/29/24 16:00 BP 152/66 10/29/24 16:00 Pulse Ox 97 10/29/24 16:00 FiO2 Intake & Output 10/28/24 10/29/24 10/29/24 17:59 06:59 18:59 Intake Total 610 Output Total 2225 Balance -1615 Weight Intake: Oral 610 Output: Urine 2225 Other: Voiding Method External Catheter # Voids - Labs CBC & Chem 7: 10/29/24 11:04 10/29/24 11:04 Labs: Abnormal Lab Results - Last 24 Hours (Table) 10/28/24 10/29/24 10/29/24 Range/Units 20:02 06:22 11:04 RBC (3.80-5.40) m/uL Hgb (11.4-16.0) gm/dL Hct (34.0-46.0) % MCH (25.0-35.0) pg MCHC (31.0-37.0) g/dL RDW (11.5-15.5) % Neutrophils # (1.3-7.7) k/uL Lymphocytes # (1.0-4.8) k/uL Sodium 132 L (137-145) mmol/L Chloride 95 L (98-107) mmol/L BUN 22 H (7-17) mg/dL Creatinine 1.50 H (0.52-1.04) mg/dL Glucose 160 H (74-99) mg/dL POC Glucose (mg/dL) 203 H 150 H (70-110) mg/dL Total Protein 6.2 L (6.3-8.2) g/dL 10/29/24 10/29/24 10/29/24 Range/Units 11:04 11:49 16:53 RBC 3.36 L (3.80-5.40) m/uL Hgb 7.9 L (11.4-16.0) gm/dL Hct 27.2 L (34.0-46.0) % MCH 23.6 L (25.0-35.0) pg MCHC 29.1 L (31.0-37.0) g/dL RDW 20.5 H (11.5-15.5) % Neutrophils # 8.1 H (1.3-7.7) k/uL Lymphocytes # 0.8 L (1.0-4.8) k/uL Sodium (137-145) mmol/L Chloride (98-107) mmol/L BUN (7-17) mg/dL Creatinine (0.52-1.04) mg/dL Glucose (74-99) mg/dL POC Glucose (mg/dL) 181 H 184 H (70-110) mg/dL Total Protein (6.3-8.2) g/dL
--- NOTE | 2024-10-29 18:51 | P.PN ---
Subjective Progress Note Date: 10/29/24 HISTORY OF PRESENTING ILLNESS: Patient is a 63-year-old female with past medical history of breast cancer, macular degeneration, type diabetes, dyslipidemia, hypertension, She presented to the hospital because of new worsening shortness of breath along with increased worsening swelling in the legs for last 3 to 4 days. Cardiology was consulted for CHF evaluation. She has had prior history of aortic stenosis that is post TAVR in April 2025 at in [place]. In April 2024 she was admitted to [facility] because of concerns of possible CVA, confusion, and type II NSTEMI. EKG shows sinus rhythm with nonspecific ST and T wave changes in inferolateral leads. Vitals on admission T 98 F, MO 87 bpm, RR 18, BP 151/73, oxygen saturation 96% on room air Chest x-ray shows cardiomegaly and mild pulmonary vascular congestion Labs on admission show WBC 8.2, hemoglobin 6.4, MCV 77.9, RDW 19.6, platelet count 243, APTT 21.7, sodium 131, potassium 3.8, BUN 20, creatinine 1.28 magnesium 1.6, troponin I 0.023, NT proBNP 6230 Prior cardiac testing: MEEK from April 2024 shows no evidence of thrombus in LA or left atrial appendage, bioprosthetic TAVR valve with mild paravalvular leak, moderate calcific plaque noticed on descending aorta, no significant valve dysfunction with global normal LV size systolic function. Echocardiogram from 2023, shows EF 55 to 60%, normal ventricle size and systolic function with left ventricular hypertrophy, dilated right ventricle with severe pulmonary hypertension, moderate MS, mild TR, TAVR valve with normal function Echocardiogram from this admission shows an EF of 55 to 60%, mild concentric LVH, moderate LA dilatation, mild to moderate mitral stenosis because of calcific degeneration of mitral valve and mitral annular calcification, bioprosthetic aortic valve with mean gradient of 30 neurology, mild paravalvular leak. Mild tricuspid regurgitation. Progress note 10/27/2024 BP 166/74 Creatinine 1.4 BUN 20, creatinine appears stable. Hemoglobin 7.1. HbA1c 5.9, NT-proBNP 6230, iron is high, TIBC is high, iron saturation is high, transferrin levels are normal, ferritin level is low at 31. 10/28/2024 Creatinine is stable at 1.4, doing well with diuretic therapy, still appears volume overloaded, no increased shortness of breath or chest pain 10/29/2024 Creatinine is 1.5, blood pressure slightly elevated, still appears volume over loaded no acute chest pressure or shortness of breath. Resting in the bed. No acute events. PHYSICAL EXAMINATION: Neck: Brisk carotid upstroke, elevated jugular venous distention. Lungs: Diminished breath sounds with mild crackles audible bilateral lung barrientos Heart: Regular rate and rhythm, mild systolic murmur audible, S1-S2 audible, Abdomen: Soft nontender, positive bowel sounds. Extremities: 2-3+ pitting edema in bilateral lower extremity Neuro: Alert, oritented, no focal deficits. Detailed neuro exam was not performed. ASSESSMENT: # Acute on chronic HFpEF exacerbation # Acute hypoxic respiratory failure # Chronic anemia likely anemia of chronic disease # History of severe s/p TAVR. Mild paravalvular leak # Essential hypertension # Dyslipidemia # Diabetes # Morbid obesity PLAN: Continue Lasix to 60 mg twice daily Imdur 30 mg daily Coreg to 25 mg twice daily. Increase hydralazine to 25 mg 4 times a day Increase losartan to 25 mg daily Reduced amlodipine to 5 mg to reduce swelling in the legs Continue aspirin 81 mg, Lipitor 40 mg Continue Farxiga 10 mg daily Got 1 dose of IV iron. Start p.o. iron supplementation I have been optimizing her HFpEF GDMT medications given her diuretics while watching her kidney function. Tomorrow consider transitioning to p.o. diuretics with Bumex 1 mg twice daily. She is still volume overloaded today. Objective - Vital Signs Vital signs: Vital Signs Temp 98.1 F 10/29/24 12:35 Pulse 85 10/29/24 16:00 Resp 18 10/29/24 16:00 BP 152/66 10/29/24 16:00 Pulse Ox 97 10/29/24 16:00 FiO2 Intake & Output 10/28/24 10/29/24 10/29/24 17:59 06:59 18:59 Intake Total 610 Output Total 2225 Balance -1615 Weight Intake: Oral 610 Output: Urine 2225 Other: Voiding Method External Catheter # Voids - Labs CBC & Chem 7: 10/29/24 11:04 10/29/24 11:04 Labs: Abnormal Lab Results - Last 24 Hours (Table) 10/28/24 10/29/24 10/29/24 Range/Units 20:02 06:22 11:04 RBC (3.80-5.40) m/uL Hgb (11.4-16.0) gm/dL Hct (34.0-46.0) % MCH (25.0-35.0) pg MCHC (31.0-37.0) g/dL RDW (11.5-15.5) % Neutrophils # (1.3-7.7) k/uL Lymphocytes # (1.0-4.8) k/uL Sodium 132 L (137-145) mmol/L Chloride 95 L (98-107) mmol/L BUN 22 H (7-17) mg/dL Creatinine 1.50 H (0.52-1.04) mg/dL Glucose 160 H (74-99) mg/dL POC Glucose (mg/dL) 203 H 150 H (70-110) mg/dL Total Protein 6.2 L (6.3-8.2) g/dL 10/29/24 10/29/24 10/29/24 Range/Units 11:04 11:49 16:53 RBC 3.36 L (3.80-5.40) m/uL Hgb 7.9 L (11.4-16.0) gm/dL Hct 27.2 L (34.0-46.0) % MCH 23.6 L (25.0-35.0) pg MCHC 29.1 L (31.0-37.0) g/dL RDW 20.5 H (11.5-15.5) % Neutrophils # 8.1 H (1.3-7.7) k/uL Lymphocytes # 0.8 L (1.0-4.8) k/uL Sodium (137-145) mmol/L Chloride (98-107) mmol/L BUN (7-17) mg/dL Creatinine (0.52-1.04) mg/dL Glucose (74-99) mg/dL POC Glucose (mg/dL) 181 H 184 H (70-110) mg/dL Total Protein (6.3-8.2) g/dL
[2024-10-29 20:42] LABS: Glucose,Whole Blood 157 mg/dL (70-110)
[2024-10-29] MEDS: LOSARTAN 25 MG TAB PO STA (22:16)
[2024-10-29] MEDS: hydrALAZINE HCL 25 MG TAB PO SCH (22:16)
[2024-10-29] MEDS: NYSTATIN 100,000 UNIT/GM POWD 15 GM TOPICAL SCH (22:17)
[2024-10-30 05:47] LABS: ALT 16 U/L (4-34); AST 29 U/L (14-36); African American GFR (CKD) 42 (>60 ml/min/1.73 sqM); Albumin 3.2 g/dL (3.5-5.0); Alkaline Phosphatase 62 U/L (38-126); Anion Gap 8 mmol/L; Blood Urea Nitrogen 24 mg/dL (7-17); Calcium 8.4 mg/dL (8.4-10.2); Carbon Dioxide 28 mmol/L (22-30); Chloride 95 mmol/L (98-107); Glucose 153 mg/dL (74-99); Non-African American GFR(CKD) 37 (>60 ml/min/1.73 sqM); Potassium 3.4 mmol/L (3.5-5.1); Sodium 131 mmol/L (137-145); Total Bilirubin 0.7 mg/dL (0.2-1.3); Total Protein 5.7 g/dL (6.3-8.2)
[2024-10-30 05:54] LABS: Glucose,Whole Blood 174 mg/dL (70-110)
[2024-10-30 06:07] LABS: Anisocytosis Moderate; Basophils % (A) 0 %; Eosinophils # (A) 0.3 k/uL (0-0.7); Eosinophils % (A) 3 %; HGB 7.9 gm/dL (11.4-16.0); Hypochromasia Marked; Lymphocytes % (A) 10 %; MCH 23.9 pg (25.0-35.0); MCHC 29.2 g/dL (31.0-37.0); MCV 81.8 fL (80.0-100.0); Mean Platelet Volume 7.6; Microcytosis Slight; Monocytes # (A) 0.8 k/uL (0-1.0); Monocytes % (A) 8 %; Neutrophils # (A) 7.5 k/uL (1.3-7.7); Neutrophils % (A) 78 %; Platelet Count 314 k/uL (150-450); Poikilocytosis Slight; RDW 20.8 % (11.5-15.5); WBC 9.6 k/uL (3.8-10.6)
--- NOTE | 2024-10-30 09:03 | CDI ---
Documentation Clarification Form Date: 10/30/2024 08:23:53 AM From: Gerri Welsh Phone: [phone] Admit Date: 10/25/2024 10:24:00 PM Patient Name: Mary Mata Visit Number: [id number] Discharge Date: ATTENTION: The Clinical Documentation Specialists (CDI) and [facility] Coding Staff appreciate your assistance in clarifying documentation. Please respond to the clarification below the line at the bottom and electronically sign. The CDI & [facility] Coding staff will review the response and follow-up if needed. Please note: Queries are made part of the Legal Health Record. If you have any questions, please contact the author of this message via ITS. Doctor: Severo Rosales Acute Hypoxic Respiratory Failure is documented 10/26, Cardiology consult which may lack sufficient clinical evidence/support in the medical record. Additional clarification is requested. History/Risk Factors: 63 year old male presents to the ED with lower extremity edema, they are so swollen patient is unable to lift them, shortness of breath and productive cough with clear phlegm. Medical history: New diagnosis of CHF last summer, TAVR, CKD 3b, HTN, HLD and DM2. 10/26 HP Clinical Indicators: VSS, 10/25: B/P 151/73; HR 87; Temp 98.0F oral, RR 18, SpO2 96% ra bmi 45.3kg 10/27: 16:58: RR 16 SpO2 97% nasal cannula CXR, 10/25: Cardiomegaly and mild pulmonary vascular congestion. Lung Assessment, 10/26 Cardiology note: Diminished breath sounds with mild crackles audible bilateral lung barrientos Treatment: VSS per protocol including SpO2, IV Lasix Please clarify if Acute Hypoxic Respiratory Failure is a valid diagnosis? [ X ] No, Acute Hypoxic Respiratory Failure is ruled out [ ] Yes, Acute Hypoxic Respiratory Failure is present as evidence by (additional clinical support): [ ] Other (please specify diagnosis) [ ] Unable to determine (Template Last Revised: January 2024) MTDD
[2024-10-30] MEDS: amLODIPine 5 MG TAB PO STA (09:26)
[2024-10-30] MEDS: hydrALAZINE HCL 50 MG TAB PO SCH ×2 (09:26→18:00)
[2024-10-30] MEDS: LOSARTAN 25 MG TAB PO SCH (09:26)
[2024-10-30 11:36] LABS: Glucose,Whole Blood 207 mg/dL (70-110)
--- NOTE | 2024-10-30 12:37 | P.PN ---
Subjective Progress Note Date: 10/30/24 HISTORY OF PRESENTING ILLNESS: Patient is a 63-year-old female with past medical history of breast cancer, macular degeneration, type diabetes, dyslipidemia, hypertension, She presented to the hospital because of new worsening shortness of breath along with increased worsening swelling in the legs for last 3 to 4 days. Cardiology was consulted for CHF evaluation. She has had prior history of aortic stenosis that is post TAVR in April 2025 at in [place]. In April 2024 she was admitted to [facility] because of concerns of possible CVA, confusion, and type II NSTEMI. EKG shows sinus rhythm with nonspecific ST and T wave changes in inferolateral leads. Vitals on admission T 98 F, [place] 87 bpm, RR 18, BP 151/73, oxygen saturation 96% on room air Chest x-ray shows cardiomegaly and mild pulmonary vascular congestion Labs on admission show WBC 8.2, hemoglobin 6.4, MCV 77.9, RDW 19.6, platelet count 243, APTT 21.7, sodium 131, potassium 3.8, BUN 20, creatinine 1.28 magnesium 1.6, troponin I 0.023, NT proBNP 6230 Prior cardiac testing: MEEK from April 2024 shows no evidence of thrombus in LA or left atrial appendage, bioprosthetic TAVR valve with mild paravalvular leak, moderate calcific plaque noticed on descending aorta, no significant valve dysfunction with global normal LV size systolic function. Echocardiogram from 2023, shows EF 55 to 60%, normal ventricle size and systolic function with left ventricular hypertrophy, dilated right ventricle with severe pulmonary hypertension, moderate MS, mild TR, TAVR valve with normal function Echocardiogram from this admission shows an EF of 55 to 60%, mild concentric LVH, moderate LA dilatation, mild to moderate mitral stenosis because of calcific degeneration of mitral valve and mitral annular calcification, bioprost hetic aortic valve with mean gradient of 30 neurology, mild paravalvular leak. Mild tricuspid regurgitation. Progress note 10/27/2024 BP 166/74 Creatinine 1.4 BUN 20, creatinine appears stable. Hemoglobin 7.1. HbA1c 5.9, NT-proBNP 6230, iron is high, TIBC is high, iron saturation is high, transferrin levels are normal, ferritin level is low at 31. 10/28/2024 Creatinine is stable at 1.4, doing well with diuretic therapy, still appears volume overloaded, no increased shortness of breath or chest pain 10/29/2024 Creatinine is 1.5, blood pressure slightly elevated, still appears volume overloaded no acute chest pressure or shortness of breath. Resting in the bed. No acute events. 10/30 Patient seen and examined. Patient has been maintained on Lasix 60 mg twice daily IV. Patient's blood pressure readings have still been elevated at 163/66, heart rate is in the 70s. Pulse ox 97% on room air. Patient denies having any chest pain no shortness of breath. Repeat blood work reveals hemoglobin 7.9 BUN 24 creatinine 1.49, potassium 3.4, sodium 131. Patient has a negative fluid balance, weights do not appear to be accurate. PHYSICAL EXAMINATION: Neck: Brisk carotid upstroke, elevated jugular venous distention. Lungs: Diminished breath sounds with mild crackles audible bilateral lung barrientos Heart: Regular rate and rhythm, systolic murmur at the right sternal border, S1- S2 audible, Abdomen: Soft nontender, positive bowel sounds. Extremities: 2-3+ pitting edema in bilateral lower extremity Neuro: Alert, oritented, no focal deficits. Detailed neuro exam was not performed. ASSESSMENT: # Acute on chronic HFpEF exacerbation # Acute hypoxic respiratory failure # Chronic anemia likely anemia of chronic disease # History of severe s/p TAVR. Mild paravalvular leak # Essential hypertension # Dyslipidemia # Diabetes # Morbid obesity PLAN: Continue IV Lasix 60 mg twice daily Continue Imdur 30 mg daily, Coreg to 25 mg twice daily, aspirin 81 mg, Lipitor 40 mg, Farxiga 10 mg daily, losartan 25 mg daily. Increase hydralazine to 50 mg times a day Increase amlodipine to 10 mg Continue p.o. iron supplementation Monitor BISI, daily weights, electrolytes and renal function Further recommendations as patient progresses. Nurse practitioner note has been reviewed, I agree with documented findings and plan of care. Patient was seen and examined. Objective - Vital Signs Vital signs: Vital Signs Temp 98.1 F 10/30/24 04:05 Pulse 79 10/30/24 04:05 Resp 16 10/30/24 04:05 BP 163/66 10/30/24 04:05 Pulse Ox 97 10/30/24 04:05 FiO2 Intake & Output 10/29/24 10/30/24 10/30/24 18:59 06:59 18:59 Intake Total 610 900 Output Total 2225 1800 Balance -1615 -900 Weight 105.1 kg Intake: Oral 610 900 Output: Urine 2224 1800 Other: Voiding Method External Catheter External Catheter - Labs CBC & Chem 7: 10/30/24 04:25 10/30/24 04:25 Labs: Abnormal Lab Results - Last 24 Hours (Table) 10/29/24 10/29/24 10/29/24 Range/Units 11:04 11:04 11:49 RBC 3.36 L (3.80-5.40) m/uL Hgb 7.9 L (11.4-16.0) gm/dL Hct 27.2 L (34.0-46.0) % MCH 23.6 L (25.0-35.0) pg MCHC 29.1 L (31.0-37.0) g/dL RDW 20.5 H (11.5-15.5) % Neutrophils # 8.1 H (1.3-7.7) k/uL Lymphocytes # 0.8 L (1.0-4.8) k/uL Sodium 132 L (137-145) mmol/L Potassium (3.5-5.1) mmol/L Chloride 95 L (98-107) mmol/L BUN 22 H (7-17) mg/dL Creatinine 1.50 H (0.52-1.04) mg/dL Glucose 160 H (74-99) mg/dL POC Glucose (mg/dL) 181 H (70-110) mg/dL Total Protein 6.2 L (6.3-8.2) g/dL Albumin (3.5-5.0) g/dL 10/29/24 10/29/24 10/30/24 Range/Units 16:53 20:36 04:25 RBC 3.30 L (3.80-5.40) m/uL Hgb 7.9 L (11.4-16.0) gm/dL Hct 27.0 L (34.0-46.0) % MCH 23.9 L (25.0-35.0) pg MCHC 29.2 L (31.0-37.0) g/dL RDW 20.8 H (11.5-15.5) % Neutrophils # (1.3-7.7) k/uL Lymphocytes # (1.0-4.8) k/uL Sodium (137-145) mmol/L Potassium (3.5-5.1) mmol/L Chloride (98-107) mmol/L BUN (7-17) mg/dL Creatinine (0.52-1.04) mg/dL Glucose (74-99) mg/dL POC Glucose (mg/dL) 184 H 157 H (70-110) mg/dL Total Protein (6.3-8.2) g/dL Albumin (3.5-5.0) g/dL 10/30/24 10/30/24 Range/Units 04:25 05:53 RBC (3.80-5.40) m/uL Hgb (11.4-16.0) gm/dL Hct (34.0-46.0) % MCH (25.0-35.0) pg MCHC (31.0-37.0) g/dL RDW (11.5-15.5) % Neutrophils # (1.3-7.7) k/uL Lymphocytes # (1.0-4.8) k/uL Sodium 131 L (137-145) mmol/L Potassium 3.4 L (3.5-5.1) mmol/L Chloride 95 L (98-107) mmol/L BUN 24 H (7-17) mg/dL Creatinine 1.49 H (0.52-1.04) mg/dL Glucose 153 H (74-99) mg/dL POC Glucose (mg/dL) 174 H (70-110) mg/dL Total Protein 5.7 L (6.3-8.2) g/dL Albumin 3.2 L (3.5-5.0) g/dL
[2024-10-30] MEDS: MAGNESIUM OXIDE 400 MG TAB PO SCH (16:22)
[2024-10-30] MEDS: POTASSIUM CHLORIDE ER 20 MEQ TAB.ER PO STA (16:23)
[2024-10-30 16:41] LABS: Glucose,Whole Blood 193 mg/dL (70-110)
[2024-10-30 20:04] LABS: Glucose,Whole Blood 182 mg/dL (70-110)
--- NOTE | 2024-10-30 20:19 | P.PN ---
Progress Note - Text Progress Note Date: 10/30/24 Patient is a 63 year old female with past medical history of breast cancer, macular edema diabetes mellitus, lipidemia, hypertension, newly diagnosed CHF presented to the ED with lower extremity edema. Patient reports that she started noticing swelling on her legs 3 days ago. Initially the swelling was only on the left foot, gradually progressed to the entire left lower extremity and then she also started noticing swelling on her right lower extremity. Currently she states that legs are so swollen and heavy that she is not able to lift them. She denies any pain. She mentions that she has been newly diagnosed with CHF last summer. She is currently maintained on Bumex and denies missing any doses. Associated with that she has experienced shortness of breath productive cough with clear phlegm. Additionally she had a TAVR done recently. She states she follows up with cable puller for CKD. She has also been worked up for anemia and is currently on aspirin and Plavix. She denies hematemesis, melena. Denies fever, chills, chest pain, palpitations, abdominal pain, nausea, vomiting, hematuria, dysuria, hematochezia, melena, headache, slurred speech, numbness, tingling, dizziness, lightheadedness, blurred vision, double vision. ED documentation reviewed. In the ED patient was treated with atorvastatin, clopidogrel, duloxetine, furosemide, labetalol, linagliptin, losartan, nystatin, pantoprazole. Vitals on admission T 98 F, ND 87 bpm, RR 18, BP 151/73, oxygen saturation 96% on room air EKG independently interpreted as sinus rhythm, rate 88 bpm, QTc 417 ms Chest x-ray shows cardiomegaly and mild pulmonary vascular congestion Echocardiogram shows EF 55 to 60%, normal ventricle size and systolic function with left ventricular hypertrophy, dilated right ventricle with severe pulmonary hypertension, moderate MS, mild TR, TAVR valve with normal function Labs on admission show WBC 8.2, hemoglobin 6.4, MCV 77.9, RDW 19.6, platelet count 243, APTT 21.7, sodium 131, potassium 3.8, BUN 20, creatinine 1.28 magnesium 1.6, troponin I 0.023, NT proBNP 6230 UA shows 1+ protein, trace blood, large leukocyte esterase, 24 WBC, rare squamous epithelial cells, occasional bacteria, 3 hyaline casts, rare budding yeast Respiratory panel is negative 3/7/25: Patient seen and examined at bedside today. Vital signs are stable, patient is on room air. Labs today show hemoglobin 7.1, RDW 19.7, MCV 80.6, sodium 133, BUN 20, creatinine 1.4. Iron studies show iron 348, TIBC 407, percent saturation 85.5, transferrin 291, ferritin 31.5. 10/28. Patient seen examined. Blood work done this morning showed WBC 9.2, hemoglobin 7, platelet count 279, sodium 132, potassium 3.8, BUN 22, creatinine 1.41. Denies any shortness of breath at rest. Slight swelling of lower extremities 10/29. Patient seen and examined. Vital signs on this morning Show temperature 98.1, heart 83, respirations 16, blood pressure 147/76. Still has swelling of lower extremities. Denies any shortness of breath at rest. Complaining of lethargy and weakness October 30: Sitting up in a chair. Some improvement in breathing. Eating well. Some decrease edema. Jay wrap to both the legs. Had a bowel movement. Good urine output. Active Medications Acetaminophen (Acetaminophen Tab 325 Mg Tab) 650 mg PO Q6HR PRN PRN Reason: Fever and/ or Pain Last Admin: 10/28/24 16:01 Dose: 650 mg Amlodipine Besylate (Amlodipine 10 Mg Tab) 10 mg PO DAILY@0700 ON LICENSE OF [facility] Aspirin (Aspirin 81 Mg) 81 mg PO DAILY ON LICENSE OF [facility] Last Admin: 10/30/24 09:26 Dose: 81 mg Atorvastatin Calcium (Atorvastatin 40 Mg Tab) 40 mg PO HS ON LICENSE OF [facility] Last Admin: 10/29/24 22:16 Dose: 40 mg Carvedilol (Carvedilol 12.5 Mg Tab) 25 mg PO BID-W/MEALS ON LICENSE OF [facility] Last Admin: 10/30/24 16:22 Dose: 25 mg Dapagliflozin (Dapagliflozin Propanediol 10 Mg Tablet) 10 mg PO DAILY ON LICENSE OF [facility] Last Admin: 10/30/24 09:26 Dose: 10 mg Dextrose/Water (Dextrose 50% Syringe 50 Ml) 25 ml IVP PER PROTOCOL PRN; Protocol PRN Reason: Hypoglycemia Dextrose/Water (Dextrose 50% Syringe 50 Ml) 50 ml IVP PER PROTOCOL PRN; Protocol PRN Reason: Hypoglycemia Duloxetine HCl (Duloxetine Hcl 60 Mg Capsule.) 60 mg PO DAILY ON LICENSE OF [facility] Last Admin: 10/30/24 09:26 Dose: 60 mg Furosemide (Furosemide 10 Mg/Ml 10 Ml Vial) 60 mg IV Q12HR ON LICENSE OF [facility] Last Admin: 10/30/24 09:26 Dose: 60 mg Gabapentin (Gabapentin 100 Mg Cap) 100 mg PO Q8H PRN PRN Reason: Pain Last Admin: 10/29/24 22:30 Dose: 100 mg Hydralazine HCl (Hydralazine Hcl 50 Mg Tab) 50 mg PO TID ON LICENSE OF [facility] Last Admin: 10/30/24 18:00 Dose: 50 mg Insulin Human Lispro (Insulin Lispro (Humalog) 100 Unit/Ml 10 Ml Vl) 0 unit SQ ACHS ON LICENSE OF [facility]; Protocol Last Admin: 10/30/24 16:52 Dose: 2 unit Isosorbide Mononitrate (Isosorbide Mononitrate Er 30 Mg Tab.Er.24h) 30 mg PO DAILY ON LICENSE OF [facility] Last Admin: 10/30/24 09:26 Dose: 30 mg Losartan Potassium (Losartan 25 Mg Tab) 25 mg PO DAILY ON LICENSE OF [facility] Last Admin: 10/30/24 09:26 Dose: 25 mg Magnesium Oxide (Magnesium Oxide 400 Mg Tab) 400 mg PO BID ON LICENSE OF [facility] Last Admin: 10/30/24 16:22 Dose: 400 mg Naloxone HCl (Naloxone 0.4 Mg/Ml 1 Ml Vial) 0.2 mg IV Q2M PRN PRN Reason: Opioid Reversal Nystatin (Nystatin 100,000 Unit/Ml Susp 500,000 Unit/5 Ml Cup) 500,000 unit PO QID ON LICENSE OF [facility]; Protocol Last Admin: 10/30/24 16:22 Dose: 500,000 unit Nystatin (Nystatin 100,000 Unit/Gm Powd 15 Gm) 1 applic TOPICAL BID ON LICENSE OF [facility]; Protocol Last Admin: 10/30/24 12:49 Dose: 1 applic Ondansetron HCl (Ondansetron Odt 4 Mg Tab) 4 mg PO TID PRN PRN Reason: Nausea And Vomiting Pantoprazole Sodium (Pantoprazole 40 Mg Tablet) 40 mg PO DAILY ON LICENSE OF [facility] Last Admin: 10/30/24 09:26 Dose: 40 mg Polysaccharide Iron Complex (Iron Ps Cmplx/Vit B12/Fa 1 Each Cap) 1 each PO DAILY ON LICENSE OF [facility] Last Admin: 10/30/24 09:26 Dose: 1 each Potassium Chloride (Potassium Chloride Er 20 Meq Tab.Er) 20 meq PO BID ON LICENSE OF [facility] Physical examination: VITAL SIGNS:, 98.1, 77, 16, 131 x 61, 96% room air GENERAL: BMI 45.3, up in a chair, appeared tired EYES: Pupils equal. Conjunctiva normal. HEENT: External appearance of nose and ears normal, oral cavity grossly normal. NECK: JVD possibly raised; masses not palpable. HEART: First and second heart sounds are normal; edema present LUNGS: Respiratory rate increased; decreased breath sounds. ABDOMEN: Soft, nontender, liver spleen not palpable, no masses palpable. PSYCH: AOx3. Mood affect normal MUSCULOSKELETAL:No Clubbing/cyanosis;muscles-grossly intact. UA INVESTIGATIONS, reviewed in the clinical context: October 30: White count 9.6 hemoglobin 7.9 platelets 314 sodium 131 potassium 3.4 BUN 24 creatinine 1.49 2D echo: EF 55 to 60%.Moderate mitral stenosis. Mean gradient 6 mmHg. Normally functioning bioprosthetic arctic valve. Assessment and plan #. Acute on chronic heart failure with preserved EF: Slow to respond IV Lasix 60 mg every 12. Fluid restriction. Jay wrap lower extremity. Strict I's and O's #. Microcytic anemia, likely acute blood loss anemia due to patient's history of AVM Monitor CBC Iron studies show iron 348, TIBC 407, percent saturation 85.5, transferrin 291, ferritin 31.5. GI consulted, recommend EGD and colonoscopy once heart failure symptoms have improved, patient refusing Hematology-oncology consulted #. Hypervolemic Hyponatremia, improving Monitor BMP #. Oral candidiasis Continue Nystatin 500,000 unit p.o. 4 times daily Chronic: #. CKD stage IIIb, likely nephrosclerosis Follow renal function #. Essential hypertension Amlodipine 10 mg a day. Coreg 25 mg twice daily. Hydralazine 50 mg 3 times daily. Cozaar 25 mg a day. #. Hyperlipidemia Lipitor 40 mg nightly #. Non insulin dependent Diabetes mellitus, type II Farxiga [Januvia at home] #. Anxiety/depression Cymbalta #. Peripheral neuropathy Neurontin Discussed with patient. Continue IV Lasix. Other medical treatment plan. Follow labs
--- NOTE | 2024-10-30 21:24 | P.CONS ---
History of Present Illness - Reason for Consult Consult date: 10/30/24 Anemia Requesting physician: Michael Lucas - Chief Complaint CHF - History of Present Illness Patient is a very pleasant 63-year-old female patient who has seen Dr. Swain in the past for history of breast cancer, 2015, IDC, ER/IN +, Her2 +, treated adjuvantly with chemo. She had lt breast cancer 2015, treated with herceptin, femara, lumpectomy and axillary LN dissection, adjuvant radiation and herceptin, completed in May 2016. Neratinib was tried, but not tolerated. She cont on f/u with negative mammograms. At her last visit, May 2024, letrozole was discontinued because of musculoskeletal aches. She reported at that visit in May 2024, she was admitted to [facility] in [place] in December/2023 while visiting. She was anemic and required transfusion. Had EGD/colonoscopy was told she had bleeding blood vessels in colon and reported that they were clipped. She also required TAVR. She was admitted to [facility] in , lost consciouness, brain MRI showed multiple ischemic strokes. Patient is currently admitted with progressive, severe swelling in the bilateral lower extremities with associated shortness of breath. Patient does have a history of CHF. She is on plavix and aspirin, per her medication record. Anemia in the chart is noted back to 2023 in April, has been progressive. Renal function has been decreasing since 2022. She has had monoclonal gammopathy workup with no monoclonal paraproteinemia. Review of Systems 10 point review of systems is negative except as stated in HPI Past Medical History Past Medical History: Cancer, Heart Failure, CVA/TIA, Diabetes Mellitus, Hyperli pidemia, Hypertension Additional Past Medical History / Comment(s): breast cancer, macular edema with hemorrhage bilateral, neuropathy, poor vision, Anemia History of Any Multi-Drug Resistant Organisms: None Reported Past Surgical History: Section, Cholecystectomy, Heart Catheterization Additional Past Surgical History / Comment(s): left lumpectomy x 2, TAVR-2023,. right mediport insertion Past Anesthesia/Blood Transfusion Reactions: No Reported Reaction Past Psychological History: Anxiety, Depression Smoking Status: Never smoker Past Alcohol Use History: None Reported Past Drug Use History: None Reported - Past Family History Father Additional Family Medical History / Comment(s): No health hx 91 from pneumonia Mother Additional Family Medical History / Comment(s): No health hx after fall age 96 Medications and Allergies Home Medications Medication Instructions Recorded Confirmed Type DULoxetine HCL [Cymbalta] 60 mg PO DAILY 05/09/22 10/26/24 History Diphenoxylate HCl/Atropine 1 tab PO QID PRN 05/09/22 10/26/24 History [Lomotil 2.5-0.025 mg Tablet] sitaGLIPtin [Januvia] 50 mg PO DAILY 05/09/22 10/26/24 History Calcium Carb/Mag Ox/Zinc Sulf 1 tab PO DAILY 05/19/23 10/26/24 History [Nat-Ytn-Wsgr 334-134-5 mg Tab] Vitamin B Complex 1 cap PO DAILY 05/19/23 10/26/24 History Aspirin 81 mg PO DAILY 05/08/24 10/26/24 History Bumetanide [BUMEX] 1 mg PO DAILY 05/08/24 10/26/24 History Gabapentin [Neurontin] 100 mg PO Q8H PRN 05/08/24 10/26/24 History Pantoprazole Sodium [Protonix] 40 mg PO DAILY 05/08/24 10/26/24 History Semaglutide [Rybelsus] 3 mg PO DAILY 05/08/24 10/26/24 History Atorvastatin [Lipitor] 40 mg PO HS #30 tab 05/12/24 10/26/24 Rx Clopidogrel [Plavix] 75 mg PO DAILY #30 tab 05/12/24 10/26/24 Rx Labetalol [Trandate] 200 mg PO Q8H #90 tab 05/12/24 10/26/24 Rx Losartan Potassium [Cozaar] 100 mg PO HS #30 tab 05/12/24 10/26/24 Rx Cholecalciferol (Vitamin D3) 125 mcg PO DAILY 10/26/24 10/26/24 History [Vitamin D3 (125 MCG = 5,000 IU)] Mv-Mn/Om3/Dha/Epa/Fish/Lut/Jermaine 1 cap PO DAILY 10/26/24 10/26/24 History [Ocuvite Adult 50 Plus Softgel] Vitamin E (Dl,Tocopheryl Acet) 45 mg PO DAILY 10/26/24 10/26/24 History [Vitamin E (100 Iu = 45MG)] amLODIPine [Norvasc] 10 mg PO HS 10/26/24 10/26/24 History Allergies Allergy/AdvReac Type Severity Reaction Status Date / Time adhesive tape Allergy Itching Verified 10/26/24 06:57 morphine Allergy Swelling & Verified 10/26/24 06:57 hives Penicillins Allergy Rash/Hives Verified 10/26/24 06:57 ALEXIS Inhibitors AdvReac Cough Verified 10/26/24 06:57 Physical Exam Vitals: Vital Signs Temp Pulse Resp BP Pulse Ox 10/30/24 12:00 78 18 120/49 100 10/30/24 08:20 98.0 F 78 16 135/65 98 10/30/24 04:05 98.1 F 79 16 163/66 97 10/29/24 23:32 97.9 F 80 17 149/65 96 10/29/24 19:59 97.9 F 74 17 152/62 99 10/29/24 16:00 85 18 152/66 97 Intake and Output 10/29/24 10/30/24 10/30/24 22:59 06:59 14:59 Intake Total 250 900 240 Output Total 1500 1800 Balance -1250 -900 240 Intake: Oral 250 900 240 Output: Urine 1500 1800 Other: Voiding Method External Catheter External Catheter External Catheter Weight 105.1 kg - Constitutional General appearance: average body habitus, cooperative, no acute distress - EENT Eyes: anicteric sclerae, EOMI ENT: hearing grossly normal, normal oropharynx - Neck Neck: no lymphadenopathy - Respiratory Respiratory: bilateral: CTA - Cardiovascular Rhythm: regular Heart sounds: normal: S1, S2 Abnormal Heart Sounds: systolic murmur, no diastolic murmur, no rub, no S3 Gallop, no S4 Gallop, no click, no other leg Peripheral Edema: bilateral: 2+ - Gastrointestinal General gastrointestinal: no absent bowel sounds, no decreased bowel sounds, no distended, no hepatomegaly, no hyperactive bowel sounds, normal bowel sounds, no organomegaly, no rigid, no scaphoid, soft, no splenomegaly, no tenderness, no umbilical hernia, no ventral hernia - Integumentary Integumentary: pale - Neurologic Neurologic: CNII-XII intact - Musculoskeletal Musculoskeletal: strength equal bilaterally - Psychiatric Psychiatric: A&O x's 3, appropriate affect, intact judgment & insight Results CBC & Chem 7: 10/30/24 04:25 10/30/24 04:25 Labs: Abnormal Lab Results - Last 24 Hours (Table) 10/29/24 10/29/24 10/30/24 Range/Units 16:53 20:36 04:25 RBC 3.30 L (3.80-5.40) m/uL Hgb 7.9 L (11.4-16.0) gm/dL Hct 27.0 L (34.0-46.0) % MCH 23.9 L (25.0-35.0) pg MCHC 29.2 L (31.0-37.0) g/dL RDW 20.8 H (11.5-15.5) % Sodium (137-145) mmol/L Potassium (3.5-5.1) mmol/L Chloride (98-107) mmol/L BUN (7-17) mg/dL Creatinine (0.52-1.04) mg/dL Glucose (74-99) mg/dL POC Glucose (mg/dL) 184 H 157 H (70-110) mg/dL Magnesium (1.6-2.3) mg/dL Total Protein (6.3-8.2) g/dL Albumin (3.5-5.0) g/dL 10/30/24 10/30/24 10/30/24 Range/Units 04:25 04:25 05:53 RBC (3.80-5.40) m/uL Hgb (11.4-16.0) gm/dL Hct (34.0-46.0) % MCH (25.0-35.0) pg MCHC (31.0-37.0) g/dL RDW (11.5-15.5) % Sodium 131 L (137-145) mmol/L Potassium 3.4 L (3.5-5.1) mmol/L Chloride 95 L (98-107) mmol/L BUN 24 H (7-17) mg/dL Creatinine 1.49 H (0.52-1.04) mg/dL Glucose 153 H (74-99) mg/dL POC Glucose (mg/dL) 174 H (70-110) mg/dL Magnesium 1.5 L (1.6-2.3) mg/dL Total Protein 5.7 L (6.3-8.2) g/dL Albumin 3.2 L (3.5-5.0) g/dL 10/30/24 Range/Units 11:34 RBC (3.80-5.40) m/uL Hgb (11.4-16.0) gm/dL Hct (34.0-46.0) % MCH (25.0-35.0) pg MCHC (31.0-37.0) g/dL RDW (11.5-15.5) % Sodium (137-145) mmol/L Potassium (3.5-5.1) mmol/L Chloride (98-107) mmol/L BUN (7-17) mg/dL Creatinine (0.52-1.04) mg/dL Glucose (74-99) mg/dL POC Glucose (mg/dL) 207 H (70-110) mg/dL Magnesium (1.6-2.3) mg/dL Total Protein (6.3-8.2) g/dL Albumin (3.5-5.0) g/dL Assessment and Plan (1) Microcytic anemia Current Visit: Yes Status: Acute Priority: High Code(s): D50.9 - IRON DEFICIENCY ANEMIA, UNSPECIFIED SNOMED Code(s): 410627749 (2) Breast carcinoma Current Visit: Yes Status: Chronic Priority: Low Code(s): C50.919 - MALIGNANT NEOPLASM OF UNSP SITE OF UNSPECIFIED FEMALE BREAST SNOMED Code(s): 034132515 Plan: Microcytic anemia -Patient was on aspirin and Plavix on admission. She is on these medications likely multifactoral including CVA as well as cardiovascular procedures. -Anemia has been progressive since April 2024. Likely related to antiplatelet therapies, which have been necessary because of the above. -I see that the Plavix has been discontinued. Decisions for modification of antiplatelet therapies per Cardiology recommendations. May need Neurology consult for their recommendations for the Hx ischemic stroke in Apr 2024 -From a Hematology standpoint recommendation for aggressive iron supplementation for PAULINA. 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 As long as she needs to be on anti-platelet therapy, this will be an ongoing problem. -Transfuse for Hgb <7 or if symptomatic -Outpt CBC and IV iron History of breast cancer -Patient was just recently stopped from because of musculoskeletal complaints. -Patient needs to stay on follow-up, as recommended, by Medical Oncologist
[2024-10-31 06:05] LABS: Glucose,Whole Blood 211 mg/dL (70-110)
[2024-10-31] MEDS: amLODIPine 10 MG TAB PO SCH (06:35)
[2024-10-31] MEDS: POTASSIUM CHLORIDE ER 20 MEQ TAB.ER PO SCH (09:39)
[2024-10-31] MEDS: LOSARTAN 50 MG TAB PO SCH (09:40)
[2024-10-31] MEDS: SODIUM FERRIC GLUCONAT-SUCROSE 125 MG in SODIUM CHLORIDE 0.9% 100 ML IVPB SCH (11:14)
[2024-10-31 11:27] LABS: Glucose,Whole Blood 248 mg/dL (70-110)
--- NOTE | 2024-10-31 12:37 | P.PN ---
Subjective Progress Note Date: 10/31/24 HISTORY OF PRESENTING ILLNESS: Patient is a 63-year-old female with past medical history of breast cancer, macular degeneration, type diabetes, dyslipidemia, hypertension, She presented to the hospital because of new worsening shortness of breath along with increased worsening swelling in the legs for last 3 to 4 days. Cardiology was consulted for CHF evaluation. She has had prior history of aortic stenosis that is post TAVR in April 2025 at in [place]. In April 2024 she was admitted to [facility] because of concerns of possible CVA, confusion, and type II NSTEMI. EKG shows sinus rhythm with nonspecific ST and T wave changes in inferolateral leads. Vitals on admission T 98 F, LA 87 bpm, RR 18, BP 151/73, oxygen saturation 96% on room air Chest x-ray shows cardiomegaly and mild pulmonary vascular congestion Labs on admission show WBC 8.2, hemoglobin 6.4, MCV 77.9, RDW 19.6, platelet count 243, APTT 21.7, sodium 131, potassium 3.8, BUN 20, creatinine 1.28 magnesium 1.6, troponin I 0.023, NT proBNP 6230 Prior cardiac testing: MEEK from April 2024 shows no evidence of thrombus in LA or left atrial appendage, bioprosthetic TAVR valve with mild paravalvular leak, moderate calcific plaque noticed on descending aorta, no significant valve dysfunction with global normal LV size systolic function. Echocardiogram from 2023, shows EF 55 to 60%, normal ventricle size and systolic function with left ventricular hypertrophy, dilated right ventricle with severe pulmonary hypertension, moderate MS, mild TR, TAVR valve with normal function Echocardiogram from this admission shows an EF of 55 to 60%, mild concentric LVH, moderate LA dilatation, mild to moderate mitral stenosis because of calcific degeneration of mitral valve and mitral annular calcification, bioprost hetic aortic valve with mean gradient of 30 neurology, mild paravalvular leak. Mild tricuspid regurgitation. Progress note 10/27/2024 BP 166/74 Creatinine 1.4 BUN 20, creatinine appears stable. Hemoglobin 7.1. HbA1c 5.9, NT-proBNP 6230, iron is high, TIBC is high, iron saturation is high, transferrin levels are normal, ferritin level is low at 31. 10/28/2024 Creatinine is stable at 1.4, doing well with diuretic therapy, still appears volume overloaded, no increased shortness of breath or chest pain 10/29/2024 Creatinine is 1.5, blood pressure slightly elevated, still appears volume overloaded no acute chest pressure or shortness of breath. Resting in the bed. No acute events. 10/30 Patient seen and examined. Patient has been maintained on Lasix 60 mg twice daily IV. Patient's blood pressure readings have still been elevated at 163/66, heart rate is in the 70s. Pulse ox 97% on room air. Patient denies having any chest pain no shortness of breath. Repeat blood work reveals hemoglobin 7.9 BUN 24 creatinine 1.49, potassium 3.4, sodium 131. Patient has a negative fluid balance, weights do not appear to be accurate. 10/31 Patient seen and examined. Yesterday we increased hydralazine to 50 mg 3 times daily and also increased amlodipine to 10 mg daily. Blood pressure readings we re much improved overnight running in the 130s, this morning blood pressure 150/67, heart rate 70, pulse ox 93% on room air. Noted that stool for occult blood was positive. Oncology consult was added PHYSICAL EXAMINATION: Neck: Brisk carotid upstroke, elevated jugular venous distention. Lungs: Diminished breath sounds with mild crackles audible bilateral lung barrientos Heart: Regular rate and rhythm, systolic murmur at the right sternal border, S1- S2 audible, Abdomen: Soft nontender, positive bowel sounds. Extremities: 2-3+ pitting edema in bilateral lower extremity Neuro: Alert, oritented, no focal deficits. Detailed neuro exam was not performed. ASSESSMENT: # Acute on chronic HFpEF exacerbation # Acute hypoxic respiratory failure # Chronic anemia likely anemia of chronic disease # History of severe s/p TAVR. Mild paravalvular leak # Essential hypertension # Dyslipidemia # Diabetes # Morbid obesity PLAN: Continue IV Lasix 60 mg twice daily Monitor BISI, daily weights, electrolytes and renal function Continue Imdur 30 mg daily, Coreg to 25 mg twice daily, aspirin 81 mg, Lipitor 40 mg, Farxiga 10 mg daily, losartan 25 mg daily. Continue the increased hydralazine 50 mg times a day Continue the increased amlodipine 10 mg Increase losartan to 50 mg daily Continue iron supplements Further recommendations as patient progresses. Nurse practitioner note has been reviewed, I agree with documented findings and plan of care. Patient was seen and examined. Objective - Vital Signs Vital signs: Vital Signs Temp 97.9 F 10/31/24 04:21 Pulse 70 10/31/24 04:21 Resp 17 10/31/24 04:21 BP 150/67 10/31/24 04:21 Pulse Ox 93 L 10/31/24 04:21 FiO2 Intake & Output 10/30/24 10/31/24 10/31/24 18:59 06:59 18:59 Intake Total 1120 400 240 Output Total 1850 1550 650 Balance -730 -1150 -410 Intake: Oral 1120 400 240 Output: Urine 1850 1550 650 Other: Voiding Method External Catheter External Catheter - Labs CBC & Chem 7: 10/30/24 04:25 10/30/24 04:25 Labs: Abnormal Lab Results - Last 24 Hours (Table) 10/28/24 10/30/24 10/30/24 Range/Units 06:38 04:25 11:34 POC Glucose (mg/dL) 207 H (70-110) mg/dL Magnesium 1.5 L (1.6-2.3) mg/dL Stool Occult Blood (Negative) Free [place] LC, Quant 4.40 H (0.33-1.94) mg/dL Free [place] LC, Quant 3.10 H (0.57-2.63) mg/dL 10/30/24 10/30/24 10/30/24 Range/Units 16:39 17:53 19:45 POC Glucose (mg/dL) 193 H 182 H (70-110) mg/dL Magnesium (1.6-2.3) mg/dL Stool Occult Blood Positive H (Negative) Free [place] LC, Quant (0.33-1.94) mg/dL Free Lambda LC, Quant (0.57-2.63) mg/dL 10/31/24 Range/Units 05:49 POC Glucose (mg/dL) 211 H (70-110) mg/dL Magnesium (1.6-2.3) mg/dL Stool Occult Blood (Negative) Free [place] LC, Quant (0.33-1.94) mg/dL Free Lambda LC, Quant (0.57-2.63) mg/dL
--- NOTE | 2024-10-31 16:28 | P.PN ---
Subjective Progress Note Date: 10/31/24 Principal diagnosis: PAULINA In f/u today pt is tired, denies any bleeding, tolerated IV iron, additional doses have been ordered. No acute physical c/o. Objective - Vital Signs Vital signs: Vital Signs Temp 98.5 F 10/31/24 16:15 Pulse 78 10/31/24 16:15 Resp 18 10/31/24 16:15 BP 138/63 10/31/24 16:15 Pulse Ox 98 10/31/24 16:15 FiO2 Intake & Output 10/30/24 10/31/24 10/31/24 18:59 06:59 18:59 Intake Total 1120 400 480 Output Total 1850 1550 1650 Balance -730 -1150 -1170 Weight 103.6 kg Intake: Oral 1120 400 480 Output: Urine 1850 1550 1650 Other: Voiding Method External Catheter External Catheter External Catheter - Constitutional General appearance: Present: average body habitus, cooperative, no acute distress - EENT Eyes: Present: anicteric sclerae, EOMI ENT: Present: hearing grossly normal - Respiratory Respiratory: bilateral: CTA - Cardiovascular Rhythm: regular - Integumentary Integumentary: Present: pale - Neurologic Neurologic: Present: CNII-XII intact - Musculoskeletal Musculoskeletal: Present: generalized weakness, strength equal bilaterally - Psychiatric Psychiatric: Present: A&O x's 3, appropriate affect, intact judgment & insight - Labs CBC & Chem 7: 10/30/24 04:25 10/30/24 04:25 Labs: Abnormal Lab Results - Last 24 Hours (Table) 10/30/24 10/30/24 10/30/24 Range/Units 16:39 17:53 19:45 POC Glucose (mg/dL) 193 H 182 H (70-110) mg/dL Stool Occult Blood Positive H (Negative) 10/31/24 10/31/24 Range/Units 05:49 11:25 POC Glucose (mg/dL) 211 H 248 H (70-110) mg/dL Stool Occult Blood (Negative) Assessment and Plan (1) Microcytic anemia Current Visit: Yes Status: Acute Priority: High Code(s): D50.9 - IRON DEF ICIENCY ANEMIA, UNSPECIFIED SNOMED Code(s): 811476361 (2) Breast carcinoma Current Visit: Yes Status: Chronic Priority: Low Code(s): C50.919 - MALIGN ANT NEOPLASM OF UNSP SITE OF UNSPECIFIED FEMALE BREAST SNOMED Code(s): 25 [id number] Plan: Microcytic anemia -Patient was on aspirin and Plavix on admission-that is what is documented in home med list. She is only on asa since admit, palvix not continued -Anemia has been progressive since April 2024. Likely related to antiplatelet therapies, which have been necessary because of CVA/cardiac Hx. -Decisions for modification of antiplatelet therapies per Cardiology and Neurology recommendations -From a Hematology standpoint recommendation is for aggressive iron supplementation for PAULINA. 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 As long as she needs to be on anti-platelet therapy, this will be an ongoing problem. Reviewed this with pt. She is agreeable to follow with Hematology, CBC and iron monitoring with IV iron as needed -Transfuse for Hgb <7 or if symptomatic -Appt for f/u CBC and IV iron scheduled and in DC plan History of breast cancer -Correction, AI was stopped in May 2024 because of CVA. -Patient will cont on follow-up, as recommended, by Medical Oncologist Pt is ok for DC from a Hem/Onc standpoint once cleared by Attending and Consulting Physicians
[2024-10-31 16:29] LABS: Glucose,Whole Blood 189 mg/dL (70-110)
--- NOTE | 2024-10-31 16:29 | P.PN ---
Progress Note - Text Progress Note Date: 10/31/24 Patient is a 63 year old female with past medical history of breast cancer, macular edema diabetes mellitus, lipidemia, hypertension, newly diagnosed CHF presented to the ED with lower extremity edema. Patient reports that she started noticing swelling on her legs 3 days ago. Initially the swelling was only on the left foot, gradually progressed to the entire left lower extremity and then she also started noticing swelling on her right lower extremity. Currently she states that legs are so swollen and heavy that she is not able to lift them. She denies any pain. She mentions that she has been newly diagnosed with CHF last summer. She is currently maintained on Bumex and denies missing any doses. Associated with that she has experienced shortness of breath productive cough with clear phlegm. Additionally she had a TAVR done recently. She states she follows up with [facility] for CKD. She has also been worked up for anemia and is currently on aspirin and Plavix. She denies hematemesis, melena. Denies fever, chills, chest pain, palpitations, abdominal pain, nausea, vomiting, hematuria, dysuria, hematochezia, melena, headache, slurred speech, numbness, tingling, dizziness, lightheadedness, blurred vision, double vision. ED documentation reviewed. In the ED patient was treated with atorvastatin, clopidogrel, duloxetine, furosemide, labetalol, linagliptin, losartan, nystatin, pantoprazole. Vitals on admission T 98 F, AR 87 bpm, RR 18, BP 151/73, oxygen saturation 96% on room air EKG independently interpreted as sinus rhythm, rate 88 bpm, QTc 417 ms Chest x-ray shows cardiomegaly and mild pulmonary vascular congestion Echocardiogram shows EF 55 to 60%, normal ventricle size and systolic function with left ventricular hypertrophy, dilated right ventricle with severe pulmonary hypertension, moderate MS, mild TR, TAVR valve with normal function Labs on admission show WBC 8.2, hemoglobin 6.4, MCV 77.9, RDW 19.6, platelet count 243, APTT 21.7, sodium 131, potassium 3.8, BUN 20, creatinine 1.28 magnesium 1.6, troponin I 0.023, NT proBNP 6230 UA shows 1+ protein, trace blood, large leukocyte esterase, 24 WBC, rare squamous epithelial cells, occasional bacteria, 3 hyaline casts, rare budding yeast Respiratory panel is negative 3/7/25: Patient seen and examined at bedside today. Vital signs are stable, patient is on room air. Labs today show hemoglobin 7.1, RDW 19.7, MCV 80.6, sodium 133, BUN 20, creatinine 1.4. Iron studies show iron 348, TIBC 407, percent saturation 85.5, transferrin 291, ferritin 31.5. 10/28. Patient seen examined. Blood work done this morning showed WBC 9.2, hemoglobin 7, platelet count 279, sodium 132, potassium 3.8, BUN 22, creatinine 1.41. Denies any shortness of breath at rest. Slight swelling of lower extremities 10/29. Patient seen and examined. Vital signs on this morning Show temperature 98.1, heart 83, respirations 16, blood pressure 147/76. Still has swelling of lower extremities. Denies any shortness of breath at rest. Complaining of lethargy and weakness October 30: Sitting up in a chair. Some improvement in breathing. Eating well. Some decrease edema. Jay wrap to both the legs. Had a bowel movement. Good urine output. October 31: Remains on IV Lasix 60 mg every 12. Good urine output. Breathing much better. Tolerating diet. Jay wrap to lower extremity. Given IV iron. About 7500 cc negative fluid balance until date Active Medications Acetaminophen (Acetaminophen Tab 325 Mg Tab) 650 mg PO Q6HR PRN PRN Reason: Fever and/ or Pain Last Admin: 10/28/24 16:01 Dose: 650 mg Amlodipine Besylate (Amlodipine 10 Mg Tab) 10 mg PO DAILY@0700 [facility] Last Admin: 10/31/24 06:35 Dose: 10 mg Aspirin (Aspirin 81 Mg) 81 mg PO DAILY [facility] Last Admin: 10/31/24 09:39 Dose: 81 mg Atorvastatin Calcium (Atorvastatin 40 Mg Tab) 40 mg PO HS [facility] Last Admin: 10/30/24 20:39 Dose: 40 mg Carvedilol (Carvedilol 12.5 Mg Tab) 25 mg PO BID-W/MEALS [facility] Last Admin: 10/31/24 06:35 Dose: 25 mg Dapagliflozin (Dapagliflozin Propanediol 10 Mg Tablet) 10 mg PO DAILY [facility] Last Admin: 10/31/24 09:40 Dose: 10 mg Dextrose/Water (Dextrose 50% Syringe 50 Ml) 25 ml IVP PER PROTOCOL PRN; Protocol PRN Reason: Hypoglycemia Dextrose/Water (Dextrose 50% Syringe 50 Ml) 50 ml IVP PER PROTOCOL PRN; Protocol PRN Reason: Hypoglycemia Duloxetine HCl (Duloxetine Hcl 60 Mg Capsule.Dr) 60 mg PO DAILY [facility] Last Admin: 10/31/24 09:40 Dose: 60 mg Furosemide (Furosemide 10 Mg/Ml 10 Ml Vial) 60 mg IV Q12HR LEATHA Last Admin: 10/31/24 09:40 Dose: 60 mg Gabapentin (Gabapentin 100 Mg Cap) 100 mg PO Q8H PRN PRN Reason: Pain Last Admin: 10/30/24 23:33 Dose: 100 mg Hydralazine HCl (Hydralazine Hcl 50 Mg Tab) 50 mg PO TID [facility] Last Admin: 10/31/24 09:40 Dose: 50 mg Ferric Sodium Gluconate 125 mg (/ Sodium Chloride) 110 mls @ 100 mls/hr IVPB DAILY [facility] Last Admin: 10/31/24 11:14 Dose: 100 mls/hr Insulin Human Lispro (Insulin Lispro (Humalog) 100 Unit/Ml 10 Ml Vl) 0 unit SQ ACHS [facility]; Protocol Last Admin: 10/31/24 12:36 Dose: 4 unit Isosorbide Mononitrate (Isosorbide Mononitrate Er 30 Mg Tab.Er.24h) 30 mg PO DAILY [facility] Last Admin: 10/31/24 09:40 Dose: 30 mg Losartan Potassium (Losartan 50 Mg Tab) 50 mg PO DAILY [facility] Last Admin: 10/31/24 09:40 Dose: 50 mg Magnesium Oxide (Magnesium Oxide 400 Mg Tab) 400 mg PO BID [facility] Last Admin: 10/31/24 09:40 Dose: 400 mg Naloxone HCl (Naloxone 0.4 Mg/Ml 1 Ml Vial) 0.2 mg IV Q2M PRN PRN Reason: Opioid Reversal Nystatin (Nystatin 100,000 Unit/Ml Susp 500,000 Unit/5 Ml Cup) 500,000 unit PO QID [facility]; Protocol Last Admin: 10/31/24 13:50 Dose: 500,000 unit Nystatin (Nystatin 100,000 Unit/Gm Powd 15 Gm) 1 applic TOPICAL BID [facility]; Protocol Last Admin: 10/31/24 09:41 Dose: 1 applic Ondansetron HCl (Ondansetron Odt 4 Mg Tab) 4 mg PO TID PRN PRN Reason: Nausea And Vomiting Pantoprazole Sodium (Pantoprazole 40 Mg Tablet) 40 mg PO DAILY [facility] Last Admin: 10/31/24 09:43 Dose: 40 mg Polysaccharide Iron Complex (Iron Ps Cmplx/Vit B12/Fa 1 Each Cap) 1 each PO DAILY [facility] Last Admin: 10/31/24 09:40 Dose: 1 each Potassium Chloride (Potassium Chloride Er 20 Meq Tab.Er) 20 meq PO BID [facility] Last Admin: 10/31/24 09:39 Dose: 20 meq Physical examination: VITAL SIGNS:, 98.5, 78, 18, 138 x 63, 98% room air GENERAL: BMI 45.3, up in a chair, more comfortable EYES: Pupils equal. Conjunctiva normal. HEENT: External appearance of nose and ears normal, oral cavity grossly normal. NECK: JVD possibly raised; masses not palpable. HEART: First and second heart sounds are normal; edema coming down LUNGS: Respiratory rate increased; decreased breath sounds. ABDOMEN: Soft, nontender, liver spleen not palpable, no masses palpable. PSYCH: AOx3. Mood affect normal MUSCULOSKELETAL:No Clubbing/cyanosis;muscles-grossly intact. UA INVESTIGATIONS, reviewed in the clinical context: October 30: White count 9.6 hemoglobin 7.9 platelets 314 sodium 131 potassium 3.4 BUN 24 creatinine 1.49 2D echo: EF 55 to 60%.Moderate mitral stenosis. Mean gradient 6 mmHg. Normally functioning bioprosthetic arctic valve. Assessment and plan #. Acute on chronic heart failure with preserved EF: Slowly improving IV Lasix 60 mg every 12. Fluid restriction. Jay wrap lower extremity. Strict I's and O's #. Microcytic anemia, likely acute blood loss anemia due to patient's history of AVM Monitor CBC Iron studies show iron 348, TIBC 407, percent saturation 85.5, transferrin 291, ferritin 31.5. GI consulted, recommend EGD and colonoscopy once heart failure symptoms have improved, patient refusing Hematology-oncology consulted Getting IV iron #. Hypervolemic Hyponatremia, improving Monitor BMP #. Oral candidiasis Continue Nystatin 500,000 unit p.o. 4 times daily Chronic: #. CKD stage IIIb, likely nephrosclerosis Follow renal function #. Essential hypertension Amlodipine 10 mg a day. Coreg 25 mg twice daily. Hydralazine 50 mg 3 times daily. Cozaar 25 mg a day. #. Hyperlipidemia Lipitor 40 mg nightly #. Non insulin dependent Diabetes mellitus, type II Farxiga [Januvia at home] #. Anxiety/depression Cymbalta #. Peripheral neuropathy Neurontin Discussed with patient. Follow labs
[2024-10-31 20:08] LABS: Glucose,Whole Blood 209 mg/dL (70-110)
[2024-11-01 06:31] LABS: Glucose,Whole Blood 227 mg/dL (70-110)
--- NOTE | 2024-11-01 06:34 | XR ---
EXAMINATION TYPE: XR chest 2V DATE OF EXAM: 11/01/2024 CLINICAL INDICATION: Female, 63 years old with history of Follow-up CHF, TECHNIQUE: Frontal and lateral views of the chest are obtained. COMPARISON: Chest x-ray October 25, 2024 FINDINGS: Stable right internal jugular Mediport catheter. There is no new suspicious focal air spa ce opacity, pleural effusion, or pneumothorax seen. Cardiomegaly redemonstrated. Postsurgical change s of aortic valve again seen. The osseous structures are intact. Cholecystectomy clips are noted on l ateral view. IMPRESSION: Cardiomegaly without acute pulmonary process. [facility], , 11/01/2024 6:32 AM
[2024-11-01 07:00] LABS: African American GFR (CKD) 39 (>60 ml/min/1.73 sqM); Anion Gap 5 mmol/L; Blood Urea Nitrogen 26 mg/dL (7-17); Calcium 8.5 mg/dL (8.4-10.2); Carbon Dioxide 31 mmol/L (22-30); Chloride 95 mmol/L (98-107); Glucose 193 mg/dL (74-99); Non-African American GFR(CKD) 34 (>60 ml/min/1.73 sqM); Potassium 3.9 mmol/L (3.5-5.1); Sodium 131 mmol/L (137-145)
[2024-11-01] MEDS: BUMETANIDE 1 MG TAB PO SCH (08:50)
[2024-11-01 10:23] VITALS: RESP 16; TEMP 96.2
[2024-11-01 11:58] LABS: Glucose,Whole Blood 194 mg/dL (70-110)
[2024-11-01 12:00] VITALS: BMI 44.0
[2024-11-01 12:24] VITALS: BP 128/59; PULSE 77
--- NOTE | 2024-11-01 12:49 | P.PN ---
Subjective Progress Note Date: 11/01/24 HISTORY OF PRESENTING ILLNESS: Patient is a 63-year-old female with past medical history of breast cancer, macular degeneration, type diabetes, dyslipidemia, hypertension, She presented to the hospital because of new worsening shortness of breath along with increased worsening swelling in the legs for last 3 to 4 days. Cardiology was consulted for CHF evaluation. She has had prior history of aortic stenosis that is post TAVR in April 2025 at in [place]. In April 2024 she was admitted to [facility] because of concerns of possible CVA, confusion, and type II NSTEMI. EKG shows sinus rhythm with nonspecific ST and T wave changes in inferolateral leads. Vitals on admission T 98 F, CA 87 bpm, RR 18, BP 151/73, oxygen saturation 96% on room air Chest x-ray shows cardiomegaly and mild pulmonary vascular congestion Labs on admission show WBC 8.2, hemoglobin 6.4, MCV 77.9, RDW 19.6, platelet count 243, APTT 21.7, sodium 131, potassium 3.8, BUN 20, creatinine 1.28 magnesium 1.6, troponin I 0.023, NT proBNP 6230 Prior cardiac testing: MEEK from April 2024 shows no evidence of thrombus in LA or left atrial appendage, bioprosthetic TAVR valve with mild paravalvular leak, moderate calcific plaque noticed on descending aorta, no significant valve dysfunction with global normal LV size systolic function. Echocardiogram from 2023, shows EF 55 to 60%, normal ventricle size and systolic function with left ventricular hypertrophy, dilated right ventricle with severe pulmonary hypertension, moderate MS, mild TR, TAVR valve with normal function Echocardiogram from this admission shows an EF of 55 to 60%, mild concentric LVH, moderate LA dilatation, mild to moderate mitral stenosis because of calcific degeneration of mitral valve and mitral annular calcification, bioprost hetic aortic valve with mean gradient of 30 neurology, mild paravalvular leak. Mild tricuspid regurgitation. Progress note 10/27/2024 BP 166/74 Creatinine 1.4 BUN 20, creatinine appears stable. Hemoglobin 7.1. HbA1c 5.9, NT-proBNP 6230, iron is high, TIBC is high, iron saturation is high, transferrin levels are normal, ferritin level is low at 31. 10/28/2024 Creatinine is stable at 1.4, doing well with diuretic therapy, still appears volume overloaded, no increased shortness of breath or chest pain 10/29/2024 Creatinine is 1.5, blood pressure slightly elevated, still appears volume overloaded no acute chest pressure or shortness of breath. Resting in the bed. No acute events. 10/30 Patient seen and examined. Patient has been maintained on Lasix 60 mg twice daily IV. Patient's blood pressure readings have still been elevated at 163/66, heart rate is in the 70s. Pulse ox 97% on room air. Patient denies having any chest pain no shortness of breath. Repeat blood work reveals hemoglobin 7.9 BUN 24 creatinine 1.49, potassium 3.4, sodium 131. Patient has a negative fluid balance, weights do not appear to be accurate. 10/31 Patient seen and examined. Yesterday we increased hydralazine to 50 mg 3 times daily and also increased amlodipine to 10 mg daily. Blood pressure readings we re much improved overnight running in the 130s, this morning blood pressure 150/67, heart rate 70, pulse ox 93% on room air. Noted that stool for occult blood was positive. Oncology consult was added 11/01 Patient seen and examined. Patient states that she is feeling better today. Yesterday due to high blood pressure readings, we increased losartan to 50 mg daily. Blood pressure readings improved this morning 139/62. Heart rate 81, pulse ox 95% on room air. Repeat blood work reveals sodium 131, potassium 3.9, BUN 26 creatinine 1.6. Another stool for occult blood positive. Chest x-ray reveals cardiomegaly without acute pulmonary process. PHYSICAL EXAMINATION: Neck: Brisk carotid upstroke, elevated jugular venous distention. Lungs: Diminished breath sounds with mild crackles audible bilateral lung barrientos Heart: Regular rate and rhythm, systolic murmur at the right sternal border, S1- S2 audible, Abdomen: Soft nontender, positive bowel sounds. Extremities: 1+ pitting edema in bilateral lower extremity Neuro: Alert, oritented, no focal deficits. Detailed neuro exam was not perfo rmed. ASSESSMENT: # Acute on chronic HFpEF exacerbation # Acute hypoxic respiratory failure # Chronic anemia likely anemia of chronic disease # History of severe s/p TAVR. Mild paravalvular leak # Essential hypertension # Dyslipidemia # Diabetes # Morbid obesity PLAN: Transition IV Lasix to Bumex 2 mg daily Continue Imdur 30 mg daily, Coreg to 25 mg twice daily, aspirin 81 mg, Lipitor 40 mg, Farxiga 10 mg daily, losartan 25 mg daily. Continue the increased hydralazine 50 mg times a day Continue the increased amlodipine 10 mg and losartan to 50 mg daily No further cardiac workup at this time. Patient is cleared for discharge from cardiology and may follow-up in the office in 1 to 2 weeks. Nurse practitioner note has been reviewed, I agree with documented findings and plan of care. Patient was seen and examined. Objective - Vital Signs Vital signs: Vital Signs Temp 98.1 F 11/01/24 04:00 Pulse 81 11/01/24 04:00 Resp 17 11/01/24 04:00 BP 131/62 11/01/24 04:00 Pulse Ox 96 11/01/24 04:00 FiO2 Intake & Output 10/31/24 11/01/24 11/01/24 18:59 06:59 18:59 Intake Total 720 1610 Output Total 2350 650 Balance -1630 960 Weight 103.6 kg 102.3 kg Intake: IV 40 Invasive Line 1 20 Invasive Line 2 20 Intake, IV Titration 100 Amount Sodium Ferric Gluconat- 100 Sucrose 125 mg In Sodium Chloride 0.9% 100 ml @ 100 mls/hr IVPB DAILY [facility] Rx#:[id number] Oral 720 1470 Output: Urine 2350 650 Other: Voiding Method External Catheter External Catheter - Labs CBC & Chem 7: 10/30/24 04:25 11/01/24 05:44 Labs: Abnormal Lab Results - Last 24 Hours (Table) 10/31/24 10/31/24 10/31/24 Range/Units 11: 16:27 19:54 Sodium (137-145) mmol/L Chloride (98-107) mmol/L Carbon Dioxide (22-30) mmol/L BUN (7-17) mg/dL Creatinine (0.52-1.04) mg/dL Glucose (74-99) mg/dL POC Glucose (mg/dL) 248 H 189 H 209 H (70-110) mg/dL Stool Occult Blood (Negative) 10/31/24 11/01/24 11/01/24 Range/Units 22:22 05:44 06:29 Sodium 131 L (137-145) mmol/L Chloride 95 L (98-107) mmol/L Carbon Dioxide 31 H (22-30) mmol/L BUN 26 H (7-17) mg/dL Creatinine 1.60 H (0.52-1.04) mg/dL Glucose 193 H (74-99) mg/dL POC Glucose (mg/dL) 227 H (70-110) mg/dL Stool Occult Blood Positive H (Negative)
--- NOTE | 2024-11-01 19:24 | P.DS ---
Providers Date of admission: 10/25/24 22:24 Expected date of discharge: 11/01/24 Attending physician: Hermilo Mendieta Consults: 10/25/24 22:23 Consult Physician Routine Consulting Provider: [facility] Consult Reason/Comments: chf Do you want consulting provider notified?: Yes Consult Physician Routine Consulting Provider: Susannah Anderson Consult Reason/Comments: anemia Do you want consulting provider notified?: Yes 10/29/24 10:57 Consult Physician Routine Consulting Provider: Landen Summers Consult Reason/Comments: Anemia Do you want consulting provider notified?: Yes Primary care physician: Jeniffer Figueroa [facility] Hospital Course: Patient is a 63 year old female, follows Dr. Jeniffer Figueroa. With past medical history of breast cancer, macular edema diabetes mellitus, lipidemia, hypertension, newly diagnosed CHF presented to the ED with lower extremity edema. Patient reports that she started noticing swelling on her legs 3 days ago. Initially the swelling was only on the left foot, gradually progressed to the entire left lower extremity and then she also started noticing swelling on her right lower extremity. Currently she states that legs are so swollen and heavy that she is not able to lift them. She denies any pain. She mentions that she has been newly diagnosed with CHF last summer. She is currently maintained on Bumex and denies missing any doses. Associated with that she has experienced shortness of breath productive cough with clear phlegm. Additionally she had a TAVR done recently. She states she follows up with ramp attendant for CKD. She has also been worked up for anemia and is currently on aspirin and Plavix. She denies hematemesis, melena. Denies fever, chills, chest pain, palpitations, abdominal pain, nausea, vomiting, hematuria, dysuria, hematochezia, melena, headache, slurred speech, numbness, tingling, dizziness, lightheadedness, blurred vision, double vision. ED documentation reviewed. In the ED patient was treated with atorvastatin, clopidogrel, duloxetine, furosemide, labetalol, linagliptin, losartan, nystatin, pantoprazole. Vitals on admission T 98 F, WA 87 bpm, RR 18, BP 151/73, oxygen saturation 96% on room air EKG independently interpreted as sinus rhythm, rate 88 bpm, QTc 417 ms Chest x-ray shows cardiomegaly and mild pulmonary vascular congestion Echocardiogram shows EF 55 to 60%, normal ventricle size and systolic function with left ventricular hypertrophy, dilated right ventricle with severe pulmonary hypertension, moderate MS, mild TR, TAVR valve with normal function Labs on admission show WBC 8.2, hemoglobin 6.4, MCV 77.9, RDW 19.6, platelet count 243, APTT 21.7, sodium 131, potassium 3.8, BUN 20, creatinine 1.28 m agnesium 1.6, troponin I 0.023, NT proBNP 6230 UA shows 1+ protein, trace blood, large leukocyte esterase, 24 WBC, rare squamous epithelial cells, occasional bacteria, 3 hyaline casts, rare budding yeast Respiratory panel is negative 10/27/24: Patient seen and examined at bedside today. Vital signs are stable, patient is on room air. Labs today show hemoglobin 7.1, RDW 19.7, MCV 80.6, sodium 133, BUN 20, creatinine 1.4. Iron studies show iron 348, TIBC 407, percent saturation 85.5, transferrin 291, ferritin 31.5. 10/28. Patient seen examined. Blood work done this morning showed WBC 9.2, hemoglobin 7, platelet count 279, sodium 132, potassium 3.8, BUN 22, creatinine 1.41. Denies any shortness of breath at rest. Slight swelling of lower ex tremities 10/29. Patient seen and examined. Vital signs on this morning Show temperature 98.1, heart 83, respirations 16, blood pressure 147/76. Still has swelling of lower extremities. Denies any shortness of breath at rest. Complaining of lethargy and weakness October 30: Sitting up in a chair. Some improvement in breathing. Eating well. Some decrease edema. Jay wrap to both the legs. Had a bowel movement. Good urine output. October 31: Remains on IV Lasix 60 mg every 12. Good urine output. Breathing much better. Tolerating diet. Ajy wrap to lower extremity. Given IV iron. About 7500 cc negative fluid balance until date November 01: Doing much better. Switched over to oral diuretic. Breathing stable. Discussed with patient. Outpatient follow-up with Dr. Loly Anderson for possible endoscopy. Her technology coordinator Dr. Jean Baptiste and also will follow-up with hematology. Physical examination: VITAL SIGNS:, 98 6.2, 77, 16, 128 x 59, 96% room air GENERAL: BMI 45.3, up in a chair, more comfortable EYES: Pupils equal. Conjunctiva normal. HEENT: External appearance of nose and ears normal, oral cavity grossly normal. NECK: JVD possibly raised; masses not palpable. HEART: First and second heart sounds are normal; edema coming down LUNGS: Respiratory rate increased; decreased breath sounds. ABDOMEN: Soft, nontender, liver spleen not palpable, no masses palpable. PSYCH: AOx3. Mood affect normal MUSCULOSKELETAL:No Clubbing/cyanosis;muscles-grossly intact. UA INVESTIGATIONS, reviewed in the clinical context: November 01: Sodium 131 BUN 26 creatinine 1.6 October 30: White count 9.6 hemoglobin 7.9 platelets 314 sodium 131 potassium 3.4 BUN 24 creatinine 1.49 2D echo: EF 55 to 60%.Moderate mitral stenosis. Mean gradient 6 mmHg. Normally functioning bioprosthetic arctic valve. Assessment and plan #. Acute on chronic heart failure with preserved EF: Slowly improving IV Lasix 60 mg every 12. Fluid restriction. Jay wrap lower extremity. Strict I's and O's Discharged on Bumex. Fluid restriction 1800 cc a day #. Microcytic anemia, likely acute blood loss anemia due to patient's history of AVM Monitor CBC Iron studies show iron 348, TIBC 407, percent saturation 85.5, transferrin 291, ferritin 31.5. GI consulted, recommend EGD and colonoscopy once heart failure symptoms have improved,-follow-up Dr. Loly Anderson outpatient Hematology-oncology follow-up outpatient Received 2 doses of IV iron #. Hypervolemic Hyponatremia, improving Monitor BMP #. Oral candidiasis Continue Nystatin 500,000 unit p.o. 4 times daily Chronic: #. CKD stage IIIb, likely nephrosclerosis Follow renal function #. Essential hypertension Amlodipine 10 mg a day. Coreg 25 mg twice daily. Hydralazine 50 mg 3 times daily. Cozaar 25 mg a day. #. Hyperlipidemia Lipitor 40 mg nightly #. Non insulin dependent Diabetes mellitus, type II Januvia at home] #. Anxiety/depression Cymbalta #. Peripheral neuropathy Neurontin Disposition: Home Plan - Discharge Summary Discharge Rx Participant: No New Discharge Prescriptions: New carvediloL [Coreg*] 25 mg PO BID-W/MEALS #60 tab Losartan [Cozaar] 50 mg PO HS #30 tab Potassium Chloride ER [K-Dur 20] 20 meq PO DAILY #30 tab hydrALAZINE HCL [Apresoline] 50 mg PO TID #90 tab Isosorbide Mononitrate ER [Imdur] 30 mg PO DAILY #30 tab Magnesium Oxide [Mag-Ox] 400 mg PO DAILY #30 tab Nystatin 100,000 Unit/gm Powd [Mycostatin Powder] 1 applic TOPICAL BID #1 eac h Iron Ps Cmplx/Vit B12/FA [Niferex-150 Forte] 1 each PO DAILY #30 cap Continue Calcium Carb/Mag Ox/Zinc Sulf [Nsq-Hqv-Jdja 334-134-5 mg Tab] 1 tab PO DAILY Aspirin 81 mg PO DAILY Atorvastatin [Lipitor] 40 mg PO HS #30 tab Mv-Mn/Om3/Dha/Epa/Fish/Lut/Jermaine [Ocuvite Adult 50 Plus Softgel] 1 cap PO DAILY Vitamin E (Dl,Tocopheryl Acet) [Vitamin E (100 Iu = 45MG)] 45 mg PO DAILY Diphenoxylate HCl/Atropine [Lomotil 2.5-0.025 mg Tablet] 1 tab PO QID PRN PRN Reason: Diarrhea DULoxetine HCL [Cymbalta] 60 mg PO DAILY sitaGLIPtin [Januvia] 50 mg PO DAILY Vitamin B Complex 1 cap PO DAILY Pantoprazole Sodium [Protonix] 40 mg PO DAILY Semaglutide [Rybelsus] 3 mg PO DAILY Gabapentin [Neurontin] 100 mg PO Q8H PRN PRN Reason: Pain Cholecalciferol (Vitamin D3) [Vitamin D3 (125 MCG = 5,000 IU)] 125 mcg PO DAILY amLODIPine [Norvasc] 10 mg PO HS Bumetanide [BUMEX] 1 mg PO DAILY #60 tab Discontinued Losartan Potassium [Cozaar] 100 mg PO HS #30 tab Labetalol [Trandate] 200 mg PO Q8H #90 tab Clopidogrel [Plavix] 75 mg PO DAILY #30 tab Discharge Medication List DULoxetine HCL [Cymbalta] 60 mg PO DAILY 05/09/22 [History] Diphenoxylate HCl/Atropine [Lomotil 2.5-0.025 mg Tablet] 1 tab PO QID PRN 05/09/22 [History] sitaGLIPtin [Januvia] 50 mg PO DAILY 05/09/22 [History] Calcium Carb/Mag Ox/Zinc Sulf [Xpw-Dsf-Wnpp 334-134-5 mg Tab] 1 tab PO DAILY 05/19/23 [History] Vitamin B Complex 1 cap PO DAILY 05/19/23 [History] Aspirin 81 mg PO DAILY 05/08/24 [History] Gabapentin [Neurontin] 100 mg PO Q8H PRN 05/08/24 [History] Pantoprazole Sodium [Protonix] 40 mg PO DAILY 05/08/24 [History] Semaglutide [Rybelsus] 3 mg PO DAILY 05/08/24 [History] Atorvastatin [Lipitor] 40 mg PO HS #30 tab 05/12/24 [Rx] Cholecalciferol (Vitamin D3) [Vitamin D3 (125 MCG = 5,000 IU)] 125 mcg PO DAILY 10/26/24 [History] Mv-Mn/Om3/Dha/Epa/Fish/Lut/Jermaine [Ocuvite Adult 50 Plus Softgel] 1 cap PO DAILY 10/26/24 [History] Vitamin E (Dl,Tocopheryl Acet) [Vitamin E (100 Iu = 45MG)] 45 mg PO DAILY 10/26/24 [History] amLODIPine [Norvasc] 10 mg PO HS 10/26/24 [History] Bumetanide [BUMEX] 1 mg PO DAILY #60 tab 11/01/24 [Rx] Iron Ps Cmplx/Vit B12/FA [Niferex-150 Forte] 1 each PO DAILY #30 cap 11/01/24 [Rx] Isosorbide Mononitrate ER [Imdur] 30 mg PO DAILY #30 tab 11/01/24 [Rx] Losartan [Cozaar] 50 mg PO HS #30 tab 11/01/24 [Rx] Magnesium Oxide [Mag-Ox] 400 mg PO DAILY #30 tab 11/01/24 [Rx] Nystatin 100,000 Unit/gm Powd [Mycostatin Powder] 1 applic TOPICAL BID #1 each 11/01/24 [Rx] Potassium Chloride ER [K-Dur 20] 20 meq PO DAILY #30 tab 11/01/24 [Rx] carvediloL [Coreg*] 25 mg PO BID-W/MEALS #60 tab 11/01/24 [Rx] hydrALAZINE HCL [Apresoline] 50 mg PO TID #90 tab 11/01/24 [Rx] Follow up Appointment(s)/Referral(s): Ciera Gonzalez NPC [Nurse Practitioner] - 11/21/24 10:00 am Satish Jean Baptiste MD [STAFF PHYSICIAN] - 2 Weeks (The office will call with an appointment time and date. ) Susannah Anderson MD [STAFF PHYSICIAN] - 1 Week (The office will call with an appointment time and date. ) Jeniffer Figueroa MD [Primary Care Provider] - 11/07/24 1:15 pm Patient Instructions/Handouts: Heart Failure (DC), Anemia (DC) Activity/Diet/Wound Care/Special Instructions: fluid restrict 1800 cc/day Discharge Disposition: HOME SELF-CARE
== END 2024-11-01 15:35 | disposition home or self-care (01) | DRG 291 ==
LOC: EC 20:16 → 3SCARD 22:24
PROVIDERS: ADMIT Hospitalist; ATTEND Hospitalist
PROC: 30233N1 Transfusion of Nonautologous Red Blood Cells into Peripheral Vein, Percutaneous Approach (ICD-10-PCS; principal; 2024-10-25)
DX: I13.0 Hypertensive heart and chronic kidney disease with heart failure and stage 1 through stage 4 chronic kidney disease, or unspecified chronic kidney disease (principal); I50.33 Acute on chronic diastolic (congestive) heart failure; B37.0 Candidal stomatitis; D62 Acute posthemorrhagic anemia; E87.1 Hypo-osmolality and hyponatremia; I27.20 Pulmonary hypertension, unspecified; D63.1 Anemia in chronic kidney disease; E11.22 Type 2 diabetes mellitus with diabetic chronic kidney disease; E66.01 Morbid (severe) obesity due to excess calories; N18.32 Chronic kidney disease, stage 3b; F32.A Depression, unspecified; Z95.3 Presence of xenogenic heart valve; Z68.41 Body mass index [BMI] 40.0-44.9, adult; E11.311 Type 2 diabetes mellitus with unspecified diabetic retinopathy with macular edema; E11.40 Type 2 diabetes mellitus with diabetic neuropathy, unspecified; D47.2 Monoclonal gammopathy; I08.1 Rheumatic disorders of both mitral and tricuspid valves; I25.10 Atherosclerotic heart disease of native coronary artery without angina pectoris; D50.9 Iron deficiency anemia, unspecified; D53.9 Nutritional anemia, unspecified; Z20.822 Contact with and (suspected) exposure to COVID-19; E78.5 Hyperlipidemia, unspecified; F41.9 Anxiety disorder, unspecified; Z79.02 Long term (current) use of antithrombotics/antiplatelets; Z79.811 Long term (current) use of aromatase inhibitors; Z79.82 Long term (current) use of aspirin; Z79.84 Long term (current) use of oral hypoglycemic drugs; Z79.899 Other long term (current) drug therapy; Z85.3 Personal history of malignant neoplasm of breast; Z88.5 Allergy status to narcotic agent; Z88.0 Allergy status to penicillin
CPT/HCPCS: 36415; 36430; 71046; 80048; 80053; 81001; 82272; 82728; 83036; 83540; 83550; 83735; 83880; 83883; 84484; 85025; 85027; 85610; 85730; 86334; 86850; 86900; 86901; 86920; 87636; 93005; 93306; 96365; 96375; 96376; 99285

== ENCOUNTER 2024-11-17 23:22 | Inpatient (IN) | payer MEDICARE, OTHER ==
[2024-11-18] MEDS ORDERED: ACETAMINOPHEN TAB 325 MG TAB PO PRN (01:08)
[2024-11-18] MEDS ORDERED: NALOXONE 0.4 MG/ML 1 ML VIAL IV PRN (01:08)
--- NOTE | 2024-11-18 01:08 | ED ---
General Adult HPI - General Chief complaint: Recheck/Abnormal Lab/Rx Stated complaint: Anemia Time Seen by Provider: 11/17/24 23:30 Source: patient, EMS, RN notes reviewed, old records reviewed Mode of arrival: EMS - History of Present Illness Initial comments: Patient is a 64-year-old female presents emergency department as a transfer from [facility]. Patient has a history of congestive heart failure, diabetes, hypertension, hyperlipidemia. Is also dealing with CKD and chronic anemia. Is only on aspirin. Has been dealing with anemia since last year February. Was recently admitted and required a few blood transfusions. Was discharged home with a hemoglobin of 7.9. Apparently his hemoglobin today at her PCPs office was decreased again and he told her to go into the hospital to get readmitted for evaluation by cardiology and nephrology. She denies any new symptoms. Denies shortness of breath, chest pain. Endorses somewhat stable lower extremity edema. Denies any fevers or chills. Denies any new weakness. Only presented because her PCP instructed her to. At outside facility, patient was found to still be anemic and was transfused 1 unit of blood. Patient receives follow-up at our facility as she sees Dr. Davalos as well as Dr. Aviles. Therefore patient transferred here for further care. She states she has been worked up for GI bleeds concerning her anemia and she is no longer on blood thinners. Denies any gross blood per rectum. Denies any bleeding sites. Presents for further evaluation. - Related Data Home Medications Medication Instructions Recorded Confirmed DULoxetine HCL [Cymbalta] 60 mg PO DAILY 05/09/22 10/26/24 Diphenoxylate HCl/Atropine 1 tab PO QID PRN 05/09/22 10/26/24 [Lomotil 2.5-0.025 mg Tablet] sitaGLIPtin [Januvia] 50 mg PO DAILY 05/09/22 10/26/24 Calcium Carb/Mag Ox/Zinc Sulf 1 tab PO DAILY 05/19/23 10/26/24 [Lem-Irs-Hkow 334-134-5 mg Tab] Vitamin B Complex 1 cap PO DAILY 05/19/23 10/26/24 Aspirin 81 mg PO DAILY 05/08/24 10/26/24 Gabapentin [Neurontin] 100 mg PO Q8H PRN 05/08/24 10/26/24 Pantoprazole Sodium [Protonix] 40 mg PO DAILY 05/08/24 10/26/24 Semaglutide [Rybelsus] 3 mg PO DAILY 05/08/24 10/26/24 Cholecalciferol (Vitamin D3) 125 mcg PO DAILY 10/26/24 10/26/24 [Vitamin D3 (125 MCG = 5,000 IU)] Mv-Mn/Om3/Dha/Epa/Fish/Lut/Jermaine 1 cap PO DAILY 10/26/24 10/26/24 [Ocuvite Adult 50 Plus Softgel] Vitamin E (Dl,Tocopheryl Acet) 45 mg PO DAILY 10/26/24 10/26/24 [Vitamin E (100 Iu = 45MG)] amLODIPine [Norvasc] 10 mg PO HS 10/26/24 10/26/24 Previous Rx's Medication Instructions Recorded Atorvastatin [Lipitor] 40 mg PO HS #30 tab 05/12/24 Bumetanide [BUMEX] 1 mg PO DAILY #60 tab 11/01/24 Iron Ps Cmplx/Vit B12/FA 1 each PO DAILY #30 cap 11/01/24 [Niferex-150 Forte] Isosorbide Mononitrate ER [Imdur] 30 mg PO DAILY #30 tab 11/01/24 Losartan [Cozaar] 50 mg PO HS #30 tab 11/01/24 Magnesium Oxide [Mag-Ox] 400 mg PO DAILY #30 tab 11/01/24 Nystatin 100,000 Unit/gm Powd 1 applic TOPICAL BID #1 each 11/01/24 [Mycostatin Powder] Potassium Chloride ER [K-Dur 20] 20 meq PO DAILY #30 tab 11/01/24 carvediloL [Coreg*] 25 mg PO BID-W/MEALS #60 tab 11/01/24 hydrALAZINE HCL [Apresoline] 50 mg PO TID #90 tab 11/01/24 Allergies Allergy/AdvReac Type Severity Reaction Status Date / Time adhesive tape Allergy Itching Verified 11/17/24 23:32 morphine Allergy Swelling & Verified 11/17/24 23:32 hives Penicillins Allergy Rash/Hives Verified 11/17/24 23:32 ALEXIS Inhibitors AdvReac Cough Verified 11/17/24 23:32 Review of Systems ROS Statement: Those systems with pertinent positive or pertinent negative responses have been documented in the HPI. Review of Systems: CONST: Denies fever EYES: Denies blurry vision ENT: Denies nasal congestion C/V: Denies Chest pain RESP: Denies shortness of breath GI: Denies abdominal pain : Denies dysuria SKIN: Denies rash. MSK: Denies joint pain. NEURO: Denies headache ROS Other: All systems not noted in ROS Statement are negative. Past Medical History Past Medical History: Cancer, Heart Failure, CVA/TIA, Diabetes Mellitus, Hyperli pidemia, Hypertension Additional Past Medical History / Comment(s): breast cancer, macular edema with hemorrhage bilateral, neuropathy, poor vision, Anemia History of Any Multi-Drug Resistant Organisms: None Reported Past Surgical History: Section, Cholecystectomy, Heart Catheterization Additional Past Surgical History / Comment(s): left lumpectomy x 2, TAVR-2023,. right mediport insertion Past Anesthesia/Blood Transfusion Reactions: No Reported Reaction Past Psychological History: Anxiety, Depression Smoking Status: Never smoker Past Alcohol Use History: None Reported Past Drug Use History: None Reported - Past Family History Father Additional Family Medical History / Comment(s): No health hx 91 from pneumonia Mother Additional Family Medical History / Comment(s): No health hx after fall age 96 General Exam - General Exam Comments Initial Comments: General: Appears in no acute distress. HEAD: Normal with no signs of head trauma. EYES: EOMI ENT: Hearing grossly intact, normal oropharynx. RESPIRATORY: Clear breath sounds bilaterally. No wheezes, rales, or rhonchi. C/V: Regular rate and rhythm. S1 and S2 auscultated, no edema, peripheral pulses 2+ and intact throughout ABD: Abd is soft, nontender, nondistended. On rectal exam performed in the presence of a female staff member, patient does have a nonbleeding external hemorrhoid. No gross blood per rectum. Light brown stool. EXT: Normal range of motion, no obvious deformity SKIN: No rashes or lesions observed on exposed skin. NEURO: Alert and oriented x 4. Course Vital Signs 11/17/24 11/18/24 23:27 01:31 Temperature 98.8 F Pulse Rate 66 66 Respiratory 20 18 Rate Blood Pressure 142/71 153/73 O2 Sat by Pulse 95 97 Oximetry Medical Decision Making - Medical Decision Making Was pt. sent in by a medical professional or institution (Dr., PA, HOME MANAGEMENT SUPERVISOR, urgent care, hospital, or mcc...) When possible be specific @ -No Did you speak to anyone other than the patient for history (EMS, parent, family, police, friend...)? What history was obtained from this source @ -No Did you review nursing and triage notes (agree or disagree)? Why? @ -I reviewed and agree with nursing and triage notes Were old charts reviewed (outside hosp., previous admission, EMS record, old EKG, old radiological studies, urgent care reports/EKG's, mcc records)? Report findings @ -Reviewed documentation from [facility] from where the patient was transferred. Received 1 unit of blood there. Differential Diagnosis (chest pain, altered mental status, abdominal pain women, abdominal pain men, vaginal bleeding, weakness, fever, dyspnea, syncope, headac he, dizziness, GI bleed, back pain, seizure, CVA, palpatations, mental health, musculoskeletal)? @ -Chronic anemia, chronic heart failure, CKD. This list is not all inclusive. EKG interpreted by me (3pts min.). @ -As above X-rays interpreted by me (1pt min.). @ -None done CT interpreted by me (1pt min.). @ -None done U/S interpreted by me (1pt. min.). @ -None done What testing was considered but not performed or refused? (CT, X-rays, U/S, labs)? Why? @ -None What meds were considered but not given or refused? Why? @ -None Did you discuss the management of the patient with other professionals (professionals i.e. MIRA George, HOME MANAGEMENT SUPERVISOR, lab, RT, psych nurse, social security specialist, level glass forming machine operator, teacher, client sales and service officer, continuous pillowcase cutter)? Give summary @ -Discussed with the admitting provider, RIDGE Garnica of [facility]. He did accept the admission. Was smoking cessation discussed for >3mins.? @ -No Was critical care preformed (if so, how long)? @ -No Were there social determinants of health that impacted care today? How? (Homelessness, low income, unemployed, alcoholism, drug addiction, transportation, low edu. Level, literacy, decrease access to med. care, usp, rehab)? @ -No Was there de-escalation of care discussed even if they declined (Discuss DNR or withdrawal of care, Hospice)? DNR status @ -No What co-morbidities impacted this encounter? (DM, HTN, Smoking, COPD, CAD, Cancer, CVA, ARF, Chemo, Hep., AIDS, mental health diagnosis, sleep apnea, morbid obesity)? @ -Chronic anemia, CKD, CHF Was patient admitted / discharged? Hospital course, mention meds given and route, prescriptions, significant lab abnormalities, going to OR and other pertinent info. @ -Patient is a 64-year-old female essentially transferred for reevaluation by her admin prog coord, platform operations director, for chronic anemia. Patient was discharged home from the hospital with a hemoglobin of 7.9 and it has dropped since. Was discharged home approximately 2 weeks ago. Patient was seen at another facility, [place] and transferred here she receives most of her care through our facility. Was given 1 unit transfusion of packed red blood cells. Patient has no new symptoms. Patient saw her PCP today and wanted her readmitted for the worsening anemia, as well as continued lower extremity edema which patient states is relatively stable for her. Previously was on blood thinners however has been off of them and only takes a baby aspirin. She denies any gross blood per rectum. Denies any gross source of bleeding. She is on iron tablets and states that her occult levels are typically positive. Hemoglobin at the other f acility was 7.0 and was microcytic in nature. Patient was transferred here for further care and evaluation. I did discuss with her that we may need to transfer her again as we do not have GI available however it does not appear that she has an active GI bleed at this time based on her symptoms. This seems to be somewhat chronic for the patient as she has required numerous transfusions in the past. I did speak with the admitting provider, RIDGE GUTIERREZ who was in agreement with this assessment and accepted the admission. Patient actively has a unit transfusing we will obtain laboratory studies following the transfusion. Patient will be admitted with nephrology, cardiology, as well as hematology on his consult. She was in agreement this plan. She has a history of CHF, however is not actively in exacerbation. She states she feels relatively normal at this time. Screening EKG showed no signs of acute ischemia. Patient's laboratory studies returned remarkable for improved anemia with a hemoglobin of 8.7 status post transfusion of 1 unit packed red blood cells. Occult blood did return positive however patient is on iron tablets and this was expected. BNP is still elevated at 8200. No obvious CHF symptoms. Will continue with home meds. Mild ALBIN with elevated creatinine of 1.95 which is above baseline. Undiagnosed new problem with uncertain prognosis? @ -No Drug Therapy requiring intensive monitoring for toxicity (Heparin, Nitro, Insulin, Cardizem)? @ -No Were any procedures done? @ -No Diagnosis/symptom? @ -Chronic anemia, CKD, CHF Acute, or Chronic, or Acute on Chronic? @ -Acute on chronic Uncomplicated (without systemic symptoms) or Complicated (systemic symptoms)? @ -Complicated Side effects of treatment? @ -No Exacerbation, Progression, or Severe Exacerbation? @ -No Poses a threat to life or bodily function? How? (Chest pain, [place], [place], pneumonia, PE, COPD, DKA, ARF, appy, cholecystitis, CVA, Diverticulitis, Homicidal, Suicidal, threat to staff... and all critical care pts) @ -Potentially, yes - Lab Data Result diagrams: 11/17/24 02:00 11/17/24 02:00 Lab Results 11/17/24 11/17/24 11/17/24 Range/Units 02:00 02:00 23:50 WBC 9.6 (3.8-10.6) k/uL RBC 3.25 L (3.80-5.40) m/uL Hgb 8.7 L (11.4-16.0) gm/dL Hct 27.4 L (34.0-46.0) % MCV 84.3 (80.0-100.0) fL MCH 26.7 (25.0-35.0) pg MCHC 31.7 (31.0-37.0) g/dL RDW 19.8 H (11.5-15.5) % Plt Count 257 (150-450) k/uL MPV 7.3 Neutrophils % 85 % Lymphocytes % 7 % Monocytes % 6 % Eosinophils % 1 % Basophils % 0 % Neutrophils # 8.1 H (1.3-7.7) k/uL Lymphocytes # 0.6 L (1.0-4.8) k/uL Monocytes # 0.6 (0-1.0) k/uL Eosinophils # 0.1 (0-0.7) k/uL Basophils # 0.0 (0-0.2) k/uL Hypochromasia Moderate Anisocytosis Slight Microcytosis Slight Sodium 128 L (137-145) mmol/L Potassium 4.3 (3.5-5.1) mmol/L Chloride 94 L (98-107) mmol/L Carbon Dioxide 21 L (22-30) mmol/L Anion Gap 13 mmol/L BUN 36 H (7-17) mg/dL Creatinine 1.95 H (0.52-1.04) mg/dL Est GFR (CKD-EPI)AfAm 30 (>60 ml/min/1.73 sqM) Est GFR (CKD-EPI)NonAf 26 (>60 ml/min/1.73 sqM) Glucose 166 H (74-99) mg/dL Calcium 9.4 (8.4-10.2) mg/dL Total Bilirubin 1.2 (0.2-1.3) mg/dL AST 18 (14-36) U/L ALT 13 (4-34) U/L Alkaline Phosphatase 72 (38-126) U/L NT-Pro-B Natriuret Pep 8200 pg/mL Total Protein 6.7 (6.3-8.2) g/dL Albumin 4.1 (3.5-5.0) g/dL Stool Occult Blood Positive H (Negative) - EKG Data -: EKG Interpreted by Me EKG Comments: 12-lead Electrocardiogram Interpretation Note EKG was reviewed and interpreted by myself. 12-lead ECG performed at 2337 is interpreted by me as revealing normal sinus rhythm at a rate of 73 beats per minute. [place] is normal. MI interval is 193 ms, QRS duration is 88 ms, QTc is 400 ms. Isolated PVCs present.. There were no ST or T wave abnormalities to suggest myocardial ischemia or injury. R wave progression across the precordium was satisfactory. By my interpretation this EKG is non-diagnostic for acute ischemia. Disposition Clinical Impression: Anemia, CHF (congestive heart failure), CKD (chronic kidney disease) Disposition: ADMITTED IP TO THIS HOSP Condition: Stable Is patient prescribed a controlled substance at d/c from ED?: No Time of Disposition: 00:30
[2024-11-18 02:27] LABS: Anisocytosis Slight; Basophils % (A) 0 %; Eosinophils # (A) 0.1 k/uL (0-0.7); Eosinophils % (A) 1 %; HCT 27.4 % (34.0-46.0); HGB 8.7 gm/dL (11.4-16.0); Hypochromasia Moderate; Lymphocytes # (A) 0.6 k/uL (1.0-4.8); Lymphocytes % (A) 7 %; MCH 26.7 pg (25.0-35.0); MCHC 31.7 g/dL (31.0-37.0); MCV 84.3 fL (80.0-100.0); Mean Platelet Volume 7.3; Microcytosis Slight; Monocytes # (A) 0.6 k/uL (0-1.0); Monocytes % (A) 6 %; Neutrophils # (A) 8.1 k/uL (1.3-7.7); Neutrophils % (A) 85 %; Platelet Count 257 k/uL (150-450); RBC 3.25 m/uL (3.80-5.40); RDW 19.8 % (11.5-15.5); WBC 9.6 k/uL (3.8-10.6)
[2024-11-18 02:41] LABS: ALT 13 U/L (4-34); AST 18 U/L (14-36); African American GFR (CKD) 30 (>60 ml/min/1.73 sqM); Albumin 4.1 g/dL (3.5-5.0); Alkaline Phosphatase 72 U/L (38-126); Anion Gap 13 mmol/L; Blood Urea Nitrogen 36 mg/dL (7-17); Calcium 9.4 mg/dL (8.4-10.2); Carbon Dioxide 21 mmol/L (22-30); Chloride 94 mmol/L (98-107); Glucose 166 mg/dL (74-99); Non-African American GFR(CKD) 26 (>60 ml/min/1.73 sqM); Potassium 4.3 mmol/L (3.5-5.1); Sodium 128 mmol/L (137-145); Total Bilirubin 1.2 mg/dL (0.2-1.3); Total Protein 6.7 g/dL (6.3-8.2)
[2024-11-18 02:50] LABS: NT-Pro-B-Type Natriuretic Pept 8200 pg/mL
[2024-11-18 03:47] LABS: Partial Thromboplastin Time 21.5 sec (22.0-30.0)
[2024-11-18] MEDS ORDERED: DIPHENOX-ATROP 2.5-0.025 MG 1 EACH TAB PO PRN (08:31)
[2024-11-18] MEDS ORDERED: GABAPENTIN 100 MG CAP PO PRN (08:31)
[2024-11-18] MEDS ORDERED: NON FORMULARY DRUG (Calcium Carb/Mag Ox/Zinc Sulf [Cal-Mag-Zinc 334-134-5 Mg Tab] 1 EACH T PO SCH (09:00)
[2024-11-18] MEDS: POTASSIUM CHLORIDE ER 20 MEQ TAB.ER PO SCH (09:04)
[2024-11-18] MEDS: hydrALAZINE HCL 50 MG TAB PO SCH (09:04)
[2024-11-18] MEDS: ASPIRIN 81 MG PO SCH (09:04)
[2024-11-18] MEDS: CHOLECALCIFEROL 125 MCG (5000 IU) TABLET PO SCH (09:04)
[2024-11-18] MEDS: ISOSORBIDE MONONITRATE ER 30 MG TAB.ER.24H PO SCH (09:04)
[2024-11-18] MEDS: MAGNESIUM OXIDE 400 MG TAB PO SCH (09:04)
[2024-11-18] MEDS: DULoxetine HCL 60 MG CAPSULE.DR PO SCH (09:04)
[2024-11-18] MEDS: BUMETANIDE 1 MG TAB PO SCH (09:05)
[2024-11-18] MEDS: PANTOPRAZOLE 40 MG TABLET PO SCH (09:07)
--- NOTE | 2024-11-18 10:17 | XR ---
Chest, 2 view. CLINICAL INDICATION: Female, 64 years old with history of Hx of CHF COMPARISON: 11/01/2024 TECHNIQUE: PA and lateral views the chest are obtained. FINDINGS: The right-sided Mediport catheter unchanged in position. The lungs are clear and there is no consolidative or interstitial opacity. There is interval development of a tiny pleural effusion in one of the lung bases seen on the lateral view The heart is mildly enlarged but the pulmonary vasculature is not congested.. The osseous structures are intact. Multiple surgical clips in the soft tissues in the region of the l eft breast IMPRESSION: 1. stable mild cardiomegaly. 2. Interval development of small pleural effusions. 3. No overt CHF or pneumonia. [facility], , 11/18/2024 10:15 AM
[2024-11-18] MEDS ORDERED: DEXTROSE 50% SYRINGE 50 ML IVP PRN ×2 (11:33)
--- NOTE | 2024-11-18 11:36 | P.HPIM ---
History of Present Illness H&P Date: 11/18/24 Patient is a 64-year-old female with a history of left breast cancer status post lumpectomy, chemotherapy and radiation in 2015, TAVR, CHF, type 2 diabetes, CKD, chronic anemia, hyperlipidemia, hypertension is a transfer from a [facility]. Patient was recently hospitalized for generalized weakness and fatigue and had a transfusion of blood. Since her discharge, she has ongoing shortness of breath with exertion, generalized malaise for which she saw her PCP and had a blood work done which showed that her hemoglobin was low. Therefore, her PCP advised her to go to [facility] for further evaluation and later she was transferred to [facility] for further care. Patient did receive a unit of blood while in transit to [facility]. Additionally, she has also been endorsing swelling in her legs which has been getting progressively worse. Lab work in the ER shows hemoglobin of 8.7, MCV 84.3, platelet count 257, PT 11.0, INR 1.0, APTT 21.5, sodium 128, potassium 4.3, chloride 94, bicarb 21, BUN 36, creatinine 1.95, glucose 166, EGFR 26, Chest x-ray shows stable mild cardiomegaly with no overt CHF or pneumonia. Review of systems: Patient denies chest pain, abdominal discomfort, nausea, vomiting, numbness or tingling upper lower extremities. Pertinent positives and negatives as discussed in HPI, a complete review of systems was performed and all other systems are negative. Physical examination: Vital signs reviewed General: non toxic, no distress, appears at stated age, morbidly obese Derm: no unusual rashes/lesions, warm Head: atraumatic, normocephalic, symmetric Eyes: EOMI, no lid lag, anicteric sclera, pupils equal round reactive to light ENT: Nose and ears atraumatic Neck: No cervical lymphadenopathy, trachea midline, supple Mouth: no lip lesion, mucus membranes moist Cardiovascular: S1S2 reg, no murmur, positive dorsalis pedis pulse bilateral, 3+ bilateral pitting edema Lungs: CTA bilateral, no rhonchi, no rales, no accessory muscle use Abdominal: soft, nontender to palpation, no guarding Ext: muscle strength 5 out of 5 in all 4 extremities grossly, no gross muscle atrophy, no contractures, Neuro: CN II-XI grossly intact, no gross focal neuro deficits Psych: Alert, oriented, appropriate affect Assessment/Plan: This is a Patient is a 64-year-old female with a history of left breast cancer status post lumpectomy, chemotherapy and radiation in 2014, TAVR, CHF, type 2 diabetes, CKD, chronic anemia, hyperlipidemia, hypertension is a transfer from a [facility] for generalized weakness and anemia. Case was discussed with the Emergency Room provider and decision was made to admit the patient for chronic anemia. Labs and images: Lab work in the ER shows hemoglobin of 8.7, MCV 84.3, platelet count 257, PT 11. 0, INR 1.0, APTT 21.5, sodium 128, potassium 4.3, chloride 94, bicarb 21, BUN 36, creatinine 1.95, glucose 166, EGFR 26, Chest x-ray shows stable mild cardiomegaly with no overt CHF or pneumonia. Active: #Generalized weakness and malaise # Normocytic anemia #Nonoliguric ALBIN on CKD #Acute Diastolic CHF exacerbation #Hypervolemic hyponatremia #History of breast cancer status post lumpectomy and chemotherapy and radiation Blood transfusion if hemoglobin is less than 7 Consult cardiology, oncology and nephrology Daily I's and O's Daily weights Order lipid panel, vitamin B12, methylmalonic acid, TSH Continue cardiac telemetry CBC and BMP tomorrow a.m. Fluid restrictions Order IV Lasix 40 mg once stat Resume Bumex 1 mg p.o. daily Avoid nephrotoxic drugs Echocardiogram on 10/26/2024 shows LVEF 55 to 60% Order renal and bladder ultrasound #Hyperglycemia Accu-Cheks and sliding scale insulin Order HbA1c Chronic: Hypertension, hyperlipidemia, anxiety, depression, GERD Resume home medications DVT prophylaxis: SCDs GI prophylaxis: Protonix 40 mg daily F: None E: Replete as needed N: Heart healthy diet A: Ambulatory at baseline The patient is admitted with an anticipated less than than 2 midnight stay for evaluation of anemia CODE STATUS: Full code Discussed with: Patient Anticipated discharge place: Pending clinical course Dictation was produced using [employer] software. Please excuse any grammatical, word or spelling errors. Past Medical History Past Medical History: Cancer, Heart Failure, CVA/TIA, Diabetes Mellitus, Hyperlipidemia, Hypertension Additional Past Medical History / Comment(s): breast cancer, macular edema with hemorrhage bilateral, neuropathy, poor vision, Anemia History of Any Multi-Drug Resistant Organisms: None Reported Past Surgical History: Section, Cholecystectomy, Heart Catheterization Additional Past Surgical History / Comment(s): left lumpectomy x 2, TAVR-2023,. right mediport insertion Past Anesthesia/Blood Transfusion Reactions: No Reported Reaction Past Psychological History: Anxiety, Depression Smoking Status: Never smoker Past Alcohol Use History: None Reported Past Drug Use History: None Reported - Past Family History Father Additional Family Medical History / Comment(s): No health hx 91 from pneumonia Mother Additional Family Medical History / Comment(s): No health hx after fall age 96 Medications and Allergies Home Medications Medication Instructions Recorded Confirmed Type DULoxetine HCL [Cymbalta] 60 mg PO DAILY 05/09/22 11/18/24 History Diphenoxylate HCl/Atropine 1 tab PO QID PRN 05/09/22 11/18/24 History [Lomotil 2.5-0.025 mg Tablet] sitaGLIPtin [Januvia] 50 mg PO DAILY 05/09/22 11/18/24 History Calcium Carb/Mag Ox/Zinc Sulf 1 tab PO DAILY 05/19/23 11/18/24 History [Ycl-Seu-Wbmr 334-134-5 mg Tab] Vitamin B Complex 1 cap PO DAILY 05/19/23 11/18/24 History Aspirin 81 mg PO DAILY 05/08/24 11/18/24 History Gabapentin [Neurontin] 100 mg PO Q8H PRN 05/08/24 11/18/24 History Pantoprazole Sodium [Protonix] 40 mg PO DAILY 05/08/24 11/18/24 History Semaglutide [Rybelsus] 3 mg PO DAILY 05/08/24 11/18/24 History Atorvastatin [Lipitor] 40 mg PO HS #30 tab 05/12/24 11/18/24 Rx Cholecalciferol (Vitamin D3) 125 mcg PO DAILY 10/26/24 11/18/24 History [Vitamin D3 (125 MCG = 5,000 IU)] Mv-Mn/Om3/Dha/Epa/Fish/Lut/Jermaine 1 cap PO DAILY 10/26/24 11/18/24 History [Ocuvite Adult 50 Plus Softgel] Vitamin E (Dl,Tocopheryl Acet) 45 mg PO DAILY 10/26/24 11/18/24 History [Vitamin E (100 Iu = 45MG)] amLODIPine [Norvasc] 10 mg PO HS 10/26/24 11/18/24 History Isosorbide Mononitrate ER [Imdur] 30 mg PO DAILY #30 tab 11/01/24 11/18/24 Rx Losartan [Cozaar] 50 mg PO HS #30 tab 11/01/24 11/18/24 Rx Magnesium Oxide [Mag-Ox] 400 mg PO DAILY #30 tab 11/01/24 11/18/24 Rx Nystatin 100,000 Unit/gm Powd 1 applic TOPICAL BID #1 each 11/01/24 11/18/24 Rx [Mycostatin Powder] Potassium Chloride ER [K-Dur 20] 20 meq PO DAILY #30 tab 11/01/24 11/18/24 Rx hydrALAZINE HCL [Apresoline] 50 mg PO TID #90 tab 11/01/24 11/18/24 Rx Bumetanide [Bumex] 2 mg PO DAILY 11/18/24 11/18/24 History Iron Ps Cmplx/Vit B12/FA 1 cap PO DAILY 11/18/24 11/18/24 History [Niferex-150 Forte] carvediloL [Coreg] 25 mg PO BID-W/MEALS 11/18/24 11/18/24 History Allergies Allergy/AdvReac Type Severity Reaction Status Date / Time adhesive tape Allergy Itching Verified 11/17/24 23:32 morphine Allergy Swelling & Verified 11/17/24 23:32 hives Penicillins Allergy Rash/Hives Verified 11/17/24 23:32 ALEXIS Inhibitors AdvReac Cough Verified 11/17/24 23:32 Physical Exam Vitals: Vital Signs Temp Pulse Resp BP Pulse Ox 11/18/24 01:31 66 18 153/73 97 11/17/24 23:27 98.8 F 66 20 142/71 95 Intake and Output 11/17/24 11/18/24 11/18/24 22:59 06:59 14:59 Intake Total 840 Balance 840 Intake: Oral 840 Other: # Voids 1 Weight 112.264 kg Results CBC & Chem 7: 11/17/24 02:00 11/18/24 15:11 Labs: Abnormal Lab Results - Last 24 Hours (Table) 11/17/24 11/17/24 11/17/24 Range/Units 02:00 02:00 23:50 RBC 3.25 L (3.80-5.40) m/uL Hgb 8.7 L (11.4-16.0) gm/dL Hct 27.4 L (34.0-46.0) % RDW 19.8 H (11.5-15.5) % Neutrophils # 8.1 H (1.3-7.7) k/uL Lymphocytes # 0.6 L (1.0-4.8) k/uL APTT (22.0-30.0) sec Sodium 128 L (137-145) mmol/L Chloride 94 L (98-107) mmol/L Carbon Dioxide 21 L (22-30) mmol/L BUN 36 H (7-17) mg/dL Creatinine 1.95 H (0.52-1.04) mg/dL Glucose 166 H (74-99) mg/dL Stool Occult Blood Positive H (Negative) 11/18/24 Range/Units 03:01 RBC (3.80-5.40) m/uL Hgb (11.4-16.0) gm/dL Hct (34.0-46.0) % RDW (11.5-15.5) % Neutrophils # (1.3-7.7) k/uL Lymphocytes # (1.0-4.8) k/uL APTT 21.5 L (22.0-30.0) sec Sodium (137-145) mmol/L Chloride (98-107) mmol/L Carbon Dioxide (22-30) mmol/L BUN (7-17) mg/dL Creatinine (0.52-1.04) mg/dL Glucose (74-99) mg/dL Stool Occult Blood (Negative) Thrombosis Risk Factor Assmnt - Choose All That Apply Any of the Below Risk Factors Present?: Yes Each Factor Represents 1 point: Obesity (BMI >25), Swollen legs (current) Other Risk Factors: Yes Each Risk Factor Represents 2 Points: Age 61-74 years Other congenital or acquired thrombophilia - If yes, enter type in comment: No Thrombosis Risk Factor Assessment Total Risk Factor Score: 4 Thrombosis Risk Factor Assessment Level: Moderate Risk
[2024-11-18] MEDS: FUROSEMIDE 10 MG/ML 4 ML VIAL IV STA (11:51)
[2024-11-18 12:37] LABS: Glucose,Whole Blood 192 mg/dL (70-110)
--- NOTE | 2024-11-18 12:43 | P.CONS ---
History of Present Illness - Reason for Consult Consult date: 11/18/24 Iron deficiency anemia - Chief Complaint Leg swelling - History of Present Illness Ms. Enriquez is a 64-year-old woman with a past medical history significant for HR+/HER-2+ breast cancer treated with neoadjuvant TCHP in 2014 followed by adjuvant Herceptin and Femara that was discontinued in May 2024 due to history of ischemic stroke for which she was on aspirin and Plavix complicated by iron deficiency anemia from microscopic GI blood loss presenting as a transfer from [facility] due to concerns for anemia. She was hospitalized for heart failure exacerbation and iron deficiency anemia from 10/26/2024 through 11/01/2024. During that admission, she did receive 1 unit of packed red blood cells on 10/25/2024 along with 2 doses of IV iron in addition to diuresis and management of her acute heart failure. She was on Plavix at that time, which was discontinued and maintained on aspirin 81 mg daily. She presented to her PCP for routine follow-up and was advised to present to the hospital due to concerns for anemia with hemoglobin of 7. At [facility], repeat CBC revealed hemoglobin of 7.4. She was given 1 unit of packed red blood cells at [facility]. On presentation to [facility], she is hemodynamically stable and afebrile. CBC noted hemoglobin 8.7 (MCV 84.3), WBC 9.6, platelets 257. CMP noted sodium 128, creatinine 1.95 (baseline appears to be 1.4-1.5), with no abnormalities on liver profile. NT proBNP was 8200. Clinically, she is feeling well she denies feeling significantly different now than she was prior to admission. She does have significant anasarca of the lower extremities bilaterally that are painful and occasionally weep. She does have difficulty with ambulation secondary to the anasarca. She denies any dizziness/lightheadedness, chest pain, palpitations, dyspnea, or headaches currently. Review of Systems 14 point review of systems was conducted with pertinent positives and negatives as noted per HPI Past Medical History Past Medical History: Cancer, Heart Failure, CVA/TIA, Diabetes Mellitus, Hyperlipidemia, Hypertension Additional Past Medical History / Comment(s): breast cancer, macular edema with hemorrhage bilateral, neuropathy, poor vision, Anemia History of Any Multi-Drug Resistant Organisms: None Reported Past Surgical History: Section, Cholecystectomy, Heart Catheterization Additional Past Surgical History / Comment(s): left lumpectomy x 2, TAVR-2023,. right mediport insertion Past Anesthesia/Blood Transfusion Reactions: No Reported Reaction Past Psychological History: Anxiety, Depression Smoking Status: Never smoker Past Alcohol Use History: None Reported Past Drug Use History: None Reported - Past Family History Father Additional Family Medical History / Comment(s): No health hx 91 from pneumonia Mother Additional Family Medical History / Comment(s): No health hx after fall age 96 Medications and Allergies Home Medications Medication Instructions Recorded Confirmed Type DULoxetine HCL [Cymbalta] 60 mg PO DAILY 05/09/22 11/18/24 History Diphenoxylate HCl/Atropine 1 tab PO QID PRN 05/09/22 11/18/24 History [Lomotil 2.5-0.025 mg Tablet] sitaGLIPtin [Januvia] 50 mg PO DAILY 05/09/22 11/18/24 History Calcium Carb/Mag Ox/Zinc Sulf 1 tab PO DAILY 05/19/23 11/18/24 History [Fcn-Sja-Viof 334-134-5 mg Tab] Vitamin B Complex 1 cap PO DAILY 05/19/23 11/18/24 History Aspirin 81 mg PO DAILY 05/08/24 11/18/24 History Gabapentin [Neurontin] 100 mg PO Q8H PRN 05/08/24 11/18/24 History Pantoprazole Sodium [Protonix] 40 mg PO DAILY 05/08/24 11/18/24 History Semaglutide [Rybelsus] 3 mg PO DAILY 05/08/24 11/18/24 History Atorvastatin [Lipitor] 40 mg PO HS #30 tab 05/12/24 11/18/24 Rx Cholecalciferol (Vitamin D3) 125 mcg PO DAILY 10/26/24 11/18/24 History [Vitamin D3 (125 MCG = 5,000 IU)] Mv-Mn/Om3/Dha/Epa/Fish/Lut/Jermaine 1 cap PO DAILY 10/26/24 11/18/24 History [Ocuvite Adult 50 Plus Softgel] Vitamin E (Dl,Tocopheryl Acet) 45 mg PO DAILY 10/26/24 11/18/24 History [Vitamin E (100 Iu = 45MG)] amLODIPine [Norvasc] 10 mg PO HS 10/26/24 11/18/24 History Isosorbide Mononitrate ER [Imdur] 30 mg PO DAILY #30 tab 11/01/24 11/18/24 Rx Losartan [Cozaar] 50 mg PO HS #30 tab 11/01/24 11/18/24 Rx Magnesium Oxide [Mag-Ox] 400 mg PO DAILY #30 tab 11/01/24 11/18/24 Rx Nystatin 100,000 Unit/gm Powd 1 applic TOPICAL BID #1 each 11/01/24 11/18/24 Rx [Mycostatin Powder] Potassium Chloride ER [K-Dur 20] 20 meq PO DAILY #30 tab 11/01/24 11/18/24 Rx hydrALAZINE HCL [Apresoline] 50 mg PO TID #90 tab 11/01/24 11/18/24 Rx Bumetanide [Bumex] 2 mg PO DAILY 11/18/24 11/18/24 History Iron Ps Cmplx/Vit B12/FA 1 cap PO DAILY 11/18/24 11/18/24 History [Niferex-150 Forte] carvediloL [Coreg] 25 mg PO BID-W/MEALS 11/18/24 11/18/24 History Allergies Allergy/AdvReac Type Severity Reaction Status Date / Time adhesive tape Allergy Itching Verified 11/17/24 23:32 morphine Allergy Swelling & Verified 11/17/24 23:32 hives Penicillins Allergy Rash/Hives Verified 11/17/24 23:32 ALEXIS Inhibitors AdvReac Cough Verified 11/17/24 23:32 Physical Exam Vitals: Vital Signs Temp Pulse Pulse Resp BP BP Pulse Ox 11/18/24 07:11 97.5 F L 64 19 157/67 95 11/18/24 01:31 66 18 153/73 97 11/17/24 23:27 98.8 F 66 20 142/71 95 Intake and Output 11/17/24 11/18/24 11/18/24 22:59 06:59 14:59 Intake Total 840 Balance 840 Intake: Oral 840 Other: # Voids 1 Weight 112.264 kg - Constitutional General appearance: cooperative, no acute distress - EENT Eyes: EOMI - Respiratory Nonlabored breathing - Cardiovascular Mechanical systolic heart sound leg Peripheral Edema: bilateral: 3+ (Anasarca of the lower extremities bilaterally) - Gastrointestinal General gastrointestinal: distended, soft, no tenderness - Integumentary Integumentary: pale, no rash - Neurologic Neurologic: CNII-XII intact - Psychiatric Psychiatric: A&O x's 3 Results CBC & Chem 7: 11/17/24 02:00 11/17/24 02:00 Labs: Abnormal Lab Results - Last 24 Hours (Table) 11/17/24 11/17/24 11/17/24 Range/Units 02:00 02:00 23:50 RBC 3.25 L (3.80-5.40) m/uL Hgb 8.7 L (11.4-16.0) gm/dL Hct 27.4 L (34.0-46.0) % RDW 19.8 H (11.5-15.5) % Neutrophils # 8.1 H (1.3-7.7) k/uL Lymphocytes # 0.6 L (1.0-4.8) k/uL APTT (22.0-30.0) sec Sodium 128 L (137-145) mmol/L Chloride 94 L (98-107) mmol/L Carbon Dioxide 21 L (22-30) mmol/L BUN 36 H (7-17) mg/dL Creatinine 1.95 H (0.52-1.04) mg/dL Glucose 166 H (74-99) mg/dL Stool Occult Blood Positive H (Negative) 11/18/24 Range/Units 03:01 RBC (3.80-5.40) m/uL Hgb (11.4-16.0) gm/dL Hct (34.0-46.0) % RDW (11.5-15.5) % Neutrophils # (1.3-7.7) k/uL Lymphocytes # (1.0-4.8) k/uL APTT 21.5 L (22.0-30.0) sec Sodium (137-145) mmol/L Chloride (98-107) mmol/L Carbon Dioxide (22-30) mmol/L BUN (7-17) mg/dL Creatinine (0.52-1.04) mg/dL Glucose (74-99) mg/dL Stool Occult Blood (Negative) Assessment and Plan (1) Iron deficiency anemia Current Visit: Yes Status: Acute Code(s): D50.9 - IRON DEFICIENCY ANEMIA, UNSPECIFIED SNOMED Code(s): 98955929 (2) HER2-positive carcinoma of left breast Current Visit: Yes Status: Acute Code(s): C50.912 - MALIGNANT NEOPLASM OF UNSPECIFIED SITE OF LEFT FEMALE BREAST; Z17.31 - HUMAN EPIDERMAL GROWTH FACTOR RECEPTOR 2 POSITIVE STATUS SNOMED Code(s): 057479072 Plan: #Iron deficiency anemia -Noted to have borderline microcytosis since April 2024 -Iron studies in our system since September 2023 have noted persistent iron deficiency -During her hospitalization from 10/28/2024 through 11/01/2024, she received 3 doses of IV ferric gluconate in addition to 1 unit of packed red blood cells -Iron deficiency was likely secondary to persistent microscopic GI blood loss being on aspirin and Plavix with Plavix being discontinued during her last admission -She did have hospitalization in February 2024 in [place] where she underwent upper endoscopy and colonoscopy and reported history suspicious for AVM that required cauterization. During her last hospitalization, she declined endoscopy -She has had negative monoclonal gammopathy workup in the fall 2023 and again on her last admission in October 2024 -There was noted concern for anemia on routine follow-up with her PCP with hemoglobin of 7 and received 1 unit of packed red blood cells at [facility] with hemoglobin 8.7 on presentation at our facility -Repeat iron studies ordered. Iron saturation may be elevated secondary to recent packed red blood cell transfusion -In addition, vitamin B12/methylmalonic acid, folic acid, and thyroid profile have also been ordered -If hemoglobin downtrends, we did discuss the possibility of repeat endoscopies, specifically with EGD #Hormone receptor positive/HER2 positive breast cancer -Received neoadjuvant TCHP in 2014 followed by adjuvant Herceptin that was completed in 2015 -She was on endocrine therapy with Femara that was discontinued in May 2024 due to ischemic stroke Teo Longo MD
[2024-11-18] MEDS: INSULIN LISPRO (HumaLOG) 100 UNIT/ML 10 mL VL SQ SCH (12:44)
--- NOTE | 2024-11-18 14:23 | US ---
EXAMINATION TYPE: US renals and bladder DATE OF EXAM: 11/18/2024 COMPARISON: US CLINICAL INDICATION: Female, 64 years old with history of ALBIN; ALBIN TECHNIQUE: Grayscale imaging of the bilateral kidneys and urinary bladder: FINDINGS: EXAM MEASUREMENTS: Right Kidney: 10.1 x 4.8 x 5.0 cm Left Kidney: 11.1 x 5.5 x 5.6 cm Right Kidney: No hydronephrosis or masses seen Left Kidney: Limited views show no evidence of hydro Bladder: wnl Bilateral Jets seen: No There is no evidence for hydronephrosis at this point in time. No nephrolithiasis is seen. No rommel s are identified. The urinary bladder is anechoic. IMPRESSION: No distinct abnormality appreciated. [facility], , 11/18/2024 2:20 PM
--- NOTE | 2024-11-18 14:44 | P.CRDCN ---
History of Present Illness Consult date: 11/18/24 History of present illness: The patient is a 64-year-old female patient who is known to our service from before with a past medical history significant for valvular heart disease status post TAVR as well as diabetes and hypertension and dyslipidemia and heart failure with preserved ejection fraction and chronic kidney disease and chronic anemia. She presented to the hospital after she received a call from her primary care physician to go to the hospital because of low hemoglobin requiring blood transfusion but also she was experiencing shortness of breath which has definitely progressed but also severe bilateral lower extremity edema and extensive amount of weight gain. No symptoms of pain in the chest or dizziness or lightheadedness or any feeling of heart racing or furthering or presyncope or syncope. She was seen by our service by the beginning of October for heart failure and at that point she underwent an echo which revealed normal LV systolic function with normally functioning transcatheter valve and moderate mitral stenosis. She was discharged in stable medical condition but she stated that she has been compliant with the current dose of Bumex she was on. Currently she is on Lasix IV. The chest x-ray showed finding consistent with heart failure. NT proBNP came to be elevated at 8000. The physical examination is remarkable for a systolic murmur at the right and left upper sternal border with severe bilateral lower extremities edema Assessment Anemia requiring blood transfusion Heart failure with right more than left failure Severe bilateral lower extremities edema secondary to the above Valvular heart disease status post TAVR History of HFpEF Multiple comorbid conditions Chronic kidney disease Plan Continue the current medical regimen including the current dose of Lasix IV Continue monitor the kidney function and electrolytes and monitor the hemoglobin No reason to repeat the echo in the light of recent echocardiogram Follow-up with the patient Past Medical History Past Medical History: Cancer, Heart Failure, CVA/TIA, Diabetes Mellitus, Hyperlipidemia, Hypertension Additional Past Medical History / Comment(s): breast cancer, macular edema with hemorrhage bilateral, neuropathy, poor vision, Anemia History of Any Multi-Drug Resistant Organisms: None Reported Past Surgical History: Section, Cholecystectomy, Heart Catheterization Additional Past Surgical History / Comment(s): left lumpectomy x 2, TAVR-2023,. right mediport insertion Past Anesthesia/Blood Transfusion Reactions: No Reported Reaction Past Psychological History: Anxiety, Depression Smoking Status: Never smoker Past Alcohol Use History: None Reported Past Drug Use History: None Reported - Past Family History Father Additional Family Medical History / Comment(s): No health hx 91 from pneumonia Mother Additional Family Medical History / Comment(s): No health hx after fall age 96 Medications and Allergies Home Medications Medication Instructions Recorded Confirmed Type DULoxetine HCL [Cymbalta] 60 mg PO DAILY 05/09/22 11/18/24 History Diphenoxylate HCl/Atropine 1 tab PO QID PRN 05/09/22 11/18/24 History [Lomotil 2.5-0.025 mg Tablet] sitaGLIPtin [Januvia] 50 mg PO DAILY 05/09/22 11/18/24 History Calcium Carb/Mag Ox/Zinc Sulf 1 tab PO DAILY 05/19/23 11/18/24 History [Jct-Kkk-Uspl 334-134-5 mg Tab] Vitamin B Complex 1 cap PO DAILY 05/19/23 11/18/24 History Aspirin 81 mg PO DAILY 05/08/24 11/18/24 History Gabapentin [Neurontin] 100 mg PO Q8H PRN 05/08/24 11/18/24 History Pantoprazole Sodium [Protonix] 40 mg PO DAILY 05/08/24 11/18/24 History Semaglutide [Rybelsus] 3 mg PO DAILY 05/08/24 11/18/24 History Atorvastatin [Lipitor] 40 mg PO HS #30 tab 05/12/24 11/18/24 Rx Cholecalciferol (Vitamin D3) 125 mcg PO DAILY 10/26/24 11/18/24 History [Vitamin D3 (125 MCG = 5,000 IU)] Mv-Mn/Om3/Dha/Epa/Fish/Lut/Jermaine 1 cap PO DAILY 10/26/24 11/18/24 History [Ocuvite Adult 50 Plus Softgel] Vitamin E (Dl,Tocopheryl Acet) 45 mg PO DAILY 10/26/24 11/18/24 History [Vitamin E (100 Iu = 45MG)] amLODIPine [Norvasc] 10 mg PO HS 10/26/24 11/18/24 History Isosorbide Mononitrate ER [Imdur] 30 mg PO DAILY #30 tab 11/01/24 11/18/24 Rx Losartan [Cozaar] 50 mg PO HS #30 tab 11/01/24 11/18/24 Rx Magnesium Oxide [Mag-Ox] 400 mg PO DAILY #30 tab 11/01/24 11/18/24 Rx Nystatin 100,000 Unit/gm Powd 1 applic TOPICAL BID #1 each 11/01/24 11/18/24 Rx [Mycostatin Powder] Potassium Chloride ER [K-Dur 20] 20 meq PO DAILY #30 tab 11/01/24 11/18/24 Rx hydrALAZINE HCL [Apresoline] 50 mg PO TID #90 tab 11/01/24 11/18/24 Rx Bumetanide [Bumex] 2 mg PO DAILY 11/18/24 11/18/24 History Iron Ps Cmplx/Vit B12/FA 1 cap PO DAILY 11/18/24 11/18/24 History [Niferex-150 Forte] carvediloL [Coreg] 25 mg PO BID-W/MEALS 11/18/24 11/18/24 History Allergies Allergy/AdvReac Type Severity Reaction Status Date / Time adhesive tape Allergy Itching Verified 11/17/24 23:32 morphine Allergy Swelling & Verified 11/17/24 23:32 hives Penicillins Allergy Rash/Hives Verified 11/17/24 23:32 ALEXIS Inhibitors AdvReac Cough Verified 11/17/24 23:32 Physical Exam Vitals: Vital Signs Temp Pulse Pulse Resp BP BP Pulse Ox 11/18/24 12:35 97.6 F 67 17 158/71 96 11/18/24 07:11 97.5 F L 64 19 157/67 95 11/18/24 01:31 66 18 153/73 97 11/17/24 23:27 98.8 F 66 20 142/71 95 Intake and Output 11/17/24 11/18/24 11/18/24 22:59 06:59 14:59 Intake Total 840 240 Balance 840 240 Intake: Oral 840 240 Other: # Voids 1 Weight 112.264 kg Results 11/17/24 02:00 11/17/24 02:00 Cardiac Enzymes 11/17/24 Range/Units 02:00 AST 18 (14-36) U/L Coagulation 11/18/24 Range/Units 03:01 PT 11.0 (10.0-12.5) sec APTT 21.5 L (22.0-30.0) sec CBC 11/17/24 Range/Units 02:00 WBC 9.6 (3.8-10.6) k/uL RBC 3.25 L (3.80-5.40) m/uL Hgb 8.7 L (11.4-16.0) gm/dL Hct 27.4 L (34.0-46.0) % Plt Count 257 (150-450) k/uL Comprehensive Metabolic Panel 11/17/24 Range/Units 02:00 Sodium 128 L (137-145) mmol/L Potassium 4.3 (3.5-5.1) mmol/L Chloride 94 L (98-107) mmol/L Carbon Dioxide 21 L (22-30) mmol/L BUN 36 H (7-17) mg/dL Creatinine 1.95 H (0.52-1.04) mg/dL Glucose 166 H (74-99) mg/dL Calcium 9.4 (8.4-10.2) mg/dL AST 18 (14-36) U/L ALT 13 (4-34) U/L Alkaline Phosphatase 72 (38-126) U/L Total Protein 6.7 (6.3-8.2) g/dL Albumin 4.1 (3.5-5.0) g/dL Current Medications Generic Name Dose Route Start Last Admin Trade Name Freq PRN Reason Stop Dose Admin Acetaminophen 650 mg 11/18/24 01:08 Acetaminophen Tab 325 Mg Tab PO Q6HR PRN Mild Pain or Fever > 100.5 Amlodipine Besylate 10 mg 11/18/24 21:00 Amlodipine 10 Mg Tab PO HS LEATHA Aspirin 81 mg 11/18/24 09:00 11/18/24 09:04 Aspirin 81 Mg PO 81 mg DAILY LEATHA Administration Atorvastatin Calcium 40 mg 11/18/24 21:00 Atorvastatin 40 Mg Tab PO HS LEATHA Carvedilol 25 mg 11/18/24 17:30 Carvedilol 12.5 Mg Tab PO BID-W/MEALS LEATHA Cholecalciferol 125 mcg 11/18/24 09:00 11/18/24 09:04 Cholecalciferol 125 Mcg (5000 Iu) Tablet PO 125 mcg DAILY LEATHA Administration Dextrose/Water 25 ml 11/18/24 11:33 Dextrose 50% Syringe 50 Ml IVP PER PROTOCOL PRN Hypoglycemia Protocol Dextrose/Water 50 ml 11/18/24 11:33 Dextrose 50% Syringe 50 Ml IVP PER PROTOCOL PRN Hypoglycemia Protocol Diphenoxylate HCl/Atropine 1 each 11/18/24 08:31 Diphenox-Atrop 2.5-0.025 Mg 1 Each Tab PO QID PRN Diarrhea Duloxetine HCl 60 mg 11/18/24 09:00 11/18/24 09:04 Duloxetine Hcl 60 Mg Capsule.Dr PO 60 mg DAILY LEATHA Administration Furosemide 40 mg 11/18/24 21:00 Furosemide 10 Mg/Ml 4 Ml Vial IV Q12HR LEATHA Gabapentin 100 mg 11/18/24 08:31 Gabapentin 100 Mg Cap PO Q8H PRN Pain Hydralazine HCl 50 mg 11/18/24 09:00 11/18/24 09:04 Hydralazine Hcl 50 Mg Tab PO 50 mg TID LEATHA Administration Insulin Human Lispro 0 unit 11/18/24 12:30 11/18/24 12:44 Insulin Lispro (Humalog) 100 Unit/Ml 10 Ml Vl SQ 2 unit ACHS LEATHA Administration Protocol Isosorbide Mononitrate 30 mg 11/18/24 09:00 11/18/24 09:04 Isosorbide Mononitrate Er 30 Mg Tab.Er.24h PO 30 mg DAILY LEATHA Administration Magnesium Oxide 400 mg 11/18/24 09:00 11/18/24 09:04 Magnesium Oxide 400 Mg Tab PO 400 mg DAILY LEATHA Administration Naloxone HCl 0.2 mg 11/18/24 01:08 Naloxone 0.4 Mg/Ml 1 Ml Vial IV Q2M PRN Opioid Reversal Pantoprazole Sodium 40 mg 11/18/24 14:00 Pantoprazole 40 Mg/10 Ml Vial IVP DAILY LEATHA Potassium Chloride 20 meq 11/18/24 09:00 11/18/24 09:04 Potassium Chloride Er 20 Meq Tab.Er PO 20 meq DAILY LEATHA Administration Intake and Output 11/17/24 11/18/24 11/18/24 22:59 06:59 14:59 Intake Total 840 240 Balance 840 240 Intake: Oral 840 240 Other: # Voids 1 Weight 112.264 kg 11/17/24 02:00 11/17/24 02:00
[2024-11-18 15:45] LABS: African American GFR (CKD) 31 (>60 ml/min/1.73 sqM); Anion Gap 10 mmol/L; Blood Urea Nitrogen 34 mg/dL (7-17); Carbon Dioxide 23 mmol/L (22-30); Chloride 96 mmol/L (98-107); Glucose 181 mg/dL (74-99); Non-African American GFR(CKD) 27 (>60 ml/min/1.73 sqM); Potassium 4.2 mmol/L (3.5-5.1); Sodium 129 mmol/L (137-145)
[2024-11-18 16:36] LABS: Glucose,Whole Blood 193 mg/dL (70-110)
[2024-11-18] MEDS: PANTOPRAZOLE 40 MG/10 ML VIAL IVP SCH (16:52)
[2024-11-18] MEDS: carvediloL 12.5 MG TAB PO SCH (16:52)
--- NOTE | 2024-11-18 17:57 | P.NPCON ---
History of Present Illness - Reason for Consult Consult date: 11/18/24 chronic renal failure - History of Present Illness 64-year-old female with a history of left breast cancer status post lumpectomy, chemotherapy and radiation in 2015, TAVR, CHF, type 2 diabetes, CKD, chronic anemia, hyperlipidemia, hypertension is a transfer from a [facility], she has been following up with PCP for ongoing shortness of breath with exertion, generalized malaise and her recent blood work showed that her hemoglobin was 7.4, she has been c/o bilateral LE edema, Lab work in the ER shows hemoglobin of 8.7, sodium 128, potassium 4.3, bicarb 21, BUN 36, creatinine 1.95, nephrology is consulted for CKD Past Medical History Past Medical History: Cancer, Heart Failure, CVA/TIA, Diabetes Mellitus, Hyperlipidemia, Hypertension Additional Past Medical History / Comment(s): breast cancer, macular edema with hemorrhage bilateral, neuropathy, poor vision, Anemia History of Any Multi-Drug Resistant Organisms: None Reported Past Surgical History: Section, Cholecystectomy, Heart Catheterization Additional Past Surgical History / Comment(s): left lumpectomy x 2, TAVR-2023,. right mediport insertion Past Anesthesia/Blood Transfusion Reactions: No Reported Reaction Past Psychological History: Anxiety, Depression Smoking Status: Never smoker Past Alcohol Use History: None Reported Past Drug Use History: None Reported - Past Family History Father Additional Family Medical History / Comment(s): No health hx 91 from pneumonia Mother Additional Family Medical History / Comment(s): No health hx after fall age 96 Medications and Allergies Home Medications Medication Instructions Recorded Confirmed Type DULoxetine HCL [Cymbalta] 60 mg PO DAILY 05/09/22 11/18/24 History Diphenoxylate HCl/Atropine 1 tab PO QID PRN 05/09/22 11/18/24 History [Lomotil 2.5-0.025 mg Tablet] sitaGLIPtin [Januvia] 50 mg PO DAILY 05/09/22 11/18/24 History Calcium Carb/Mag Ox/Zinc Sulf 1 tab PO DAILY 05/19/23 11/18/24 History [Abv-Crs-Tfel 334-134-5 mg Tab] Vitamin B Complex 1 cap PO DAILY 05/19/23 11/18/24 History Aspirin 81 mg PO DAILY 05/08/24 11/18/24 History Gabapentin [Neurontin] 100 mg PO Q8H PRN 05/08/24 11/18/24 History Pantoprazole Sodium [Protonix] 40 mg PO DAILY 05/08/24 11/18/24 History Semaglutide [Rybelsus] 3 mg PO DAILY 05/08/24 11/18/24 History Atorvastatin [Lipitor] 40 mg PO HS #30 tab 05/12/24 11/18/24 Rx Cholecalciferol (Vitamin D3) 125 mcg PO DAILY 10/26/24 11/18/24 History [Vitamin D3 (125 MCG = 5,000 IU)] Mv-Mn/Om3/Dha/Epa/Fish/Lut/Jermaine 1 cap PO DAILY 10/26/24 11/18/24 History [Ocuvite Adult 50 Plus Softgel] Vitamin E (Dl,Tocopheryl Acet) 45 mg PO DAILY 10/26/24 11/18/24 History [Vitamin E (100 Iu = 45MG)] amLODIPine [Norvasc] 10 mg PO HS 10/26/24 11/18/24 History Isosorbide Mononitrate ER [Imdur] 30 mg PO DAILY #30 tab 11/01/24 11/18/24 Rx Losartan [Cozaar] 50 mg PO HS #30 tab 11/01/24 11/18/24 Rx Magnesium Oxide [Mag-Ox] 400 mg PO DAILY #30 tab 11/01/24 11/18/24 Rx Nystatin 100,000 Unit/gm Powd 1 applic TOPICAL BID #1 each 11/01/24 11/18/24 Rx [Mycostatin Powder] Potassium Chloride ER [K-Dur 20] 20 meq PO DAILY #30 tab 11/01/24 11/18/24 Rx hydrALAZINE HCL [Apresoline] 50 mg PO TID #90 tab 11/01/24 11/18/24 Rx Bumetanide [Bumex] 2 mg PO DAILY 11/18/24 11/18/24 History Iron Ps Cmplx/Vit B12/FA 1 cap PO DAILY 11/18/24 11/18/24 History [Niferex-150 Forte] carvediloL [Coreg] 25 mg PO BID-W/MEALS 11/18/24 11/18/24 History Allergies Allergy/AdvReac Type Severity Reaction Status Date / Time adhesive tape Allergy Itching Verified 11/17/24 23:32 morphine Allergy Swelling & Verified 11/17/24 23:32 hives Penicillins Allergy Rash/Hives Verified 11/17/24 23:32 ALEXIS Inhibitors AdvReac Cough Verified 11/17/24 23:32 Physical Exam Vitals: Vital Signs Temp Pulse Pulse Resp BP BP Pulse Ox 11/18/24 12:35 97.6 F 67 17 158/71 96 11/18/24 07:11 97.5 F L 64 19 157/67 95 11/18/24 01:31 66 18 153/73 97 11/17/24 23:27 98.8 F 66 20 142/71 95 Intake and Output 11/17/24 11/18/24 11/18/24 22:59 06:59 14:59 Intake Total 840 240 Balance 840 240 Intake: Oral 840 240 Other: # Voids 1 Weight 112.264 kg General: non toxic, no distress, appears at stated age, morbidly obese Derm: no unusual rashes/lesions, warm Head: atraumatic, normocephalic, symmetric Eyes: EOMI, no lid lag, anicteric sclera, pupils equal round reactive to light ENT: Nose and ears atraumatic Neck: No cervical lymphadenopathy, trachea midline, supple Mouth: no lip lesion, mucus membranes moist Cardiovascular: S1S2 reg, no murmur, positive dorsalis pedis pulse bilateral, 2+ bilateral pitting edema Lungs: CTA bilateral, no rhonchi, no rales, no accessory muscle use Abdominal: soft, nontender to palpation, no guarding Ext: muscle strength 5 out of 5 in all 4 extremities grossly, no gross muscle atrophy, no contractures, Neuro: CN II-XI grossly intact, no gross focal neuro deficits Psych: Alert, oriented, appropriate affect Results - Lab Results Most recent lab results Calcium 9.4 mg/dL (8.4-10.2) 11/17/24 02:00 11/17/24 02:00 11/18/24 15:11 Assessment and Plan Assessment: 1. Acute kidney injury on CKD stage 3, creatinine has been ranging 1.2-1.6 over the last year. admitted with cr. 1.9, peripheral edema. on Bumex 1 mg daily 2. Anemia, stable Hb, rule out iron deficiency 3. Hyponatremia, acute on chronic asymptomatic hypervolemic Hyponatremia , sodium level ranging 130-133 over the last year, presented with sodium level 128->129 4. acute on chronic CHF. Plan: check UA, urine sodium, osm hold PO diuretics and start Lasix 40 mg BID today monitor volume status and adjust diuretics dose accordingly check weight daily, strict I/O daily renal panel blood transfusion for Hb < 7, check iron panel
[2024-11-18] MEDS: amLODIPine 10 MG TAB PO SCH (20:13)
[2024-11-18] MEDS: ATORVASTATIN 40 MG TAB PO SCH (20:13)
[2024-11-18] MEDS: FUROSEMIDE 10 MG/ML 4 ML VIAL IV SCH (20:13)
[2024-11-18 20:20] LABS: Glucose,Whole Blood 144 mg/dL (70-110)
[2024-11-19 07:21] LABS: Glucose,Whole Blood 185 mg/dL (70-110)
[2024-11-19 07:44] LABS: Anisocytosis Slight; Basophils % (A) 0 %; Eosinophils # (A) 0.1 k/uL (0-0.7); Eosinophils % (A) 2 %; HCT 25.7 % (34.0-46.0); HGB 8.3 gm/dL (11.4-16.0); Hypochromasia Moderate; Lymphocytes # (A) 0.7 k/uL (1.0-4.8); Lymphocytes % (A) 10 %; MCH 27.3 pg (25.0-35.0); MCHC 32.4 g/dL (31.0-37.0); MCV 84.3 fL (80.0-100.0); Mean Platelet Volume 7.1; Microcytosis Slight; Monocytes # (A) 0.6 k/uL (0-1.0); Monocytes % (A) 8 %; Neutrophils % (A) 79 %; Platelet Count 246 k/uL (150-450); RBC 3.05 m/uL (3.80-5.40); RDW 19.9 % (11.5-15.5); WBC 7.6 k/uL (3.8-10.6)
[2024-11-19 08:18] LABS: ALT 12 U/L (4-34); AST 16 U/L (14-36); African American GFR (CKD) 33 (>60 ml/min/1.73 sqM); Albumin 3.6 g/dL (3.5-5.0); Albumin/Globulin Ratio 1.4; Alkaline Phosphatase 64 U/L (38-126); Anion Gap 10 mmol/L; Blood Urea Nitrogen 36 mg/dL (7-17); Calcium 8.8 mg/dL (8.4-10.2); Carbon Dioxide 24 mmol/L (22-30); Chloride 96 mmol/L (98-107); Globulin 2.6 g/dL; Glucose 164 mg/dL (74-99); Non-African American GFR(CKD) 29 (>60 ml/min/1.73 sqM); Potassium 4.1 mmol/L (3.5-5.1); Sodium 130 mmol/L (137-145); Total Protein 6.2 g/dL (6.3-8.2)
[2024-11-19 09:30] LABS: % Iron Saturation 19.79 (12.00-45.00); Iron 77 UG/DL (50-170); Total Iron Binding Capacity 389 UG/DL (228-460)
[2024-11-19 12:05] LABS: Glucose,Whole Blood 187 mg/dL (70-110)
--- NOTE | 2024-11-19 13:01 | P.PN ---
Subjective Progress Note Date: 11/19/24 The patient is a 64-year-old female patient who is known to our service from before with a past medical history significant for valvular heart disease status post TAVR as well as diabetes and hypertension and dyslipidemia and heart failure with preserved ejection fraction and chronic kidney disease and chronic anemia. She presented to the hospital after she received a call from her primary care physician to go to the hospital because of low hemoglobin requiring blood transfusion but also she was experiencing shortness of breath which has definitely progressed but also severe bilateral lower extremity edema and extensive amount of weight gain. No symptoms of pain in the chest or dizziness or lightheadedness or any feeling of heart racing or furthering or presyncope or syncope. She was seen by our service by the beginning of October for heart failure and at that point she underwent an echo which revealed normal LV systolic function with normally functioning transcatheter valve and moderate mi tral stenosis. She was discharged in stable medical condition but she stated that she has been compliant with the current dose of Bumex she was on. Currently she is on Lasix IV. The chest x-ray showed finding consistent with heart failure. NT proBNP came to be elevated at 8000. The physical examination is remarkable for a systolic murmur at the right and left upper sternal border with severe bilateral lower extremities edema November 19, 2024 The patient was seen and evaluated this morning which she continues to have severe bilateral lower extremities edema and she continues to diurese well on the current dose of Lasix IV. No other cardiovascular symptoms of any pain in the chest or shortness of breath or dizziness or lightheadedness or any feeling of heart racing or fluttering. The kidney function is stable. Hemoglobin is low and stable. The physical examination is remarkable for severe bilateral lower extremities edema. Assessment Anemia requiring blood transfusion Heart failure with right more than left failure Severe bilateral lower extremities edema secondary to the above Valvular heart disease status post TAVR History of HFpEF Multiple comorbid conditions Chronic kidney disease Plan Continue the current medical regimen including the current dose of Lasix IV Continue monitor the kidney function and electrolytes and monitor the hemoglobin No reason to repeat the echo in the light of recent echocardiogram Follow-up with the patient Objective - Vital Signs Vital signs: Vital Signs Temp 97.6 F 11/19/24 07:09 Pulse 71 11/19/24 07:09 Resp 19 11/19/24 07:09 BP 135/55 11/19/24 07:09 Pulse Ox 98 11/19/24 07:09 FiO2 Intake & Output 11/18/24 11/19/24 11/19/24 18:59 06:59 18:59 Intake Total 360 840 250 Balance 360 840 250 Intake: Oral 360 840 250 Other: # Voids 4 - Labs CBC & Chem 7: 11/19/24 07:16 11/19/24 07:16 Labs: Abnormal Lab Results - Last 24 Hours (Table) 11/18/24 11/18/24 11/18/24 Range/Units 10:28 15:11 16:31 RBC (3.80-5.40) m/uL Hgb (11.4-16.0) gm/dL Hct (34.0-46.0) % RDW (11.5-15.5) % Lymphocytes # (1.0-4.8) k/uL Sodium 129 L (137-145) mmol/L Chloride 96 L (98-107) mmol/L BUN 34 H (7-17) mg/dL Creatinine 1.93 H (0.52-1.04) mg/dL Glucose 181 H (74-99) mg/dL POC Glucose (mg/dL) 193 H (70-110) mg/dL Total Protein (6.3-8.2) g/dL Folate 34.00 H (4.40-31.00) ng/mL 11/18/24 11/19/24 11/19/24 Range/Units 20:18 07:09 07:16 RBC 3.05 L (3.80-5.40) m/uL Hgb 8.3 L (11.4-16.0) gm/dL Hct 25.7 L (34.0-46.0) % RDW 19.9 H (11.5-15.5) % Lymphocytes # 0.7 L (1.0-4.8) k/uL Sodium (137-145) mmol/L Chloride (98-107) mmol/L BUN (7-17) mg/dL Creatinine (0.52-1.04) mg/dL Glucose (74-99) mg/dL POC Glucose (mg/dL) 144 H 185 H (70-110) mg/dL Total Protein (6.3-8.2) g/dL Folate (4.40-31.00) ng/mL 11/19/24 11/19/24 Range/Units 07:16 12:02 RBC (3.80-5.40) m/uL Hgb (11.4-16.0) gm/dL Hct (34.0-46.0) % RDW (11.5-15.5) % Lymphocytes # (1.0-4.8) k/uL Sodium 130 L (137-145) mmol/L Chloride 96 L (98-107) mmol/L BUN 36 H (7-17) mg/dL Creatinine 1.82 H (0.52-1.04) mg/dL Glucose 164 H (74-99) mg/dL POC Glucose (mg/dL) 187 H (70-110) mg/dL Total Protein 6.2 L (6.3-8.2) g/dL Folate (4.40-31.00) ng/mL
[2024-11-19] MEDS: SODIUM FERRIC GLUCONAT-SUCROSE 125 MG in SODIUM CHLORIDE 0.9% 100 ML IVPB SCH (13:17)
[2024-11-19 17:36] LABS: Glucose,Whole Blood 222 mg/dL (70-110)
--- NOTE | 2024-11-19 19:26 | P.PN ---
Subjective Progress Note Date: 11/19/24 following for ALBIN on CKD, volume overload patient is seen today, sitting on a chair, she feels worsening in LE edema, advised her to elevate the legs. no shortness of breath or chest pain. stable renal function and Hb. making urine, not charted stable vital signs General: non toxic, no distress, morbidly obese Head: atraumatic, normocephalic, symmetric Eyes: EOMI, no lid lag, anicteric sclera, pupils equal round reactive to light Neck: No cervical lymphadenopathy, trachea midline, supple Mouth: no lip lesion, mucus membranes moist Cardiovascular: S1S2 reg, no murmur, positive dorsalis pedis pulse bilateral, 3+ bilateral pitting edema Lungs: CTA bilateral, no rhonchi, no rales, no accessory muscle use Abdominal: soft, nontender to palpation, no guarding Ext: muscle strength 5 out of 5 in all 4 extremities grossly, no gross muscle atrophy Neuro: CN II-XI grossly intact, no gross focal neuro deficits Psych: Alert, oriented, appropriate affect Objective - Vital Signs Vital signs: Vital Signs Temp 97.7 F 11/19/24 12:42 Pulse 69 11/19/24 12:42 Resp 18 11/19/24 12:42 BP 144/65 11/19/24 12:42 Pulse Ox 95 11/19/24 12:42 FiO2 Intake & Output 11/19/24 11/19/24 11/20/24 06:59 18:59 06:59 Intake Total 840 250 Balance 840 250 Weight 108.21 kg Intake: Oral 840 250 Other: # Voids 4 - Labs CBC & Chem 7: 11/19/24 07:16 11/19/24 07:16 Labs: Abnormal Lab Results - Last 24 Hours (Table) 11/18/24 11/18/24 11/19/24 Range/Units 10:28 20:18 07:09 RBC (3.80-5.40) m/uL Hgb (11.4-16.0) gm/dL Hct (34.0-46.0) % RDW (11.5-15.5) % Lymphocytes # (1.0-4.8) k/uL Sodium (137-145) mmol/L Chloride (98-107) mmol/L BUN (7-17) mg/dL Creatinine (0.52-1.04) mg/dL Glucose (74-99) mg/dL POC Glucose (mg/dL) 144 H 185 H (70-110) mg/dL Total Protein (6.3-8.2) g/dL Folate 34.00 H (4.40-31.00) ng/mL 11/19/24 11/19/24 11/19/24 Range/Units 07:16 07:16 12:02 RBC 3.05 L (3.80-5.40) m/uL Hgb 8.3 L (11.4-16.0) gm/dL Hct 25.7 L (34.0-46.0) % RDW 19.9 H (11.5-15.5) % Lymphocytes # 0.7 L (1.0-4.8) k/uL Sodium 130 L (137-145) mmol/L Chloride 96 L (98-107) mmol/L BUN 36 H (7-17) mg/dL Creatinine 1.82 H (0.52-1.04) mg/dL Glucose 164 H (74-99) mg/dL POC Glucose (mg/dL) 187 H (70-110) mg/dL Total Protein 6.2 L (6.3-8.2) g/dL Folate (4.40-31.00) ng/mL 11/19/24 Range/Units 17:30 RBC (3.80-5.40) m/uL Hgb (11.4-16.0) gm/dL Hct (34.0-46.0) % RDW (11.5-15.5) % Lymphocytes # (1.0-4.8) k/uL Sodium (137-145) mmol/L Chloride (98-107) mmol/L BUN (7-17) mg/dL Creatinine (0.52-1.04) mg/dL Glucose (74-99) mg/dL POC Glucose (mg/dL) 222 H (70-110) mg/dL Total Protein (6.3-8.2) g/dL Folate (4.40-31.00) ng/mL Assessment and Plan Assessment: 1. Acute kidney injury on CKD stage 3, creatinine has been ranging 1.2-1.6 over the last year. admitted with cr. 1.9, jose to 1.8, + peripheral edema. At home on Bumex 1 mg daily 2. Anemia, stable Hb, iron deficiency 3. Hyponatremia, acute on chronic asymptomatic hypervolemic Hyponatremia , sodium level ranging 130-133 over the last year, presented with sodium level 128->129 4. acute on chronic CHF. Plan: Continue IV Lasix 40 mg BID monitor volume status and adjust diuretics dose accordingly check weight daily, strict I/O sodium restriction, free fluids restriction daily renal panel continue IV iron blood transfusion for Hb < 7
[2024-11-19 20:20] LABS: Glucose,Whole Blood 156 mg/dL (70-110)
--- NOTE | 2024-11-19 22:41 | P.PN ---
Subjective Progress Note Date: 11/19/24 Patient is a 64-year-old female with a history of left breast cancer status post lumpectomy, chemotherapy and radiation in 2015, TAVR, CHF, type 2 diabetes, CKD, chronic anemia, hyperlipidemia, hypertension is a transfer from a [facility]. Patient was recently hospitalized for generalized weakness and fatigue and had a transfusion of blood. Since her discharge, she has ongoing shortness of breath with exertion, generalized malaise for which she saw her PCP and had a blood work done which showed that her hemoglobin was low. Therefore, her PCP advised her to go to [facility] for further evaluation and later she was transferred to [facility] for further care. Patient did receive a unit of blood while in transit to [facility]. Additionally, she has also been endorsing swelling in her legs which has been getting progressively worse. Lab work in the ER shows hemoglobin of 8.7, MCV 84.3, platelet count 257, PT 11.0, INR 1.0, APTT 21.5, sodium 128, potassium 4.3, chloride 94, bicarb 21, BUN 36, creatinine 1.95, glucose 166, EGFR 26, Chest x-ray shows stable mild cardiomegaly with no overt CHF or pneumonia. 11/02/2024 Patient is sitting in the recliner. Awake alert and oriented x 3. Still having bilateral lower extremity swelling and is being continued on IV Lasix 40 mg twice daily. Denied any complaints of chest pain or shortness of breath. No nausea or vomiting. Patient has been afebrile. Tolerating oral diet. Labor atory data showed sodium 130 potassium 4.1 chloride 96 bicarb is 24 BUN 36 and creatinine 1.82 and blood sugar 164. Hemoglobin 8.3 Active Medications Acetaminophen (Acetaminophen Tab 325 Mg Tab) 650 mg PO Q6HR PRN PRN Reason: Mild Pain or Fever > 100.5 Amlodipine Besylate (Amlodipine 10 Mg Tab) 10 mg PO [facility] Last Admin: 11/19/24 21:27 Dose: 10 mg Aspirin (Aspirin 81 Mg) 81 mg PO DAILY [facility] Last Admin: 11/19/24 08:47 Dose: 81 mg Atorvastatin Calcium (Atorvastatin 40 Mg Tab) 40 mg PO HS [facility] Last Admin: 11/19/24 21:27 Dose: 40 mg Carvedilol (Carvedilol 12.5 Mg Tab) 25 mg PO BID-W/MEALS [facility] Last Admin: 11/19/24 17:58 Dose: 25 mg Cholecalciferol (Cholecalciferol 125 Mcg (5000 Iu) Tablet) 125 mcg PO DAILY [facility] Last Admin: 11/19/24 08:48 Dose: 125 mcg Dextrose/Water (Dextrose 50% Syringe 50 Ml) 25 ml IVP PER PROTOCOL PRN; Protocol PRN Reason: Hypoglycemia Dextrose/Water (Dextrose 50% Syringe 50 Ml) 50 ml IVP PER PROTOCOL PRN; Protocol PRN Reason: Hypoglycemia Diphenoxylate HCl/Atropine (Diphenox-Atrop 2.5-0.025 Mg 1 Each Tab) 1 each PO QID PRN PRN Reason: Diarrhea Duloxetine HCl (Duloxetine Hcl 60 Mg Capsule.Dr) 60 mg PO DAILY [facility] Last Admin: 11/19/24 08:48 Dose: 60 mg Furosemide (Furosemide 10 Mg/Ml 4 Ml Vial) 40 mg IV Q12HR [facility] Last Admin: 11/19/24 21:28 Dose: 40 mg Gabapentin (Gabapentin 100 Mg Cap) 100 mg PO Q8H PRN PRN Reason: Pain Hydralazine HCl (Hydralazine Hcl 50 Mg Tab) 50 mg PO TID [facility] Last Admin: 11/19/24 21:27 Dose: 50 mg Ferric Sodium Gluconate 125 mg (/ Sodium Chloride) 110 mls @ 100 mls/hr IVPB DAILY [facility] Stop: 11/21/24 10:05 Last Admin: 11/19/24 13:17 Dose: 100 mls/hr Insulin Human Lispro (Insulin Lispro (Humalog) 100 Unit/Ml 10 Ml Vl) 0 unit SQ ACHS [facility]; Protocol Last Admin: 11/19/24 21:27 Dose: 2 unit Isosorbide Mononitrate (Isosorbide Mononitrate Er 30 Mg Tab.Er.24h) 30 mg PO DAILY [facility] Last Admin: 11/19/24 08:48 Dose: 30 mg Magnesium Oxide (Magnesium Oxide 400 Mg Tab) 400 mg PO DAILY [facility] Last Admin: 11/19/24 08:48 Dose: 400 mg Naloxone HCl (Naloxone 0.4 Mg/Ml 1 Ml Vial) 0.2 mg IV Q2M PRN PRN Reason: Opioid Reversal Pantoprazole Sodium (Pantoprazole 40 Mg/10 Ml Vial) 40 mg IVP DAILY [facility] Last Admin: 11/19/24 08:47 Dose: 40 mg Potassium Chloride (Potassium Chloride Er 20 Meq Tab.Er) 20 meq PO DAILY [facility] Last Admin: 11/19/24 08:48 Dose: 20 meq Physical examination: Vital signs reviewed General: non toxic, no distress, appears at stated age, morbidly obese Derm: no unusual rashes/lesions, warm Head: atraumatic, normocephalic, symmetric Eyes: EOMI, no lid lag, anicteric sclera, pupils equal round reactive to light ENT: Nose and ears atraumatic Neck: No cervical lymphadenopathy, trachea midline, supple Mouth: no lip lesion, mucus membranes moist Cardiovascular: S1S2 reg, no murmur, positive dorsalis pedis pulse bilateral, 3+ bilateral pitting edema Lungs: CTA bilateral, no rhonchi, no rales, no accessory muscle use Abdominal: soft, nontender to palpation, no guarding Ext: muscle strength 5 out of 5 in all 4 extremities grossly, no gross muscle atrophy, no contractures, Neuro: CN II-XI grossly intact, no gross focal neuro deficits Psych: Alert, oriented, appropriate affect Assessment/Plan: This is a Patient is a 64-year-old female with a history of left breast cancer status post lumpectomy, chemotherapy and radiation in 2015, TAVR, CHF, type 2 diabetes, CKD, chronic anemia, hyperlipidemia, hypertension is a transfer from a [facility] for generalized weakness and anemia. Case was discussed with the Emergency Room provider and decision was made to admit the patient for chronic anemia. Labs and images: Lab work in the ER shows hemoglobin of 8.7, MCV 84.3, platelet count 257, PT 11.0, INR 1.0, APTT 21.5, sodium 128, potassium 4.3, chloride 94, bicarb 21, BUN 36, creatinine 1.95, glucose 166, EGFR 26, Chest x-ray shows stable mild cardiomegaly with no overt CHF or pneumonia. Active: #Generalized weakness and malaise # Normocytic anemia requiring blood transfusion. # Iron deficiency anemia #Nonoliguric ALBIN on CKD #Acute on chronic HFpEF #Hypervolemic hyponatremia #History of breast cancer status post lumpectomy and chemotherapy and radiation Blood transfusion if hemoglobin is less than 7 Patient is being followed by cardiology, oncology and nephrology Daily I's and O's Daily weights Order lipid panel, vitamin B12, methylmalonic acid, TSH Continue cardiac telemetry CBC and BMP tomorrow a.m. Fluid restrictions Continue with IV Lasix 40 mg twice daily Patient does take Bumex 1 mg p.o. daily Avoid nephrotoxic drugs Echocardiogram on 10/26/2024 shows LVEF 55 to 60% Renal and bladder ultrasound no obstruction or hydronephrosis. Continue to monitor renal function. #Hyperglycemia Accu-Cheks and sliding scale insulin HbA1c 5.9 Chronic: Hypertension, hyperlipidemia, anxiety, depression, GERD Resume home medications DVT prophylaxis: SCDs GI prophylaxis: Protonix 40 mg daily F: None E: Replete as needed N: Heart healthy diet A: Ambulatory at baseline The patient is admitted with an anticipated less than than 2 midnight stay for evaluation of anemia CODE STATUS: Full code Discussed with: Patient Anticipated discharge place: Pending clinical course Dictation was produced using [employer] dictation software. Please excuse any grammatical, word or spelling errors. Objective - Vital Signs Vital signs: Vital Signs Temp 97.7 F 11/19/24 12:42 Pulse 69 11/19/24 12:42 Resp 18 11/19/24 12:42 BP 144/65 11/19/24 12:42 Pulse Ox 95 11/19/24 12:42 FiO2 Intake & Output 11/18/24 11/19/24 11/19/24 18:59 06:59 18:59 Intake Total 360 840 250 Balance 360 840 250 Intake: Oral 360 840 250 Other: # Voids 4 - Labs CBC & Chem 7: 11/19/24 07:16 11/19/24 07:16 Labs: Abnormal Lab Results - Last 24 Hours (Table) 11/18/24 11/18/24 11/18/24 Range/Units 10:28 15:11 16:31 RBC (3.80-5.40) m/uL Hgb (11.4-16.0) gm/dL Hct (34.0-46.0) % RDW (11.5-15.5) % Lymphocytes # (1.0-4.8) k/uL Sodium 129 L (137-145) mmol/L Chloride 96 L (98-107) mmol/L BUN 34 H (7-17) mg/dL Creatinine 1.93 H (0.52-1.04) mg/dL Glucose 181 H (74-99) mg/dL POC Glucose (mg/dL) 193 H (70-110) mg/dL Total Protein (6.3-8.2) g/dL Folate 34.00 H (4.40-31.00) ng/mL 11/18/24 11/19/24 11/19/24 Range/Units 20:18 07:09 07:16 RBC 3.05 L (3.80-5.40) m/uL Hgb 8.3 L (11.4-16.0) gm/dL Hct 25.7 L (34.0-46.0) % RDW 19.9 H (11.5-15.5) % Lymphocytes # 0.7 L (1.0-4.8) k/uL Sodium (137-145) mmol/L Chloride (98-107) mmol/L BUN (7-17) mg/dL Creatinine (0.52-1.04) mg/dL Glucose (74-99) mg/dL POC Glucose (mg/dL) 144 H 185 H (70-110) mg/dL Total Protein (6.3-8.2) g/dL Folate (4.40-31.00) ng/mL 11/19/24 11/19/24 Range/Units 07:16 12:02 RBC (3.80-5.40) m/uL Hgb (11.4-16.0) gm/dL Hct (34.0-46.0) % RDW (11.5-15.5) % Lymphocytes # (1.0-4.8) k/uL Sodium 130 L (137-145) mmol/L Chloride 96 L (98-107) mmol/L BUN 36 H (7-17) mg/dL Creatinine 1.82 H (0.52-1.04) mg/dL Glucose 164 H (74-99) mg/dL POC Glucose (mg/dL) 187 H (70-110) mg/dL Total Protein 6.2 L (6.3-8.2) g/dL Folate (4.40-31.00) ng/mL Assessment and Plan Time with Patient: Greater than 30
[2024-11-20 07:26] LABS: Glucose,Whole Blood 164 mg/dL (70-110)
[2024-11-20 09:15] LABS: Blood Urea Nitrogen 36.2 mg/dL (9.0-27.0); Calcium 9.1 mg/dL (8.7-10.3); Carbon Dioxide 24.4 mmol/L (21.6-31.8); Chloride 96 mmol/L (96-109); Glucose 164 mg/dL (70-110); Potassium 4.2 mmol/L (3.5-5.5); Sodium 134 mmol/L (135-145)
[2024-11-20 10:11] LABS: Basophils # (A) 0.02 X 10*3/uL (0.00-0.10); Basophils % (A) 0.2 %; Eosinophils # (A) 0.29 X 10*3/uL (0.04-0.35); Eosinophils % (A) 3.2 %; HCT 27.2 % (37.2-46.3); HGB 8.4 g/dL (12.0-15.0); Lymphocytes # (A) 0.95 X 10*3/uL (0.90-5.00); Lymphocytes % (A) 10.4 %; MCH 26.9 pg (27.0-32.0); MCHC 30.9 g/dL (32.0-37.0); MCV 87.2 FL (80.0-97.0); Mean Platelet Volume 9.1 FL (9.5-12.2); Monocytes # (A) 1.01 X 10*3/uL (0.20-1.00); NRBC Per 100 WBC 0 X 10*3/uL (0.00-0.01); Neutrophils # (A) 6.85 X 10*3/uL (1.80-7.70); Neutrophils % (A) 74.9 %; Platelet Count 274 X 10*3/uL (140-440); RBC 3.12 X 10*6/uL (4.10-5.20); RDW 21.1 % (11.5-14.5); WBC 9.15 X 10*3/uL (4.50-10.00)
[2024-11-20] MEDS: FUROSEMIDE 10 MG/ML 2 ML VIAL IV STA (11:42)
[2024-11-20 12:15] LABS: Glucose,Whole Blood 188 mg/dL (70-110)
--- NOTE | 2024-11-20 16:00 | P.PN ---
Subjective Progress Note Date: 11/20/24 No acute events overnight. Pt reporting improvement in SOB. Persisting leg swelling and fatigue. Hgb stable at 8.4. Denies any episodes of acute bleeding Objective - Vital Signs Vital signs: Vital Signs Temp 98 F 11/20/24 07:17 Pulse 66 11/20/24 07:17 Resp 18 11/20/24 07:17 BP 152/70 11/20/24 07:17 Pulse Ox 95 11/20/24 01:39 FiO2 Intake & Output 11/19/24 11/20/24 11/20/24 18:59 06:59 18:59 Intake Total 250 480 Balance 250 480 Weight 108.21 kg 108.2 kg Intake: Oral 250 480 Other: Voiding Method Toilet # Voids 3 - Constitutional General appearance: Present: no acute distress - EENT Eyes: Present: anicteric sclerae, EOMI ENT: Present: hearing grossly normal - Respiratory Details: breathing is even and unlabored - Cardiovascular Details: skin warm and dry - Integumentary Integumentary: Present: pale. Absent: cyanotic - Psychiatric Psychiatric: Present: A&O x's 3 - Labs CBC & Chem 7: 11/20/24 04:15 11/20/24 04:15 Labs: Abnormal Lab Results - Last 24 Hours (Table) 11/19/24 11/19/24 11/20/24 Range/Units 17:30 20:19 04:15 RBC 3.12 L (4.10-5.20) X 10*6/uL Hgb 8.4 L (12.0-15.0) g/dL Hct 27.2 L (37.2-46.3) % MCH 26.9 L (27.0-32.0) pg MCHC 30.9 L (32.0-37.0) g/dL RDW 21.1 H (11.5-14.5) % MPV 9.1 L (9.5-12.2) FL Monocytes # 1.01 H (0.20-1.00) X 10*3/uL Sodium (135-145) mmol/L Anion Gap (4.00-12.00) mmol/L BUN (9.0-27.0) mg/dL Creatinine (0.6-1.5) mg/dL Est GFR (CKD-EPI) (>=60) Glucose (70-110) mg/dL POC Glucose (mg/dL) 222 H 156 H (70-110) mg/dL 11/20/24 11/20/24 11/20/24 Range/Units 04:15 07:14 12:09 RBC (4.10-5.20) X 10*6/uL Hgb (12.0-15.0) g/dL Hct (37.2-46.3) % MCH (27.0-32.0) pg MCHC (32.0-37.0) g/dL RDW (11.5-14.5) % MPV (9.5-12.2) FL Monocytes # (0.20-1.00) X 10*3/uL Sodium 134 L (135-145) mmol/L Anion Gap 13.60 H (4.00-12.00) mmol/L BUN 36.2 H (9.0-27.0) mg/dL Creatinine 2.0 H (0.6-1.5) mg/dL Est GFR (CKD-EPI) 27 L (>=60) Glucose 164 H (70-110) mg/dL POC Glucose (mg/dL) 164 H 188 H (70-110) mg/dL Assessment and Plan (1) Anemia Current Visit: Yes Status: Acute Code(s): D64.9 - ANEMIA, UNSPECIFIED SNOMED Code(s): 828681400 (2) HER2-positive carcinoma of left breast Current Visit: Yes Status: Acute Code(s): C50.912 - MALIGNANT NEOPLASM OF UNSPECIFIED SITE OF LEFT FEMALE BREAST; Z17.31 - HUMAN EPIDERMAL GROWTH FACTOR RECEPTOR 2 POSITIVE STATUS SNOMED Code(s): 840919395 Plan: #Iron deficiency anemia -Noted to have borderline microcytosis since April 2024 -Iron studies in our system since September 2023 have noted persistent iron deficiency -During her hospitalization from 10/28/2024 through 11/01/2024, she received 3 doses of IV ferric gluconate in addition to 1 unit of packed red blood cells -Iron deficiency was likely secondary to persistent microscopic GI blood loss being on aspirin and Plavix with Plavix being discontinued during her last admission -She did have hospitalization in February 2024 in [place] where she underwent upper endoscopy and colonoscopy and reported history suspicious for AVM that required cauterization. During her last hospitalization, she declined endoscopy -She has had negative monoclonal gammopathy workup in the fall 2023 and again on her last admission in October 2024 -There was noted concern for anemia on routine follow-up with her PCP with hemoglobin of 7 and received 1 unit of packed red blood cells at [facility] with hemoglobin 8.7 on presentation at our facility -Repeat iron studies ordered. Iron saturation may be elevated secondary to recent packed red blood cell transfusion -In addition, vitamin B12/methylmalonic acid, folic acid, and thyroid profile have also been ordered -Iron studies show iron sat 19.7%, ferritin 75. 3 doses IV iron ordered. No folate or Vit B12 def. noted. TSH WNL -If hemoglobin downtrends, we did discuss the possibility of repeat endoscopies, specifically with EGD. -Hgb stable at 8.4. Denies any rectal bleeding/melena. Continue to monitor CBC #Hormone receptor positive/HER2 positive breast cancer -Received neoadjuvant TCHP in 2014 followed by adjuvant Herceptin that was completed in 2015 -She was on endocrine therapy with Femara that was discontinued in May 2024 due to ischemic stroke
--- NOTE | 2024-11-20 16:33 | P.PN ---
Subjective Progress Note Date: 11/20/24 Hospital course: Patient is a 64-year-old female with a history of left breast cancer status post lumpectomy, chemotherapy and radiation in 2015, TAVR, CHF, type 2 diabetes, CKD, chronic anemia, hyperlipidemia, hypertension is a transfer from a [facility]. Patient was recently hospitalized for generalized weakness and fatigue and had a transfusion of blood. Since her discharge, she has ongoing shortness of breath with exertion, generalized malaise for which she saw her PCP and had a blood work done which showed that her hemoglobin was low. Therefore, her PCP advised her to go to [facility] for further evaluation and later she was transferred to [facility] for further care. Patient did receive a unit of blood while in transit to [facility]. Additionally, she has also been endorsing swelling in her legs which has been getting progressively worse. Lab work in the ER shows hemoglobin of 8.7, MCV 84.3, platelet count 257, PT 11.0, INR 1.0, APTT 21.5, sodium 128, potassium 4.3, chloride 94, bicarb 21, BUN 36, creatinine 1.95, glucose 166, EGFR 26, Chest x-ray shows stable mild cardiomegaly with no overt CHF or pneumonia. 11/19/2024 Patient is sitting in the recliner. Awake alert and oriented x 3. Still having bilateral lower extremity swelling and is being continued on IV Lasix 40 mg twice daily. Denied any complaints of chest pain or shortness of breath. No nausea or vomiting. Patient has been afebrile. Tolerating oral diet. Laboratory data showed sodium 130 potassium 4.1 chloride 96 bicarb is 24 BUN 36 and creatinine 1.82 and blood sugar 164. Hemoglobin 8.3 11/20/2024 Patient seen and examined at the bedside. Patient sitting in the recliner. No acute events overnight. Patient denies any shortness of breath, chest pain, abdominal pain, nausea, vomiting, fever, chills. She is on a fluid restricted diet. Urine output is good. She is tolerating her oral diet well. Physical examination: Vital signs reviewed General: non toxic, no distress, appears at stated age, morbidly obese Derm: no unusual rashes/lesions, warm Head: atraumatic, normocephalic, symmetric Eyes: EOMI, no lid lag, anicteric sclera, pupils equal round reactive to light ENT: Nose and ears atraumatic Neck: No cervical lymphadenopathy, trachea midline, supple Mouth: no lip lesion, mucus membranes moist Cardiovascular: S1S2 reg, no murmur, positive dorsalis pedis pulse bilateral, 3+ bilateral pitting edema Lungs: CTA bilateral, no rhonchi, no rales, no accessory muscle use Abdominal: soft, nontender to palpation, no guarding Ext: muscle strength 5 out of 5 in all 4 extremities grossly, no gross muscle atrophy, no contractures, Neuro: CN II-XI grossly intact, no gross focal neuro deficits Psych: Alert, oriented, appropriate affect Assessment/Plan: This is a Patient is a 64-year-old female with a history of left breast cancer status post lumpectomy, chemotherapy and radiation in 2014, TAVR, CHF, type 2 diabetes, CKD, chronic anemia, hyperlipidemia, hypertension is a transfer from a [facility] for generalized weakness and anemia. Case was discussed with the Emergency Room provider and decision was made to admit the patient for chronic anemia. Labs and images: Pertinent Labs: WBC 9.15, hemoglobin 8.4, sodium 134, BUN 36.2, creatinine 2.0, EGFR 27, glucose 164, calcium 9 point No new imaging today Active: #Generalized weakness and malaise #Normocytic anemia requiring blood transfusion. #Iron deficiency anemia #Nonoliguric ALBIN on CKD #Acute on chronic HFpEF #Hypervolemic hyponatremia, improving #History of breast cancer status post lumpectomy and chemotherapy and radiation Blood transfusion if hemoglobin is less than 7 Patient is being followed by cardiology, oncology and nephrology Daily I's and O's Daily weights Lipid panel: Iron 77, TIBC 389, transferrin 278, ferritin 25 Vitamin B12 512, folate 34, TSH 2.84 Methylmalonic acid is pending Continue cardiac telemetry CBC and BMP tomorrow a.m. Fluid restrictions Continue with IV Lasix 40 mg twice daily Give IV Lasix 20 mg stat Avoid nephrotoxic drugs Echocardiogram on 10/26/2024 shows LVEF 55 to 60% Renal and bladder ultrasound no obstruction or hydronephrosis. Continue to monitor renal function. #Hyperglycemia Accu-Cheks and sliding scale insulin HbA1c 5.9 Chronic: Hypertension, hyperlipidemia, anxiety, depression, GERD Resume home medications DVT prophylaxis: SCDs GI prophylaxis: Protonix 40 mg daily F: None E: Replete as needed N: Heart healthy diet A: Ambulatory at baseline The patient is admitted with an anticipated less than than 2 midnight stay for evaluation of anemia CODE STATUS: Full code Discussed with: Patient Anticipated discharge place: Pending clinical course Dictation was produced using [employer] dictation software. Please excuse any grammatical, word or spelling errors. Attestation: I have personally seen and examined the patient with Resident, reviewed the documentation and participated and agree with the assessment and plan as written. Joseph Russo MD Objective - Vital Signs Vital signs: Vital Signs Temp 98 F 11/20/24 07:17 Pulse 66 11/20/24 07:17 Resp 18 11/20/24 07:17 BP 152/70 11/20/24 07:17 Pulse Ox 95 11/20/24 01:39 FiO2 Intake & Output 11/19/24 11/20/24 11/20/24 18:59 06:59 18:59 Intake Total 250 480 Balance 250 480 Weight 108.21 kg 108.2 kg Intake: Oral 250 480 Other: Voiding Method Toilet # Voids 3 - Labs CBC & Chem 7: 11/20/24 04:15 11/20/24 04:15 Labs: Abnormal Lab Results - Last 24 Hours (Table) 11/19/24 11/19/24 11/19/24 Range/Units 12:02 17:30 20:19 RBC (4.10-5.20) X 10*6/uL Hgb (12.0-15.0) g/dL Hct (37.2-46.3) % MCH (27.0-32.0) pg MCHC (32.0-37.0) g/dL RDW (11.5-14.5) % MPV (9.5-12.2) FL Monocytes # (0.20-1.00) X 10*3/uL Sodium (135-145) mmol/L Anion Gap (4.00-12.00) mmol/L BUN (9.0-27.0) mg/dL Creatinine (0.6-1.5) mg/dL Est GFR (CKD-EPI) (>=60) Glucose (70-110) mg/dL POC Glucose (mg/dL) 187 H 222 H 156 H (70-110) mg/dL 11/20/24 11/20/24 11/20/24 Range/Units 04:15 04:15 07:14 RBC 3.12 L (4.10-5.20) X 10*6/uL Hgb 8.4 L (12.0-15.0) g/dL Hct 27.2 L (37.2-46.3) % MCH 26.9 L (27.0-32.0) pg MCHC 30.9 L (32.0-37.0) g/dL RDW 21.1 H (11.5-14.5) % MPV 9.1 L (9.5-12.2) FL Monocytes # 1.01 H (0.20-1.00) X 10*3/uL Sodium 134 L (135-145) mmol/L Anion Gap 13.60 H (4.00-12.00) mmol/L BUN 36.2 H (9.0-27.0) mg/dL Creatinine 2.0 H (0.6-1.5) mg/dL Est GFR (CKD-EPI) 27 L (>=60) Glucose 164 H (70-110) mg/dL POC Glucose (mg/dL) 164 H (70-110) mg/dL
[2024-11-20 17:21] LABS: Glucose,Whole Blood 189 mg/dL (70-110)
[2024-11-20 20:24] LABS: Glucose,Whole Blood 181 mg/dL (70-110)
--- NOTE | 2024-11-20 20:53 | P.PN ---
Subjective Patient is seen for follow-up for acute kidney injury. No significant complaints Serum creatinine at 2.0 mg/dL Objective - Vital Signs Vital signs: Vital Signs Temp 97.6 F 11/20/24 18:31 Pulse 67 11/20/24 18:31 Resp 18 11/20/24 18:31 BP 128/55 11/20/24 18:31 Pulse Ox 96 11/20/24 18:31 FiO2 Intake & Output 11/20/24 11/20/24 11/21/24 06:59 18:59 06:59 Intake Total 480 Balance 480 Weight 108.2 kg Intake: Oral 480 Other: Voiding Method Toilet # Voids 3 - Exam Patient is awake comfortable no acute distress. Examination of the heart S1 and S2 Examination of the lungs bilateral breath sounds are heard Abdomen is soft nontender Examination of lower extremities - Labs CBC & Chem 7: 11/20/24 04:15 11/20/24 04:15 Labs: Abnormal Lab Results - Last 24 Hours (Table) 11/20/24 11/20/24 11/20/24 Range/Units 04:15 04:15 07:14 RBC 3.12 L (4.10-5.20) X 10*6/uL Hgb 8.4 L (12.0-15.0) g/dL Hct 27.2 L (37.2-46.3) % MCH 26.9 L (27.0-32.0) pg MCHC 30.9 L (32.0-37.0) g/dL RDW 21.1 H (11.5-14.5) % MPV 9.1 L (9.5-12.2) FL Monocytes # 1.01 H (0.20-1.00) X 10*3/uL Sodium 134 L (135-145) mmol/L Anion Gap 13.60 H (4.00-12.00) mmol/L BUN 36.2 H (9.0-27.0) mg/dL Creatinine 2.0 H (0.6-1.5) mg/dL Est GFR (CKD-EPI) 27 L (>=60) Glucose 164 H (70-110) mg/dL POC Glucose (mg/dL) 164 H (70-110) mg/dL 11/20/24 11/20/24 11/20/24 Range/Units 12:09 17:19 20:22 RBC (4.10-5.20) X 10*6/uL Hgb (12.0-15.0) g/dL Hct (37.2-46.3) % MCH (27.0-32.0) pg MCHC (32.0-37.0) g/dL RDW (11.5-14.5) % MPV (9.5-12.2) FL Monocytes # (0.20-1.00) X 10*3/uL Sodium (135-145) mmol/L Anion Gap (4.00-12.00) mmol/L BUN (9.0-27.0) mg/dL Creatinine (0.6-1.5) mg/dL Est GFR (CKD-EPI) (>=60) Glucose (70-110) mg/dL POC Glucose (mg/dL) 188 H 189 H 181 H (70-110) mg/dL Assessment and Plan Assessment: 1. Acute kidney injury on CKD stage 3, creatinine has been ranging 1.2-1.6 over the last year. admitted with cr. 1.9, jose to 1.8, now 2.0, At home on Bumex 1 mg daily. Currently maintained on Lasix IV. 2. Anemia, stable Hb, iron deficiency 3. Hyponatremia, acute on chronic asymptomatic hypervolemic Hyponatremia , sodium level ranging 130-133 over the last year, presented with sodium level 128->129> 134 4. acute on chronic CHF. Plan: Continue IV Lasix Repeat labs in a.m.
[2024-11-21 07:06] LABS: Glucose,Whole Blood 164 mg/dL (70-110)
[2024-11-21 08:21] LABS: Basophils # (A) 0.02 X 10*3/uL (0.00-0.10); Basophils % (A) 0.2 %; Eosinophils # (A) 0.27 X 10*3/uL (0.04-0.35); Eosinophils % (A) 3.2 %; HCT 27.2 % (37.2-46.3); HGB 8.6 g/dL (12.0-15.0); Lymphocytes # (A) 0.88 X 10*3/uL (0.90-5.00); Lymphocytes % (A) 10.3 %; MCH 27.2 pg (27.0-32.0); MCHC 31.6 g/dL (32.0-37.0); MCV 86.1 FL (80.0-97.0); Monocytes # (A) 0.88 X 10*3/uL (0.20-1.00); Monocytes % (A) 10.3 %; NRBC Per 100 WBC 0 X 10*3/uL (0.00-0.01); Neutrophils # (A) 6.45 X 10*3/uL (1.80-7.70); Neutrophils % (A) 75.6 %; Platelet Count 237 X 10*3/uL (140-440); RBC 3.16 X 10*6/uL (4.10-5.20); RDW 20.6 % (11.5-14.5); WBC 8.53 X 10*3/uL (4.50-10.00)
[2024-11-21 08:32] LABS: BUN/Creat Ratio 20.82 Ratio (12.00-20.00); Blood Urea Nitrogen 35.4 mg/dL (9.0-27.0); Carbon Dioxide 23.1 mmol/L (21.6-31.8); Chloride 96 mmol/L (96-109); Glucose 160 mg/dL (70-110); Potassium 3.6 mmol/L (3.5-5.5); Sodium 133 mmol/L (135-145)
[2024-11-21 12:12] LABS: Glucose,Whole Blood 215 mg/dL (70-110)
--- NOTE | 2024-11-21 13:20 | P.PN ---
Subjective Patient is seen for follow-up for acute kidney injury. Complaining of significant lower extremity swelling. No complaints of shortness of breath Serum creatinine improved to 1.7 today. Objective - Vital Signs Vital signs: Vital Signs Temp 97.6 F 11/21/24 12:37 Pulse 64 11/21/24 12:37 Resp 18 11/21/24 12:37 BP 141/59 11/21/24 12:37 Pulse Ox 95 11/21/24 12:37 FiO2 Intake & Output 11/20/24 11/21/24 11/21/24 18:59 06:59 18:59 Intake Total 240 Balance 240 Weight 109 kg Intake: Oral 240 Other: Voiding Method Toilet Toilet # Voids 3 - Exam Patient is awake comfortable no acute distress. Examination of the heart S1 and S2 Examination of the lungs bilateral breath sounds are heard Abdomen is soft nontender Examination of lower extremities shows 2-3+ edema bilaterally SKIN DRIER exam grossly intact - Labs CBC & Chem 7: 11/21/24 05:12 11/21/24 05:12 Labs: Abnormal Lab Results - Last 24 Hours (Table) 11/18/24 11/20/24 11/20/24 Range/Units 10:28 17:19 20:22 RBC (4.10-5.20) X 10*6/uL Hgb (12.0-15.0) g/dL Hct (37.2-46.3) % MCHC (32.0-37.0) g/dL RDW (11.5-14.5) % MPV (9.5-12.2) FL Lymphocytes # (0.90-5.00) X 10*3/uL Sodium (135-145) mmol/L Anion Gap (4.00-12.00) mmol/L BUN (9.0-27.0) mg/dL Creatinine (0.6-1.5) mg/dL Est GFR (CKD-EPI) (>=60) BUN/Creatinine Ratio (12.00-20.00) Ratio Glucose (70-110) mg/dL POC Glucose (mg/dL) 189 H 181 H (70-110) mg/dL Methylmalonic Acid 0.81 H (<0.40) umol/L 11/21/24 11/21/24 11/21/24 Range/Units 05:12 05:12 07:05 RBC 3.16 L (4.10-5.20) X 10*6/uL Hgb 8.6 L (12.0-15.0) g/dL Hct 27.2 L (37.2-46.3) % MCHC 31.6 L (32.0-37.0) g/dL RDW 20.6 H (11.5-14.5) % MPV 9.0 L (9.5-12.2) FL Lymphocytes # 0.88 L (0.90-5.00) X 10*3/uL Sodium 133 L (135-145) mmol/L Anion Gap 13.90 H (4.00-12.00) mmol/L BUN 35.4 H (9.0-27.0) mg/dL Creatinine 1.7 H (0.6-1.5) mg/dL Est GFR (CKD-EPI) 33 L (>=60) BUN/Creatinine Ratio 20.82 H (12.00-20.00) Ratio Glucose 160 H (70-110) mg/dL POC Glucose (mg/dL) 164 H (70-110) mg/dL Methylmalonic Acid (<0.40) umol/L 11/21/24 Range/Units 12:10 RBC (4.10-5.20) X 10*6/uL Hgb (12.0-15.0) g/dL Hct (37.2-46.3) % MCHC (32.0-37.0) g/dL RDW (11.5-14.5) % MPV (9.5-12.2) FL Lymphocytes # (0.90-5.00) X 10*3/uL Sodium (135-145) mmol/L Anion Gap (4.00-12.00) mmol/L BUN (9.0-27.0) mg/dL Creatinine (0.6-1.5) mg/dL Est GFR (CKD-EPI) (>=60) BUN/Creatinine Ratio (12.00-20.00) Ratio Glucose (70-110) mg/dL POC Glucose (mg/dL) 215 H (70-110) mg/dL Methylmalonic Acid (<0.40) umol/L Assessment and Plan Assessment: 1. Acute kidney injury on CKD stage 3, creatinine has been ranging 1.2-1.6 over the last year. admitted with cr. 1.9, it is 1.7 today. Maintained at home on Bumex 1 mg daily. Currently maintained on Lasix IV. 2. Anemia, stable Hb, iron deficiency 3. Hyponatremia, acute on chronic asymptomatic hypervolemic Hyponatremia , sodium level ranging 130-133 over the last year, presented with sodium level 128->129> 134 4. acute on chronic CHF. Plan: Switch to IV Bumex as patient takes Bumex at home Discussed salt and fluid restriction Repeat labs in a.m.
[2024-11-21] MEDS: BUMETANIDE 0.25 MG/ML 10 ML VIAL IV SCH (14:39)
--- NOTE | 2024-11-21 15:56 | P.PN ---
Subjective Progress Note Date: 11/21/24 Hospital course: Patient is a 64-year-old female with a history of left breast cancer status post lumpectomy, chemotherapy and radiation in 2015, TAVR, CHF, type 2 diabetes, CKD, chronic anemia, hyperlipidemia, hypertension is a transfer from a [facility]. Patient was recently hospitalized for generalized weakness and fatigue and had a transfusion of blood. Since her discharge, she has ongoing shortness of breath with exertion, generalized malaise for which she saw her PCP and had a blood work done which showed that her hemoglobin was low. Therefore, her PCP advised her to go to [facility] for further evaluation and later she was transferred to [facility] for further care. Patient did receive a unit of blood while in transit to [facility]. Additionally, she has also been endorsing swelling in her legs which has been getting progressively worse. Lab work in the ER shows hemoglobin of 8.7, MCV 84.3, platelet count 257, PT 11.0, INR 1.0, APTT 21.5, sodium 128, potassium 4.3, chloride 94, bicarb 21, BUN 36, creatinine 1.95, glucose 166, EGFR 26, Chest x-ray shows stable mild cardiomegaly with no overt CHF or pneumonia. 11/19/2024 Patient is sitting in the recliner. Awake alert and oriented x 3. Still having bilateral lower extremity swelling and is being continued on IV Lasix 40 mg twice daily. Denied any complaints of chest pain or shortness of breath. No nausea or vomiting. Patient has been afebrile. Tolerating oral diet. Laboratory data showed sodium 130 potassium 4.1 chloride 96 bicarb is 24 BUN 36 and creatinine 1.82 and blood sugar 164. Hemoglobin 8.3 11/20/2024 Patient seen and examined at the bedside. Patient sitting in the recliner. No acute events overnight. Patient denies any shortness of breath, chest pain, abdominal pain, nausea, vomiting, fever, chills. She is on a fluid restricted diet. Urine output is good. She is tolerating her oral diet well. 11/21/2024 Patient seen and examined at the bedside. Patient sitting in the recliner. No acute events overnight. Patient continues to have swelling in her legs. Urine output is good. She continues to be on salt and fluid restriction diet. Physical examination: Vital signs reviewed General: non toxic, no distress, appears at stated age, morbidly obese Derm: no unusual rashes/lesions, warm Head: atraumatic, normocephalic, symmetric Eyes: EOMI, no lid lag, anicteric sclera, pupils equal round reactive to light ENT: Nose and ears atraumatic Neck: No cervical lymphadenopathy, trachea midline, supple Mouth: no lip lesion, mucus membranes moist Cardiovascular: S1S2 reg, no murmur, positive dorsalis pedis pulse bilateral, 3+ bilateral pitting edema Lungs: CTA bilateral, no rhonchi, no rales, no accessory muscle use Abdominal: soft, nontender to palpation, no guarding Ext: muscle strength 5 out of 5 in all 4 extremities grossly, no gross muscle atrophy, no contractures, Neuro: CN II-XI grossly intact, no gross focal neuro deficits Psych: Alert, oriented, appropriate affect Assessment/Plan: This is a Patient is a 64-year-old female with a history of left breast cancer status post lumpectomy, chemotherapy and radiation in 2014, TAVR, CHF, type 2 diabetes, CKD, chronic anemia, hyperlipidemia, hypertension is a transfer from [facility] for generalized weakness and anemia. Case was discussed with the Emergency Room provider and decision was made to admit the patient for chronic anemia. Labs and images: Pertinent Labs: WBC 8.53, hemoglobin 8.6, platelet count 237, sodium 133, potassium 3.6, BUN 35.4, creatinine 1.7, glucose 160, magnesium 2.0 No new imaging today Active: #Generalized weakness and malaise #Normocytic anemia requiring blood transfusion. #Iron deficiency anemia #Nonoliguric ALBIN on CKD #Acute on chronic HFpEF #Hypervolemic hyponatremia, improving #History of breast cancer status post lumpectomy and chemotherapy and radiation Blood transfusion if hemoglobin is less than 7 Patient is being followed by cardiology, oncology and nephrology Daily I's and O's Daily weights Lipid panel: Iron 77, TIBC 389, transferrin 278, ferritin 25 Vitamin B12 512, folate 34, TSH 2.84 Methylmalonic acid is pending Continue cardiac telemetry CBC and BMP tomorrow a.m. Fluid restrictions IV Lasix have been switched to IV Bumex 1 mg every 12 hours Avoid nephrotoxic drugs Echocardiogram on 10/26/2024 shows LVEF 55 to 60% Renal and bladder ultrasound no obstruction or hydronephrosis. Continue to monitor renal function. #Hyperglycemia Accu-Cheks and sliding scale insulin HbA1c 5.9 Chronic: Hypertension, hyperlipidemia, anxiety, depression, GERD Resume home medications DVT prophylaxis: SCDs GI prophylaxis: Protonix 40 mg daily F: None E: Replete as needed N: Heart healthy diet A: Ambulatory at baseline CODE STATUS: Full code Discussed with: Patient Anticipated discharge place: Pending clinical course Dictation was produced using [employer] dictation software. Please excuse any grammatical, word or spelling errors. Attestation: I have personally seen and examined the patient with Resident, reviewed the documentation and participated and agree with the assessment and plan as written. Joseph Russo MD Objective - Vital Signs Vital signs: Vital Signs Temp 97.6 F 11/21/24 12:37 Pulse 64 11/21/24 12:37 Resp 18 11/21/24 12:37 BP 141/59 11/21/24 12:37 Pulse Ox 95 11/21/24 12:37 FiO2 Intake & Output 11/20/24 11/21/24 11/21/24 18:59 06:59 18:59 Intake Total 240 Balance 240 Weight 109 kg Intake: Oral 240 Other: Voiding Method Toilet Toilet # Voids 3 - Labs CBC & Chem 7: 11/22/24 04:27 11/22/24 04:27 Labs: Abnormal Lab Results - Last 24 Hours (Table) 11/18/24 11/20/24 11/20/24 Range/Units 10:28 17:19 20:22 RBC (4.10-5.20) X 10*6/uL Hgb (12.0-15.0) g/dL Hct (37.2-46.3) % MCHC (32.0-37.0) g/dL RDW (11.5-14.5) % MPV (9.5-12.2) FL Lymphocytes # (0.90-5.00) X 10*3/uL Sodium (135-145) mmol/L Anion Gap (4.00-12.00) mmol/L BUN (9.0-27.0) mg/dL Creatinine (0.6-1.5) mg/dL Est GFR (CKD-EPI) (>=60) BUN/Creatinine Ratio (12.00-20.00) Ratio Glucose (70-110) mg/dL POC Glucose (mg/dL) 189 H 181 H (70-110) mg/dL Methylmalonic Acid 0.81 H (<0.40) umol/L 11/21/24 11/21/24 11/21/24 Range/Units 05:12 05:12 07:05 RBC 3.16 L (4.10-5.20) X 10*6/uL Hgb 8.6 L (12.0-15.0) g/dL Hct 27.2 L (37.2-46.3) % MCHC 31.6 L (32.0-37.0) g/dL RDW 20.6 H (11.5-14.5) % MPV 9.0 L (9.5-12.2) FL Lymphocytes # 0.88 L (0.90-5.00) X 10*3/uL Sodium 133 L (135-145) mmol/L Anion Gap 13.90 H (4.00-12.00) mmol/L BUN 35.4 H (9.0-27.0) mg/dL Creatinine 1.7 H (0.6-1.5) mg/dL Est GFR (CKD-EPI) 33 L (>=60) BUN/Creatinine Ratio 20.82 H (12.00-20.00) Ratio Glucose 160 H (70-110) mg/dL POC Glucose (mg/dL) 164 H (70-110) mg/dL Methylmalonic Acid (<0.40) umol/L 11/21/24 Range/Units 12:10 RBC (4.10-5.20) X 10*6/uL Hgb (12.0-15.0) g/dL Hct (37.2-46.3) % MCHC (32.0-37.0) g/dL RDW (11.5-14.5) % MPV (9.5-12.2) FL Lymphocytes # (0.90-5.00) X 10*3/uL Sodium (135-145) mmol/L Anion Gap (4.00-12.00) mmol/L BUN (9.0-27.0) mg/dL Creatinine (0.6-1.5) mg/dL Est GFR (CKD-EPI) (>=60) BUN/Creatinine Ratio (12.00-20.00) Ratio Glucose (70-110) mg/dL POC Glucose (mg/dL) 215 H (70-110) mg/dL Methylmalonic Acid (<0.40) umol/L
[2024-11-21 17:02] LABS: Glucose,Whole Blood 208 mg/dL (70-110)
[2024-11-21 21:00] LABS: Glucose,Whole Blood 151 mg/dL (70-110)
[2024-11-22 07:10] LABS: Glucose,Whole Blood 203 mg/dL (70-110)
[2024-11-22 08:21] LABS: Basophils # (A) 0.03 X 10*3/uL (0.00-0.10); Basophils % (A) 0.3 %; Eosinophils # (A) 0.28 X 10*3/uL (0.04-0.35); Eosinophils % (A) 3.2 %; HCT 23.9 % (37.2-46.3); HGB 7.6 g/dL (12.0-15.0); Lymphocytes # (A) 0.83 X 10*3/uL (0.90-5.00); Lymphocytes % (A) 9.4 %; MCH 27.3 pg (27.0-32.0); MCHC 31.8 g/dL (32.0-37.0); Mean Platelet Volume 8.9 FL (9.5-12.2); Monocytes # (A) 0.79 X 10*3/uL (0.20-1.00); Monocytes % (A) 8.9 %; NRBC Per 100 WBC 0 X 10*3/uL (0.00-0.01); Neutrophils # (A) 6.87 X 10*3/uL (1.80-7.70); Neutrophils % (A) 77.6 %; Platelet Count 212 X 10*3/uL (140-440); RBC 2.78 X 10*6/uL (4.10-5.20); RDW 20.6 % (11.5-14.5); WBC 8.85 X 10*3/uL (4.50-10.00)
[2024-11-22 08:32] LABS: BUN/Creat Ratio 20.47 Ratio (12.00-20.00); Blood Urea Nitrogen 34.8 mg/dL (9.0-27.0); Calcium 8.9 mg/dL (8.7-10.3); Carbon Dioxide 24.4 mmol/L (21.6-31.8); Chloride 98 mmol/L (96-109); Glucose 194 mg/dL (70-110); Magnesium 1.8 mg/dL (1.5-2.4); Potassium 3.7 mmol/L (3.5-5.5); Sodium 135 mmol/L (135-145)
[2024-11-22] MEDS: PANTOPRAZOLE 40 MG TABLET PO SCH (08:48)
[2024-11-22 12:13] LABS: Glucose,Whole Blood 167 mg/dL (70-110)
--- NOTE | 2024-11-22 14:03 | P.PN ---
Subjective Patient is seen for follow-up for acute kidney injury. Complaining of significant lower extremity swelling. No complaints of shortness of breath Serum creatinine staying at 1.7 Switched to IV Bumex yesterday. Weight is down by about 2.5 kg as it is accurately measured Objective - Vital Signs Vital signs: Vital Signs Temp 97.6 F 11/22/24 12:27 Pulse 60 11/22/24 12:27 Resp 18 11/22/24 12:27 BP 133/62 11/22/24 12:27 Pulse Ox 94 L 11/22/24 12:27 FiO2 Intake & Output 11/21/24 11/22/24 11/22/24 18:59 06:59 18:59 Intake Total 950 702 Balance 950 702 Weight 106.5 kg Intake: Oral 950 702 Other: Voiding Method Toilet # Voids 4 - Exam Patient is awake comfortable no acute distress. 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 exam grossly intact - Labs CBC & Chem 7: 11/22/24 04:27 11/22/24 04:27 Labs: Abnormal Lab Results - Last 24 Hours (Table) 11/21/24 11/21/24 11/22/24 Range/Units 17:01 20:59 04:27 RBC 2.78 L (4.10-5.20) X 10*6/uL Hgb 7.6 L (12.0-15.0) g/dL Hct 23.9 L (37.2-46.3) % MCHC 31.8 L (32.0-37.0) g/dL RDW 20.6 H (11.5-14.5) % MPV 8.9 L (9.5-12.2) FL Immature Gran # 0.05 H (0.00-0.04) X 10*3/uL Lymphocytes # 0.83 L (0.90-5.00) X 10*3/uL Anion Gap (4.00-12.00) mmol/L BUN (9.0-27.0) mg/dL Creatinine (0.6-1.5) mg/dL Est GFR (CKD-EPI) (>=60) BUN/Creatinine Ratio (12.00-20.00) Ratio Glucose (70-110) mg/dL POC Glucose (mg/dL) 208 H 151 H (70-110) mg/dL 11/22/24 11/22/24 11/22/24 Range/Units 04:27 07:09 12:12 RBC (4.10-5.20) X 10*6/uL Hgb (12.0-15.0) g/dL Hct (37.2-46.3) % MCHC (32.0-37.0) g/dL RDW (11.5-14.5) % MPV (9.5-12.2) FL Immature Gran # (0.00-0.04) X 10*3/uL Lymphocytes # (0.90-5.00) X 10*3/uL Anion Gap 12.60 H (4.00-12.00) mmol/L BUN 34.8 H (9.0-27.0) mg/dL Creatinine 1.7 H (0.6-1.5) mg/dL Est GFR (CKD-EPI) 33 L (>=60) BUN/Creatinine Ratio 20.47 H (12.00-20.00) Ratio Glucose 194 H (70-110) mg/dL POC Glucose (mg/dL) 203 H 167 H (70-110) mg/dL Assessment and Plan Assessment: 1. Acute kidney injury on CKD stage 3, creatinine has been ranging 1.2-1.6 over the last year. admitted with cr. 1.9, it is 1.7 today. Maintained on IV Bumex 2. Anemia, stable Hb, iron deficiency. Status post IV iron 3. Hyponatremia, acute on chronic asymptomatic hypervolemic Hyponatremia , sodium level ranging 130-133 over the last year, presented with sodium level 128->129> 134 4. Acute on chronic CHF. Plan: Continue with IV Bumex Discussed salt and fluid restriction Repeat labs in a.m.
--- NOTE | 2024-11-22 14:28 | P.PN ---
Subjective Progress Note Date: 11/22/24 No acute events overnight. Pt reporting improvement in SOB. Persisting leg swelling and fatigue. Hgb 7.6, from 8.6. Denies any episodes of acute bleeding, hematochezia, and melena Objective - Vital Signs Vital signs: Vital Signs Temp 97.5 F L 11/22/24 07:46 Pulse 71 11/22/24 07:46 Resp 20 11/22/24 07:46 BP 134/69 11/22/24 07:46 Pulse Ox 94 L 11/22/24 07:11 FiO2 Intake & Output 11/21/24 11/22/24 11/22/24 18:59 06:59 18:59 Intake Total 950 702 Balance 950 702 Weight 106.5 kg Intake: Oral 950 702 Other: Voiding Method Toilet # Voids 4 - Constitutional General appearance: Present: no acute distress - EENT Eyes: Present: anicteric sclerae, EOMI ENT: Present: hearing grossly normal - Respiratory Details: breathing is even and unlabored - Cardiovascular Details: skin warm and dry - Gastrointestinal General gastrointestinal: Present: soft. Absent: tenderness - Integumentary Integumentary: Present: pale. Absent: cyanotic - Psychiatric Psychiatric: Present: A&O x's 3 - Labs CBC & Chem 7: 11/22/24 04:27 11/22/24 04:27 Labs: Abnormal Lab Results - Last 24 Hours (Table) 11/21/24 11/21/24 11/21/24 Range/Units 12:10 17:01 20:59 RBC (4.10-5.20) X 10*6/uL Hgb (12.0-15.0) g/dL Hct (37.2-46.3) % MCHC (32.0-37.0) g/dL RDW (11.5-14.5) % MPV (9.5-12.2) FL Immature Gran # (0.00-0.04) X 10*3/uL Lymphocytes # (0.90-5.00) X 10*3/uL Anion Gap (4.00-12.00) mmol/L BUN (9.0-27.0) mg/dL Creatinine (0.6-1.5) mg/dL Est GFR (CKD-EPI) (>=60) BUN/Creatinine Ratio (12.00-20.00) Ratio Glucose (70-110) mg/dL POC Glucose (mg/dL) 215 H 208 H 151 H (70-110) mg/dL 11/22/24 11/22/24 11/22/24 Range/Units 04:27 04:27 07:09 RBC 2.78 L (4.10-5.20) X 10*6/uL Hgb 7.6 L (12.0-15.0) g/dL Hct 23.9 L (37.2-46.3) % MCHC 31.8 L (32.0-37.0) g/dL RDW 20.6 H (11.5-14.5) % MPV 8.9 L (9.5-12.2) FL Immature Gran # 0.05 H (0.00-0.04) X 10*3/uL Lymphocytes # 0.83 L (0.90-5.00) X 10*3/uL Anion Gap 12.60 H (4.00-12.00) mmol/L BUN 34.8 H (9.0-27.0) mg/dL Creatinine 1.7 H (0.6-1.5) mg/dL Est GFR (CKD-EPI) 33 L (>=60) BUN/Creatinine Ratio 20.47 H (12.00-20.00) Ratio Glucose 194 H (70-110) mg/dL POC Glucose (mg/dL) 203 H (70-110) mg/dL Assessment and Plan (1) Anemia Current Visit: Yes Status: Acute Code(s): D64.9 - ANEMIA, UNSPECIFIED SNOMED Code(s): 017867044 (2) HER2-positive carcinoma of left breast Current Visit: Yes Status: Acute Code(s): C50.912 - MALIGNANT NEOPLASM OF UNSPECIFIED SITE OF LEFT FEMALE BREAST; Z17.31 - HUMAN EPIDERMAL GROWTH FACTOR RECEPTOR 2 POSITIVE STATUS SNOMED Code(s): 053480163 Plan: #Iron deficiency anemia -Noted to have borderline microcytosis since April 2024 -Iron studies in our system since September 2023 have noted persistent iron deficiency -During her hospitalization from 10/28/2024 through 11/01/2024, she received 3 doses of IV ferric gluconate in addition to 1 unit of packed red blood cells -Iron deficiency was likely secondary to persistent microscopic GI blood loss being on aspirin and Plavix with Plavix being discontinued during her last admission -She did have hospitalization in February 2024 in [place] where she underwent upper endoscopy and colonoscopy and reported history suspicious for AVM that required cauterization. During her last hospitalization, she declined endoscopy -She has had negative monoclonal gammopathy workup in the fall 2023 and again on her last admission in October 2024 -There was noted concern for anemia on routine follow-up with her PCP with hemoglobin of 7 and received 1 unit of packed red blood cells at [facility] with hemoglobin 8.7 on presentation at our facility -Repeat iron studies ordered. Iron saturation may be elevated secondary to recent packed red blood cell transfusion -In addition, vitamin B12/methylmalonic acid, folic acid, and thyroid profile have also been ordered -Iron studies show iron sat 19.7%, ferritin 75. 3 doses IV iron ordered. No folate or Vit B12 def. noted. TSH WNL -Hgb 7.6, from 8.6. Denies any rectal bleeding/melena. Recommended being evalua michael for repeat endoscopies, specifically with EGD. However, pt is apprehensive and is not sure if she wants to undergo another EGD. Would like to think about it today. Will recheck CBC in the morning, and follow back up with patient #Hormone receptor positive/HER2 positive breast cancer -Received neoadjuvant TCHP in 2014 followed by adjuvant Herceptin that was completed in 2015 -She was on endocrine therapy with Femara that was discontinued in May 2024 due to ischemic stroke -F/u scheduled on 01/02
--- NOTE | 2024-11-22 15:39 | P.PN ---
Subjective Progress Note Date: 11/22/24 Hospital course: Patient is a 64-year-old female with a history of left breast cancer status post lumpectomy, chemotherapy and radiation in 2015, TAVR, CHF, type 2 diabetes, CKD, chronic anemia, hyperlipidemia, hypertension is a transfer from a [facility]. Patient was recently hospitalized for generalized weakness and fatigue and had a transfusion of blood. Since her discharge, she has ongoing shortness of breath with exertion, generalized malaise for which she saw her PCP and had a blood work done which showed that her hemoglobin was low. Therefore, her PCP advised her to go to [facility] for further evaluation and later she was transferred to [facility] for further care. Patient did receive a unit of blood while in transit to [facility]. Additionally, she has also been endorsing swelling in her legs which has been getting progressively worse. Lab work in the ER shows hemoglobin of 8.7, MCV 84.3, platelet count 257, PT 11.0, INR 1.0, APTT 21.5, sodium 128, potassium 4.3, chloride 94, bicarb 21, BUN 36, creatinine 1.95, glucose 166, EGFR 26, Chest x-ray shows stable mild cardiomegaly with no overt CHF or pneumonia. 11/19/2024 Patient is sitting in the recliner. Awake alert and oriented x 3. Still having bilateral lower extremity swelling and is being continued on IV Lasix 40 mg twice daily. Denied any complaints of chest pain or shortness of breath. No nausea or vomiting. Patient has been afebrile. Tolerating oral diet. Laboratory data showed sodium 130 potassium 4.1 chloride 96 bicarb is 24 BUN 36 and creatinine 1.82 and blood sugar 164. Hemoglobin 8.3 11/20/2024 Patient seen and examined at the bedside. Patient sitting in the recliner. No acute events overnight. Patient denies any shortness of breath, chest pain, abdominal pain, nausea, vomiting, fever, chills. She is on a fluid restricted diet. Urine output is good. She is tolerating her oral diet well. 11/21/2024 Patient seen and examined at the bedside. Patient sitting in the recliner. No acute events overnight. Patient continues to have swelling in her legs. Urine output is good. She continues to be on salt and fluid restriction diet. 4 09/24/2024 Patient was seen and examined at the bedside. No acute events overnight. Abdirashid little has lost about 2.5 kg since yesterday after switching her diuretics to IV Bumex. Urine output is good. She continues to be on salt and fluid restricted diet. Patient denies any blood in the stool. Physical examination: Vital signs reviewed General: non toxic, no distress, appears at stated age, morbidly obese Derm: no unusual rashes/lesions, warm Head: atraumatic, normocephalic, symmetric Eyes: EOMI, no lid lag, anicteric sclera, pupils equal round reactive to light ENT: Nose and ears atraumatic Neck: No cervical lymphadenopathy, trachea midline, supple Mouth: no lip lesion, mucus membranes moist Cardiovascular: S1S2 reg, no murmur, positive dorsalis pedis pulse bilateral, 3+ bilateral pitting edema Lungs: CTA bilateral, no rhonchi, no rales, no accessory muscle use Abdominal: soft, nontender to palpation, no guarding Ext: muscle strength 5 out of 5 in all 4 extremities grossly, no gross muscle atrophy, no contractures, both extremities are wrapped with Jay wrap Neuro: CN II-XI grossly intact, no gross focal neuro deficits Psych: Alert, oriented, appropriate affect Assessment/Plan: This is a Patient is a 64-year-old female with a history of left breast cancer status post lumpectomy, chemotherapy and radiation in 2014, TAVR, CHF, type 2 diabetes, CKD, chronic anemia, hyperlipidemia, hypertension is a transfer from a [facility] for generalized weakness and anemia. Case was discussed with the Emergency Room provider and decision was made to admit the patient for chronic anemia. Labs and images: Pertinent Labs: WBC 8.85, 80 hemoglobin 7.6, platelet count 212, sodium 135, potassium 3.7, BUN 34.1, creatinine 1.7, No new imaging today Active: #Generalized weakness and malaise #Normocytic anemia requiring blood transfusion. #Iron deficiency anemia #Nonoliguric ALBIN on CKD #Acute on chronic HFpEF #Hypervolemic hyponatremia, improving #History of breast cancer status post lumpectomy and chemotherapy and radiation Blood transfusion if hemoglobin is less than 7 Patient is being followed by cardiology, oncology and nephrology Daily I's and O's Daily weights Lipid panel: Iron 77, TIBC 389, transferrin 278, ferritin 25 Vitamin B12 512, folate 34, TSH 2.84 Methylmalonic acid is pending Continue cardiac telemetry CBC and BMP tomorrow a.m. Fluid restrictions IV Lasix have been switched to IV Bumex 1 mg every 12 hours Avoid nephrotoxic drugs Echocardiogram on 10/26/2024 shows LVEF 55 to 60% Renal and bladder ultrasound no obstruction or hydronephrosis. Continue to monitor renal function. #Hyperglycemia Accu-Cheks and sliding scale insulin HbA1c 5.9 Chronic: Hypertension, hyperlipidemia, anxiety, depression, GERD Resume home medications DVT prophylaxis: SCDs GI prophylaxis: Protonix 40 mg daily F: None E: Replete as needed N: Heart healthy diet A: Ambulatory at baseline CODE STATUS: Full code Discussed with: Patient Anticipated discharge place: Pending clinical course Dictation was produced using [employer] dictation software. Please excuse any grammatical, word or spelling errors. Attestation: I have personally seen and examined the patient with Resident, reviewed the documentation and participated and agree with the assessment and plan as written. Joseph Russo MD Objective - Vital Signs Vital signs: Vital Signs Temp 97.9 F 11/22/24 14:33 Pulse 66 11/22/24 14:33 Resp 20 11/22/24 14:33 BP 119/53 11/22/24 14:33 Pulse Ox 94 L 11/22/24 12:27 FiO2 Intake & Output 11/21/24 11/22/24 11/22/24 18:59 06:59 18:59 Intake Total 950 702 Balance 950 702 Weight 106.5 kg Intake: Oral 950 702 Other: Voiding Method Toilet # Voids 4 1 - Labs CBC & Chem 7: 11/23/24 05:54 11/23/24 05:54 Labs: Abnormal Lab Results - Last 24 Hours (Table) 11/21/24 11/21/24 11/22/24 Range/Units 17:01 20:59 04:27 RBC 2.78 L (4.10-5.20) X 10*6/uL Hgb 7.6 L (12.0-15.0) g/dL Hct 23.9 L (37.2-46.3) % MCHC 31.8 L (32.0-37.0) g/dL RDW 20.6 H (11.5-14.5) % MPV 8.9 L (9.5-12.2) FL Immature Gran # 0.05 H (0.00-0.04) X 10*3/uL Lymphocytes # 0.83 L (0.90-5.00) X 10*3/uL Anion Gap (4.00-12.00) mmol/L BUN (9.0-27.0) mg/dL Creatinine (0.6-1.5) mg/dL Est GFR (CKD-EPI) (>=60) BUN/Creatinine Ratio (12.00-20.00) Ratio Glucose (70-110) mg/dL POC Glucose (mg/dL) 208 H 151 H (70-110) mg/dL 11/22/24 11/22/24 11/22/24 Range/Units 04:27 07:09 12:12 RBC (4.10-5.20) X 10*6/uL Hgb (12.0-15.0) g/dL Hct (37.2-46.3) % MCHC (32.0-37.0) g/dL RDW (11.5-14.5) % MPV (9.5-12.2) FL Immature Gran # (0.00-0.04) X 10*3/uL Lymphocytes # (0.90-5.00) X 10*3/uL Anion Gap 12.60 H (4.00-12.00) mmol/L BUN 34.8 H (9.0-27.0) mg/dL Creatinine 1.7 H (0.6-1.5) mg/dL Est GFR (CKD-EPI) 33 L (>=60) BUN/Creatinine Ratio 20.47 H (12.00-20.00) Ratio Glucose 194 H (70-110) mg/dL POC Glucose (mg/dL) 203 H 167 H (70-110) mg/dL
[2024-11-22 17:10] LABS: Glucose,Whole Blood 237 mg/dL (70-110)
[2024-11-22 20:21] LABS: Glucose,Whole Blood 183 mg/dL (70-110)
[2024-11-23 07:00] LABS: Glucose,Whole Blood 185 mg/dL (70-110)
[2024-11-23 08:31] LABS: BUN/Creat Ratio 18.11 Ratio (12.00-20.00); Blood Urea Nitrogen 32.6 mg/dL (9.0-27.0); Carbon Dioxide 23.8 mmol/L (21.6-31.8); Chloride 98 mmol/L (96-109); Glucose 198 mg/dL (70-110); Potassium 3.8 mmol/L (3.5-5.5); Sodium 134 mmol/L (135-145)
[2024-11-23 08:53] LABS: Basophils # (A) 0.02 X 10*3/uL (0.00-0.10); Basophils % (A) 0.2 %; Eosinophils # (A) 0.29 X 10*3/uL (0.04-0.35); Eosinophils % (A) 3.3 %; HCT 25.5 % (37.2-46.3); Lymphocytes # (A) 0.83 X 10*3/uL (0.90-5.00); Lymphocytes % (A) 9.3 %; MCH 27.3 pg (27.0-32.0); MCHC 31.4 g/dL (32.0-37.0); Mean Platelet Volume 9.1 FL (9.5-12.2); Monocytes # (A) 0.78 X 10*3/uL (0.20-1.00); Monocytes % (A) 8.8 %; NRBC Per 100 WBC 0 X 10*3/uL (0.00-0.01); Neutrophils # (A) 6.95 X 10*3/uL (1.80-7.70); Platelet Count 205 X 10*3/uL (140-440); RBC 2.93 X 10*6/uL (4.10-5.20); RDW 20.5 % (11.5-14.5); WBC 8.91 X 10*3/uL (4.50-10.00)
--- NOTE | 2024-11-23 11:53 | P.PN ---
Subjective Patient is seen for follow-up for acute kidney injury. Complaining of significant lower extremity swelling. No complaints of shortness of breath Serum creatinine staying at 1.7-1.8 Switched to IV Bumex. 24-hour urine output charted at 825 mL, not sure if this is accurate Objective - Vital Signs Vital signs: Vital Signs Temp 97.8 F 11/23/24 11:32 Pulse 65 11/23/24 11:32 Resp 16 11/23/24 11:32 BP 153/59 11/23/24 11:32 Pulse Ox 96 11/23/24 11:32 FiO2 Intake & Output 11/22/24 11/23/24 11/23/24 18:59 06:59 18:59 Intake Total 710 702 720 Output Total 425 400 Balance 285 302 720 Weight 108 kg Intake: Oral 710 702 720 Output: Urine 425 400 Other: # Voids 1 # Bowel Movements 2 - Exam Patient is awake comfortable no acute distress. Examination of the heart S1 and S2 Examination of the lungs bilateral breath sounds are heard Abdomen is soft nontender Examination of lower extremities shows 2-3+ edema bilaterally [employer] exam grossly intact - Labs CBC & Chem 7: 11/23/24 05:54 11/23/24 05:54 Labs: Abnormal Lab Results - Last 24 Hours (Table) 11/22/24 11/22/24 11/22/24 Range/Units 12:12 17:09 20:19 RBC (4.10-5.20) X 10*6/uL Hgb (12.0-15.0) g/dL Hct (37.2-46.3) % MCHC (32.0-37.0) g/dL RDW (11.5-14.5) % MPV (9.5-12.2) FL Lymphocytes # (0.90-5.00) X 10*3/uL Sodium (135-145) mmol/L Anion Gap (4.00-12.00) mmol/L BUN (9.0-27.0) mg/dL Creatinine (0.6-1.5) mg/dL Est GFR (CKD-EPI) (>=60) Glucose (70-110) mg/dL POC Glucose (mg/dL) 167 H 237 H 183 H (70-110) mg/dL 11/23/24 11/23/24 11/23/24 Range/Units 05:54 05:54 06:59 RBC 2.93 L (4.10-5.20) X 10*6/uL Hgb 8.0 L (12.0-15.0) g/dL Hct 25.5 L (37.2-46.3) % MCHC 31.4 L (32.0-37.0) g/dL RDW 20.5 H (11.5-14.5) % MPV 9.1 L (9.5-12.2) FL Lymphocytes # 0.83 L (0.90-5.00) X 10*3/uL Sodium 134 L (135-145) mmol/L Anion Gap 12.20 H (4.00-12.00) mmol/L BUN 32.6 H (9.0-27.0) mg/dL Creatinine 1.8 H (0.6-1.5) mg/dL Est GFR (CKD-EPI) 31 L (>=60) Glucose 198 H (70-110) mg/dL POC Glucose (mg/dL) 185 H (70-110) mg/dL Assessment and Plan Assessment: 1. Acute kidney injury on CKD stage 3, creatinine has been ranging 1.2-1.6 over the last year. admitted with cr. 1.9, it is 1.8 today. Maintained on IV Bumex 2. Anemia, stable Hb, iron deficiency. Status post IV iron 3. Hyponatremia, acute on chronic asymptomatic hypervolemic Hyponatremia , sodium level ranging 130-133 over the last year, presented with sodium level 128->129> 134 4. Acute on chronic CHF. Plan: Continue with IV Bumex Add Zaroxolyn Discussed salt and fluid restriction Repeat labs in a.m.
[2024-11-23 12:03] LABS: Glucose,Whole Blood 178 mg/dL (70-110)
[2024-11-23] MEDS: metOLazone 2.5 MG TAB PO SCH (12:22)
--- NOTE | 2024-11-23 15:46 | P.PN ---
Subjective Progress Note Date: 11/23/24 Hospital course: Patient is a 64-year-old female with a history of left breast cancer status post lumpectomy, chemotherapy and radiation in 2015, TAVR, CHF, type 2 diabetes, CKD, chronic anemia, hyperlipidemia, hypertension is a transfer from a [facility]. Patient was recently hospitalized for generalized weakness and fatigue and had a transfusion of blood. Since her discharge, she has ongoing shortness of breath with exertion, generalized malaise for which she saw her PCP and had a blood work done which showed that her hemoglobin was low. Therefore, her PCP advised her to go to [facility] for further evaluation and later she was transferred to [facility] for further care. Patient did receive a unit of blood while in transit to [facility]. Additionally, she has also been endorsing swelling in her legs which has been getting progressively worse. Lab work in the ER shows hemoglobin of 8.7, MCV 84.3, platelet count 257, PT 11.0, INR 1.0, APTT 21.5, sodium 128, potassium 4.3, chloride 94, bicarb 21, BUN 36, creatinine 1.95, glucose 166, EGFR 26, Chest x-ray shows stable mild cardiomegaly with no overt CHF or pneumonia. 11/19/2024 Patient is sitting in the recliner. Awake alert and oriented x 3. Still having bilateral lower extremity swelling and is being continued on IV Lasix 40 mg twice daily. Denied any complaints of chest pain or shortness of breath. No nausea or vomiting. Patient has been afebrile. Tolerating oral diet. Laboratory data showed sodium 130 potassium 4.1 chloride 96 bicarb is 24 BUN 36 and creatinine 1.82 and blood sugar 164. Hemoglobin 8.3 11/20/2024 Patient seen and examined at the bedside. Patient sitting in the recliner. No acute events overnight. Patient denies any shortness of breath, chest pain, abdominal pain, nausea, vomiting, fever, chills. She is on a fluid restricted diet. Urine output is good. She is tolerating her oral diet well. 11/21/2024 Patient seen and examined at the bedside. Patient sitting in the recliner. No acute events overnight. Patient continues to have swelling in her legs. Urine output is good. She continues to be on salt and fluid restriction diet. 11/22/2024 Patient was seen and examined at the bedside. No acute events overnight. Patient has lost about 2.5 kg since yesterday after switching her diuretics to IV Bumex. Urine output is good. She continues to be on salt and fluid restricted diet. Patient denies any blood in the stool. 11/23/2024 Patient was seen and examined at the bedside. No acute events overnight. Her weight today is 108 kg which has increased from yesterday. Urine output is decreased. Patient continues to be on salt and fluid restricted diet. Will be adding metolazone in addition to IV Bumex. Physical examination: Vital signs reviewed General: non toxic, no distress, appears at stated age, morbidly obese Derm: no unusual rashes/lesions, warm Head: atraumatic, normocephalic, symmetric Eyes: EOMI, no lid lag, anicteric sclera, pupils equal round reactive to light ENT: Nose and ears atraumatic Neck: No cervical lymphadenopathy, trachea midline, supple Mouth: no lip lesion, mucus membranes moist Cardiovascular: S1S2 reg, no murmur, positive dorsalis pedis pulse bilateral, 3+ bilateral pitting edema Lungs: CTA bilateral, no rhonchi, no rales, no accessory muscle use Abdominal: soft, nontender to palpation, no guarding Ext: muscle strength 5 out of 5 in all 4 extremities grossly, no gross muscle atrophy, no contractures, both extremities are wrapped with Jay wrap Neuro: CN II-XI grossly intact, no gross focal neuro deficits Psych: Alert, oriented, appropriate affect Assessment/Plan: This is a Patient is a 64-year-old female with a history of left breast cancer status post lumpectomy, chemotherapy and radiation in 2014, TAVR, CHF, type 2 diabetes, CKD, chronic anemia, hyperlipidemia, hypertension is a transfer from [facility] for generalized weakness and anemia. Case was discussed with the Emergency Room provider and decision was made to admit the patient for chronic anemia. Labs and images: Pertinent Labs: WBC 8.9, hemoglobin 8.0, platelet count 245, sodium 134, BUN 22.6, creatinine 1.8, No new imaging today Active: #Generalized weakness and malaise #Normocytic anemia requiring blood transfusion. #Iron deficiency anemia #Nonoliguric ALBIN on CKD #Acute on chronic HFpEF #Hypervolemic hyponatremia, improving #History of breast cancer status post lumpectomy and chemotherapy and radiation Blood transfusion if hemoglobin is less than 7 Patient is being followed by cardiology, oncology and nephrology Daily I's and O's Daily weights Lipid panel: Iron 77, TIBC 389, transferrin 278, ferritin 25 Vitamin B12 512, folate 34, TSH 2.84 Methylmalonic acid is pending Continue cardiac telemetry CBC and BMP tomorrow a.m. Fluid restrictions IV Lasix have been switched to IV Bumex 1 mg every 12 hours active metolazone 2.5 mg once daily Avoid nephrotoxic drugs Echocardiogram on 10/26/2024 shows LVEF 55 to 60% Renal and bladder ultrasound no obstruction or hydronephrosis. Continue to monitor renal function. #Hyperglycemia Accu-Cheks and sliding scale insulin HbA1c 5.9 Chronic: Hypertension, hyperlipidemia, anxiety, depression, GERD Resume home medications DVT prophylaxis: SCDs GI prophylaxis: Protonix 40 mg daily F: None E: Replete as needed N: Heart healthy diet A: Ambulatory at baseline CODE STATUS: Full code Discussed with: Patient Anticipated discharge place: Pending clinical course Attestation: I have personally seen and examined the patient with Resident, reviewed the documentation and participated and agree with the assessment and plan as written. Joseph Russo MD Objective - Vital Signs Vital signs: Vital Signs Temp 97.7 F 11/23/24 12:51 Pulse 66 11/23/24 12:51 Resp 16 11/23/24 12:51 BP 114/57 11/23/24 12:51 Pulse Ox 96 11/23/24 12:51 FiO2 Intake & Output 11/22/24 11/23/24 11/23/24 18:59 06:59 18:59 Intake Total 713 798 6126 Output Total 397 468 9277 Balance 285 302 310 Weight 108 kg Intake: Oral 529 583 2660 Output: Urine 676 446 4241 Other: Voiding Method Toilet # Voids 1 # Bowel Movements 2 1 - Labs CBC & Chem 7: 11/24/24 04:44 11/24/24 04:44 Labs: Abnormal Lab Results - Last 24 Hours (Table) 11/22/24 11/22/24 11/23/24 Range/Units 17:09 20:19 05:54 RBC 2.93 L (4.10-5.20) X 10*6/uL Hgb 8.0 L (12.0-15.0) g/dL Hct 25.5 L (37.2-46.3) % MCHC 31.4 L (32.0-37.0) g/dL RDW 20.5 H (11.5-14.5) % MPV 9.1 L (9.5-12.2) FL Lymphocytes # 0.83 L (0.90-5.00) X 10*3/uL Sodium (135-145) mmol/L Anion Gap (4.00-12.00) mmol/L BUN (9.0-27.0) mg/dL Creatinine (0.6-1.5) mg/dL Est GFR (CKD-EPI) (>=60) Glucose (70-110) mg/dL POC Glucose (mg/dL) 237 H 183 H (70-110) mg/dL 11/23/24 11/23/24 11/23/24 Range/Units 05:54 06:59 12:02 RBC (4.10-5.20) X 10*6/uL Hgb (12.0-15.0) g/dL Hct (37.2-46.3) % MCHC (32.0-37.0) g/dL RDW (11.5-14.5) % MPV (9.5-12.2) FL Lymphocytes # (0.90-5.00) X 10*3/uL Sodium 134 L (135-145) mmol/L Anion Gap 12.20 H (4.00-12.00) mmol/L BUN 32.6 H (9.0-27.0) mg/dL Creatinine 1.8 H (0.6-1.5) mg/dL Est GFR (CKD-EPI) 31 L (>=60) Glucose 198 H (70-110) mg/dL POC Glucose (mg/dL) 185 H 178 H (70-110) mg/dL
--- NOTE | 2024-11-23 16:38 | P.PN ---
Subjective Progress Note Date: 11/23/24 No acute events overnight. Pt reporting improvement in SOB. Persisting leg swelling and fatigue. Hgb improved to 8.0 from 7.6. Denies any episodes of acute bleeding, hematochezia, and melena Objective - Vital Signs Vital signs: Vital Signs Temp 97.8 F 11/23/24 11:32 Pulse 65 11/23/24 11:32 Resp 16 11/23/24 11:32 BP 153/59 11/23/24 11:32 Pulse Ox 96 11/23/24 11:32 FiO2 Intake & Output 11/22/24 11/23/24 11/23/24 18:59 06:59 18:59 Intake Total 710 702 720 Output Total 425 400 Balance 285 302 720 Weight 108 kg Intake: Oral 710 702 720 Output: Urine 425 400 Other: # Voids 1 # Bowel Movements 2 - Constitutional General appearance: Present: average body habitus, no acute distress - EENT Eyes: Present: anicteric sclerae, EOMI ENT: Present: hearing grossly normal - Respiratory Details: breathing is even and unlabored - Cardiovascular Details: skin warm and dry - Gastrointestinal General gastrointestinal: Present: soft. Absent: tenderness - Integumentary Integumentary: Absent: cyanotic - Neurologic Neurologic: Present: CNII-XII intact - Psychiatric Psychiatric: Present: A&O x's 3 - Labs CBC & Chem 7: 11/23/24 05:54 11/23/24 05:54 Labs: Abnormal Lab Results - Last 24 Hours (Table) 11/22/24 11/22/24 11/22/24 Range/Units 12:12 17:09 20:19 RBC (4.10-5.20) X 10*6/uL Hgb (12.0-15.0) g/dL Hct (37.2-46.3) % MCHC (32.0-37.0) g/dL RDW (11.5-14.5) % MPV (9.5-12.2) FL Lymphocytes # (0.90-5.00) X 10*3/uL Sodium (135-145) mmol/L Anion Gap (4.00-12.00) mmol/L BUN (9.0-27.0) mg/dL Creatinine (0.6-1.5) mg/dL Est GFR (CKD-EPI) (>=60) Glucose (70-110) mg/dL POC Glucose (mg/dL) 167 H 237 H 183 H (70-110) mg/dL 11/23/24 11/23/24 11/23/24 Range/Units 05:54 05:54 06:59 RBC 2.93 L (4.10-5.20) X 10*6/uL Hgb 8.0 L (12.0-15.0) g/dL Hct 25.5 L (37.2-46.3) % MCHC 31.4 L (32.0-37.0) g/dL RDW 20.5 H (11.5-14.5) % MPV 9.1 L (9.5-12.2) FL Lymphocytes # 0.83 L (0.90-5.00) X 10*3/uL Sodium 134 L (135-145) mmol/L Anion Gap 12.20 H (4.00-12.00) mmol/L BUN 32.6 H (9.0-27.0) mg/dL Creatinine 1.8 H (0.6-1.5) mg/dL Est GFR (CKD-EPI) 31 L (>=60) Glucose 198 H (70-110) mg/dL POC Glucose (mg/dL) 185 H (70-110) mg/dL Assessment and Plan (1) Anemia Current Visit: Yes Status: Acute Code(s): D64.9 - ANEMIA, UNSPECIFIED SNOMED Code(s): 134258774 (2) HER2-positive carcinoma of left breast Current Visit: Yes Status: Acute Code(s): C50.912 - MALIGNANT NEOPLASM OF UNSPECIFIED SITE OF LEFT FEMALE BREAST; Z17.31 - HUMAN EPIDERMAL GROWTH FACTOR RECEPTOR 2 POSITIVE STATUS SNOMED Code(s): 457044086 Plan: #Iron deficiency anemia -Noted to have borderline microcytosis since April 2024 -Iron studies in our system since September 2023 have noted persistent iron deficiency -During her hospitalization from 10/28/2024 through 11/01/2024, she received 3 doses of IV ferric gluconate in addition to 1 unit of packed red blood cells -Iron deficiency was likely secondary to persistent microscopic GI blood loss being on aspirin and Plavix with Plavix being discontinued during her last admission -She did have hospitalization in February 2024 in [place] where she underwent upper endoscopy and colonoscopy and reported history suspicious for AVM that required cauterization. During her last hospitalization, she declined endoscopy -She has had negative monoclonal gammopathy workup in the fall 2023 and again on her last admission in October 2024 -There was noted concern for anemia on routine follow-up with her PCP with hemoglobin of 7 and received 1 unit of packed red blood cells at [facility] with hemoglobin 8.7 on presentation at our facility -Repeat iron studies ordered. Iron saturation may be elevated secondary to rec ent packed red blood cell transfusion -In addition, vitamin B12/methylmalonic acid, folic acid, and thyroid profile have also been ordered -Iron studies show iron sat 19.7%, ferritin 75. 3 doses IV iron ordered. No folate or Vit B12 def. noted. TSH WNL -Hgb 8.0 today from 7.6. Denies any rectal bleeding/melena. Recommended being evaluated for repeat endoscopies, specifically with EGD. However, pt is apprehensive and undergoing repeat endoscopy at this time. As hgb is stable and no noted rectal bleeding, would be reasonable to continue to monitor CBC and repeat EGD outpt if anemia is worsening -Clinic f/u scheduled to repeat iron studies/CBC #Hormone receptor positive/HER2 positive breast cancer -Received neoadjuvant TCHP in 2014 followed by adjuvant Herceptin that was completed in 2015 -She was on endocrine therapy with Femara that was discontinued in May 2024 due to ischemic stroke -F/u scheduled on 01/02
[2024-11-23 17:05] LABS: Glucose,Whole Blood 272 mg/dL (70-110)
[2024-11-23 20:07] LABS: Glucose,Whole Blood 141 mg/dL (70-110)
[2024-11-24 07:20] LABS: Glucose,Whole Blood 225 mg/dL (70-110)
[2024-11-24 08:47] LABS: Basophils # (A) 0.03 X 10*3/uL (0.00-0.10); Basophils % (A) 0.3 %; Eosinophils % (A) 3.4 %; HCT 25.2 % (37.2-46.3); HGB 7.9 g/dL (12.0-15.0); Lymphocytes # (A) 0.83 X 10*3/uL (0.90-5.00); Lymphocytes % (A) 9.4 %; MCH 27.4 pg (27.0-32.0); MCHC 31.3 g/dL (32.0-37.0); MCV 87.5 FL (80.0-97.0); Mean Platelet Volume 8.8 FL (9.5-12.2); Monocytes # (A) 0.81 X 10*3/uL (0.20-1.00); Monocytes % (A) 9.1 %; NRBC Per 100 WBC 0 X 10*3/uL (0.00-0.01); Neutrophils # (A) 6.86 X 10*3/uL (1.80-7.70); Neutrophils % (A) 77.5 %; Platelet Count 170 X 10*3/uL (140-440); RBC 2.88 X 10*6/uL (4.10-5.20); RDW 20.4 % (11.5-14.5); WBC 8.86 X 10*3/uL (4.50-10.00)
[2024-11-24 08:53] LABS: BUN/Creat Ratio 17.88 Ratio (12.00-20.00); Blood Urea Nitrogen 30.4 mg/dL (9.0-27.0); Calcium 8.9 mg/dL (8.7-10.3); Carbon Dioxide 23.2 mmol/L (21.6-31.8); Chloride 95 mmol/L (96-109); Glucose 263 mg/dL (70-110); Magnesium 1.9 mg/dL (1.5-2.4); Potassium 3.8 mmol/L (3.5-5.5); Sodium 131 mmol/L (135-145)
[2024-11-24 12:07] LABS: Glucose,Whole Blood 185 mg/dL (70-110)
--- NOTE | 2024-11-24 16:17 | P.PN ---
Subjective Patient is seen for follow-up for acute kidney injury and volume overload. Complaining of significant lower extremity swelling. No complaints of shortness of breath Serum creatinine staying at 1.7-1.8 Maintained on IV Bumex and Zaroxolyn was started yesterday. Urine output has improved to about 3.2 L over the last 24 hours.. Objective - Vital Signs Vital signs: Vital Signs Temp 98.1 F 11/24/24 13:10 Pulse 62 11/24/24 13:10 Resp 17 11/24/24 15:51 BP 145/69 11/24/24 13:10 Pulse Ox 98 11/24/24 13:10 FiO2 Intake & Output 11/23/24 11/24/24 11/24/24 18:59 06:59 18:59 Intake Total 2140 240 720 Output Total 1590 1650 1150 Balance 550 -1410 -430 Weight 107.5 kg Intake: Oral 2140 240 720 Output: Urine 1590 1650 1150 Other: Voiding Method Toilet Toilet Toilet # Voids 1 # Bowel Movements 1 - Exam Patient is awake comfortable no acute distress. Examination of the heart S1 and S2 Examination of the lungs bilateral breath sounds are heard Abdomen is soft nontender Examination of lower extremities shows 2-3+ edema bilaterally MEDICAL CODER exam grossly intact - Labs CBC & Chem 7: 11/24/24 04:44 11/24/24 04:44 Labs: Abnormal Lab Results - Last 24 Hours (Table) 11/23/24 11/23/24 11/24/24 Range/Units 17:04 20:06 04:44 RBC 2.88 L (4.10-5.20) X 10*6/uL Hgb 7.9 L (12.0-15.0) g/dL Hct 25.2 L (37.2-46.3) % MCHC 31.3 L (32.0-37.0) g/dL RDW 20.4 H (11.5-14.5) % MPV 8.8 L (9.5-12.2) FL Lymphocytes # 0.83 L (0.90-5.00) X 10*3/uL Sodium (135-145) mmol/L Chloride (96-109) mmol/L Anion Gap (4.00-12.00) mmol/L BUN (9.0-27.0) mg/dL Creatinine (0.6-1.5) mg/dL Est GFR (CKD-EPI) (>=60) Glucose (70-110) mg/dL POC Glucose (mg/dL) 272 H 141 H (70-110) mg/dL 11/24/24 11/24/24 11/24/24 Range/Units 04:44 07:19 12:06 RBC (4.10-5.20) X 10*6/uL Hgb (12.0-15.0) g/dL Hct (37.2-46.3) % MCHC (32.0-37.0) g/dL RDW (11.5-14.5) % MPV (9.5-12.2) FL Lymphocytes # (0.90-5.00) X 10*3/uL Sodium 131 L (135-145) mmol/L Chloride 95 L (96-109) mmol/L Anion Gap 12.80 H (4.00-12.00) mmol/L BUN 30.4 H (9.0-27.0) mg/dL Creatinine 1.7 H (0.6-1.5) mg/dL Est GFR (CKD-EPI) 33 L (>=60) Glucose 263 H (70-110) mg/dL POC Glucose (mg/dL) 225 H 185 H (70-110) mg/dL Assessment and Plan Assessment: 1. Acute kidney injury on CKD stage 3, creatinine has been ranging 1.2-1.6 over the last year. admitted with cr. 1.9, it is 1.8 today. Maintained on IV Bumex 2. Anemia, stable Hb, iron deficiency. Status post IV iron 3. Hyponatremia, acute on chronic asymptomatic hypervolemic Hyponatremia , sodium level ranging 130-133 over the last year, presented with sodium level 128->129> 134 4. Acute on chronic CHF. 5. Volume overload Plan: Continue with IV Bumex Continue Zaroxolyn Discussed salt and fluid restriction Repeat labs in a.m.
--- NOTE | 2024-11-24 16:20 | P.PN ---
Subjective Progress Note Date: 11/24/24 Hospital course: Patient is a 64-year-old female with a history of left breast cancer status post lumpectomy, chemotherapy and radiation in 2015, TAVR, CHF, type 2 diabetes, CKD, chronic anemia, hyperlipidemia, hypertension is a transfer from a [facility]. Patient was recently hospitalized for generalized weakness and fatigue and had a transfusion of blood. Since her discharge, she has ongoing shortness of breath with exertion, generalized malaise for which she saw her PCP and had a blood work done which showed that her hemoglobin was low. Therefore, her PCP advised her to go to [facility] for further evaluation and later she was transferred to [facility] for further care. Patient did receive a unit of blood while in transit to [facility]. Additionally, she has also been endorsing swelling in her legs which has been getting progressively worse. Lab work in the ER shows hemoglobin of 8.7, MCV 84.3, platelet count 257, PT 11.0, INR 1.0, APTT 21.5, sodium 128, potassium 4.3, chloride 94, bicarb 21, BUN 36, creatinine 1.95, glucose 166, EGFR 26, Chest x-ray shows stable mild cardiomegaly with no overt CHF or pneumonia. 11/19/2024 Patient is sitting in the recliner. Awake alert and oriented x 3. Still having bilateral lower extremity swelling and is being continued on IV Lasix 40 mg twice daily. Denied any complaints of chest pain or shortness of breath. No nausea or vomiting. Patient has been afebrile. Tolerating oral diet. Laboratory data showed sodium 130 potassium 4.1 chloride 96 bicarb is 24 BUN 36 and creatinine 1.82 and blood sugar 164. Hemoglobin 8.3 11/20/2024 Patient seen and examined at the bedside. Patient sitting in the recliner. No acute events overnight. Patient denies any shortness of breath, chest pain, abdominal pain, nausea, vomiting, fever, chills. She is on a fluid restricted diet. Urine output is good. She is tolerating her oral diet well. 11/21/2024 Patient seen and examined at the bedside. Patient sitting in the recliner. No acute events overnight. Patient continues to have swelling in her legs. Urine output is good. She continues to be on salt and fluid restriction diet. 11/22/2024 Patient was seen and examined at the bedside. No acute events overnight. Patient has lost about 2.5 kg since yesterday after switching her diuretics to IV Bumex. Urine output is good. She continues to be on salt and fluid restricted diet. Patient denies any blood in the stool. 11/23/2024 Patient was seen and examined at the bedside. No acute events overnight. Her weight today is 108 kg which has increased from yesterday. Urine output is decreased. Patient continues to be on salt and fluid restricted diet. Will be adding metolazone in addition to IV Bumex. 11/24/2024 Patient was seen and examined at the bedside. No acute events overnight. Her weight today is 107.5 kg which has decreased from yesterday. Urine output is good. Patient continues to be on salt and fluid restricted diet. Will be c/w metolazone in addition to IV Bumex. Physical examination: Vital signs reviewed General: non toxic, no distress, appears at stated age, morbidly obese Derm: no unusual rashes/lesions, warm Head: atraumatic, normocephalic, symmetric Eyes: EOMI, no lid lag, anicteric sclera, pupils equal round reactive to light ENT: Nose and ears atraumatic Neck: No cervical lymphadenopathy, trachea midline, supple Mouth: no lip lesion, mucus membranes moist Cardiovascular: S1S2 reg, no murmur, positive dorsalis pedis pulse bilateral, 3+ bilateral pitting edema Lungs: CTA bilateral, no rhonchi, no rales, no accessory muscle use Abdominal: soft, nontender to palpation, no guarding Ext: muscle strength 5 out of 5 in all 4 extremities grossly, no gross muscle atrophy, no contractures, both extremities are wrapped with Jay wrap Neuro: CN II-XI grossly intact, no gross focal neuro deficits Psych: Alert, oriented, appropriate affect Assessment/Plan: This is a Patient is a 64-year-old female with a history of left breast cancer status post lumpectomy, chemotherapy and radiation in 2015, TAVR, CHF, type 2 diabetes, CKD, chronic anemia, hyperlipidemia, hypertension is a transfer from a [facility] for generalized weakness and anemia. Case was discussed with the Emergency Room provider and decision was made to admit the patient for chronic anemia. Labs and images: Pertinent Labs: WBC 8.86, hemoglobin 7.9, platelet count 170, sodium 131, potassium 3.8, BUN 30.4, creatinine 1.7, magnesium 1.9 No new imaging today Active: #Generalized weakness and malaise #Normocytic anemia requiring blood transfusion. #Iron deficiency anemia #Nonoliguric ALBIN on CKD #Acute on chronic HFpEF #Hypervolemic hyponatremia, improving #History of breast cancer status post lumpectomy and chemotherapy and radiation Blood transfusion if hemoglobin is less than 7 Patient is being followed by cardiology, oncology and nephrology Daily I's and O's Daily weights Lipid panel: Iron 77, TIBC 389, transferrin 278, ferritin 25 Vitamin B12 512, folate 34, TSH 2.84 Methylmalonic acid is pending Continue cardiac telemetry CBC and BMP tomorrow a.m. Fluid restrictions c/w IV Bumex 1 mg every 12 hours and metolazone 2.5 mg once daily Avoid nephrotoxic drugs Echocardiogram on 10/26/2024 shows LVEF 55 to 60% Renal and bladder ultrasound no obstruction or hydronephrosis. Continue to monitor renal function. #Hyperglycemia Accu-Cheks and sliding scale insulin HbA1c 5.9 Chronic: Hypertension, hyperlipidemia, anxiety, depression, GERD Resume home medications DVT prophylaxis: SCDs GI prophylaxis: Protonix 40 mg daily F: None E: Replete as needed N: Heart healthy diet A: Ambulatory at baseline CODE STATUS: Full code Discussed with: Patient Anticipated discharge place: Pending clinical course Objective - Vital Signs Vital signs: Vital Signs Temp 98.1 F 11/24/24 13:10 Pulse 62 11/24/24 13:10 Resp 17 11/24/24 15:51 BP 145/69 11/24/24 13:10 Pulse Ox 98 11/24/24 13:10 FiO2 Intake & Output 11/23/24 11/24/24 11/24/24 18:59 06:59 18:59 Intake Total 2140 240 720 Output Total 1590 1650 1150 Balance 550 -1410 -430 Weight 107.5 kg Intake: Oral 2140 240 720 Output: Urine 1590 1650 1150 Other: Voiding Method Toilet Toilet Toilet # Voids 1 # Bowel Movements 1 - Labs CBC & Chem 7: 11/24/24 04:44 11/24/24 04:44 Labs: Abnormal Lab Results - Last 24 Hours (Table) 11/23/24 11/23/24 11/24/24 Range/Units 17:04 20:06 04:44 RBC 2.88 L (4.10-5.20) X 10*6/uL Hgb 7.9 L (12.0-15.0) g/dL Hct 25.2 L (37.2-46.3) % MCHC 31.3 L (32.0-37.0) g/dL RDW 20.4 H (11.5-14.5) % MPV 8.8 L (9.5-12.2) FL Lymphocytes # 0.83 L (0.90-5.00) X 10*3/uL Sodium (135-145) mmol/L Chloride (96-109) mmol/L Anion Gap (4.00-12.00) mmol/L BUN (9.0-27.0) mg/dL Creatinine (0.6-1.5) mg/dL Est GFR (CKD-EPI) (>=60) Glucose (70-110) mg/dL POC Glucose (mg/dL) 272 H 141 H (70-110) mg/dL 11/24/24 11/24/24 11/24/24 Range/Units 04:44 07:19 12:06 RBC (4.10-5.20) X 10*6/uL Hgb (12.0-15.0) g/dL Hct (37.2-46.3) % MCHC (32.0-37.0) g/dL RDW (11.5-14.5) % MPV (9.5-12.2) FL Lymphocytes # (0.90-5.00) X 10*3/uL Sodium 131 L (135-145) mmol/L Chloride 95 L (96-109) mmol/L Anion Gap 12.80 H (4.00-12.00) mmol/L BUN 30.4 H (9.0-27.0) mg/dL Creatinine 1.7 H (0.6-1.5) mg/dL Est GFR (CKD-EPI) 33 L (>=60) Glucose 263 H (70-110) mg/dL POC Glucose (mg/dL) 225 H 185 H (70-110) mg/dL
[2024-11-24 17:21] LABS: Glucose,Whole Blood 215 mg/dL (70-110)
[2024-11-24 20:12] LABS: Glucose,Whole Blood 234 mg/dL (70-110)
[2024-11-25 06:58] LABS: Glucose,Whole Blood 192 mg/dL (70-110)
--- NOTE | 2024-11-25 08:34 | P.PN ---
Subjective Patient is seen in follow-up for acute kidney injury on chronic kidney disease. Creatinine 1.7 yesterday. Edema improving. Admits to good urine output. Vital signs are stable. General: No acute distress. HEENT: Head exam is unremarkable. On room air. LUNGS: No audible rhonchi or wheezes. HEART: Rate and Rhythm are regular. ABDOMEN: Nontender. EXTREMITITES: Lower extremities wrapped. 1+ edema. Objective - Vital Signs Vital signs: Vital Signs Temp 98.2 F 11/25/24 06:57 Pulse 72 11/25/24 06:57 Resp 16 11/25/24 06:57 BP 143/61 11/25/24 06:57 Pulse Ox 96 11/25/24 06:57 FiO2 Intake & Output 11/24/24 11/25/24 11/25/24 18:59 06:59 18:59 Intake Total 1200 342 Output Total 1500 750 Balance -300 -408 Weight 106.9 kg Intake: Oral 1200 342 Output: Urine 1500 750 Other: Voiding Method Toilet Toilet # Voids 1 - Labs CBC & Chem 7: 11/24/24 04:44 11/24/24 04:44 Labs: Abnormal Lab Results - Last 24 Hours (Table) 11/24/24 11/24/24 11/24/24 Range/Units 04:44 04:44 12:06 RBC 2.88 L (4.10-5.20) X 10*6/uL Hgb 7.9 L (12.0-15.0) g/dL Hct 25.2 L (37.2-46.3) % MCHC 31.3 L (32.0-37.0) g/dL RDW 20.4 H (11.5-14.5) % MPV 8.8 L (9.5-12.2) FL Lymphocytes # 0.83 L (0.90-5.00) X 10*3/uL Sodium 131 L (135-145) mmol/L Chloride 95 L (96-109) mmol/L Anion Gap 12.80 H (4.00-12.00) mmol/L BUN 30.4 H (9.0-27.0) mg/dL Creatinine 1.7 H (0.6-1.5) mg/dL Est GFR (CKD-EPI) 33 L (>=60) Glucose 263 H (70-110) mg/dL POC Glucose (mg/dL) 185 H (70-110) mg/dL 11/24/24 11/24/24 11/25/24 Range/Units 17:19 20:11 06:56 RBC (4.10-5.20) X 10*6/uL Hgb (12.0-15.0) g/dL Hct (37.2-46.3) % MCHC (32.0-37.0) g/dL RDW (11.5-14.5) % MPV (9.5-12.2) FL Lymphocytes # (0.90-5.00) X 10*3/uL Sodium (135-145) mmol/L Chloride (96-109) mmol/L Anion Gap (4.00-12.00) mmol/L BUN (9.0-27.0) mg/dL Creatinine (0.6-1.5) mg/dL Est GFR (CKD-EPI) (>=60) Glucose (70-110) mg/dL POC Glucose (mg/dL) 215 H 234 H 192 H (70-110) mg/dL Assessment and Plan Plan: Assessment: 1. Acute kidney injury secondary to ATN secondary to cardiorenal syndrome. Creatinine peaked at 1.9 this admission and was 1.7 yesterday. No hydronephrosis noted on imaging. 2. Chronic kidney disease stage IIIb with baseline creatinine 1.3-1.6. 3. Volume overload. 4. Acute on chronic diastolic CHF with moderate mitral stenosis and severe pulmonary hypertension. 5. Hypervolemic hyponatremia. 6. Anemia of chronic kidney disease. Status post IV iron. 7. Hypertension with chronic kidney disease. Plan: Maintain IV Bumex. Add SGLT2 inhibitor. Maintain Zaroxolyn for now. Maintain low-salt diet and fluid restriction. Continue to monitor renal function and urine output. Avoid nephrotoxins. Check UA. Add Aranesp.
[2024-11-25 09:25] LABS: Basophils # (A) 0.03 X 10*3/uL (0.00-0.10); Basophils % (A) 0.4 %; Eosinophils # (A) 0.24 X 10*3/uL (0.04-0.35); Eosinophils % (A) 2.9 %; HCT 24.5 % (37.2-46.3); HGB 7.8 g/dL (12.0-15.0); Lymphocytes # (A) 0.76 X 10*3/uL (0.90-5.00); Lymphocytes % (A) 9.2 %; MCH 27.5 pg (27.0-32.0); MCHC 31.8 g/dL (32.0-37.0); MCV 86.3 FL (80.0-97.0); Monocytes # (A) 0.79 X 10*3/uL (0.20-1.00); Monocytes % (A) 9.5 %; NRBC Per 100 WBC 0 X 10*3/uL (0.00-0.01); Neutrophils # (A) 6.45 X 10*3/uL (1.80-7.70); Neutrophils % (A) 77.8 %; Platelet Count 184 X 10*3/uL (140-440); RBC 2.84 X 10*6/uL (4.10-5.20); WBC 8.29 X 10*3/uL (4.50-10.00)
[2024-11-25 09:26] LABS: Appearance,Urine Clear (Clear); Bacteria,Urine Few /hpf; Bilirubin,Urine Negative (Negative); Blood,Urine Negative (Negative); Color,Urine Colorless; Glucose,Urine (UA) Negative (Negative); Ketones,Urine Negative (Negative); Leukocyte Esterase,Urine Moderate (Negative); Mucus,Urine Rare /hpf; Nitrite,Urine Negative (Negative); PH, Urine 6.5 (5.0-8.0); Protein,Urine Trace (Negative); RBC,Urine 2 /hpf (0-5); Specific Gravity,Urine 1.008 (1.001-1.035); Squamous Epithelial Cell,Urine <1 /hpf (0-4); Urobilinogen,Urine <2.0 mg/dL (<2.0); WBC,Urine 18 /hpf (0-5)
[2024-11-25 09:46] LABS: BUN/Creat Ratio 19.76 Ratio (12.00-20.00); Blood Urea Nitrogen 33.6 mg/dL (9.0-27.0); Carbon Dioxide 26.3 mmol/L (21.6-31.8); Chloride 94 mmol/L (96-109); Glucose 245 mg/dL (70-110); Magnesium 1.6 mg/dL (1.5-2.4); Potassium 3.6 mmol/L (3.5-5.5); Sodium 132 mmol/L (135-145)
[2024-11-25 12:14] LABS: Glucose,Whole Blood 271 mg/dL (70-110)
[2024-11-25] MEDS: DARBEPOETIN ALFA 40 MCG/0.4 ML SYRINGE SQ SCH (13:03)
[2024-11-25] MEDS: DAPAGLIFLOZIN PROPANEDIOL 5 MG TABLET PO SCH (13:03)
--- NOTE | 2024-11-25 14:31 | P.PN ---
Subjective Progress Note Date: 11/25/24 Hospital course: Patient is a 64-year-old female with a history of left breast cancer status post lumpectomy, chemotherapy and radiation in 2015, TAVR, CHF, type 2 diabetes, CKD, chronic anemia, hyperlipidemia, hypertension is a transfer from a [facility]. Patient was recently hospitalized for generalized weakness and fatigue and had a transfusion of blood. Since her discharge, she has ongoing shortness of breath with exertion, generalized malaise for which she saw her PCP and had a blood work done which showed that her hemoglobin was low. Therefore, her PCP advised her to go to [facility] for further evaluation and later she was transferred to [facility] for further care. Patient did receive a unit of blood while in transit to [facility]. Additionally, she has also been endorsing swelling in her legs which has been getting progressively worse. Lab work in the ER shows hemoglobin of 8.7, MCV 84.3, platelet count 257, PT 11.0, INR 1.0, APTT 21.5, sodium 128, potassium 4.3, chloride 94, bicarb 21, BUN 36, creatinine 1.95, glucose 166, EGFR 26, Chest x-ray shows stable mild cardiomegaly with no overt CHF or pneumonia. 11/19/2024 Patient is sitting in the recliner. Awake alert and oriented x 3. Still having bilateral lower extremity swelling and is being continued on IV Lasix 40 mg twice daily. Denied any complaints of chest pain or shortness of breath. No nausea or vomiting. Patient has been afebrile. Tolerating oral diet. Laboratory data showed sodium 130 potassium 4.1 chloride 96 bicarb is 24 BUN 36 and creatinine 1.82 and blood sugar 164. Hemoglobin 8.3 11/20/2024 Patient seen and examined at the bedside. Patient sitting in the recliner. No acute events overnight. Patient denies any shortness of breath, chest pain, abdominal pain, nausea, vomiting, fever, chills. She is on a fluid restricted diet. Urine output is good. She is tolerating her oral diet well. 11/21/2024 Patient seen and examined at the bedside. Patient sitting in the recliner. No acute events overnight. Patient continues to have swelling in her legs. Urine output is good. She continues to be on salt and fluid restriction diet. 11/22/2024 Patient was seen and examined at the bedside. No acute events overnight. Patient has lost about 2.5 kg since yesterday after switching her diuretics to IV Bumex. Urine output is good. She continues to be on salt and fluid restricted diet. Patient denies any blood in the stool. 11/23/2024 Patient was seen and examined at the bedside. No acute events overnight. Her weight today is 108 kg which has increased from yesterday. Urine output is decreased. Patient continues to be on salt and fluid restricted diet. Will be adding metolazone in addition to IV Bumex. 11/24/2024 Patient was seen and examined at the bedside. No acute events overnight. Her weight today is 107.5 kg which has decreased from yesterday. Urine output is good. Patient continues to be on salt and fluid restricted diet. Will be c/w metolazone in addition to IV Bumex. 11/25/2024 Patient was seen and examined at the bedside. No acute events overnight. Her weight today is 106.9 kg which has decreased from yesterday. Urine output is good. Patient continues to be on salt and fluid restricted diet. She will continue to be on IV Bumex and metolazone for diuresis. Physical examination: Vital signs reviewed General: non toxic, no distress, appears at stated age, morbidly obese Derm: no unusual rashes/lesions, warm Head: atraumatic, normocephalic, symmetric Eyes: EOMI, no lid lag, anicteric sclera, pupils equal round reactive to light ENT: Nose and ears atraumatic Neck: No cervical lymphadenopathy, trachea midline, supple Mouth: no lip lesion, mucus membranes moist Cardiovascular: S1S2 reg, no murmur, positive dorsalis pedis pulse bilateral, 3+ bilateral pitting edema Lungs: CTA bilateral, no rhonchi, no rales, no accessory muscle use Abdominal: soft, nontender to palpation, no guarding Ext: muscle strength 5 out of 5 in all 4 extremities grossly, no gross muscle atrophy, no contractures, both extremities are wrapped with Jay wrap Neuro: CN II-XI grossly intact, no gross focal neuro deficits Psych: Alert, oriented, appropriate affect Assessment/Plan: This is a Patient is a 64-year-old female with a history of left breast cancer status post lumpectomy, chemotherapy and radiation in 2014, TAVR, CHF, type 2 diabetes, CKD, chronic anemia, hyperlipidemia, hypertension is a transfer from a [facility] for generalized weakness and anemia. Case was discussed with the Emergency Room provider and decision was made to admit the patient for chronic anemia. Labs and images: Pertinent Labs: WBC 8.29, hemoglobin 7.8, platelet count 184, sodium 132, BUN 33.6, creatinine 1.7, glucose 245, magnesium 1.6 No new imaging today Active: #Generalized weakness and malaise #Normocytic anemia requiring blood transfusion. #Iron deficiency anemia #Nonoliguric ALBIN on CKD #Acute on chronic HFpEF #Hypervolemic hyponatremia, improving #History of breast cancer status post lumpectomy and chemotherapy and radiation Blood transfusion if hemoglobin is less than 7 Patient is being followed by cardiology, oncology and nephrology Daily I's and O's Daily weights Lipid panel: Iron 77, TIBC 389, transferrin 278, ferritin 25 Vitamin B12 512, folate 34, TSH 2.84 Methylmalonic acid is pending Continue cardiac telemetry CBC and BMP tomorrow a.m. Fluid restrictions c/w IV Bumex 1 mg every 12 hours and metolazone 2.5 mg once daily Farxiga 5 mg p.o. has been added Aranesp 40 mcg subcu q. 7 days has been added Avoid nephrotoxic drugs Echocardiogram on 10/26/2024 shows LVEF 55 to 60% Renal and bladder ultrasound no obstruction or hydronephrosis. Continue to mon itor renal function. #Hyperglycemia Accu-Cheks and sliding scale insulin HbA1c 5.9 Chronic: Hypertension, hyperlipidemia, anxiety, depression, GERD Resume home medications DVT prophylaxis: SCDs GI prophylaxis: Protonix 40 mg daily F: None E: Replete as needed N: Heart healthy diet A: Ambulatory at baseline CODE STATUS: Full code Discussed with: Patient Anticipated discharge place: Pending clinical course Attestation I have seen and examined this patient with my resident , discussed the same with the resident/NADIR, and agree with the dictator's assessment and plan as written Dr. Michael hernandez Objective - Vital Signs Vital signs: Vital Signs Temp 98.2 F 11/25/24 11:45 Pulse 67 11/25/24 11:45 Resp 16 11/25/24 11:45 BP 132/56 11/25/24 11:45 Pulse Ox 93 L 11/25/24 11:45 FiO2 Intake & Output 11/24/24 11/25/24 11/25/24 18:59 06:59 18:59 Intake Total 1200 342 720 Output Total 1500 750 Balance -300 -408 720 Weight 106.9 kg Intake: Oral 1200 342 720 Output: Urine 1500 750 Other: Voiding Method Toilet Toilet Toilet # Voids 1 - Labs CBC & Chem 7: 11/25/24 03:26 11/25/24 03:26 Labs: Abnormal Lab Results - Last 24 Hours (Table) 11/24/24 11/24/24 11/25/24 Range/Units 17:19 20:11 03:26 RBC 2.84 L (4.10-5.20) X 10*6/uL Hgb 7.8 L (12.0-15.0) g/dL Hct 24.5 L (37.2-46.3) % MCHC 31.8 L (32.0-37.0) g/dL RDW 20.0 H (11.5-14.5) % MPV 9.0 L (9.5-12.2) FL Lymphocytes # 0.76 L (0.90-5.00) X 10*3/uL Sodium (135-145) mmol/L Chloride (96-109) mmol/L BUN (9.0-27.0) mg/dL Creatinine (0.6-1.5) mg/dL Est GFR (CKD-EPI) (>=60) Glucose (70-110) mg/dL POC Glucose (mg/dL) 215 H 234 H (70-110) mg/dL Urine Protein (Negative) Ur Leukocyte Esterase (Negative) Urine WBC (0-5) /hpf Urine Bacteria (None) /hpf Urine Mucus (None) /hpf 11/25/24 11/25/24 11/25/24 Range/Units 03:26 06:56 09:05 RBC (4.10-5.20) X 10*6/uL Hgb (12.0-15.0) g/dL Hct (37.2-46.3) % MCHC (32.0-37.0) g/dL RDW (11.5-14.5) % MPV (9.5-12.2) FL Lymphocytes # (0.90-5.00) X 10*3/uL Sodium 132 L (135-145) mmol/L Chloride 94 L (96-109) mmol/L BUN 33.6 H (9.0-27.0) mg/dL Creatinine 1.7 H (0.6-1.5) mg/dL Est GFR (CKD-EPI) 33 L (>=60) Glucose 245 H (70-110) mg/dL POC Glucose (mg/dL) 192 H (70-110) mg/dL Urine Protein Trace H (Negative) Ur Leukocyte Esterase Moderate H (Negative) Urine WBC 18 H (0-5) /hpf Urine Bacteria Few H (None) /hpf Urine Mucus Rare H (None) /hpf 11/25/24 Range/Units 12:12 RBC (4.10-5.20) X 10*6/uL Hgb (12.0-15.0) g/dL Hct (37.2-46.3) % MCHC (32.0-37.0) g/dL RDW (11.5-14.5) % MPV (9.5-12.2) FL Lymphocytes # (0.90-5.00) X 10*3/uL Sodium (135-145) mmol/L Chloride (96-109) mmol/L BUN (9.0-27.0) mg/dL Creatinine (0.6-1.5) mg/dL Est GFR (CKD-EPI) (>=60) Glucose (70-110) mg/dL POC Glucose (mg/dL) 271 H (70-110) mg/dL Urine Protein (Negative) Ur Leukocyte Esterase (Negative) Urine WBC (0-5) /hpf Urine Bacteria (None) /hpf Urine Mucus (None) /hpf
[2024-11-25 17:06] LABS: Glucose,Whole Blood 241 mg/dL (70-110)
[2024-11-25 20:12] LABS: Glucose,Whole Blood 214 mg/dL (70-110)
[2024-11-26 06:59] LABS: Glucose,Whole Blood 240 mg/dL (70-110)
[2024-11-26 11:12] LABS: Basophils # (A) 0.02 X 10*3/uL (0.00-0.10); Basophils % (A) 0.2 %; Eosinophils # (A) 0.34 X 10*3/uL (0.04-0.35); HCT 25.7 % (37.2-46.3); HGB 8.2 g/dL (12.0-15.0); Lymphocytes # (A) 0.63 X 10*3/uL (0.90-5.00); Lymphocytes % (A) 7.5 %; MCH 27.5 pg (27.0-32.0); MCHC 31.9 g/dL (32.0-37.0); MCV 86.2 FL (80.0-97.0); Mean Platelet Volume 9.2 FL (9.5-12.2); Monocytes # (A) 0.77 X 10*3/uL (0.20-1.00); Monocytes % (A) 9.1 %; NRBC Per 100 WBC 0 X 10*3/uL (0.00-0.01); Neutrophils # (A) 6.63 X 10*3/uL (1.80-7.70); Neutrophils % (A) 78.8 %; Platelet Count 184 X 10*3/uL (140-440); RBC 2.98 X 10*6/uL (4.10-5.20); RDW 19.9 % (11.5-14.5); WBC 8.42 X 10*3/uL (4.50-10.00)
[2024-11-26] MEDS ORDERED: NYSTATIN 100,000 UNIT/GM POWD 15 GM TOPICAL PRN (11:13)
[2024-11-26 11:17] LABS: BUN/Creat Ratio 20.76 Ratio (12.00-20.00); Blood Urea Nitrogen 35.3 mg/dL (9.0-27.0); Carbon Dioxide 25.7 mmol/L (21.6-31.8); Chloride 95 mmol/L (96-109); Glucose 243 mg/dL (70-110); Magnesium 1.5 mg/dL (1.5-2.4); Potassium 3.8 mmol/L (3.5-5.5); Sodium 134 mmol/L (135-145)
--- NOTE | 2024-11-26 11:28 | P.PN ---
Subjective Patient is seen in follow-up for acute kidney injury on chronic kidney disease. Renal function stable. Edema improving. Admits to good urine output. Vital signs are stable. General: No acute distress. HEENT: Head exam is unremarkable. On room air. LUNGS: No audible rhonchi or wheezes. HEART: Rate and Rhythm are regular. ABDOMEN: Nontender. EXTREMITITES: 1+ edema. Objective - Vital Signs Vital signs: Vital Signs Temp 98.4 F 11/26/24 06:58 Pulse 71 11/26/24 06:58 Resp 16 11/26/24 06:58 BP 149/64 11/26/24 06:58 Pulse Ox 94 L 11/26/24 06:58 FiO2 Intake & Output 11/25/24 11/26/24 11/26/24 18:59 06:59 18:59 Intake Total 2160 702 Output Total 1400 1900 Balance 760 -1198 Weight 105.3 kg Intake: Oral 2160 702 Output: Urine 1400 1900 Other: Voiding Method Toilet Toilet # Voids 1 # Bowel Movements 1 - Labs CBC & Chem 7: 11/26/24 04:59 11/26/24 04:59 Labs: Abnormal Lab Results - Last 24 Hours (Table) 11/25/24 11/25/24 11/25/24 Range/Units 12:12 17:05 20:10 RBC (4.10-5.20) X 10*6/uL Hgb (12.0-15.0) g/dL Hct (37.2-46.3) % MCHC (32.0-37.0) g/dL RDW (11.5-14.5) % MPV (9.5-12.2) FL Lymphocytes # (0.90-5.00) X 10*3/uL Sodium (135-145) mmol/L Chloride (96-109) mmol/L Anion Gap (4.00-12.00) mmol/L BUN (9.0-27.0) mg/dL Creatinine (0.6-1.5) mg/dL Est GFR (CKD-EPI) (>=60) BUN/Creatinine Ratio (12.00-20.00) Ratio Glucose (70-110) mg/dL POC Glucose (mg/dL) 271 H 241 H 214 H (70-110) mg/dL 11/26/24 11/26/24 11/26/24 Range/Units 04:59 04:59 06:57 RBC 2.98 L (4.10-5.20) X 10*6/uL Hgb 8.2 L (12.0-15.0) g/dL Hct 25.7 L (37.2-46.3) % MCHC 31.9 L (32.0-37.0) g/dL RDW 19.9 H (11.5-14.5) % MPV 9.2 L (9.5-12.2) FL Lymphocytes # 0.63 L (0.90-5.00) X 10*3/uL Sodium 134 L (135-145) mmol/L Chloride 95 L (96-109) mmol/L Anion Gap 13.30 H (4.00-12.00) mmol/L BUN 35.3 H (9.0-27.0) mg/dL Creatinine 1.7 H (0.6-1.5) mg/dL Est GFR (CKD-EPI) 33 L (>=60) BUN/Creatinine Ratio 20.76 H (12.00-20.00) Ratio Glucose 243 H (70-110) mg/dL POC Glucose (mg/dL) 240 H (70-110) mg/dL Assessment and Plan Plan: Assessment: 1. Acute kidney injury secondary to ATN secondary to cardiorenal syndrome. Creatinine peaked at 1.9 this admission and stable at 1.7. No hydronephrosis noted on imaging. UA fairly benign. 2. Chronic kidney disease stage IIIb with baseline creatinine 1.3-1.6. 3. Volume overload. Improving with diuresis. 4. Acute on chronic diastolic CHF with moderate mitral stenosis and severe pulmonary hypertension. 5. Hypervolemic hyponatremia. 6. Anemia of chronic kidney disease. Status post IV iron. On Aranesp. 7. Hypertension with chronic kidney disease. Plan: Maintain IV Bumex. Maintain SGLT2 inhibitor. Maintain Zaroxolyn for now. Maintain low-salt diet and fluid restriction. Continue to monitor renal function and urine output. Avoid nephrotoxins.
[2024-11-26 12:07] LABS: Glucose,Whole Blood 238 mg/dL (70-110)
--- NOTE | 2024-11-26 13:23 | P.PN ---
Subjective Progress Note Date: 11/26/24 Hospital course: Patient is a 64-year-old female with a history of left breast cancer status post lumpectomy, chemotherapy and radiation in 2015, TAVR, CHF, type 2 diabetes, CKD, chronic anemia, hyperlipidemia, hypertension is a transfer from a [facility]. Patient was recently hospitalized for generalized weakness and fatigue and had a transfusion of blood. Since her discharge, she has ongoing shortness of breath with exertion, generalized malaise for which she saw her PCP and had a blood work done which showed that her hemoglobin was low. Therefore, her PCP advised her to go to [facility] for further evaluation and later she was transferred to [facility] for further care. Patient did receive a unit of blood while in transit to [facility]. Additionally, she has also been endorsing swelling in her legs which has been getting progressively worse. Lab work in the ER shows hemoglobin of 8.7, MCV 84.3, platelet count 257, PT 11.0, INR 1.0, APTT 21.5, sodium 128, potassium 4.3, chloride 94, bicarb 21, BUN 36, creatinine 1.95, glucose 166, EGFR 26, Chest x-ray shows stable mild cardiomegaly with no overt CHF or pneumonia. 11/19/2024 Patient is sitting in the recliner. Awake alert and oriented x 3. Still having bilateral lower extremity swelling and is being continued on IV Lasix 40 mg twice daily. Denied any complaints of chest pain or shortness of breath. No nausea or vomiting. Patient has been afebrile. Tolerating oral diet. Laboratory data showed sodium 130 potassium 4.1 chloride 96 bicarb is 24 BUN 36 and creatinine 1.82 and blood sugar 164. Hemoglobin 8.3 11/20/2024 Patient seen and examined at the bedside. Patient sitting in the recliner. No acute events overnight. Patient denies any shortness of breath, chest pain, abdominal pain, nausea, vomiting, fever, chills. She is on a fluid restricted diet. Urine output is good. She is tolerating her oral diet well. 11/21/2024 Patient seen and examined at the bedside. Patient sitting in the recliner. No acute events overnight. Patient continues to have swelling in her legs. Urine output is good. She continues to be on salt and fluid restriction diet. 11/22/2024 Patient was seen and examined at the bedside. No acute events overnight. Patient has lost about 2.5 kg since yesterday after switching her diuretics to IV Bumex. Urine output is good. She continues to be on salt and fluid restricted diet. Patient denies any blood in the stool. 11/23/2024 Patient was seen and examined at the bedside. No acute events overnight. Her weight today is 108 kg which has increased from yesterday. Urine output is decreased. Patient continues to be on salt and fluid restricted diet. Will be adding metolazone in addition to IV Bumex. 11/24/2024 Patient was seen and examined at the bedside. No acute events overnight. Her weight today is 107.5 kg which has decreased from yesterday. Urine output is good. Patient continues to be on salt and fluid restricted diet. Will be c/w metolazone in addition to IV Bumex. 11/25/2024 Patient was seen and examined at the bedside. No acute events overnight. Her weight today is 106.9 kg which has decreased from yesterday. Urine output is good. Patient continues to be on salt and fluid restricted diet. She will continue to be on IV Bumex and metolazone for diuresis. 11/26. Patient seen and examined. States breathing is improved. Still has swelling of lower extremities Physical examination: Vital signs reviewed General: non toxic, no distress, appears at stated age, morbidly obese Eyes: EOMI, no lid lag, anicteric sclera, pupils equal round reactive to light ENT: Nose and ears atraumatic Neck: No cervical lymphadenopathy, trachea midline, supple Mouth: no lip lesion, mucus membranes moist Cardiovascular: S1S2 reg, no murmur, 3+ bilateral pitting edema Lungs: CTA bilateral, no rhonchi, no rales, no accessory muscle use Abdominal: soft, nontender to palpation, no guarding Ext: muscle strength 5 out of 5 in all 4 extremities grossly, no gross muscle atrophy, no contractures, both extremities are wrapped with Jay wrap Neuro: CN II-XI grossly intact, no gross focal neuro deficits Psych: Alert, oriented, appropriate affect Assessment/Plan: This is a Patient is a 64-year-old female with a history of left breast cancer status post lumpectomy, chemotherapy and radiation in 2014, TAVR, CHF, type 2 diabetes, CKD, chronic anemia, hyperlipidemia, hypertension is a transfer from a [facility] for generalized weakness and anemia. Case was discussed with the Emergency Room provider and decision was made to admit the patient for chronic anemia. Active: #Generalized weakness and malaise #Normocytic anemia requiring blood transfusion. #Iron deficiency anemia #Nonoliguric ALBIN on CKD #Acute on chronic HFpEF #Hypervolemic hyponatremia, improving #History of breast cancer status post lumpectomy and chemotherapy and radiation Daily I's and O's Daily weights Lipid panel: Iron 77, TIBC 389, transferrin 278, ferritin 25 Vitamin B12 512, folate 34, TSH 2.84 Fluid restrictions c/w IV Bumex 1 mg every 12 hours and metolazone 2.5 mg once daily Farxiga 5 mg p.o. has been added Aranesp 40 mcg subcu q. 7 days has been added Avoid nephrotoxic drugs Echocardiogram on 10/26/2024 shows LVEF 55 to 60% Renal and bladder ultrasound no obstruction or hydronephrosis. Continue to monitor renal function. Patient is being followed by cardiology, oncology and nephrology #Hyperglycemia Accu-Cheks and sliding scale insulin HbA1c 5.9 Chronic: Hypertension, hyperlipidemia, anxiety, depression, GERD Resume home medications DVT prophylaxis: SCDs GI prophylaxis: Protonix 40 mg daily F: None E: Replete as needed N: Heart healthy diet A: Ambulatory at baseline Objective - Vital Signs Vital signs: Vital Signs Temp 98.4 F 11/26/24 06:58 Pulse 71 11/26/24 06:58 Resp 16 11/26/24 06:58 BP 149/64 11/26/24 06:58 Pulse Ox 94 L 11/26/24 06:58 FiO2 Intake & Output 11/25/24 11/26/24 11/26/24 18:59 06:59 18:59 Intake Total 2160 702 Output Total 1400 1900 Balance 760 -1198 Weight 105.3 kg Intake: Oral 2160 702 Output: Urine 1400 1900 Other: Voiding Method Toilet Toilet # Voids 1 # Bowel Movements 1 - Labs CBC & Chem 7: 11/26/24 04:59 11/26/24 04:59 Labs: Abnormal Lab Results - Last 24 Hours (Table) 04/05/25 04/05/25 04/05/25 Range/Units 12:12 17:05 20:10 POC Glucose (mg/dL) 271 H 241 H 214 H (70-110) mg/dL 11/26/24 Range/Units 06:57 POC Glucose (mg/dL) 240 H (70-110) mg/dL
[2024-11-26 16:55] LABS: Glucose,Whole Blood 290 mg/dL (70-110)
[2024-11-26 20:42] LABS: Glucose,Whole Blood 218 mg/dL (70-110)
[2024-11-27 07:09] LABS: Glucose,Whole Blood 212 mg/dL (70-110)
[2024-11-27 08:40] LABS: BUN/Creat Ratio 20.89 Ratio (12.00-20.00); Blood Urea Nitrogen 37.6 mg/dL (9.0-27.0); Chloride 93 mmol/L (96-109); Glucose 218 mg/dL (70-110); Magnesium 1.6 mg/dL (1.5-2.4); Potassium 3.7 mmol/L (3.5-5.5); Sodium 133 mmol/L (135-145)
[2024-11-27 08:41] LABS: Carbon Dioxide 27.2 mmol/L (21.6-31.8)
--- NOTE | 2024-11-27 10:49 | P.PN ---
Subjective Patient is seen in follow-up for acute kidney injury on chronic kidney disease. Renal function stable. Edema improving. Admits to good urine output. Vital signs are stable. General: No acute distress. HEENT: Head exam is unremarkable. On room air. LUNGS: No audible rhonchi or wheezes. HEART: Rate and Rhythm are regular. ABDOMEN: Nontender. EXTREMITITES: 1+ edema. Objective - Vital Signs Vital signs: Vital Signs Temp 97.9 F 11/27/24 07:25 Pulse 75 11/27/24 07:25 Resp 18 11/27/24 07:25 BP 142/66 11/27/24 07:25 Pulse Ox 94 L 11/27/24 07:25 FiO2 Intake & Output 11/26/24 11/27/24 11/27/24 18:59 06:59 18:59 Intake Total 1420 240 360 Output Total 1200 750 Balance 220 240 -390 Weight 105.1 kg Intake: Oral 1420 240 360 Output: Urine 1200 750 Other: Voiding Method Toilet Toilet # Bowel Movements 1 - Labs CBC & Chem 7: 11/26/24 04:59 11/27/24 04:14 Labs: Abnormal Lab Results - Last 24 Hours (Table) 11/26/24 11/26/24 11/26/24 Range/Units 04:59 04:59 12:05 RBC 2.98 L (4.10-5.20) X 10*6/uL Hgb 8.2 L (12.0-15.0) g/dL Hct 25.7 L (37.2-46.3) % MCHC 31.9 L (32.0-37.0) g/dL RDW 19.9 H (11.5-14.5) % MPV 9.2 L (9.5-12.2) FL Lymphocytes # 0.63 L (0.90-5.00) X 10*3/uL Sodium 134 L (135-145) mmol/L Chloride 95 L (96-109) mmol/L Anion Gap 13.30 H (4.00-12.00) mmol/L BUN 35.3 H (9.0-27.0) mg/dL Creatinine 1.7 H (0.6-1.5) mg/dL Est GFR (CKD-EPI) 33 L (>=60) BUN/Creatinine Ratio 20.76 H (12.00-20.00) Ratio Glucose 243 H (70-110) mg/dL POC Glucose (mg/dL) 238 H (70-110) mg/dL 11/26/24 11/26/24 11/27/24 Range/Units 16:54 20:40 04:14 RBC (4.10-5.20) X 10*6/uL Hgb (12.0-15.0) g/dL Hct (37.2-46.3) % MCHC (32.0-37.0) g/dL RDW (11.5-14.5) % MPV (9.5-12.2) FL Lymphocytes # (0.90-5.00) X 10*3/uL Sodium 133 L (135-145) mmol/L Chloride 93 L (96-109) mmol/L Anion Gap 12.80 H (4.00-12.00) mmol/L BUN 37.6 H (9.0-27.0) mg/dL Creatinine 1.8 H (0.6-1.5) mg/dL Est GFR (CKD-EPI) 31 L (>=60) BUN/Creatinine Ratio 20.89 H (12.00-20.00) Ratio Glucose 218 H (70-110) mg/dL POC Glucose (mg/dL) 290 H 218 H (70-110) mg/dL 11/27/24 Range/Units 07:07 RBC (4.10-5.20) X 10*6/uL Hgb (12.0-15.0) g/dL Hct (37.2-46.3) % MCHC (32.0-37.0) g/dL RDW (11.5-14.5) % MPV (9.5-12.2) FL Lymphocytes # (0.90-5.00) X 10*3/uL Sodium (135-145) mmol/L Chloride (96-109) mmol/L Anion Gap (4.00-12.00) mmol/L BUN (9.0-27.0) mg/dL Creatinine (0.6-1.5) mg/dL Est GFR (CKD-EPI) (>=60) BUN/Creatinine Ratio (12.00-20.00) Ratio Glucose (70-110) mg/dL POC Glucose (mg/dL) 212 H (70-110) mg/dL Assessment and Plan Plan: Assessment: 1. Acute kidney injury secondary to ATN secondary to cardiorenal syndrome. Creatinine peaked at 1.9 this admission and stable at 1.8. No hydronephrosis noted on imaging. UA fairly benign. 2. Chronic kidney disease stage IIIb with baseline creatinine 1.3-1.6. 3. Volume overload. Improving with diuresis. 4. Acute on chronic diastolic CHF with moderate mitral stenosis and severe pulmonary hypertension. 5. Hypervolemic hyponatremia. 6. Anemia of chronic kidney disease. Status post IV iron. On Aranesp. 7. Hypertension with chronic kidney disease. Plan: Maintain IV Bumex. Transition to oral upon discharge. Maintain SGLT2 inhibitor. Maintain Zaroxolyn for now. Maintain low-salt diet and fluid restriction. Continue to monitor renal function and urine output. Avoid nephrotoxins. Advised patient to monitor her weight closely at home and to notify physician if develops edema or gains more than 3 pounds in 1 week duration. Follow-up outpatient 1 week postdischarge.
[2024-11-27 12:13] LABS: Glucose,Whole Blood 256 mg/dL (70-110)
[2024-11-27 17:13] LABS: Glucose,Whole Blood 252 mg/dL (70-110)
--- NOTE | 2024-11-27 19:16 | P.PN ---
Subjective Progress Note Date: 11/27/24 Hospital course: Patient is a 64-year-old female with a history of left breast cancer status post lumpectomy, chemotherapy and radiation in 2015, TAVR, CHF, type 2 diabetes, CKD, chronic anemia, hyperlipidemia, hypertension is a transfer from a [facility]. Patient was recently hospitalized for generalized weakness and fatigue and had a transfusion of blood. Since her discharge, she has ongoing shortness of breath with exertion, generalized malaise for which she saw her PCP and had a blood work done which showed that her hemoglobin was low. Therefore, her PCP advised her to go to [facility] for further evaluation and later she was transferred to [facility] for further care. Patient did receive a unit of blood while in transit to [facility]. Additionally, she has also been endorsing swelling in her legs which has been getting progressively worse. Lab work in the ER shows hemoglobin of 8.7, MCV 84.3, platelet count 257, PT 11.0, INR 1.0, APTT 21.5, sodium 128, potassium 4.3, chloride 94, bicarb 21, BUN 36, creatinine 1.95, glucose 166, EGFR 26, Chest x-ray shows stable mild cardiomegaly with no overt CHF or pneumonia. 11/19/2024 Patient is sitting in the recliner. Awake alert and oriented x 3. Still having bilateral lower extremity swelling and is being continued on IV Lasix 40 mg twice daily. Denied any complaints of chest pain or shortness of breath. No nausea or vomiting. Patient has been afebrile. Tolerating oral diet. Laboratory data showed sodium 130 potassium 4.1 chloride 96 bicarb is 24 BUN 36 and creatinine 1.82 and blood sugar 164. Hemoglobin 8.3 11/20/2024 Patient seen and examined at the bedside. Patient sitting in the recliner. No acute events overnight. Patient denies any shortness of breath, chest pain, abdominal pain, nausea, vomiting, fever, chills. She is on a fluid restricted diet. Urine output is good. She is tolerating her oral diet well. 11/21/2024 Patient seen and examined at the bedside. Patient sitting in the recliner. No acute events overnight. Patient continues to have swelling in her legs. Urine output is good. She continues to be on salt and fluid restriction diet. 11/22/2024 Patient was seen and examined at the bedside. No acute events overnight. Patient has lost about 2.5 kg since yesterday after switching her diuretics to IV Bumex. Urine output is good. She continues to be on salt and fluid restricted diet. Patient denies any blood in the stool. 11/23/2024 Patient was seen and examined at the bedside. No acute events overnight. Her weight today is 108 kg which has increased from yesterday. Urine output is decreased. Patient continues to be on salt and fluid restricted diet. Will be adding metolazone in addition to IV Bumex. 11/24/2024 Patient was seen and examined at the bedside. No acute events overnight. Her weight today is 107.5 kg which has decreased from yesterday. Urine output is good. Patient continues to be on salt and fluid restricted diet. Will be c/w metolazone in addition to IV Bumex. 11/25/2024 Patient was seen and examined at the bedside. No acute events overnight. Her weight today is 106.9 kg which has decreased from yesterday. Urine output is good. Patient continues to be on salt and fluid restricted diet. She will continue to be on IV Bumex and metolazone for diuresis. 11/26. Patient seen and examined. States breathing is improved. Still has swelling of lower extremities 11/27/2024 Patient seen and examined at bedside. Patient's breathing is improved. She continues to have swelling of bilateral lower extremities, however seemingly improving. Weight now 105.1 kg. Today's labs sodium 133, chloride 93, anion gap 12.8, BUN 37.6, creatinine 1.8, glucose ranging 212-256. Physical examination: Vital signs reviewed General: non toxic, no distress, appears at stated age, morbidly obese Eyes: EOMI, no lid lag, anicteric sclera, pupils equal round reactive to light ENT: Nose and ears atraumatic Neck: No cervical lymphadenopathy, trachea midline, supple Mouth: no lip lesion, mucus membranes moist Cardiovascular: S1S2 reg, no murmur, 3+ bilateral pitting edema Lungs: CTA bilateral, no rhonchi, no rales, no accessory muscle use Abdominal: soft, nontender to palpation, no guarding Ext: muscle strength 5 out of 5 in all 4 extremities grossly, no gross muscle atrophy, no contractures, both extremities are wrapped with Jay wrap Neuro: CN II-XI grossly intact, no gross focal neuro deficits Psych: Alert, oriented, appropriate affect Assessment/Plan: This is a Patient is a 64-year-old female with a history of left breast cancer status post lumpectomy, chemotherapy and radiation in 2014, TAVR, CHF, type 2 diabetes, CKD, chronic anemia, hyperlipidemia, hypertension is a transfer from a [facility] for generalized weakness and anemia. Case was discussed with the Emergency Room provider and decision was made to admit the patient for chronic anemia. Active: #Generalized weakness and malaise #Normocytic anemia requiring blood transfusion. #Iron deficiency anemia #Nonoliguric ALBIN on CKD #Acute on chronic HFpEF #Hypervolemic hyponatremia, improving #History of breast cancer status post lumpectomy and chemotherapy and radiation Daily I's and O's Daily weights Lipid panel: Iron 77, TIBC 389, transferrin 278, ferritin 25 Vitamin B12 512, folate 34, TSH 2.84 Fluid restrictions c/w IV Bumex 1 mg every 12 hours and metolazone 2.5 mg once daily Farxiga 5 mg p.o. has been added Aranesp 40 mcg subcu q. 7 days has been added Avoid nephrotoxic drugs Echocardiogram on 10/26/2024 shows LVEF 55 to 60% Renal and bladder ultrasound no obstruction or hydronephrosis. Continue to monitor renal function. Patient is being followed by cardiology, oncology and nephrology #Hyperglycemia Accu-Cheks and sliding scale insulin Begin Lantus 10 units subcu nightly HbA1c 5.9 Chronic: Hypertension, hyperlipidemia, anxiety, depression, GERD Resume home medications DVT prophylaxis: SCDs GI prophylaxis: Protonix 40 mg daily F: None E: Replete as needed N: Heart healthy diet A: Ambulatory at baseline Objective - Vital Signs Vital signs: Vital Signs Temp 97.9 F 11/27/24 12:35 Pulse 68 11/27/24 12:35 Resp 18 11/27/24 12:35 BP 137/58 11/27/24 12:35 Pulse Ox 97 11/27/24 12:35 FiO2 Intake & Output 11/26/24 11/27/24 11/27/24 18:59 06:59 18:59 Intake Total 1420 240 900 Output Total 1200 1100 Balance 220 240 -200 Weight 105.1 kg Intake: Oral 1420 240 900 Output: Urine 1200 1100 Other: Voiding Method Toilet Toilet Toilet # Bowel Movements 1 - Labs CBC & Chem 7: 11/26/24 04:59 11/27/24 04:14 Labs: Abnormal Lab Results - Last 24 Hours (Table) 11/26/24 11/27/24 11/27/24 Range/Units 20:40 04:14 07:07 Sodium 133 L (135-145) mmol/L Chloride 93 L (96-109) mmol/L Anion Gap 12.80 H (4.00-12.00) mmol/L BUN 37.6 H (9.0-27.0) mg/dL Creatinine 1.8 H (0.6-1.5) mg/dL Est GFR (CKD-EPI) 31 L (>=60) BUN/Creatinine Ratio 20.89 H (12.00-20.00) Ratio Glucose 218 H (70-110) mg/dL POC Glucose (mg/dL) 218 H 212 H (70-110) mg/dL 11/27/24 11/27/24 Range/Units 12:11 17:05 Sodium (135-145) mmol/L Chloride (96-109) mmol/L Anion Gap (4.00-12.00) mmol/L BUN (9.0-27.0) mg/dL Creatinine (0.6-1.5) mg/dL Est GFR (CKD-EPI) (>=60) BUN/Creatinine Ratio (12.00-20.00) Ratio Glucose (70-110) mg/dL POC Glucose (mg/dL) 256 H 252 H (70-110) mg/dL
[2024-11-27 20:06] LABS: Glucose,Whole Blood 279 mg/dL (70-110)
[2024-11-27] MEDS: MAGNESIUM OXIDE 400 MG TAB PO SCH (20:57)
[2024-11-27] MEDS: INSULIN GLARGINE (LANTUS) 100 UNIT/ML SYR SQ SCH (20:58)
[2024-11-28 07:12] LABS: Glucose,Whole Blood 186 mg/dL (70-110)
[2024-11-28 08:43] LABS: BUN/Creat Ratio 21.42 Ratio (12.00-20.00); Blood Urea Nitrogen 40.7 mg/dL (9.0-27.0); Calcium 9.2 mg/dL (8.7-10.3); Carbon Dioxide 26.5 mmol/L (21.6-31.8); Chloride 91 mmol/L (96-109); Glucose 183 mg/dL (70-110); Potassium 3.6 mmol/L (3.5-5.5); Sodium 131 mmol/L (135-145)
--- NOTE | 2024-11-28 10:44 | P.PN ---
Subjective Patient is seen in follow-up for acute kidney injury on chronic kidney disease. Renal function stable. Edema improving. Admits to good urine output. Vital signs are stable. General: No acute distress. HEENT: Head exam is unremarkable. On room air. LUNGS: No audible rhonchi or wheezes. HEART: Rate and Rhythm are regular. ABDOMEN: Nontender. EXTREMITITES: 1+ edema. Objective - Vital Signs Vital signs: Vital Signs Temp 98 F 11/28/24 07:14 Pulse 72 11/28/24 07:14 Resp 18 11/28/24 07:14 BP 156/69 11/28/24 07:14 Pulse Ox 93 L 11/28/24 07:14 FiO2 Intake & Output 11/27/24 11/28/24 11/28/24 18:59 06:59 18:59 Intake Total 900 590 462 Output Total 1100 1550 Balance -200 -960 462 Weight 103.9 kg Intake: Oral 900 590 462 Output: Urine 1100 1550 Other: Voiding Method Toilet Toilet Toilet - Labs CBC & Chem 7: 11/26/24 04:59 11/28/24 04:48 Labs: Abnormal Lab Results - Last 24 Hours (Table) 11/27/24 11/27/24 11/27/24 Range/Units 12:11 17:05 20:05 Sodium (135-145) mmol/L Chloride (96-109) mmol/L Anion Gap (4.00-12.00) mmol/L BUN (9.0-27.0) mg/dL Creatinine (0.6-1.5) mg/dL Est GFR (CKD-EPI) (>=60) BUN/Creatinine Ratio (12.00-20.00) Ratio Glucose (70-110) mg/dL POC Glucose (mg/dL) 256 H 252 H 279 H (70-110) mg/dL 11/28/24 11/28/24 Range/Units 04:48 07:09 Sodium 131 L (135-145) mmol/L Chloride 91 L (96-109) mmol/L Anion Gap 13.50 H (4.00-12.00) mmol/L BUN 40.7 H (9.0-27.0) mg/dL Creatinine 1.9 H (0.6-1.5) mg/dL Est GFR (CKD-EPI) 29 L (>=60) BUN/Creatinine Ratio 21.42 H (12.00-20.00) Ratio Glucose 183 H (70-110) mg/dL POC Glucose (mg/dL) 186 H (70-110) mg/dL Assessment and Plan Plan: Assessment: 1. Acute kidney injury secondary to ATN secondary to cardiorenal syndrome. Creatinine peaked at 1.9 this admission and stable at 1.9. No hydronephrosis noted on imaging. UA fairly benign. 2. Chronic kidney disease stage IIIb with baseline creatinine 1.3-1.6. 3. Volume overload. Improving with diuresis. 4. Acute on chronic diastolic CHF with moderate mitral stenosis and severe pulmonary hypertension. 5. Hypervolemic hyponatremia. 6. Anemia of chronic kidney disease. Status post IV iron. On Aranesp. 7. Hypertension with chronic kidney disease. Plan: Transition to oral diuretics. Increased dose of SGLT2 inhibitor. Stop metolazone. Maintain low-salt diet and fluid restriction. Continue to monitor renal function and urine output. Avoid nephrotoxins. Repeat BMP and magnesium level 2 to 3 days postdischarge. Advised patient to monitor her weight closely at home and to notify physician if develops edema or gains more than 3 pounds in 1 week duration. Follow-up outpatient 1 week postdischarge.
[2024-11-28] MEDS: POTASSIUM CHLORIDE ER 20 MEQ TAB.ER PO STA (11:59)
[2024-11-28 12:07] LABS: Glucose,Whole Blood 254 mg/dL (70-110)
--- NOTE | 2024-11-28 13:49 | P.DS ---
Providers Date of admission: 11/21/24 10:00 Expected date of discharge: 11/28/24 Attending physician: Darius Jacobs Consults: 11/18/24 01:08 Consult Physician Routine Consulting Provider: [facility] Consult Reason/Comments: history of chf Do you want consulting provider notified?: Yes Consult Physician Routine Consulting Provider: Valentina Chapa Consult Reason/Comments: ckd Do you want consulting provider notified?: Yes 11/18/24 01:16 Consult Physician Routine Consulting Provider: Landen Summers Consult Reason/Comments: chronic anemia Do you want consulting provider notified?: Yes Primary care physician: Jeniffer Figueroa [facility] Course: Discharge diagnoses; #Generalized weakness and malaise #Normocytic anemia requiring blood transfusion #Iron deficiency anemia #Nonoliguric ALBIN on CKD #Acute on chronic HFpEF #Hypervolemic hyponatremia, improving #History of breast cancer status post lumpectomy and chemotherapy and radiation #Hyperglycemia Chronic: Hypertension, hyperlipidemia, anxiety, depression, GERD Hospital course; Patient is a 64-year-old female with a history of left breast cancer status post lumpectomy, chemotherapy and radiation in 2015, TAVR, CHF, type 2 diabetes, CKD, chronic anemia, hyperlipidemia, hypertension is a transfer from a [facility]. Patient was recently hospitalized for generalized weakness and fatigue and had a transfusion of blood. Since her discharge, she has ongoing shortness of breath with exertion, generalized malaise for which she saw her PCP and had a blood work done which showed that her hemoglobin was low. Therefore, her PCP advised her to go to [facility] for further evaluation and later she was transferred to [facility] for further care. Patient did receive a unit of blood while in transit to [facility]. Additionally, she has also been endorsing swelling in her legs which has been getting progressively worse. Lab work in the ER shows hemoglobin of 8.7, MCV 84.3, platelet count 257, PT 11.0, INR 1.0, APTT 21.5, sodium 128, potassium 4.3, chloride 94, bicarb 21, BUN 36, creatinine 1.95, glucose 166, EGFR 26, Chest x-ray shows stable mild cardiomegaly with no overt CHF or pneumonia. During stay patient's weight decreased from 112.2 kg to 103.9 kg while increasing Bumex. She was seen by nephrology for hypervolemic hyponatremia, CKD stage IIIb, fluid overload. She improved with diuresis. Patient discharged in stable condition. Patient beginning Farxiga 10 mg daily, Bumex 1 mg twice daily and discontinue losartan. Patient to follow-up with PCP and nephrology. Follow-up BMP, magnesium, CBC outpatient. Physical examination: Vital signs reviewed General: non toxic, no distress, appears at stated age, morbidly obese Eyes: EOMI, no lid lag, anicteric sclera, pupils equal round reactive to light ENT: Nose and ears atraumatic Neck: No cervical lymphadenopathy, trachea midline, supple Mouth: no lip lesion, mucus membranes moist Cardiovascular: S1S2 reg, no murmur, 2+ bilateral pitting edema Lungs: CTA bilateral, no rhonchi, no rales, no accessory muscle use Abdominal: soft, nontender to palpation, no guarding Ext: muscle strength 5 out of 5 in all 4 extremities grossly, no gross muscle atrophy, no contractures, both extremities are wrapped with Jay wrap Neuro: CN II-XI grossly intact, no gross focal neuro deficits Psych: Alert, oriented, appropriate affect Dictation was produced using [employer] dictation software. please excuse any grammatical, word or spelling errors. Patient Condition at Discharge: Stable Plan - Discharge Summary New Discharge Prescriptions: New Dapagliflozin Propanediol [Farxiga] 10 mg PO DAILY #30 tab Continue Calcium Carb/Mag Ox/Zinc Sulf [Osc-Nzz-Klvi 334-134-5 mg Tab] 1 tab PO DAILY Aspirin 81 mg PO DAILY Atorvastatin [Lipitor] 40 mg PO HS #30 tab Mv-Mn/Om3/Dha/Epa/Fish/Lut/Jermaine [Ocuvite Adult 50 Plus Softgel] 1 cap PO DAILY Vitamin E (Dl,Tocopheryl Acet) [Vitamin E (100 Iu = 45MG)] 45 mg PO DAILY Potassium Chloride ER [K-Dur 20] 20 meq PO DAILY #30 tab carvediloL [Coreg] 25 mg PO BID-W/MEALS Iron Ps Cmplx/Vit B12/FA [Niferex-150 Forte] 1 cap PO DAILY Diphenoxylate HCl/Atropine [Lomotil 2.5-0.025 mg Tablet] 1 tab PO QID PRN PRN Reason: Diarrhea DULoxetine HCL [Cymbalta] 60 mg PO DAILY sitaGLIPtin [Januvia] 50 mg PO DAILY Vitamin B Complex 1 cap PO DAILY Pantoprazole Sodium [Protonix] 40 mg PO DAILY Semaglutide [Rybelsus] 3 mg PO DAILY Gabapentin [Neurontin] 100 mg PO Q8H PRN PRN Reason: Pain Cholecalciferol (Vitamin D3) [Vitamin D3 (125 MCG = 5,000 IU)] 125 mcg PO DAILY amLODIPine [Norvasc] 10 mg PO HS hydrALAZINE HCL [Apresoline] 50 mg PO TID #90 tab Isosorbide Mononitrate ER [Imdur] 30 mg PO DAILY #30 tab Magnesium Oxide [Mag-Ox] 400 mg PO DAILY #30 tab Nystatin 100,000 Unit/gm Powd [Mycostatin Powder] 1 applic TOPICAL BID #1 each Changed Bumetanide [BUMEX] 1 mg PO BID@0900,1600 #0 Discontinued Losartan [Cozaar] 50 mg PO HS #30 tab Discharge Medication List DULoxetine HCL [Cymbalta] 60 mg PO DAILY 05/09/22 [History] Diphenoxylate HCl/Atropine [Lomotil 2.5-0.025 mg Tablet] 1 tab PO QID PRN 05/09/22 [History] sitaGLIPtin [Januvia] 50 mg PO DAILY 05/09/22 [History] Calcium Carb/Mag Ox/Zinc Sulf [Kcu-Rgc-Buyv 334-134-5 mg Tab] 1 tab PO DAILY 05/19/23 [History] Vitamin B Complex 1 cap PO DAILY 05/19/23 [History] Aspirin 81 mg PO DAILY 05/08/24 [History] Gabapentin [Neurontin] 100 mg PO Q8H PRN 05/08/24 [History] Pantoprazole Sodium [Protonix] 40 mg PO DAILY 05/08/24 [History] Semaglutide [Rybelsus] 3 mg PO DAILY 05/08/24 [History] Atorvastatin [Lipitor] 40 mg PO HS #30 tab 05/12/24 [Rx] Cholecalciferol (Vitamin D3) [Vitamin D3 (125 MCG = 5,000 IU)] 125 mcg PO DAILY 10/26/24 [History] Mv-Mn/Om3/Dha/Epa/Fish/Lut/Jermaine [Ocuvite Adult 50 Plus Softgel] 1 cap PO DAILY 10/26/24 [History] Vitamin E (Dl,Tocopheryl Acet) [Vitamin E (100 Iu = 45MG)] 45 mg PO DAILY 10/26/24 [History] amLODIPine [Norvasc] 10 mg PO HS 10/26/24 [History] Isosorbide Mononitrate ER [Imdur] 30 mg PO DAILY #30 tab 11/01/24 [Rx] Magnesium Oxide [Mag-Ox] 400 mg PO DAILY #30 tab 11/01/24 [Rx] Nystatin 100,000 Unit/gm Powd [Mycostatin Powder] 1 applic TOPICAL BID #1 each 11/01/24 [Rx] Potassium Chloride ER [K-Dur 20] 20 meq PO DAILY #30 tab 11/01/24 [Rx] hydrALAZINE HCL [Apresoline] 50 mg PO TID #90 tab 11/01/24 [Rx] Iron Ps Cmplx/Vit B12/FA [Niferex-150 Forte] 1 cap PO DAILY 11/18/24 [History] carvediloL [Coreg] 25 mg PO BID-W/MEALS 11/18/24 [History] Bumetanide [BUMEX] 1 mg PO BID@0900,1600 #0 11/28/24 [Rx] Dapagliflozin Propanediol [Farxiga] 10 mg PO DAILY #30 tab 11/28/24 [Rx] Follow up Appointment(s)/Referral(s): Jeniffer Figueroa MD [Primary Care Provider] - 1-2 days [facility] [NON-STAFF] - 1-2 Days (will call, if you do not hear from them please call agency. ) Brendon Reich DO [STAFF PHYSICIAN] - 1 Week [facility], [NON-STAFF] - 1 Week Ambulatory/Diagnostic Orders: Basic Metabolic Panel [LAB.AMB] Location: None Selected Complete Blood Count w/diff [LAB.AMB] Location: None Selected Magnesium [LAB.AMB] Location: None Selected Patient Instructions/Handouts: Chronic Kidney Disease (DC), Iron Deficiency Anemia (GEN)
[2024-11-28 13:59] VITALS: BP 152/65; PULSE 68; RESP 19; TEMP 97.9
[2024-11-28] MEDS ORDERED: BUMETANIDE 1 MG TAB PO SCH (16:00)
[2024-11-29] MEDS ORDERED: DAPAGLIFLOZIN PROPANEDIOL 10 MG TABLET PO SCH (09:00)
== END 2024-11-28 15:10 | disposition home or self-care (01) | DRG 291 ==
LOC: EC 23:22 → 5NMEDONC 11-18 01:10 → OBSVTOIN 11-21 10:00
PROVIDERS: ADMIT Hospitalist; ATTEND Hospitalist
DX: I13.0 Hypertensive heart and chronic kidney disease with heart failure and stage 1 through stage 4 chronic kidney disease, or unspecified chronic kidney disease (principal); I50.33 Acute on chronic diastolic (congestive) heart failure; N17.0 Acute kidney failure with tubular necrosis; E87.1 Hypo-osmolality and hyponatremia; D63.1 Anemia in chronic kidney disease; I27.20 Pulmonary hypertension, unspecified; I05.0 Rheumatic mitral stenosis; Z95.2 Presence of prosthetic heart valve; E11.22 Type 2 diabetes mellitus with diabetic chronic kidney disease; N18.32 Chronic kidney disease, stage 3b; F32.A Depression, unspecified; E11.65 Type 2 diabetes mellitus with hyperglycemia; E11.311 Type 2 diabetes mellitus with unspecified diabetic retinopathy with macular edema; Z79.4 Long term (current) use of insulin; D50.9 Iron deficiency anemia, unspecified; E78.5 Hyperlipidemia, unspecified; F41.9 Anxiety disorder, unspecified; H54.7 Unspecified visual loss; K21.9 Gastro-esophageal reflux disease without esophagitis; Z79.82 Long term (current) use of aspirin; Z79.84 Long term (current) use of oral hypoglycemic drugs; Z79.899 Other long term (current) drug therapy; Z85.3 Personal history of malignant neoplasm of breast; Z86.73 Personal history of transient ischemic attack (TIA), and cerebral infarction without residual deficits; Z92.21 Personal history of antineoplastic chemotherapy; Z92.3 Personal history of irradiation; Z88.0 Allergy status to penicillin; Z91.048 Other nonmedicinal substance allergy status; Z88.6 Allergy status to analgesic agent; Z88.8 Allergy status to other drugs, medicaments and biological substances
CPT/HCPCS: 36415; 71046; 76770; 80048; 80053; 81001; 82272; 82607; 82728; 82746; 83036; 83540; 83550; 83735; 83880; 83921; 84443; 85025; 85610; 85730; 86850; 86900; 86901; 93005; 99285